=== PATIENT | male | born 1940 | race Caucasian/White ===

== ENCOUNTER 2016-05-27 11:12 | Emergency (ER) | payer OTHER ==
[~2016-05-27] VITALS: Ht 180.3 cm; Wt 109.6 kg
[~2016-05-27 11:12] MED LIST: CHLO0.12 MT; CILO50TA9 PO; CRS20 PO; GLC5 PO; LATA0.009 OPB; LSN/20125 PO; PRLSR20 PO; [UNRECOGNIZED DRUG - OTHER] TD
[2016-05-27 11:19] VITALS: TEMP 36.5; Ht 180.3 cm; Wt 109.6 kg
[2016-05-27] MEDS ORDERED: FLUT0.15 NAE (13:02)
[2016-05-27] MEDS ORDERED: AMLO-110 PO (13:03)
[2016-05-27] MEDS ORDERED: DOXY1TAB6 PO (13:06)
[2016-05-27] MEDS ORDERED: ATOR10TA82 PO (13:07)
[2016-05-27] MEDS ORDERED: [UNRECOGNIZED DRUG - CODE] TOP (13:09)
[2016-05-27] MEDS ORDERED: WARF5TAB7 PO (13:30)
[2016-05-27] MEDS ORDERED: WARF2.5T8 PO (13:30)
--- NOTE | 2016-05-27 13:30 | DIAGNOSTIC IMAGING REPORT ---
ULTRASOUND LEFT LOWER EXTREMITY VENOUS CLINICAL HISTORY: Left thigh cramping. COMPARISON STUDY: No priors. TECHNIQUE: Real-time, grayscale, and color Doppler sonography of the deep veins of the left lower extremity was performed from the inguinal crease to the calf. Compression and augmentation were utilized. FINDINGS: There is no sonographic evidence of deep venous thrombosis identified in the left lower extremity. The common femoral, superficial femoral, and popliteal veins are patent and normally compressible. The greater saphenous vein and the profunda femoris vein at the junction with the common femoral vein are clear. The visualized calf veins are patent. IMPRESSION: There is no sonographic evidence of deep venous thrombosis identified in the left lower extremity. Electronically signed by: Hugo Mtz M.D. 05/27/2016 1:28 PM
[2016-05-27] MEDS ORDERED: INSU1SOL SC (13:33)
--- NOTE | 2016-05-27 13:50 | EMERGENCY ROOM VISIT NOTE ---
ED Visit Note First contact with patient: 12:15 Staff note: I have reviewed the Patients chart and have discussed this case with my PA. I generally agree with the ED note and findings.
[2016-05-27 13:57] VITALS: BP 146/78; PULSE 100; O2SAT 97
--- NOTE | 2016-05-27 20:45 | EMERGENCY ROOM VISIT NOTE ---
History First contact with patient: 12:15 Chief Complaint: LEG PAIN,LEG INJURY Stated Complaint: POSSIBLE BLOOD CLOT L LEG History of Present Illness The patient is a 76 year old male who presents to the Emergency Room with complaints of left posterior thigh pain. The patient reports a prior history of bilateral lower extremity DVT, and is concerned that he has another clot. The patient reports that his last DVT was approximately 4 years ago. He has not had any repeat ultrasound studies since that time. He also reports a history of lower back pain and sciatica. Although he has had recent lower back pain, he does not think that his symptoms are related to sciatica. He denies any recent injury to his left lower extremity or back. He denies any left or extremity weakness, foot drop, saddle paresthesias or bladder/bowel difficulties /incontinence. The patient denies any recent left lower extremity infections. He rates his discomfort a 3 out of 10. The patient reports that he is on Coumadin, and INRs have always been therapeutic. 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 Surgical Problems: (1) History of cataract surgery (2) History of tonsillectomy and adenoidectomy (3) History of vein stripping Family History FH: cancer FH: heart disease FH: hypertension Social History Smoking Status: Never Smoker Alcohol Use: occasionally Drug Use: none Marital Status: Housing Status: lives alone Occupation Status: employed Current/Historical Medications Scheduled Amlodipine (Norvasc), Unknown Dose PO DAILY Atorvastatin (Lipitor), Unknown Dose PO HS Cilostazol (Pletal), 50 MG PO BID Doxycycline Hyclate (Doxycycline Hyclate), Unknown Dose PO HS Fluticasone Propionate (Nasal) (Flonase Allergy Relief), 1 SPRAY SAEID DAILY Hctz/Lisinopril (Zestoretic 20MG/12.5MG), 1 TAB PO DAILY Insulin Regular (Human) (Humulin R U-500 Kwikpen), 125 UNITS SC QAMQPM Latanoprost 0.005% Oph (Xalatan 0.005% Oph), 1 DROP OPB HS Omeprazole (Prilosec), 20 MG PO DAILY Selenium Sulfide-Pyrithione Zi (Selenium Sulfide), 1 APPLN TOP QPM Warfarin Sod (Jantoven), 5 MG PO UD Warfarin Sod (Jantoven), 2.5 MG PO UD Allergies Coded Allergies: Gentamicin (Unverified Allergy, Unknown, ., 05/27/16) Niacin (Verified Allergy, Unknown, unknown, 05/27/16) Sertraline (Unverified Allergy, Unknown, ., 05/27/16) Metformin (Unverified Adverse Reaction, Unknown, ., 05/27/16) HE A VIOLENT REACTION BUT DOESN'T REMEMBER EXACTLY WHAT. THEY TOOK HIM OFF OF IT IMMEDIATELY Silver Sulfadiazine (Verified Adverse Reaction, Unknown, unknown, 05/27/16) Physical Exam Vital Signs Date Time Temp Pulse Resp B/P Pulse Ox O2 Delivery O2 Flow Rate FiO2 05/27/16 13:57 100 20 146/78 97 05/27/16 11:19 36.5 102 20 149/73 94 Room Air Physical Exam CONSTITUTIONAL: Healthy and well nourished. Alert and oriented X 3 with positive affect. Patient does not appear in any acute distress. HEENT: Normocephalic, atraumatic. Pupils equal, round and reactive. NECK: Full active range of motion without discomfort. MUSCULOSKELETAL: Examination of the left actually does not show any obvious soft tissue edema or ecchymosis. Negative logroll. Negative sitting straight leg raise. The patient has no focal tenderness to palpation through the posterior thigh, knee or gastrocnemius. Negative Homans sign. Pedal pulses are intact. No tenderness to palpation through the central lumbar spine or SI joints. INTEGUMENTARY: No rash or other significant dermatologic conditions noted. NEUROLOGIC: Cranial nerves II-XII grossly intact. Left lower extremity is sensory intact. Medical Decision & Procedures ER Provider Diagnostic Interpretation: Venous ultrasound of the left lower extremity does not show any evidence for deep vein thrombosis. Radiologist report is as follows: ULTRASOUND LEFT LOWER EXTREMITY VENOUS CLINICAL HISTORY: Left thigh cramping. COMPARISON STUDY: No priors. TECHNIQUE: Real-time, grayscale, and color Doppler sonography of the deep veins of the left lower extremity was performed from the inguinal crease to the calf. Compression and augmentation were utilized. FINDINGS: There is no sonographic evidence of deep venous thrombosis identified in the left lower extremity. The common femoral, superficial femoral, and popliteal veins are patent and normally compressible. The greater saphenous vein and the profunda femoris vein at the junction with the common femoral vein are clear. The visualized calf veins are patent. IMPRESSION: There is no sonographic evidence of deep venous thrombosis identified in the left lower extremity. ED Course Patient history and physical exam were performed. Nurse's notes were reviewed. The patient refused any analgesics. Venous ultrasound of the left lower extremity is normal. The patient was advised that his symptoms are likely secondary to musculoskeletal etiology, even possibility of left lumbar radiculitis. The patient was encouraged to limit activities over the next several days. He was also encouraged to avoid sitting for long periods of time. The patient usually uses a heating pad for his back. He was encouraged to follow-up with his PCP as needed for any persistent symptoms. The patient was happy with plan of care, voice understanding of all discharge instructions, refused any prescription analgesics, and rated his discomfort a 2 out of 10 at the time of discharge. The patient was also seen and examined by Dr. Guerrero, ED attending physician, who agrees with workup and plan of care. Medical Decision Impression Primary Impression: Left sided sciatica Departure Information Referrals Iris Montano M.D. (PCP) Patient Instructions A Signature Page, My [facility]
[2016-05-28] MEDS ORDERED: DOXYCYCLINE PO (16:23)
[2016-05-28] MEDS ORDERED: ATOR-22 PO (16:23)
[2016-05-28] MEDS ORDERED: LSN/2025 PO (16:23)
[2016-05-28] MEDS ORDERED: PLT100 PO (16:23)
[2016-05-28] MEDS ORDERED: AMLO2.5T PO (16:23)
[2016-05-28] MEDS ORDERED: OXYC1TAB3 PO (16:53)
[2016-05-28] MEDS ORDERED: PRED20TA PO (16:53)
[2016-11-18] MEDS ORDERED: DOXY20TA3 PO (14:38)
[2016-11-18] MEDS ORDERED: ARTIOIN OP (14:38)
[2016-11-18] MEDS ORDERED: VNTHFA/IN INH (14:41)
== END 2016-05-27 13:59 | disposition home or self-care (01) ==
LOC: C.EDB 11:13 → C.EDD 13:59
DX: M54.32 Sciatica, left side (principal); Z86.718 Personal history of other venous thrombosis and embolism; E11.9 Type 2 diabetes mellitus without complications; K21.9 Gastro-esophageal reflux disease without esophagitis; E78.5 Hyperlipidemia, unspecified; I10 Essential (primary) hypertension; Z79.01 Long term (current) use of anticoagulants; Z79.899 Other long term (current) drug therapy; Z79.4 Long term (current) use of insulin

== ENCOUNTER 2016-05-28 13:52 | Emergency (ER) | payer OTHER ==
[~2016-05-28] VITALS: Ht 182.9 cm; Wt 101.9 kg
[~2016-05-28 13:52] MED LIST changes: +AMLO-110 PO; +ATOR10TA82 PO; -CHLO0.12 MT; -CRS20 PO; +DOXY1TAB6 PO; +FLUT0.15 NAE; -GLC5 PO; +INSU1SOL SC; +WARF2.5T8 PO; +WARF5TAB7 PO; +[UNRECOGNIZED DRUG - CODE] TOP; -[UNRECOGNIZED DRUG - OTHER] TD
[2016-05-28 14:02] VITALS: TEMP 36.8; Ht 182.9 cm; Wt 101.9 kg
[2016-05-28] MEDS ORDERED: ONDANSETRON INJ 2 MG/ML 2 ML VIAL IV STA (14:12)
[2016-05-28] MEDS ORDERED: DEXAMETHASONE SOD INJ 10 MG/ML VIAL IV ONE (14:15)
--- NOTE | 2016-05-28 14:15 | EMERGENCY ROOM VISIT NOTE ---
History Report prepared by Wilmer: Terry Guajardo Under the Supervision of: Dr. Mitchell Porter D.O. First contact with patient: 13:53 Chief Complaint: LEG PAIN,LEG INJURY Stated Complaint: LEG PAIN History of Present Illness The patient is a 76 year old male who presents to the Emergency Room with complaints of worsening left leg pain that started prior to arrival this morning. He says the pain is in the back of his leg. The patient was here yesterday and thought he might have had a blood clot in his left leg. He was told it was sciatica. The patient was not in much discomfort yesterday, but today, the pain has worsened and it is now constant. Yesterday, the pain would go away after putting his feet up on a bed, but today, nothing is helping the pain. He associates the leg pain with lower back pain as well. He also has some chills but he is diabetic, and he did not eat much today. The patient denies any nausea, vomiting, abdominal pain, shortness of breath, chest pain, fevers, penis pain, or hematuria. The patient says this current pain feels like sciatica. His last MRI was 4 years ago. The patient has a history of a mini stroke, blood clots, and DVT in both legs. His sugars were 111 this morning. Source of History: patient Onset: Prior to arrival this morning Position: leg (left) Timing: worsening Associated Symptoms: + back pain, + chills, No SOB, No abdominal pain, No chest pain, No fevers, No nausea, No urinary symptoms, No vomiting Note: Associated symptoms: Denies pain in penis. Review of Systems See HPI for pertinent positives & negatives. A total of 10 systems reviewed and were otherwise negative. 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 Surgical Problems: (1) History of cataract surgery (2) History of tonsillectomy and adenoidectomy (3) History of vein stripping Family History FH: cancer FH: heart disease FH: hypertension Social History Smoking Status: Never Smoker Alcohol Use: occasionally Drug Use: none Marital Status: Housing Status: lives alone Occupation Status: employed Current/Historical Medications Scheduled Amlodipine (Norvasc), 2.5 MG PO QAM Atorvastatin (Lipitor), 40 MG PO HS Cilostazol (Cilostazol), 100 MG PO QAM Fluticasone Propionate (Nasal) (Flonase Allergy Relief), 1 SPRAY SAEID DAILY Hctz/Lisinopril (Lisinopril/Hctz 20/25 Mg), 1 TAB PO QAM Insulin Regular (Human) (Humulin R U-500 Kwikpen), 125 UNITS SC QAMQPM Latanoprost 0.005% Oph (Xalatan 0.005% Oph), 1 DROP OPB HS Omeprazole (Prilosec), 20 MG PO DAILY Prednisone (Prednisone), 40 MG PO DAILY Warfarin Sod (Jantoven), 5 MG PO UD Warfarin Sod (Jantoven), 2.5 MG PO UD [Doxycycline], 20 MG PO HS Scheduled PRN Oxycodone Immediate Rel Tab (Roxicodone Ir), 1-2 TAB PO Q4H PRN for Severe Pain Allergies Coded Allergies: Gentamicin (Unverified Allergy, Unknown, ., 05/28/16) Niacin (Verified Allergy, Unknown, unknown, 05/28/16) Sertraline (Unverified Allergy, Unknown, ., 05/28/16) Metformin (Unverified Adverse Reaction, Unknown, ., 05/28/16) HE A VIOLENT REACTION BUT DOESN'T REMEMBER EXACTLY WHAT. THEY TOOK HIM OFF OF IT IMMEDIATELY Silver Sulfadiazine (Verified Adverse Reaction, Unknown, unknown, 05/28/16) Physical Exam Vital Signs Date Time Temp Pulse Resp B/P Pulse Ox O2 Delivery O2 Flow Rate FiO2 05/28/16 17:49 111 20 135/83 94 05/28/16 15:51 97 18 123/70 97 Room Air 05/28/16 14:02 36.8 99 20 122/99 96 Room Air Physical Exam GENERAL: Patient is awake, alert, somewhat anxious and uncomfortable appearing. EYES: The conjunctivae are clear. The pupils are round and reactive. EARS, NOSE, MOUTH AND THROAT: The nose is without any evidence of any deformity. Mucous membranes are moist tongue is midline NECK: The neck is nontender and supple. RESPIRATORY: Normal respiratory effort is noted there is no evidence of wheezing rhonchi or rales CARDIOVASCULAR: Regular rate and rhythm noted there no murmurs rubs or gallops normal S1 normal S2 GASTROINTESTINAL: The abdomen is soft. Bowel sounds are present in all quadrants. Abdomen is nontender BACK: No midline tenderness to palpation. There was pain over left sciatic notch. MUSCULOSKELETAL/EXTREMITIES: There is no evidence of gross deformity full range of motion is noted in the hips and shoulders SKIN: Trace pedal edema bilaterally. NEUROLOGIC: Patient is awake alert and oriented x3 strength is symmetric patellar reflexes are 2+ bilaterally. Achilles tendon reflex was 2+ bilaterally. Great toe raise is symmetric. Gait was antalgic. Medical Decision & Procedures ER Provider Diagnostic Interpretation: X-ray results as stated below per interpretation by me and the radiologist. L-SPINE MIN 4 VIEWS ROUTINE CLINICAL HISTORY: Left sciatic pain. COMPARISON STUDY: No previous studies for comparison. FINDINGS: There are vascular calcifications present. There are no acute lumbar fractures. There are no subluxations. There are degenerative changes most pronounced the L5-S1 level. There are faint calcifications overlying each kidney. These could represent either calculi or vascular calcifications. There is a tubular axial calcification within the right upper quadrant. This possible this relates to the gallbladder. IMPRESSION: 1. No acute fractures or subluxations 2. Degenerative changes most pronounced the L5-S1 level 3. Nonspecific renal calcifications 4. Right upper quadrant eggshell calcification, possibly related to the gallbladder Electronically signed by: Greg Rangel M.D. 05/28/2016 3:21 PM Laboratory Results 05/28/16 14:30 Red Blood Count 4.88, Mean Corpuscular Volume 86.9, Mean Corpuscular Hemoglobin 30.5, Mean Corpuscular Hemoglobin Concent 35.1, Mean Platelet Volume 9.8, Neutrophils (%) (Auto) 72.6, Lymphocytes (%) (Auto) 16.0, Monocytes (%) (Auto) 9.5, Eosinophils (%) (Auto) 1.2, Basophils (%) (Auto) 0.2, Neutrophils # (Auto) 7.27, Lymphocytes # (Auto) 1.60, Monocytes # (Auto) 0.95, Eosinophils # (Auto) 0.12, Basophils # (Auto) 0.02 05/28/16 14:30 Test 1/3/17 14:17 05/28/16 14:30 Urine Color YELLOW Urine Appearance CLEAR (CLEAR) Urine pH 5.0 (4.5-7.5) Urine Specific [place] 1.012 (1.000-1.030) Urine Protein 1+ (NEG) Urine Glucose (UA) NEG (NEG) Urine Ketones NEG (NEG) Urine Occult Blood TRACE (NEG) Urine Nitrite NEG (NEG) Urine Bilirubin NEG (NEG) Urine Urobilinogen NEG (NEG) Urine Leukocyte Esterase NEG (NEG) Urine WBC (Auto) 1-5 /hpf (0-5) Urine RBC (Auto) 0-4 /hpf (0-4) Urine Hyaline Casts (Auto) 1-5 /lpf (0-5) Urine Epithelial Cells (Auto) 5-10 /lpf (0-5) Urine Bacteria (Auto) NEG (NEG) White Blood Count 10.01 K/uL (4.8-10.8) Red Blood Count 4.88 M/uL (4.7-6.1) Hemoglobin 14.9 g/dL (14.0-18.0) Hematocrit 42.4 % (42-52) Mean Corpuscular Volume 86.9 fL (80-100) Mean Corpuscular Hemoglobin 30.5 pg (25-34) Mean Corpuscular Hemoglobin Concent 35.1 g/dl (32-36) Platelet Count 302 K/uL (130-400) Mean Platelet Volume 9.8 fL (7.4-10.4) Neutrophils (%) (Auto) 72.6 % Lymphocytes (%) (Auto) 16.0 % Monocytes (%) (Auto) 9.5 % Eosinophils (%) (Auto) 1.2 % Basophils (%) (Auto) 0.2 % Neutrophils # (Auto) 7.27 K/uL (1.4-6.5) Lymphocytes # (Auto) 1.60 K/uL (1.2-3.4) Monocytes # (Auto) 0.95 K/uL (0.11-0.59) Eosinophils # (Auto) 0.12 K/uL (0-0.5) Basophils # (Auto) 0.02 K/uL (0-0.2) RDW Standard Deviation 44.7 fL (36.4-46.3) RDW Coefficient of Variation 14.1 % (11.5-14.5) Immature Granulocyte % (Auto) 0.5 % Immature Granulocyte # (Auto) 0.05 K/uL (0.00-0.02) Anion Gap 10.0 mmol/L (3-11) Est Creatinine Clear Calc Drug Dose 43.1 ml/min Estimated GFR () 41.4 Estimated GFR (Non- 35.8 BUN/Creatinine Ratio 23.7 (10-20) Calcium Level 9.8 mg/dl (8.5-10.1) Total Bilirubin 0.5 mg/dl (0.2-1) Direct Bilirubin 0.1 mg/dl (0-0.2) Aspartate Amino Transf (AST/SGOT) 19 U/L (15-37) Alanine Aminotransferase (ALT/SGPT) 35 U/L (12-78) Alkaline Phosphatase 76 U/L (45-117) Total Protein 7.8 gm/dl (6.4-8.2) Albumin 3.9 gm/dl (3.4-5.0) Lipase 315 U/L (73-393) Laboratory results per my review. Medications Administered Medications (Trade) Dose Ordered Sig/Austyn Route Start Time Stop Time Status Last Admin Dose Admin Morphine Sulfate (MoRPHine SULFATE INJ) 4 mg Q15M PRN IV 05/28/16 14:15 05/28/16 19:25 DC 05/28/16 16:50 4 MG Dexamethasone Sodium Phosphate 10 mg 10 mg NOW ONCE IV 05/28/16 14:15 05/28/16 14:16 DC 05/28/16 14:51 10 MG Sodium Chloride (Nss 1000ml) 1,000 ml @ 999 mls/hr Q1H1M STAT IV 05/28/16 15:31 05/28/16 16:31 DC 05/28/16 15:49 999 MLS/HR ED Course 1404: The patient was evaluated in room A9B. A complete history and physical examination were performed. 1412: Ordered Zofran Inj 4 mg IV. 1415: Ordered Decadron Inj 10 mg IV, Morphine Sulfate 4 mg IV PRN. 1531: Ordered NSS 1000 ml @ 999 mls/hr IV. 1637: I reevaluated the patient and he is going to get another shot. The patient verbally expressed agreement and understanding of the treatment plan. The patient will be discharged. Medical Decision Differential diagnosis: Etiologies such as musculoskeletal, disc herniation, fracture, aortic disease, metastatic disease, cord compression, discitis, infection, renal colic, gastrointestinal, acute exacerbation of chronic back pain, sciatica, cauda equina, as well as others were entertained. Nursing notes reviewed. The patient is a 76-year-old male who presented to the emergency department for evaluation of low back pain which radiates to his left leg. The patient has complaints of sciatica and has had similar symptoms in the past. I discussed the patient's laboratory and radiographic studies with him. The patient's physical exam did not reveal asymmetry of the reflexes in the lower extremities and his gait was steady. I do not feel that he requires an MRI at this time but he may require an MRI the near future. He was treated with IV pain medicine and IV steroids in the emergency department. On subsequent reevaluation he was feeling much better. He was encouraged to rest and avoid any strenuous activity. He was also encouraged to follow-up with his primary care physician as soon as possible for reevaluation and for possible MRI the back. He was also encouraged to return to the emergency Department immediately if symptoms change worsen or if the need arises. Impression Primary Impression: Left sided sciatica Additional Impression: Low back pain Scribe Attestation The scribe's documentation has been prepared under my direction and personally reviewed by me in its entirety. I confirm that the note above accurately reflects all work, treatment, procedures, and medical decision making performed by me. Departure Information Dispostion Home / Self-Care Prescriptions Oxycodone Immediate Rel Tab (ROXICODONE IR) 5 Mg Tab 1-2 TAB PO Q4H Y for Severe Pain, #24 TAB Prov: Mitchell Porter, DO 05/28/16 Prednisone (Prednisone) 20 Mg Tab 40 MG PO DAILY, #10 TAB Prov: Mitchell Porter, DO 05/28/16 Referrals Iris Montano M.D. (PCP) Forms HOME CARE DOCUMENTATION FORM, IMPORTANT VISIT INFORMATION Patient Instructions A Signature Page, My [facility], Sciatica Additional Instructions Call your family to schedule a follow-up appointment. Rest and avoid any strenuous activity. Continue all medications as prescribed. Discuss the possibility with your family doctor that you may require further studies such as an MRI the back possibly physical therapy if symptoms do not improve. Continue taking Tylenol as directed for mild pain. Consider starting a stomach medication such as Zantac or Prilosec [id number] while your taking the steroids.
[2016-05-28] MEDS: MoRPHine SULFATE 4 MG/ML 1 ML CARP\\VIAL IV PRN ×3 (14:51→16:50)
[2016-05-28 14:53] LABS: BASO % 0.2 %; BASO ABS # 0.02 K/uL (0-0.2); COMPLETE YES; EOS % 1.2 %; HEMATOCRIT 42.4 % (42-52); IG% 0.5 %; MEAN CELL VOLUME 86.9 fL (80-100); MEAN CORPUSCULAR HEMOGLOBIN 30.5 pg (25-34); MEAN CORPUSCULAR HGB CONC 35.1 g/dl (32-36); MEAN PLATELET VOLUME 9.8 fL (7.4-10.4); MONO % 9.5 %; NEUT % 72.6 %; PLATELET COUNT 302 K/uL (130-400); RED BLOOD COUNT 4.88 M/uL (4.7-6.1); WHITE BLOOD COUNT 10.01 K/uL (4.8-10.8)
[2016-05-28 14:57] LABS: URINE APPEARANCE CLEAR (CLEAR); URINE BILIRUBIN NEG (NEG); URINE COLOR YELLOW; URINE NITRITE NEG (NEG); URINE SPECIFIC GRAVITY 1.012 (1.000-1.030); UROBILINOGEN NEG (NEG)
[2016-05-28 15:01] LABS: MANUAL MICROSCOPIC REQUIRED? NO; REVIEW REQ? NO
[2016-05-28 15:18] LABS: BUN/CREATININE RATIO 23.7 (10-20); CALCIUM 9.8 mg/dl (8.5-10.1); CREATININE 1.8 mg/dl (0.60-1.40); POTASSIUM 3.9 mmol/L (3.5-5.1)
--- NOTE | 2016-05-28 15:23 | DIAGNOSTIC IMAGING REPORT ---
L-SPINE MIN 4 VIEWS ROUTINE CLINICAL HISTORY: Left sciatic pain. COMPARISON STUDY: No previous studies for comparison. FINDINGS: There are vascular calcifications present. There are no acute lumbar fractures. There are no subluxations. There are degenerative changes most pronounced the L5-S1 level. There are faint calcifications overlying each kidney. These could represent either calculi or vascular calcifications. There is a tubular axial calcification within the right upper quadrant. This possible this relates to the gallbladder. IMPRESSION: 1. No acute fractures or subluxations 2. Degenerative changes most pronounced the L5-S1 level 3. Nonspecific renal calcifications 4. Right upper quadrant eggshell calcification, possibly related to the gallbladder Electronically signed by: Greg Rangel M.D. 05/28/2016 3:21 PM
[2016-05-28] MEDS ORDERED: SODIUM CHLORIDE 0.9% 1000ML 1,000 ML IV STA (15:31)
[2016-05-28] MEDS ORDERED: ATOR-22 PO (16:23)
[2016-05-28] MEDS ORDERED: AMLO2.5T PO (16:23)
[2016-05-28] MEDS ORDERED: LSN/2025 PO (16:23)
[2016-05-28] MEDS ORDERED: PLT100 PO (16:23)
[2016-05-28] MEDS ORDERED: DOXYCYCLINE PO (16:23)
[2016-05-28] MEDS ORDERED: PRED20TA PO (16:53)
[2016-05-28] MEDS ORDERED: OXYC1TAB3 PO (16:53)
[2016-05-28 17:49] VITALS: BP 135/83; PULSE 111; O2SAT 94
[2016-11-18] MEDS ORDERED: ARTIOIN OP (14:38)
[2016-11-18] MEDS ORDERED: DOXY20TA3 PO (14:38)
[2016-11-18] MEDS ORDERED: VNTHFA/IN INH (14:41)
== END 2016-05-28 17:52 | disposition home or self-care (01) ==
LOC: EDBD 13:52 → C.EDA 13:53
DX: M54.42 Lumbago with sciatica, left side (principal); I10 Essential (primary) hypertension; E11.9 Type 2 diabetes mellitus without complications; E78.5 Hyperlipidemia, unspecified; I73.9 Peripheral vascular disease, unspecified; K21.9 Gastro-esophageal reflux disease without esophagitis; Z86.73 Personal history of transient ischemic attack (TIA), and cerebral infarction without residual deficits; Z86.711 Personal history of pulmonary embolism; Z86.718 Personal history of other venous thrombosis and embolism; Z79.01 Long term (current) use of anticoagulants; Z79.4 Long term (current) use of insulin; Z79.52 Long term (current) use of systemic steroids; Z79.899 Other long term (current) drug therapy

== ENCOUNTER → 2016-11-28 | Day surgery (SDC) | payer OTHER ==
[2016-11-18 14:39] VITALS: BMI 34.0
[~2016-11-28] VITALS: Ht 180.3 cm; Wt 109.1 kg
[~2016-11-28] MED LIST changes: -AMLO-110 PO; +AMLO2.5T PO; +ARTIOIN OP; +ATOR-22 PO; -ATOR10TA82 PO; -CILO50TA9 PO; -DOXY1TAB6 PO; +DOXY20TA3 PO; -LSN/20125 PO; +LSN/2025 PO; +PLT100 PO; +SODIUM CHLORIDE 0.9% 500ML 500 ML IV ONE; +VNTHFA/IN INH; -[UNRECOGNIZED DRUG - CODE] TOP
[2016-11-28 12:39] VITALS: Ht 180.3 cm; Wt 109.1 kg
--- NOTE | 2016-11-28 13:31 | Endo History and Physical ---
History & Physical Date of Service: Nov 28, 2016. Chief Complaint: BARRETTS ESOPHAGUS, HX POLYPS Referring Physician: DR KING KHAN History of Present Illness HX BE and polyps in colon; prior exams at [place] Past Surgical History Hx Cardiac Surgery: No Hx Internal Defibrillator: No Hx Pacemaker: No Hx Abdominal Surgery: No Hx of Implantable Prosthesis: No Hx Post-Op Nausea and Vomiting: No Hx Cancer Surgery: No Hx Thoracic Surgery: No Hx Orthopedic: No Hx Urinary Tract Surgery: No Family History None Social History Smoking Status: Never Smoker Hx Substance Use: No Hx Alcohol Use: Yes (RARE- 3 BEERS / YEAR) Allergies Coded Allergies: Gentamicin (Verified Allergy, Unknown, UNKNOWN, 11/28/16) Niacin (Verified Allergy, Unknown, unknown, 11/18/16) Sertraline (Verified Allergy, Unknown, JITTERRY, 11/28/16) Metformin (Verified Adverse Reaction, Unknown, ., 11/28/16) HE A VIOLENT REACTION BUT DOESN'T REMEMBER EXACTLY WHAT. THEY TOOK HIM OFF OF IT IMMEDIATELY Silver Sulfadiazine (Verified Adverse Reaction, Unknown, unknown, 11/18/16) Current Medications Reported Home Medications Medications Dose Route/Sig Max Daily Dose Days Date Category Dose Instructions Ventolin Hfa (Albuterol) 200 Puffs/18203 Mcg Aers 2-4 Puffs INH Q6H PRN 11/18/16 Reported Lacri-Lube Sop Oph Oint (Artificial Tears) Oint 0.25-0.5 Inch OP QID 11/18/16 Reported TO THE AFFECTED EYE UP TO QID PRN Doxycycline Hyclate 20 Mg Tab 20 Mg PO DINNER 11/18/16 Reported Lipitor (Atorvastatin Calcium) 20 Mg Tab 40 Mg PO HS 05/28/16 Reported Lisinopril/Hctz 20/25 Mg (HCTZ/Lisinopril) 1 Ea Tab 1 Tab PO QAM 05/28/16 Reported Norvasc (Amlodipine Besylate) 2.5 Mg Tab 2.5 Mg PO QAM 05/28/16 Reported Cilostazol 100 Mg Tab 100 Mg PO BID 05/28/16 Reported Humulin R U-500 Kwikpen (Insulin Regular (Human)) 500 Unit/Ml Jerri 125 Units SC QAMQPM 05/27/16 Reported Jantoven (Warfarin Sodium) 2.5 Mg Tab 2.5 Mg PO UD 05/27/16 Reported TAKE 2.5 MG ON MON, WED, FRI Jantoven (Warfarin Sodium) 5 Mg Tab 5 Mg PO UD 05/27/16 Reported TAKE 5 MG ON , , FRI , SUN Flonase Allergy Relief (Fluticasone Propionate (Nasal)) 50 Mcg/Act Spr 1 Beattie SAEID DAILY 05/27/16 Reported Xalatan 0.005% Oph (Latanoprost) Soln 1 Drop OPB HS 11/10/11 Reported BOTH EYES Prilosec (Omeprazole) 20 Mg Capcr 20 Mg PO QAM 11/10/11 Reported Vital Signs Weight (Kilograms): 109.09 Height (Feet): 5 Height (Inches): 11 Date Time Temp Pulse Resp B/P (MAP) Pulse Ox O2 Delivery O2 Flow Rate FiO2 11/28/16 12:38 36.6 107 20 175/78 (110) 97 Room Air Physical Exam AAOx3 Nls1s2 Lungs CTA Abd soft NT/ND + BS - CCE Plan: ) EGD /colon today On Coumadin for DVT Assessment and Plan EGD/colon todayt
--- NOTE | 2016-11-28 14:42 | Discharge Instructions ---
Endoscopy Patient Instructions Date / Procedure(s) Performed Nov 28, 2016. Colonoscopy, EGD Allergy Information Coded Allergies: Gentamicin (Verified Allergy, Unknown, UNKNOWN, 11/28/16) Niacin (Verified Allergy, Unknown, unknown, 11/18/16) Sertraline (Verified Allergy, Unknown, JITTERRY, 11/28/16) Metformin (Verified Adverse Reaction, Unknown, ., 11/28/16) HE A VIOLENT REACTION BUT DOESN'T REMEMBER EXACTLY WHAT. THEY TOOK HIM OFF OF IT IMMEDIATELY Silver Sulfadiazine (Verified Adverse Reaction, Unknown, unknown, 11/18/16) Discharge Date / Findings Nov 28, 2016. EGD with polyps reonved and Bx for BE 20 colon with polyps/clips Medication Instructions Stopped Medication(s): COUMADIN LAST DOSE 11/27/16 Restart Stopped Medication(s): Reported Home Medications Medications Dose Route/Sig Max Daily Dose Days Date Category Dose Instructions Ventolin Hfa (Albuterol) 200 Puffs/38461 Mcg Aers 2-4 Puffs INH Q6H PRN 11/18/16 Reported Lacri-Lube Sop Oph Oint (Artificial Tears) Oint 0.25-0.5 Inch OP QID 11/18/16 Reported TO THE AFFECTED EYE UP TO QID PRN Doxycycline Hyclate 20 Mg Tab 20 Mg PO DINNER 11/18/16 Reported Lipitor (Atorvastatin Calcium) 20 Mg Tab 40 Mg PO HS 05/28/16 Reported Lisinopril/Hctz 20/25 Mg (HCTZ/Lisinopril) 1 Ea Tab 1 Tab PO QAM 05/28/16 Reported Norvasc (Amlodipine Besylate) 2.5 Mg Tab 2.5 Mg PO QAM 05/28/16 Reported Cilostazol 100 Mg Tab 100 Mg PO BID 05/28/16 Reported Humulin R U-500 Kwikpen (Insulin Regular (Human)) 500 Unit/Ml Jerri 125 Units SC QAMQPM 05/27/16 Reported Jantoven (Warfarin Sodium) 2.5 Mg Tab 2.5 Mg PO UD 05/27/16 Reported TAKE 2.5 MG ON MON, WED, FRI Jantoven (Warfarin Sodium) 5 Mg Tab 5 Mg PO UD 05/27/16 Reported TAKE 5 MG ON TU, THURS, SAT , SUN Flonase Allergy Relief (Fluticasone Propionate (Nasal)) 50 Mcg/Act Spr 1 [place] SAEID DAILY 05/27/16 Reported Xalatan 0.005% Oph (Latanoprost) Soln 1 Drop OPB HS 11/10/11 Reported BOTH EYES Prilosec (Omeprazole) 20 Mg Capcr 20 Mg PO QAM 11/10/11 Reported 1- begin Coumadin tonight; restart Lovenox tomorrow evening Reported Home Medications Medications Dose Route/Sig Max Daily Dose Days Date Category Dose Instructions Ventolin Hfa (Albuterol) 200 Puffs/88414 Mcg Aers 2-4 Puffs INH Q6H PRN 11/18/16 Reported Lacri-Lube Sop Oph Oint (Artificial Tears) Oint 0.25-0.5 Inch OP QID 11/18/16 Reported TO THE AFFECTED EYE UP TO QID PRN Doxycycline Hyclate 20 Mg Tab 20 Mg PO DINNER 11/18/16 Reported Lipitor (Atorvastatin Calcium) 20 Mg Tab 40 Mg PO HS 05/28/16 Reported Lisinopril/Hctz 20/25 Mg (HCTZ/Lisinopril) 1 Ea Tab 1 Tab PO QAM 05/28/16 Reported Norvasc (Amlodipine Besylate) 2.5 Mg Tab 2.5 Mg PO QAM 05/28/16 Reported Cilostazol 100 Mg Tab 100 Mg PO BID 05/28/16 Reported Humulin R U-500 Kwikpen (Insulin Regular (Human)) 500 Unit/Ml Jerri 125 Units SC QAMQPM 05/27/16 Reported Jantoven (Warfarin Sodium) 2.5 Mg Tab 2.5 Mg PO UD 05/27/16 Reported TAKE 2.5 MG ON MON, WED, FRI Jantoven (Warfarin Sodium) 5 Mg Tab 5 Mg PO UD 05/27/16 Reported TAKE 5 MG ON , TH, SAT , SUN Flonase Allergy Relief (Fluticasone Propionate (Nasal)) 50 Mcg/Act Spr 1 [place] SAEID DAILY 05/27/16 Reported Xalatan 0.005% Oph (Latanoprost) Soln 1 Drop OPB HS 11/10/11 Reported BOTH EYES Prilosec (Omeprazole) 20 Mg Capcr 20 Mg PO QAM 11/10/11 Reported 1- begin Coumadin tonight; restart Lovenox tomorrow evening Provider Instructions Activity Restrictions - No exercising or heavy lifting for 24 hours. - Do not drink alcohol the day of the procedure. - Do not drive a car or operate machinery until the day after the procedure. - Do not make any important decisions or sign important papers in 24 hours after the procedure. Following Day: - Return to full activity which may include returning to work/school. Diet Start your diet with liquids and light foods (jello, soup, juice, toast). Then eat your usual diet if not nauseated. Treatment For Common After Affects For mild abdominal pain, bloating, or excessive gas: - Rest - Eat lightly - Lie on right side Follow-Up Information Follow-up with DR KING KHAN as scheduled Anesthesia Information What You Should Know You have had a procedure that required some medicine to reduce anxiety and discomfort. This treatment is called moderate sedation. After receiving the treatment, you may be sleepy, but you will be able to breathe on your own. The effects of the treatment may last for several hours. Follow these instructions along with Activity/Diet recommendations noted above: * Do NOT do anything where dizziness or clumsiness would be dangerous. * Rest quietly at home today, then you can be up and about tomorrow. * Have a responsible person stay with you the rest of today. * You may have had an I.V. today. If so, you may take the dressing off later today. Recommendations Call your doctor if: * Trouble breathing * Continuous vomiting for more than 24 hours * Temperature above 101 degrees * Severe abdominal pain or bloating * Pain not relieved by pain medicine ordered * There is increased drainage or redness from any incision * A large amount of rectal bleeding greater than 2-3 tablespoons. (If you had a polyp/s removed or have hemorrhoids, a small amount of blood - from the rectum is to be expected.) * You have any unanswered questions or concerns. IN THE EVENT OF A SERIOUS EMERGENCY, GO TO THE NEAREST EMERGENCY ROOM Your discharge instructions were prepared by provider Bryant Puentes. Patient Instructions Signature Page Edaur Boyer Patient (or Guardian) Signature/Date: I have read and understand the instructions given to me by my caregivers. Caregiver/RN/Doctor Signature/Date: The above-named patient and/or guardian has received patient instructions on this date. + Original Patient Signature Page (only) stays with chart. Please make copy for patient.
--- NOTE | 2016-11-28 15:06 | GI REPORT ---
Procedure Date: 11/28/2016 12:52 PM Procedure: Upper GI endoscopy Indications: Francois's esophagus Medicines: Propofol per Anesthesia Complications: No immediate complications. Estimated blood loss: None. Estimated Blood Loss: Estimated blood loss: none. Procedure: Pre-Anesthesia Assessment: - Prior to the procedure, a History and Physical was performed, and patient medications and allergies were reviewed. The patient's tolerance of previous anesthesia was also reviewed. The risks and benefits of the procedure and the sedation options and risks were discussed with the patient. All questions were answered, and informed consent was obtained. Prior Anticoagulants: The patient has taken no previous anticoagulant or antiplatelet agents. ASA Grade Assessment: III - A patient with severe systemic disease. After reviewing the risks and benefits, the patient was deemed in satisfactory condition to undergo the procedure. After obtaining informed consent, the endoscope was passed under direct vision. Throughout the procedure, the patient's blood pressure, pulse, and oxygen saturations were monitored continuously. The scope was introduced through the mouth, and advanced to the third part of duodenum. The upper GI endoscopy was accomplished without difficulty. The patient tolerated the procedure well. Findings: The upper third of the esophagus and middle third of the esophagus were normal. The esophagus and gastroesophageal junction were examined with white light. 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 These changes involved the mucosa at the upper extent of the gastric folds (44 cm from the incisors) extending to the Z-line (43 cm from the incisors). Hiatal narrowing was identified at 45 cm. The maximum longitudinal extent of these esophageal mucosal changes was 1 cm in length. Mucosa was biopsied with a cold forceps for histology. Estimated blood loss was minimal. Verification of patient identification for the specimen was done by the physician and zoning technician using the patient's name and medical record number. One 20 mm pedunculated polyp with no bleeding and no stigmata of recent bleeding was found on the greater curvature of the stomach. Area was successfully injected with 5 mL of a 1:20,000 solution of epinephrine for a lift polypectomy. The polyp was removed with a hot snare. Resection and retrieval were complete. To prevent bleeding after the polypectomy, two hemostatic clips were successfully placed (MR conditional). There was no bleeding during, and at the end, of the procedure. A single 15 mm pedunculated and sessile polyp with no bleeding and no stigmata of recent bleeding was found on the proximal greater curvature of the gastric body. Area was successfully injected with 2 mL of a 1:20,000 solution of epinephrine for a lift polypectomy. The polyp was removed with a hot snare. Resection and retrieval were complete. To prevent bleeding after the polypectomy, two hemostatic clips were successfully placed (MR conditional). There was no bleeding during, and at the end, of the procedure. The exam of the stomach was otherwise normal. The examined duodenum was normal. Retained gastric contents are not identified on this exam. Impression: - Normal upper third of esophagus and middle third of esophagus. 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 Biopsied. - One gastric polyp. Resected and retrieved. Injected. Clips (MR conditional) were placed. - A single gastric polyp. Resected and retrieved. Injected. Clips (MR conditional) were placed. - Normal examined duodenum. Recommendation: - Discharge patient to home (ambulatory). - Resume regular diet. MD Bryant Wren MD 11/28/2016 3:05:19 PM This report has been signed electronically. Note Initiated On: 11/28/2016 12:52 PM I attest to the content of the Intraoperative Record and orders documented therein, exceptions below
--- NOTE | 2016-11-28 15:14 | GI REPORT ---
Procedure Date: 11/28/2016 2:13 PM Procedure: Colonoscopy Indications: High risk colon cancer surveillance: Personal history of colonic polyps Medicines: Propofol per Anesthesia Complications: No immediate complications. Estimated blood loss: Minimal. Estimated Blood Loss: Estimated blood loss was minimal. Procedure: Pre-Anesthesia Assessment: - Prior to the procedure, a History and Physical was performed, and patient medications and allergies were reviewed. The patient's tolerance of previous anesthesia was also reviewed. The risks and benefits of the procedure and the sedation options and risks were discussed with the patient. All questions were answered, and informed consent was obtained. Prior Anticoagulants: The patient has taken no previous anticoagulant or antiplatelet agents. ASA Grade Assessment: III - A patient with severe systemic disease. After reviewing the risks and benefits, the patient was deemed in satisfactory condition to undergo the procedure. After I obtained informed consent, the scope was passed under direct vision. Throughout the procedure, the patient's blood pressure, pulse, and oxygen saturations were monitored continuously. The scope was introduced through the anus and advanced to the cecum, identified by appendiceal orifice and ileocecal valve. The colonoscopy was performed without difficulty. The patient tolerated the procedure well. The quality of the bowel preparation was good. Findings: The perianal and digital rectal examinations were normal. Pertinent negatives include normal sphincter tone, no palpable rectal lesions and no anal lesion or abnormality was detected. Many small-mouthed diverticula were found in the sigmoid colon. A 6 mm polyp was found in the transverse colon. The polyp was sessile. The polyp was removed with a hot snare. Resection and retrieval were complete. To prevent bleeding after the polypectomy, one hemostatic clip was successfully placed (MR conditional). There was no bleeding during, and at the end, of the procedure. A 5 mm polyp was found in the proximal transverse colon. The polyp was sessile. The polyp was removed with a hot snare. Resection and retrieval were complete. Estimated blood loss: none. Verification of patient identification for the specimen was done by the physician and global position system technician using the patient's name and medical record number. Three sessile polyps were found in the cecum. The polyps were 1 to 3 mm in size. These polyps were removed with a cold biopsy forceps. Resection and retrieval were complete. Estimated blood loss was minimal. Verification of patient identification for the specimen was done by the physician and global position system technician using the patient's name and medical record number. A 3 mm polyp was found in the cecum. The polyp was sessile. The polyp was removed with a cold biopsy forceps. Resection and retrieval were complete. Estimated blood loss was minimal. Verification of patient identification for the specimen was done by the physician and global position system technician using the patient's name and medical record number. The exam was otherwise without abnormality. Non-bleeding internal hemorrhoids were found during retroflexion. The hemorrhoids were moderate and medium-sized. Impression: - Diverticulosis in the sigmoid colon. - One 6 mm polyp in the transverse colon, removed with a hot snare. Resected and retrieved. Clip (MR conditional) was placed. - One 5 mm polyp in the proximal transverse colon, removed with a hot snare. Resected and retrieved. - Three 1 to 3 mm polyps in the cecum, removed with a cold biopsy forceps. Resected and retrieved. - One 3 mm polyp in the cecum, removed with a cold biopsy forceps. Resected and retrieved. - The examination was otherwise normal. - Non-bleeding internal hemorrhoids. Recommendation: - Discharge patient to home (ambulatory). - Patient has a contact number available for emergencies. The signs and symptoms of potential delayed complications were discussed with the patient. Return to normal activities tomorrow. Written discharge instructions were provided to the patient. - Resume regular diet. - Continue present medications. - Await pathology results. - Return to referring physician as previously scheduled. MD Bryant Wren MD 11/28/2016 3:14:17 PM This report has been signed electronically. Note Initiated On: 11/28/2016 2:13 PM I attest to the content of the Intraoperative Record and orders documented therein, exceptions below
[2016-11-28 15:18] VITALS: BP 134/78; PULSE 85; O2SAT 94
--- NOTE | 2016-11-28 15:33 | Anesthesiology Progress Note ---
Anesthesia Post Op Note Date & Time Nov 28, 2016 at 15:33 Vital Signs Pain Intensity: 0 Vital Signs Past 12 Hours Date Time Temp Pulse Resp B/P (MAP) Pulse Ox O2 Delivery O2 Flow Rate FiO2 11/28/16 15:18 85 20 134/78 (96) 94 Room Air 11/28/16 15:03 87 20 138/72 (94) 94 Room Air 11/28/16 14:48 89 20 143/67 (92) 94 Room Air 11/28/16 12:38 36.6 107 20 175/78 (110) 97 Room Air Notes Mental Status: alert / awake / arousable, participated in evaluation Pt Amnestic to Procedure: Yes Nausea / Vomiting: adequately controlled Pain: adequately controlled Airway Patency, RR, SpO2: stable & adequate BP & HR: stable & adequate Hydration State: stable & adequate Anesthetic Complications: no major complications apparent
--- NOTE | 2016-11-28 16:51 | Discharge Instructions ---
Endoscopy Patient Instructions Date / Procedure(s) Performed Nov 28, 2016. Colonoscopy, EGD Allergy Information Coded Allergies: Gentamicin (Verified Allergy, Unknown, UNKNOWN, 11/28/16) Niacin (Verified Allergy, Unknown, unknown, 11/18/16) Sertraline (Verified Allergy, Unknown, JITTERRY, 11/28/16) Metformin (Verified Adverse Reaction, Unknown, ., 11/28/16) HE A VIOLENT REACTION BUT DOESN'T REMEMBER EXACTLY WHAT. THEY TOOK HIM OFF OF IT IMMEDIATELY Silver Sulfadiazine (Verified Adverse Reaction, Unknown, unknown, 11/18/16) Discharge Date / Findings Nov 28, 2016. 1) mild portal hypertensive gastropathy 20 colonoscopy with hemorrhoids/diverticulosis Medication Instructions Stopped Medication(s): COUMADIN LAST DOSE 11/27/16 Restart Stopped Medication(s): Reported Home Medications Medications Dose Route/Sig Max Daily Dose Days Date Category Dose Instructions Ventolin Hfa (Albuterol) 200 Puffs/54920 Mcg Aers 2-4 Puffs INH Q6H PRN 11/18/16 Reported Lacri-Lube Sop Oph Oint (Artificial Tears) Oint 0.25-0.5 Inch OP QID 11/18/16 Reported TO THE AFFECTED EYE UP TO QID PRN Doxycycline Hyclate 20 Mg Tab 20 Mg PO DINNER 11/18/16 Reported Lipitor (Atorvastatin Calcium) 20 Mg Tab 40 Mg PO HS 05/28/16 Reported Lisinopril/Hctz 20/25 Mg (HCTZ/Lisinopril) 1 Ea Tab 1 Tab PO QAM 05/28/16 Reported Norvasc (Amlodipine Besylate) 2.5 Mg Tab 2.5 Mg PO QAM 05/28/16 Reported Cilostazol 100 Mg Tab 100 Mg PO BID 05/28/16 Reported Humulin R U-500 Kwikpen (Insulin Regular (Human)) 500 Unit/Ml Jerri 125 Units SC QAMQPM 05/27/16 Reported Jantoven (Warfarin Sodium) 2.5 Mg Tab 2.5 Mg PO UD 05/27/16 Reported TAKE 2.5 MG ON MON, WED, FRI Jantoven (Warfarin Sodium) 5 Mg Tab 5 Mg PO UD 05/27/16 Reported TAKE 5 MG ON TU, THURS, SAT , SUN Flonase Allergy Relief (Fluticasone Propionate (Nasal)) 50 Mcg/Act Spr 1 [place] SAEID DAILY 05/27/16 Reported Xalatan 0.005% Oph (Latanoprost) Soln 1 Drop OPB HS 11/10/11 Reported BOTH EYES Prilosec (Omeprazole) 20 Mg Capcr 20 Mg PO QAM 11/10/11 Reported restart Coumadin today and Lovenox tomorrow am Reported Home Medications Medications Dose Route/Sig Max Daily Dose Days Date Category Dose Instructions Ventolin Hfa (Albuterol) 200 Puffs/16634 Mcg Aers 2-4 Puffs INH Q6H PRN 11/18/16 Reported Lacri-Lube Sop Oph Oint (Artificial Tears) Oint 0.25-0.5 Inch OP QID 11/18/16 Reported TO THE AFFECTED EYE UP TO QID PRN Doxycycline Hyclate 20 Mg Tab 20 Mg PO DINNER 11/18/16 Reported Lipitor (Atorvastatin Calcium) 20 Mg Tab 40 Mg PO HS 05/28/16 Reported Lisinopril/Hctz 20/25 Mg (HCTZ/Lisinopril) 1 Ea Tab 1 Tab PO QAM 05/28/16 Reported Norvasc (Amlodipine Besylate) 2.5 Mg Tab 2.5 Mg PO QAM 05/28/16 Reported Cilostazol 100 Mg Tab 100 Mg PO BID 05/28/16 Reported Humulin R U-500 Kwikpen (Insulin Regular (Human)) 500 Unit/Ml Jerri 125 Units SC QAMQPM 05/27/16 Reported Jantoven (Warfarin Sodium) 2.5 Mg Tab 2.5 Mg PO UD 05/27/16 Reported TAKE 2.5 MG ON MON, WED, FRI Jantoven (Warfarin Sodium) 5 Mg Tab 5 Mg PO UD 05/27/16 Reported TAKE 5 MG ON , TH, SAT , SUN Flonase Allergy Relief (Fluticasone Propionate (Nasal)) 50 Mcg/Act Spr 1 [place] SAEID DAILY 05/27/16 Reported Xalatan 0.005% Oph (Latanoprost) Soln 1 Drop OPB HS 11/10/11 Reported BOTH EYES Prilosec (Omeprazole) 20 Mg Capcr 20 Mg PO QAM 11/10/11 Reported restart Coumadin tonight and Lovenox tomorrow am Provider Instructions Activity Restrictions - No exercising or heavy lifting for 24 hours. - Do not drink alcohol the day of the procedure. - Do not drive a car or operate machinery until the day after the procedure. - Do not make any important decisions or sign important papers in 24 hours after the procedure. Following Day: - Return to full activity which may include returning to work/school. Diet Start your diet with liquids and light foods (jello, soup, juice, toast). Then eat your usual diet if not nauseated. Treatment For Common After Affects For mild abdominal pain, bloating, or excessive gas: - Rest - Eat lightly - Lie on right side Follow-Up Information Follow-up with DR KING KHAN as scheduled Anesthesia Information What You Should Know You have had a procedure that required some medicine to reduce anxiety and discomfort. This treatment is called moderate sedation. After receiving the treatment, you may be sleepy, but you will be able to breathe on your own. The effects of the treatment may last for several hours. Follow these instructions along with Activity/Diet recommendations noted above: * Do NOT do anything where dizziness or clumsiness would be dangerous. * Rest quietly at home today, then you can be up and about tomorrow. * Have a responsible person stay with you the rest of today. * You may have had an I.V. today. If so, you may take the dressing off later today. Recommendations Call your doctor if: * Trouble breathing * Continuous vomiting for more than 24 hours * Temperature above 101 degrees * Severe abdominal pain or bloating * Pain not relieved by pain medicine ordered * There is increased drainage or redness from any incision * A large amount of rectal bleeding greater than 2-3 tablespoons. (If you had a polyp/s removed or have hemorrhoids, a small amount of blood - from the rectum is to be expected.) * You have any unanswered questions or concerns. IN THE EVENT OF A SERIOUS EMERGENCY, GO TO THE NEAREST EMERGENCY ROOM Your discharge instructions were prepared by provider Bryant Puentes. Patient Instructions Signature Page Eduar Boyer Patient (or Guardian) Signature/Date: I have read and understand the instructions given to me by my caregivers. Caregiver/RN/Doctor Signature/Date: The above-named patient and/or guardian has received patient instructions on this date. + Original Patient Signature Page (only) stays with chart. Please make copy for patient.
== END | disposition home or self-care (01) ==
LOC: C.GI 12:13
PROVIDERS: ATTEND Internal Medicine Gastroenterology
DX: Z12.11 Encounter for screening for malignant neoplasm of colon (principal); K22.70 Barrett's esophagus without dysplasia; K57.30 Diverticulosis of large intestine without perforation or abscess without bleeding; D12.3 Benign neoplasm of transverse colon; D12.0 Benign neoplasm of cecum; K64.8 Other hemorrhoids; K31.7 Polyp of stomach and duodenum; Z86.010 Personal history of colon polyps; J45.909 Unspecified asthma, uncomplicated; I10 Essential (primary) hypertension; Z86.718 Personal history of other venous thrombosis and embolism; Z86.73 Personal history of transient ischemic attack (TIA), and cerebral infarction without residual deficits; E11.9 Type 2 diabetes mellitus without complications

== ENCOUNTER 2019-12-10 04:14 | Inpatient (IN) ==
[2019-12-10] MEDS ORDERED: DEXTROSE 50% 50 ML SYRINGE IV ONE (04:27)
[2019-12-10] MEDS ORDERED: HYDROmorphone INJ 0.5 MG/0.5 ML SYR IV PRN (04:27)
[2019-12-10] MEDS ORDERED: ACETAMINOPHEN 1,000 MG/100 ML VIAL IV STA (04:27)
[2019-12-10] MEDS ORDERED: SODIUM CHLORIDE 0.9% 1000ML 500 ML IV ONE (04:28)
[2019-12-10] MEDS ORDERED: ONDANSETRON INJ 2 MG/ML 2 ML VIAL IV STA (04:28)
[2019-12-10 04:35] LABS: Basophils # (auto) 0.03 K/uL (0-0.2); Basophils % (auto) 0.2 %; Eosinophils # (auto) 0.04 K/uL (0-0.5); Eosinophils % (auto) 0.2 %; Hematocrit (blood only) 38.9 % (42-52); Immature Granulocytes # (auto) 0.08 K/uL (0.00-0.02); Immature Granulocytes % (auto) 0.4 %; Lymphocytes # (auto) 0.86 K/uL (1.2-3.4); Lymphocytes % (auto) 4.8 %; Mean Corpuscular Hemoglobin 28.8 pg (25-34); Mean Corpuscular Hgb Conc 33.4 g/dL (32-36); Mean Corpuscular Volume 86.3 fL (80-100); Mean Platelet Volume 8.9 fL (7.4-10.4); Monocytes # (auto) 1.99 K/uL (0.11-0.59); Monocytes % (auto) 11.1 %; Neutrophils # (auto) 14.88 K/uL (1.4-6.5); Neutrophils % (auto) 83.3 %; Platelet Count 387 K/uL (130-400); RDW Coefficient of Variation 14.3 % (11.5-14.5); RDW Standard Deviation 44.9 fL (36.4-46.3); Red Blood Count 4.51 M/uL (4.7-6.1); White Blood Count 17.88 K/uL (4.8-10.8)
[2019-12-10 05:08] LABS: Albumin Globulin Ratio 0.8 (0.9-2); Albumin Level 3.7 gm/dl (3.4-5.0); BUN Creatinine Ratio 17.7 (10-20); Bilirubin,Total 0.5 mg/dl (0.2-1); Calcium 9.5 mg/dl (8.5-10.1); Creatinine Clr Calc Pharmacy 35.8 ml/min; Est GFR (African American) 33.7; Est GFR (Non-African American) 29.1; Globulin 4.5 gm/dl (2.5-4.0); Potassium 3.4 mmol/L (3.5-5.1); Thyroid Stimulating Hormone 1.71 uIu/ml (0.300-4.500); Total Protein 8.2 gm/dl (6.4-8.2)
[2019-12-10] MEDS ORDERED: SODIUM CHLORIDE 0.9% 500 ML IV ONE (05:35)
[2019-12-10] MEDS ORDERED: POTASSIUM CHLORIDE 20 MEQ TABCR PO STA (05:35)
[2019-12-10] MEDS ORDERED: VANCOMYCIN CONSULT ACTIVE PRN (05:40)
[2019-12-10] MEDS ORDERED: VANCOMYCIN HCL 2,250 MG in SODIUM CHLORIDE 0.9% 500 ML IV ONE (05:40)
[2019-12-10] MEDS ORDERED: cefTRIAXone SODIUM 2,000 MG/70 ML BAG IV STA (05:40)
[2019-12-10] MEDS ORDERED: NYSTATIN POWDER 15GM BTL EXT STA (05:40)
--- NOTE | 2019-12-10 05:53 | Emergency Department Note ---
History of Present Illness General Chief complaint: Leg Injury/Pain Stated complaint: LEG PAIN/HYPOGLYCEMIA Time Seen by Provider: 12/10/19 04:16 Source: patient, EMS, RN notes reviewed and old records reviewed Mode of arrival: ambulatory History of Present Illness Provider complaint: leg pain, hypoglycemia Onset (ago): hour(s) 2 Location: pelvis Radiation: extremity Severity: moderate Pain Consistency: + colicky Maximum Pain Intensity: 2 Current Pain Intensity: 2 Quality: + aching Relieved By: + immobilization Exacerbated By: + movement Associated symptoms: + confusion, + diaphoresis and + nausea/vomiting Treatments prior to arrival: none This is a 79-year-old male who presents emergency department complaining of nausea as well as left leg pain. The patient reports he is having difficulty ambulating due to the left leg. He reports the leg feels weak due to pain. 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 He denies any lifting or injury to the leg. He reports immobilization makes the pain better however movement makes the pain worse. He has not taken anything for the pain prior to arrival. In addition to the pain the patient is also complaining of a rash to his groin area. In addition to this he is also complaining of weakness. His sugar upon arrival to the emergency department is in the 30s. He is been complaining of night sweats in addition to the rash. Home Medications Home Medications Medication Instructions Recorded Confirmed Type latanoprost [Xalatan] 1 drp OPB HS #0 11/10/11 12/10/19 History omeprazole magnesium [Prilosec OTC] 20 mg PO DAILY #0 11/10/11 12/10/19 History insulin regular hum U-500 conc 120 unit SUBCUT QAM #0 05/27/16 12/10/19 History [Humulin R U-500 (Conc) Kwikpen] warfarin [Jantoven] See Rx Instructions .ROUTE 05/27/16 12/10/19 History .COMPLEX #0 tab atorvastatin [Lipitor] 80 mg PO HS #0 tab 05/28/16 12/10/19 History cilostazol 100 mg PO BID #0 05/28/16 12/10/19 History lisinopril-hydrochlorothiazide 1 tab PO DAILY #0 tab 05/28/16 12/10/19 History doxycycline hyclate 20 mg PO HS #0 11/18/16 12/10/19 History amlodipine 10 mg PO DAILY 02/22/19 12/10/19 History budesonide-formoterol [Symbicort] 2 puff INHALATION DAILY 02/22/19 12/10/19 History insulin regular hum U-500 conc 100 unit SUBCUT QPM 02/22/19 12/10/19 History [Humulin R U-500 (Conc) Kwikpen] metoprolol tartrate 25 mg PO BID 02/22/19 12/10/19 History acetaminophen-codeine 1 tab PO DIRECTED PRN 12/10/19 12/10/19 History mupirocin 1 applic TOPICAL BID 12/10/19 12/10/19 History Allergies Allergy/AdvReac Type Severity Reaction Status Date / Time gentamicin Allergy Unknown UNKNOWN Verified 12/10/19 04:54 niacin Allergy Unknown unknown Verified 12/10/19 04:54 sertraline Allergy Unknown JITTERRY Verified 12/10/19 04:54 metformin AdvReac Unknown CAN'T Verified 12/10/19 04:54 REMEMBER silver sulfadiazine AdvReac Unknown unknown Verified 12/10/19 04:54 Past Med/Surg History Medical History DVT of lower extremity, bilateral Left sided sciatica (Acute) Surgical History History of cataract surgery History of tonsillectomy and adenoidectomy History of vein stripping Family History Other Family history non-contributory Social History Feels Safe at Home: Yes Smoking Status: Never smoker Review of Systems A total of 10 systems reviewed and were otherwise negative Physical Exam Vital Signs Vital Signs - 24 hr 12/10/19 04:29 12/10/19 04:37 12/10/19 05:17 Temperature 36.8 C Temperature Source Oral Pulse Rate 112 H Pulse Rate [Apical] 112 H Respiratory Rate 18 18 Blood Pressure 158/83 H Blood Pressure [Right Arm] 139/74 Blood Pressure Mean 108 Blood Pressure Mean [Right Arm] 95 Pulse Oximetry 98 97 95 Oxygen Delivery Method Room Air Room Air Room Air Sepsis Recent Fever Within 48 Hours No Sepsis New/Unexplained Change in Mental Status No Sepsis Action Taken by Nursing No Action Required 12/10/19 06:20 Temperature Temperature Source Pulse Rate Pulse Rate [Apical] 121 H Respiratory Rate 24 Blood Pressure Blood Pressure [Right Arm] 187/96 H Blood Pressure Mean Blood Pressure Mean [Right Arm] 126 Pulse Oximetry 97 Oxygen Delivery Method Room Air Sepsis Recent Fever Within 48 Hours Sepsis New/Unexplained Change in Mental Status Sepsis Action Taken by Nursing VITAL SIGNS - Vital signs and nursing notes were reviewed. GENERAL - 79-year-old ill appearing male stated age who is in moderate acute distress. Communicates well with provider and answers questions appropriately. SKIN - diaphoretic, rash to groin area HEAD - NC/AT. EYES - PERRL with EOMI bilaterally. Sclera anicteric. Palpebral conjunctiva pink and moist with no injection noted. EARS - No deformities of external structures noted on gross examination bilaterally. No pain elicited with palpation of the tragus bilaterally. External auditory canals without discharge or otorrhea. Tympanic membranes pearly lin without retraction or bulging. No fluid or purulent material visualized behind the TM. Handle of malleus, umbo, cone of light, pars tensa/flaccid all easily visualized. NOSE - Midline and without cyanosis. No epistaxis or purulent drainage noted. Septum midline without deviation or septal hematoma noted. MOUTH/OROPHARYNX - Without perioral cyanosis. Buccal mucosa pink and moist and without leukoplakia. Tongue midline with equal elevation of palate bilaterally. No tonsillar hypertrophy, erythema, or exudates noted. dentition noted. NECK - Neck with FROM. Supple to palpation. lymphadenopathy noted. No nuchal rigidity. LUNGS - Chest wall symmetric without accessory muscle use, intercostals retractions, or central cyanosis. Normal vesicular breath sounds CTA B/L. No wheezes, rales, or rhonchi appreciated. CARDIAC - RRR with S1/S2. No murmur, rubs, or gallops appreciated. ABDOMEN - Abdominal contour without pulsations or visible masses. BS normoactive all four quadrants. No tenderness, palpable masses, hepatosplenome blayne, or ascites noted. EXTREMITIES - No clubbing or peripheral cyanosis. No pretibial edema present. +3/5 radial, posterior tibial, and dorsalis pedis pulses palpated throughout. +5/5 strength noted in UE/LE bilaterally. NEUROLOGIC - Cranial nerves II through XII grossly intact. Sensory intact to light touch throughout. Patellar reflexes +2/4. PSYCH - A&Ox3 and cooperates fully with examiner. Pt is very pleasant and interacts well with examiner. Course Administered Medications Hydromorphone HCl (Dilaudid) 0.25 mg IV Q15M PRN PRN Reason: Pain Stop: 12/24/19 04:26 Last Admin: 12/10/19 04:40 Dose: 0.25 mg Documented by: [id number] Vancomycin HCl 2,250 mg/ (Sodium Chloride) 545 mls @ 200 mls/hr IV NOW ONE Stop: 12/10/19 08:23 Last Admin: 12/10/19 06:22 Dose: 200 mls/hr Documented by: [id number] Discontinued Medications Dextrose (Dextrose 50%) 50 ml IV NOW ONE Stop: 12/10/19 04:28 Last Admin: 12/10/19 04:39 Dose: 50 ml Documented by: [id number] Acetaminophen (Ofirmev) 1,000 mg in 100 mls @ 400 mls/hr IV NOW STA Stop: 12/10/19 04:41 Last Infusion: 12/10/19 05:03 Dose: 0 mls/hr Documented by: [id number] Admin: 12/10/19 04:40 Dose: 400 mls/hr Documented by: [id number] Sodium Chloride (Nss 1000ml) 500 mls @ 999 mls/hr IV .Q31M ONE Stop: 12/10/19 04:58 Last Infusion: 12/10/19 05:19 Dose: 0 mls/hr Documented by: [id number] Admin: 12/10/19 04:44 Dose: 999 mls/hr Documented by: [id number] Sodium Chloride (Nss) 500 mls @ 999 mls/hr IV .Q31M ONE Stop: 12/10/19 06:05 Last Infusion: 12/10/19 06:24 Dose: 0 mls/hr Documented by: [id number] Admin: 12/10/19 05:49 Dose: 999 mls/hr Documented by: [id number] Ceftriaxone Sodium (Rocephin) 2,000 mg in 70 mls @ 140 mls/hr IV NOW STA Stop: 12/10/19 06:09 Last Infusion: 12/10/19 06:24 Dose: 0 mls/hr Documented by: [id number] Admin: 12/10/19 05:49 Dose: 140 mls/hr Documented by: [id number] Nystatin (Mycostatin) 1 appln EXT NOW STA Stop: 12/10/19 05:41 Last Admin: 12/10/19 06:19 Dose: 1 appln Documented by: [id number] Ondansetron HCl (Zofran) 4 mg IV NOW STA Stop: 12/10/19 04:29 Last Admin: 12/10/19 04:39 Dose: 4 mg Documented by: [id number] Potassium Chloride (Klor-Con M20) 40 meq PO NOW STA Stop: 12/10/19 05:36 Last Admin: 12/10/19 05:48 Dose: 40 meq Documented by: [id number] Medical Decision Making Differential Diagnosis Infection, dehydration, metabolic abnormality, hypo/hyperglycemia, electrolyte disturbance, anemia, hypoxia, cardiac sources, intracerebral event, toxicologic, neurologic, as well as other pathologies. Medical Records Attestation: I reviewed the patient's medical records. Home Medications Current Medication List: was personally reviewed by me Laboratory Data Attestation: I reviewed the patient's lab results. Result diagrams: 12/10/19 04:25 12/10/19 04:25 Lab Results 12/10/19 12/10/19 12/10/19 Range/Units 04:25 04:25 04:26 WBC 17.88 H (4.8-10.8) K/uL RBC 4.51 L (4.7-6.1) M/uL Hgb 13.0 L (14.0-18.0) g/dL Hct 38.9 L (42-52) % MCV 86.3 (80-100) fL MCH 28.8 (25-34) pg MCHC 33.4 (32-36) g/dL RDW Std Deviation 44.9 (36.4-46.3) fL RDW Coeff of Katelyn 14.3 (11.5-14.5) % Plt Count 387 (130-400) K/uL MPV 8.9 (7.4-10.4) fL Immature Gran % (Auto) 0.4 % Neut % (Auto) 83.3 % Lymph % (Auto) 4.8 % [place] % (Auto) 11.1 % Eos % (Auto) 0.2 % Baso % (Auto) 0.2 % Neut # (Auto) 14.88 H (1.4-6.5) K/uL Lymph # (Auto) 0.86 L (1.2-3.4) K/uL [place] # (Auto) 1.99 H (0.11-0.59) K/uL Eos # (Auto) 0.04 (0-0.5) K/uL Baso # (Auto) 0.03 (0-0.2) K/uL Immature Gran # (Auto) 0.08 H (0.00-0.02) K/uL Sodium 142 (136-145) mmol/L Potassium 3.4 L (3.5-5.1) mmol/L Chloride 109 H (98-107) mmol/L Carbon Dioxide 22 (21-32) mmol/L Anion Gap 11.0 (3-11) BUN 37 H (7-18) mg/dl Creatinine 2.10 H (0.6-1.4) mg/dl Est Cr Clr Drug Dosing 35.8 ml/min Est GFR ( Amer) 33.7 Est GFR (Non-Af Amer) 29.1 BUN/Creatinine Ratio 17.7 (10-20) Glucose 38 L* (70-99) mg/dl POC Glucose 51 L* (70-99) mg/dl Calcium 9.5 (8.5-10.1) mg/dl Total Bilirubin 0.5 (0.2-1) mg/dl AST 37 (15-37) U/L ALT 25 (12-78) U/L Alkaline Phosphatase 98 (45-117) U/L Total Protein 8.2 (6.4-8.2) gm/dl Albumin 3.7 (3.4-5.0) gm/dl Globulin 4.5 H (2.5-4.0) gm/dl Albumin/Globulin Ratio 0.8 L (0.9-2) TSH 1.710 (0.300-4.500) uIu/ml 12/10/19 12/10/19 Range/Units 05:16 06:18 WBC (4.8-10.8) K/uL RBC (4.7-6.1) M/uL Hgb (14.0-18.0) g/dL Hct (42-52) % MCV (80-100) fL MCH (25-34) pg MCHC (32-36) g/dL RDW Std Deviation (36.4-46.3) fL RDW Coeff of Katelyn (11.5-14.5) % Plt Count (130-400) K/uL MPV (7.4-10.4) fL Immature Gran % (Auto) % Neut % (Auto) % Lymph % (Auto) % [place] % (Auto) % Eos % (Auto) % Baso % (Auto) % Neut # (Auto) (1.4-6.5) K/uL Lymph # (Auto) (1.2-3.4) K/uL [place] # (Auto) (0.11-0.59) K/uL Eos # (Auto) (0-0.5) K/uL Baso # (Auto) (0-0.2) K/uL Immature Gran # (Auto) (0.00-0.02) K/uL Sodium (136-145) mmol/L Potassium (3.5-5.1) mmol/L Chloride (98-107) mmol/L Carbon Dioxide (21-32) mmol/L Anion Gap (3-11) BUN (7-18) mg/dl Creatinine (0.6-1.4) mg/dl Est Cr Clr Drug Dosing ml/min Est GFR ( Amer) Est GFR (Non-Af Amer) BUN/Creatinine Ratio (10-20) Glucose (70-99) mg/dl POC Glucose 130 H 201 H (70-99) mg/dl Calcium (8.5-10.1) mg/dl Total Bilirubin (0.2-1) mg/dl AST (15-37) U/L ALT (12-78) U/L Alkaline Phosphatase (45-117) U/L Total Protein (6.4-8.2) gm/dl Albumin (3.4-5.0) gm/dl Globulin (2.5-4.0) gm/dl Albumin/Globulin Ratio (0.9-2) TSH (0.300-4.500) uIu/ml Imaging Data Attestation: I personally reviewed and interpreted this imaging study as follows: My Impression: 1 view of the pelvis was interpreted by me shows no evidence of fracture dislocation or subluxation A 2 view of the femur was interpreted by me shows no evidence of fracture dislocation or subluxation A 1 view of the chest was interpreted by me shows no evidence of pneumonia congestion or pneumothorax. ECG Data Attestation: I personally reviewed and interpreted this ECG as follows: Indication: + tachycardia Rate (beats per minute): 110 Rhythm: + sinus tachycardia ECG Intervals/blocks: + Normal QT-c (465) ECG [place]: + Normal ECG ST segments: no ST depression and no ST elevation Comparison ECG Date: from (02/22/2019) Change: no significant change MDM Narrative This is a 79-year-old male who presents emergency department complaining of weakness. The patient sugar was found to be low upon arrival to the emergency department. In addition he has a large elevation in his white blood cell count. He has a rash in his groin area which may be causing the elevation in the white blood cell count. For this reason the patient was started on IV Rocephin as well as vancomycin. He was given dextrose here in the emergency department. He was sent for x-rays of his hip and back which does not show any acute process. Patient's creatinine is also bumped he was given 2 normal saline boluses. Patient was seen and evaluated as above in room A2. Review was performed of nursing notes and vital signs. I did review pertinent previous visits and patient history. After obtaining a thorough history and physical examination the above work up was performed. An order was placed for continuous cardiac monitoring. The monitor shows a rate of 121 with Normal Sinus rhythm. The patient was evaluated during the global COVID-19 pandemic, and that diagnosis was suspected/considered upon their initial presentation. Their evaluation, treatment and testing was consistent with current guidelines for patients who present with complaints or symptoms that may be related to COVID- 19. Impression & Plan Cellulitis, Hypoglycemia, Acute renal failure Discharge Plan Visit Data Chief Complaint: Leg Injury/Pain Stated Complaint: LEG PAIN/HYPOGLYCEMIA Other Complaint: Hypoglycemia ED Provider: Robinson Muñoz Discharge Problem: Cellulitis, Hypoglycemia, Acute renal failure Forms Stand Alone Forms: My [facility] [employer] Prescriptions Prescriptions: No Action latanoprost [Xalatan] 0.005 % Drops 1 drp OPB HS Qty: 0 RF: 0 omeprazole magnesium [Prilosec OTC] 20 mg Tablet,Delayed Release (Dr/Ec) 20 mg PO DAILY Qty: 0 RF: 0 warfarin [Jantoven] 5 mg Tablet See Rx Instructions .ROUTE .COMPLEX Qty: 0 RF: 0 Humulin R U-500 (Conc) Kwikpen 500 unit/mL (3 mL) Insulin Pen 120 unit SUBCUT QAM Qty: 0 RF: 0 cilostazol 100 mg Tablet 100 mg PO BID Qty: 0 RF: 0 atorvastatin [Lipitor] 20 mg Tablet 80 mg PO HS Qty: 0 RF: 0 lisinopril-hydrochlorothiazide 20-25 mg Tablet 1 tab PO DAILY Qty: 0 RF: 0 doxycycline hyclate 20 mg Tablet 20 mg PO HS Qty: 0 RF: 0 amlodipine 10 mg Tablet 10 mg PO DAILY RF: 0 metoprolol tartrate 25 mg Tablet 25 mg PO BID RF: 0 budesonide-formoterol [Symbicort] 160-4.5 mcg/actuation Hfa Aerosol Inhaler 2 puff INHALATION DAILY RF: 0 Humulin R U-500 (Conc) Kwikpen 500 unit/mL (3 mL) Insulin Pen 100 unit SUBCUT QPM RF: 0 acetaminophen-codeine 300-30 mg Tablet 1 tab PO DIRECTED PRN (Reason: Pain) RF: 0 mupirocin 2 % Ointment 1 applic TOPICAL BID RF: 0 Discharge Problem: Cellulitis Qualifiers: Site of cellulitis: unspecified site Qualified Code(s): L03.90 - Cellulitis, unspecified Acute renal failure Qualifiers: Acute renal failure type: unspecified Qualified Code(s): N17.9 - Acute kidney failure, unspecified
--- NOTE | 2019-12-10 06:32 | History & Physical Report ---
Date of Service December 10, 2019 Assessment & Plan (1) Cellulitis of left lower extremity: Diabetic cellulitis of left lower extremity/small medial ulcer distally- Placed on daptomycin IV and Zosyn IV with renal dosing. Small ulceration noted medial aspect of lower tibial surface. Consult wound care Present on Admission?: Yes (2) Peripheral arterial disease: Reports he had arterial Dopplers performed in by Dr. Ruiz. Order lower extremity anterior Dopplers. Continue Cilostazol 100 mg p.o. twice daily Present on Admission?: Yes (3) Hypoglycemia: Patient with second day in succession of low blood sugar, with yesterday being 25, and this morning being 36. He has not been eating regularly as usual for unknown reasons. Glucose upon repeat this morning is 201. We will change regular insulin from 120 units subcu in the morning to 30 units. We will change regular insulin at 4:00 in the afternoon from 100 units to 40 units. Checking hemoglobin A1c. Patient was told for future reference, that anytime he is ill, he should not take in any more than one third of his usual dosing regular insulin, if he cannot get in touch with his primary physician at the [facility]. Present on Admission?: Yes (4) Acute kidney injury superimposed on chronic kidney disease: Creatinine 2.10 upon admission, with reference here of 1.45. Likely secondary to decreased oral intake as noted. He overall looks dehydrated. will place on NSS at 60 mils per hour and recheck in the a.m. 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 I have added coagulation profile to his ED labs, and when results have returned, will dose warfarin appropriately. Present on Admission?: Yes (6) Chronic anticoagulation: See above Present on Admission?: Yes (7) Hyperlipidemia LDL goal <70: Continue atorvastatin 80 mg at bedtime. Check a fasting lipid panel Present on Admission?: Yes (8) Hypertension: Hold amlodipine and lisinopril/HCTZ due to acute kidney injury. Continue Toprol tartrate 25 mg p.o. twice daily. May consider change to Cardizem CD due to concerns regarding hypoglycemia unawareness. Present on Admission?: Yes (9) GERD (gastroesophageal reflux disease): Continue omeprazole/change to pantoprazole Present on Admission?: Yes (10) Obesity (BMI 30.0-34.9): Noted Present on Admission?: Yes (11) Glaucoma: Continue usual eyedrops Present on Admission?: Yes (12) COPD (chronic obstructive pulmonary disease): Continue Symbicort 2 puffs daily Present on Admission?: Yes History of Present Illness Chief Complaint: The patient presents to the emergency department after being woken up by left lower extremity pain, and his second hypoglycemic event in 2 days, with a blood sugar of 36. Primary Care Provider: NO PCP The patient is a 79-year-old male patient of the [facility], with a past medical history including insulin requiring diabetes mellitus, GERD, hypertension, glaucoma, PAD, COPD, hyperlipidemia and osteoarthritis. He reports that he had an episode of severe fatigue and shakes yesterday, was found have a blood sugar of 25, and EMS was called, gave him a bag of dextrose and IV fluids and he was told to follow-up with his outpatient physician. He was awoken this morning by severe left lower extremity pain, again felt shakes, and when EMS was called and arrived, his blood sugar blood sugar was 36. He has not been eating as well past several days for unknown reasons, and has continued to take his full regular insulin dosing of 120 units subcu in the morning and 100 units subcu at 4:00 in the afternoon. Allergies Allergy/AdvReac Type Severity Reaction Status Date / Time gentamicin Allergy Unknown UNKNOWN Verified 12/10/19 04:54 niacin Allergy Unknown unknown Verified 12/10/19 04:54 sertraline Allergy Unknown JITTERRY Verified 12/10/19 04:54 metformin AdvReac Unknown CAN'T Verified 12/10/19 04:54 REMEMBER silver sulfadiazine AdvReac Unknown unknown Verified 12/10/19 04:54 Home Medications Home Medications Medication Instructions Recorded Confirmed Type latanoprost [Xalatan] 1 drp OPB HS #0 11/10/11 12/10/19 History omeprazole magnesium [Prilosec OTC] 20 mg PO DAILY #0 11/10/11 12/10/19 History insulin regular hum U-500 conc 120 unit SUBCUT QAM #0 05/27/16 12/10/19 History [Humulin R U-500 (Conc) Kwikpen] warfarin [Jantoven] See Rx Instructions .ROUTE 05/27/16 12/10/19 History .COMPLEX #0 tab atorvastatin [Lipitor] 80 mg PO HS #0 tab 05/28/16 12/10/19 History cilostazol 100 mg PO BID #0 05/28/16 12/10/19 History lisinopril-hydrochlorothiazide 1 tab PO DAILY #0 tab 05/28/16 12/10/19 History doxycycline hyclate 20 mg PO HS #0 11/18/16 12/10/19 History amlodipine 10 mg PO DAILY 02/22/19 12/10/19 History budesonide-formoterol [Symbicort] 2 puff INHALATION DAILY 02/22/19 12/10/19 History insulin regular hum U-500 conc 100 unit SUBCUT QPM 02/22/19 12/10/19 History [Humulin R U-500 (Conc) Kwikpen] metoprolol tartrate 25 mg PO BID 02/22/19 12/10/19 History acetaminophen-codeine 1 tab PO DIRECTED PRN 12/10/19 12/10/19 History mupirocin 1 applic TOPICAL BID 12/10/19 12/10/19 History Past Med/Surg History Medical History DVT of lower extremity, bilateral Left sided sciatica (Acute) Surgical History History of cataract surgery History of tonsillectomy and adenoidectomy History of vein stripping Family History Other Family history non-contributory Social History Feels Safe at Home: Yes Smoking Status: Never smoker Review of Systems Review of Systems: The patient denies chest pain, palpitations, shortness of breath, dyspnea on exertion, cough, sore throat, fevers, chills, nausea, vomiting, diarrhea , constipation, abdominal pain, pelvic pain, blood in urine or stool, dysuria, urinary frequency or urgency, loss of consciousness, rash, abnormal bruising or bleeding, focal or generalized weakness, numbness or tingling in arms , generalized arthralgias or myalgias, back or neck pain, or night sweats. The review of systems is otherwise negative other than for that already noted above, and at least 10 systems have been reviewed. Physical Exam Physical Exam: The patient is awake, alert and oriented 3, well developed and well nourished, normocephalic and atraumatic, lying in bed and in no acute distress. HEENT--PERRL, EOMI, mucous membranes and oropharynx dry. Neck--supple. No JVD. No bruits. Thyroid normal, trachea midline, no adenopathy. Heart--normal S1 and S2. No murmurs, rubs or gallops. Lungs--clear bilaterally, no respiratory distress, no accessory muscle use. Abdomen--normal bowel sounds and soft. Nontender. Nondistended, no hernias or masses, no organomegaly. Extremities/dermatologic--chronic venous stasis changes bilaterally. no edema. No palpable pulses bilaterally lower extremities. Mild to moderate erythema on the left involving distal third anterior tibial area, dorsum of foot and toes. Groin rash noted Neurologic--cranial nerves II through XII grossly intact. Rheumatologic--normal range of motion. Psychiatric--normal affect. Results & Data Results & Data ([facility]) Vital Signs (Past 12 Hours) Vital Signs Temp Pulse Pulse Resp BP BP Pulse Ox 12/10/19 06:20 121 H 24 187/96 H 97 12/10/19 05:17 112 H 18 139/74 95 12/10/19 04:37 97 12/10/19 04:29 98.2 F 112 H 18 158/83 H 98 Laboratory Results Laboratory Results WBC 17.88 K/uL (4.8-10.8) H 12/10/19 04:25 RBC 4.51 M/uL (4.7-6.1) L 12/10/19 04:25 Hgb 13.0 g/dL (14.0-18.0) L 12/10/19 04:25 Hct 38.9 % (42-52) L 12/10/19 04:25 MCV 86.3 fL (80-100) 12/10/19 04:25 MCH 28.8 pg (25-34) 12/10/19 04:25 MCHC 33.4 g/dL (32-36) 12/10/19 04:25 RDW Std Deviation 44.9 fL (36.4-46.3) 12/10/19 04:25 RDW Coeff of Katelyn 14.3 % (11.5-14.5) 12/10/19 04:25 Plt Count 387 K/uL (130-400) 12/10/19 04:25 MPV 8.9 fL (7.4-10.4) 12/10/19 04:25 Immature Gran % (Auto) 0.4 % 12/10/19 04:25 Neut % (Auto) 83.3 % 12/10/19 04:25 Lymph % (Auto) 4.8 % 12/10/19 04:25 Brooks % (Auto) 11.1 % 12/10/19 04:25 Eos % (Auto) 0.2 % 12/10/19 04:25 Baso % (Auto) 0.2 % 12/10/19 04:25 Neut # (Auto) 14.88 K/uL (1.4-6.5) H 12/10/19 04:25 Lymph # (Auto) 0.86 K/uL (1.2-3.4) L 12/10/19 04:25 Brooks # (Auto) 1.99 K/uL (0.11-0.59) H 12/10/19 04:25 Eos # (Auto) 0.04 K/uL (0-0.5) 12/10/19 04:25 Baso # (Auto) 0.03 K/uL (0-0.2) 12/10/19 04:25 Immature Gran # (Auto) 0.08 K/uL (0.00-0.02) H 12/10/19 04:25 Sodium 142 mmol/L (136-145) 12/10/19 04:25 Potassium 3.4 mmol/L (3.5-5.1) L 12/10/19 04:25 Chloride 109 mmol/L (98-107) H 12/10/19 04:25 Carbon Dioxide 22 mmol/L (21-32) 12/10/19 04:25 Anion Gap 11.0 (3-11) 12/10/19 04:25 BUN 37 mg/dl (7-18) H 12/10/19 04:25 Creatinine 2.10 mg/dl (0.6-1.4) H 12/10/19 04:25 Est Cr Clr Drug Dosing 35.8 ml/min 12/10/19 04:25 Est GFR ( Amer) 33.7 12/10/19 04:25 Est GFR (Non-Af Amer) 29.1 12/10/19 04:25 BUN/Creatinine Ratio 17.7 (10-20) 12/10/19 04:25 Glucose 38 mg/dl (70-99) L* 12/10/19 04:25 POC Glucose 201 mg/dl (70-99) H 12/10/19 06:18 Calcium 9.5 mg/dl (8.5-10.1) 12/10/19 04:25 Total Bilirubin 0.5 mg/dl (0.2-1) 12/10/19 04:25 AST 37 U/L (15-37) 12/10/19 04:25 ALT 25 U/L (12-78) 12/10/19 04:25 Alkaline Phosphatase 98 U/L (45-117) 12/10/19 04:25 Total Protein 8.2 gm/dl (6.4-8.2) 12/10/19 04:25 Albumin 3.7 gm/dl (3.4-5.0) 12/10/19 04:25 Globulin 4.5 gm/dl (2.5-4.0) H 12/10/19 04:25 Albumin/Globulin Ratio 0.8 (0.9-2) L 12/10/19 04:25 TSH 1.710 uIu/ml (0.300-4.500) 12/10/19 04:25 Urine Color Yellow 12/10/19 06:20 Urine Appearance Clear (Clear) 12/10/19 06:20 Urine pH 5.0 (4.5-7.5) 12/10/19 06:20 Ur Specific [place] 1.021 (1.000-1.030) 12/10/19 06:20 Urine Protein Trace (Negative) H 12/10/19 06:20 Urine Glucose (UA) Negative (Negative) 12/10/19 06:20 Urine Ketones Negative (Negative) 12/10/19 06:20 Urine Blood Trace (Negative) H 12/10/19 06:20 Urine Nitrite Negative (Negative) 12/10/19 06:20 Urine Bilirubin Negative (Negative) 12/10/19 06:20 Urine Urobilinogen Negative (Negative) 12/10/19 06:20 Ur Leukocyte Esterase 1+ (Negative) H 12/10/19 06:20 Urine WBC (Auto) 5-10 /hpf (0-5) H 12/10/19 06:20 Urine RBC (Auto) 0-4 /hpf (0-4) 12/10/19 06:20 U Hyaline Cast (Auto) 5-10 /lpf (0-5) H 12/10/19 06:20 U Epithel Cells (Auto) 5-10 /lpf (0-5) H 12/10/19 06:20 Urine Bacteria (Auto) Negative (Negative) 12/10/19 06:20 Code Status & VTE Plan Code Status Full code VTE Prophylaxis Plan VTE Prophylaxis will be ordered: Yes PG Care Time/CCT Total # of Minutes Spent Total Time Spent with Patient: Total time spent is greater than 50% in coordination of care (as documented) at patient's floor/unit and/or counseling patient: Coding Level of Care Code 33300 Initial Inpt Care Lvl 3 Diagnoses Cellulitis of left lower extremity L03.116 Peripheral arterial disease I73.9 Hypoglycemia E16.2 Acute kidney injury superimposed on chronic kidney disease N17.9; N18.9 DVT of lower extremity, bilateral I82.403 Chronic anticoagulation Z79.01 Hyperlipidemia LDL goal <70 E78.5 Hypertension I10 GERD (gastroesophageal reflux disease) K21.9 Obesity (BMI 30.0-34.9) E66.9 Glaucoma H40.9 COPD (chronic obstructive pulmonary disease) J44.9
[2019-12-10 06:41] LABS: Appearance Urine Clear (Clear); Bacteria Urine Automated Negative (Negative); Bilirubin Urine Negative (Negative); Blood Urine Trace (Negative); Color Urine Yellow; Glucose Urine UA Negative (Negative); Ketones Urine Negative (Negative); Leukocyte Esterase Urine 1+ (Negative); Nitrite Urine Negative (Negative); Protein Urine Trace (Negative); RBC Urine Automated 0-4 /hpf (0-4); Specific Gravity Urine 1.021 (1.000-1.030); Urobilinogen Urine Negative (Negative)
[2019-12-10 06:57] LABS: Partial Thromboplastin Ratio 1.7
--- NOTE | 2019-12-10 06:57 | XRay Report ---
XR lumbar spine min 4V routine HISTORY: Pain Pt c/o low back pain COMPARISON: 05/28/2016 FINDINGS: There is no fracture. No subluxation. Moderate degenerative changes throughout. This is con sidered significant at L5-S1. No evidence for compression deformity. IMPRESSION: Degenerative change. No acute process. ACT 112: Negative or not required by law. The above report was generated using voice recognition software. It may contain grammatical, syntax or spelling errors. Electronically signed by: Wale Carrington M.D. 12/10/2019 6:56 AM
--- NOTE | 2019-12-10 06:58 | XRay Report ---
XR pelvis 1-2V routine CLINICAL HISTORY: Pt c/o left hip pain pain COMPARISON: None. DISCUSSION: The bones and joint spaces appear intact. There is no evidence of fracture, dislocation o r bony disease. There is no evidence for soft tissue swelling. IMPRESSION: Negative study. ACT 112: Negative or not required by law. The above report was generated using voice recognition software. It may contain grammatical, syntax or spelling errors. Electronically signed by: Wale Carrington M.D. 12/10/2019 6:56 AM
--- NOTE | 2019-12-10 07:01 | XRay Report ---
XR chest 1V portable CLINICAL HISTORY: weakness dyspnea COMPARISON STUDY: 02/22/2019 FINDINGS: The bones soft tissues and hemidiaphragms are normal. The cardiomediastinal silhouette is n ormal. The lungs are clear. The pulmonary vasculature is normal. IMPRESSION: Negative chest. ACT 112: Negative or not required by law. The above report was generated using voice recognition software. It may contain grammatical, syntax or spelling errors. Electronically signed by: Wale Carrington M.D. 12/10/2019 6:59 AM
--- NOTE | 2019-12-10 07:05 | XRay Report ---
XR femur LT 2V routine CLINICAL HISTORY: Pt c/o left leg pain COMPARISON: None. DISCUSSION: The bones and joint spaces appear intact. There is no evidence of fracture, dislocation o r bony disease. There is no evidence for soft tissue swelling. IMPRESSION: Negative study. ACT 112: Negative or not required by law. The above report was generated using voice recognition software. It may contain grammatical, syntax or spelling errors. Electronically signed by: Wale Carrington M.D. 12/10/2019 7:03 AM
[2019-12-10 07:16] LABS: INR 5.8 (0.9-1.1)
[2019-12-10 07:17] LABS: Partial Thromboplastin Time 47.3 Seconds (21.0-31.0)
--- NOTE | 2019-12-10 08:40 | Ultrasound Report ---
US arterial duplex LE BI CLINICAL HISTORY: PAD COMPARISON STUDY: No previous studies for comparison. FINDINGS: The arterial system demonstrated wall calcification bilaterally. There is monophasic flow within both common femoral superficial femoral popliteal anterior tibial pos terior tibial and peroneal arteries. No high velocity jets were visualized. The monophasic flow raises the possibility of a more proximal iliac artery stenosis. CT angiography o f the abdomen could be obtained in follow-up as deemed clinically appropriate. The distal vessels were noncompressible and therefore ankle-brachial indices could not be obtained IMPRESSION: 1. Diffuse bilateral atheromatous changes without evidence for a visible high-grade stenosis 2. Bilateral lower extremity monophasic flow which suggests the presence of a more proximal iliac art randi stenosis. ACT 112: Negative or not required by law. Electronically signed by: Greg Rangel M.D. 12/10/2019 8:38 AM
[2019-12-10] MEDS ORDERED: CARBOHYDRATES FOR HYPOGLYCEMIA PO PRN (08:44)
[2019-12-10] MEDS ORDERED: ONDANSETRON INJ 2 MG/ML 2 ML VIAL IV PRN (08:44)
[2019-12-10] MEDS ORDERED: DAPTOMYCIN CONSULT ACTIVE PRN (08:44)
[2019-12-10] MEDS ORDERED: ACETAMINOPHEN W/CODEINE #3 1 TAB PO PRN (08:44)
[2019-12-10] MEDS ORDERED: ALUMINUM/MAGNESIUM SUSP 30 ML UDC PO PRN (08:44)
[2019-12-10] MEDS ORDERED: MAGNESIUM HYDROXIDE SUSP 30 ML UDC PO PRN (08:44)
[2019-12-10] MEDS ORDERED: PIPERACILL/TAZOBAC CONSULT ACTIVE PRN (08:44)
[2019-12-10] MEDS ORDERED: GLUCOSE 10 TABS/TUBE PO PRN (08:44)
[2019-12-10] MEDS ORDERED: DEXTROSE 50% 50 ML SYRINGE IV PRN (08:44)
[2019-12-10] MEDS ORDERED: GLUCAGON FOR INJ 1 MG VIAL SQ PRN (08:44)
[2019-12-10] MEDS ORDERED: GLUCOSE 40% GEL 15 GM TUBE PO PRN (08:44)
[2019-12-10] MEDS ORDERED: METOPROLOL TARTRATE 25 MG TAB PO SCH (09:00)
[2019-12-10] MEDS ORDERED: PIPERACILLIN/TAZOBACTAM 3.375 GM in DEXTROSE 5% 100 ML IV STA (09:12)
[2019-12-10] MEDS: SODIUM CHLORIDE 0.9% 1000ML 1,000 ML IV SCH (09:53)
[2019-12-10] MEDS: FLUTICASONE/VILANTEROL 100/25MCG 14 PUFFS/INHALER INH SCH (09:53)
[2019-12-10] MEDS: PANTOprazole 40 MG TAB PO SCH (09:54)
[2019-12-10] MEDS: DAPTOmycin 300 MG in SYRINGE 0 ML IV SCH (09:54)
[2019-12-10] MEDS: cilostazoL 100 MG TAB PO SCH ×2 (09:55→20:39)
[2019-12-10] MEDS: INSULIN ASPART 100 UNITS/ML 3 ML PEN SC SCH ×4 (10:07→20:38)
--- NOTE | 2019-12-10 12:51 | Electrocardiogram Report ---
Test Reason : Blood Pressure : / mmHG Vent. Rate : 110 BPM Atrial Rate : 110 BPM P-R Int : 184 ms QRS Dur : 082 ms QT Int : 344 ms P-R-T Axes : 062 033 041 degrees QTc Int : 465 ms Sinus tachycardia Otherwise normal ECG When compared with ECG of 22-FEB-2019 08:22, No significant change was found Confirmed by Aldair Brandt ([id number]) on 12/10/2019 12:50:50 PM Referred By: REFERRED SELF Confirmed By:Jozef Brandt
[2019-12-10] MEDS: PIPERACILLIN/TAZOBACTAM 3.375 GM in DEXTROSE 5% 100 ML IV SCH ×2 (14:10→22:06)
[2019-12-10] MEDS: AMLODIPINE BESYLATE 5 MG TAB PO SCH (14:10)
[2019-12-10] MEDS: ACETAMINOPHEN 325 MG TAB PO PRN ×2 (14:12→18:28)
[2019-12-10] MEDS ORDERED: PHARMACY GLYCEMIC MGMT CONSULT PRN (17:47)
[2019-12-10] MEDS: INSULIN HUMAN NPH SC SCH (18:26)
[2019-12-10] MEDS: METOPROLOL TARTRATE 50 MG TAB PO SCH (20:38)
[2019-12-10] MEDS: LATANOPROST 0.005% OP SOLN 2.5 ML BTL OPB SCH (20:40)
[2019-12-10] MEDS ORDERED: ATORVASTATIN 40 MG TAB PO SCH (21:00)
[2019-12-11] MEDS: ACETAMINOPHEN 325 MG TAB PO PRN ×2 (00:48→11:13)
[2019-12-11] MEDS: SODIUM CHLORIDE 0.9% 1000ML 1,000 ML IV SCH ×2 (01:55→18:53)
[2019-12-11] MEDS: PIPERACILLIN/TAZOBACTAM 3.375 GM in DEXTROSE 5% 100 ML IV SCH ×3 (05:37→22:46)
[2019-12-11] MEDS ORDERED: INSULIN HUMAN NPH SC SCH (07:30)
[2019-12-11] MEDS: PANTOprazole 40 MG TAB PO SCH (07:58)
[2019-12-11] MEDS: AMLODIPINE BESYLATE 5 MG TAB PO SCH (07:58)
[2019-12-11] MEDS: FLUTICASONE/VILANTEROL 100/25MCG 14 PUFFS/INHALER INH SCH (07:58)
[2019-12-11] MEDS: METOPROLOL TARTRATE 50 MG TAB PO SCH ×2 (07:58→20:41)
[2019-12-11] MEDS: cilostazoL 100 MG TAB PO SCH ×2 (07:58→20:41)
[2019-12-11 08:03] LABS: Basophils # (auto) 0.02 K/uL (0-0.2); Basophils % (auto) 0.2 %; Eosinophils # (auto) 0.48 K/uL (0-0.5); Hematocrit (blood only) 33.5 % (42-52); Immature Granulocytes # (auto) 0.02 K/uL (0.00-0.02); Immature Granulocytes % (auto) 0.2 %; Lymphocytes # (auto) 1.27 K/uL (1.2-3.4); Lymphocytes % (auto) 13.2 %; Mean Corpuscular Hemoglobin 28.9 pg (25-34); Mean Corpuscular Hgb Conc 32.8 g/dL (32-36); Mean Corpuscular Volume 88.2 fL (80-100); Mean Platelet Volume 8.7 fL (7.4-10.4); Monocytes # (auto) 1.57 K/uL (0.11-0.59); Monocytes % (auto) 16.3 %; Neutrophils # (auto) 6.27 K/uL (1.4-6.5); Neutrophils % (auto) 65.1 %; Platelet Count 351 K/uL (130-400); RDW Coefficient of Variation 14.4 % (11.5-14.5); RDW Standard Deviation 46.8 fL (36.4-46.3); White Blood Count 9.63 K/uL (4.8-10.8)
[2019-12-11] MEDS: INSULIN ASPART 100 UNITS/ML 3 ML PEN SC SCH ×4 (08:03→21:15)
[2019-12-11 08:08] LABS: Estimated Average Glucose 131 mg/dl; Hemoglobin A1C 6.2 % (4.5-5.6)
[2019-12-11 08:23] LABS: Partial Thromboplastin Ratio 2.3; Prothrombin Time 48.4 Seconds (9.0-12.0)
[2019-12-11 08:44] LABS: Albumin Globulin Ratio 0.8 (0.9-2); Albumin Level 2.9 gm/dl (3.4-5.0); BUN Creatinine Ratio 15.2 (10-20); Calcium 8.9 mg/dl (8.5-10.1); Creatinine Clr Calc Pharmacy 46.5 ml/min; Est GFR (African American) 46.1; Est GFR (Non-African American) 39.8; Globulin 3.6 gm/dl (2.5-4.0); Magnesium 1.6 mg/dl (1.8-2.4); Potassium 3.7 mmol/L (3.5-5.1); Total Protein 6.5 gm/dl (6.4-8.2)
[2019-12-11 09:22] LABS: Partial Thromboplastin Time 65.1 Seconds (21.0-31.0)
[2019-12-11] MEDS: DAPTOmycin 300 MG in SYRINGE 0 ML IV SCH (11:10)
--- NOTE | 2019-12-11 15:15 | Hospitalist Progress Note ---
Date of Service December 11, 2019 Assessment & Plan (1) Cellulitis of left lower extremity: (1) Cellulitis of left lower extremity: Improving. Diabetic cellulitis of left lower extremity/small ulceration of the medial aspect of the lower tibial surface. Continue with daptomycin IV and Zosyn IV with renal dosing. Appreciate pharmacy assistance with dosing. Wound care following. (2) Peripheral arterial disease: Reports he had arterial Dopplers performed in by Dr. Ruiz. Repeat dopplers done here showing diffuse bilateral atheromatous changes without high grade stenosis. There is bilateral LE mononphasic blood flow suggestive of more proximal iliac artery stenosis. - would will need CTA Pelvis for evaluation of this as an outpatient and after his renal function has normalized. Continue Cilostazol 100 mg p.o. twice daily (3) Hypoglycemia: Low blood sugars on admission, these are now improved. A1C on admission 6.2 Appreciate glycemic consult. Concern for poor hypoglycemic awareness at home until his sugars are very low. - Consider switching beta jina to calcium channel jina. Will defer to his PCP to make this change. Educated regarding decreasing insulin dosing when he is ill or has poor PO intake -- should only take 1/3 of his usual dosing if he is not able to get in touch with his PCP at the [facility]. (4) Acute kidney injury superimposed on chronic kidney disease: Creatinine 2.10 upon admission, today is trending down to 1.6. Baseline in our records is 1.45 Suspect this is pre-revnal. Continue with NS at 60/hr. Taking relatively good PO right now. 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 INR on admission was 5.8. Coumadin dose held Friday night. Today's INR is 5.0. Will hold coumadin again tonight. Recheck INR in the AM. Home coumadin regimen: 5mg Tue/Thur and 2.5mg MWFSatSun - previously has not had any issues with INRs that are out of range for the last 6 months. (6) Chronic anticoagulation: See above (7) Hyperlipidemia LDL goal <70: Continue atorvastatin 80 mg at bedtime. Lipid panel pending (8) Hypertension: Restarted amlodipine, increased Toprol tartrate to 50mg BID (previously on 25mg BID). - holding lisinopril/HCTZ May consider change to Cardizem CD (and d/c amlodipine) due to concerns regarding hypoglycemia unawareness. BPs and HR well controlled here. Can resume lisinopril/HCTZ once renal function is closer to baseline. (9) GERD (gastroesophageal reflux disease): Continue omeprazole/change to pantoprazole (10) Obesity (BMI 30.0-34.9): Noted (11) Glaucoma: Continue usual eyedrops (12) COPD (chronic obstructive pulmonary disease): Continue Symbicort 2 puffs daily Dental issue: - He is on chronic doxycyline. He cannot remember exactly what condition he is taking this for. - doxycyline is on hold while he is here on antibiotics for his wound. Diet: carb consistent/heart health DVT ppx: INR is supratherapeutic, on coumadin CODE: FULL Dispo: pending clinical improvement and PT/OT evaluation (2) COPD (chronic obstructive pulmonary disease): (3) Peripheral arterial disease: (4) GERD (gastroesophageal reflux disease): (5) Hypertension: (6) Glaucoma: (7) Hyperlipidemia LDL goal <70: (8) Obesity (BMI 30.0-34.9): (9) Chronic anticoagulation: (10) Acute kidney injury superimposed on chronic kidney disease: (11) Hypoglycemia: (12) DVT of lower extremity, bilateral: Admission and Anticipated Discharge Date Admission Date: December 10, 2019 Subjective Seen this morning. Feeling well. Leg is not painful. Wound care has been following the left lower extremity cellulitis as well. Appetite is good. Denies nausea or vomiting. Had a bowel movement today. No issues with urination. Denies chest pain and dyspnea. Spoke with nurse as well. He did need assistance to get up to the edge of the bed and to walk to the bathroom today, which he did not need yesterday. Review of Systems Constitutional: no fever and no chills Cardiovascular: no chest pain, no chest pain at rest, no chest pain with activity and no dyspnea Gastrointestinal: no abdominal pain, no nausea and no vomiting Genitourinary: no difficulty urinating, no urinary frequency, no urinary hesitancy and no urinary incontinence Musculoskeletal: as per Subjective / HPI Integumentary: no new lesions and no skin swelling Neurologic: + unsteadiness; no falls Physical Exam Constitutional: WD/WN, vitals as above + well hydrated and + obese; no acute distress Eyes: PERRL, conjunctivae normal, anicteric sclerae ENMT: external ear and nose normal, oropharynx normal Respiratory: normal respiratory effort, lungs clear to auscultation Cardiovascular: RRR, no murmur, no edema Unable to palpate dorsalis pedis pulses and posterior tib. However, foot is warm and pink. Gastrointestinal (Abdomen): normal bowel sounds, soft, nontender, no hepatosplenomegaly Skin: discoloration of the bilateral lower extremities consistent with stasis type changes. Left anterior licona wounds are covered. Leg is not warm or erythematous today. Neurologic: PERRL, EOMI, accommodation nl, no face palsy, no dysarthria Results & Data Results & Data ([facility]) Vital Signs (Past 12 Hours) Vital Signs Temp Pulse Pulse Resp BP BP Pulse Ox 12/11/19 12:09 36.7 C 77 20 121/66 97 12/11/19 08:04 37.0 C 99 H 20 135/74 95 12/11/19 07:22 98 H 12/11/19 04:45 37.0 C 95 H 20 126/67 94
[2019-12-11] MEDS ORDERED: WARFARIN SOD 2.5 MG TAB PO SCH (16:00)
[2019-12-11] MEDS: INSULIN HUMAN NPH SC SCH (16:58)
--- NOTE | 2019-12-11 19:02 | Pharmacy Report ---
Glycemic Control Consultation - Date of Service December 11, 2019 - Scope Scope: Glycemic Pharmacist consulted for glycemic control and to write orders per [facility] inpatient glycemic control protocol. - Objective Weight: 109.5 kg Accmary louecks BSG (last 24hrs): 12/10/19 12/11/19 12/11/19 20:36 07:41 07:58 Glucose 147 H POC Glucose 233 H 172 H 12/11/19 12/11/19 11:38 16:36 Glucose POC Glucose 128 H 113 H Laboratory Data (last 24hrs): 12/11/19 07:41 Potassium 3.7 Carbon Dioxide 23 Anion Gap 6.0 Creatinine 1.62 H D Est Cr Clr Drug Dosing 46.5 HbA1c: Hemoglobin A1c 6.2 % (4.5-5.6) H 12/11/19 07:41 - Recent Pertinent Medications Outpatient Anti-diabetic Regimen: * U-500 concentrated regular insulin * 120 units SQ AM + 100 units SQ PM (PM dose just lowered from 120 units to 100 units) Risk Factors for Insulin Resistance: * Infection * Diet - Assessment & Plan Assessment & Plan: ASSESSMENT: * 79yo T2DM male maintained on high dose concentrated regular insulin. * Spoke with patient over the phone on 12/10/19 PM. His PM dose of U-500 regular insulin was recently [facility] from 120 units to 100 units [facility]. His A1c is below goal range based on his age/co-morbidities so likely is controlled too tightly. Further dose reduction likely needed. * Typically, patients maintained on high doses of concentrated insulin do not require outpatient dosing while admitted d/t controlled CHO intake with hospital diet. Most often we reduce outpatient U-500 dosing by 50-70% and titrate based on BSG trends. * Discussed dosing with Mr Boyer. He is willing to use NPH insulin while admitted instead of U-500 since likely his doses will be significantly reduced as compared to outpatient dosing. U-500 regular insulin acts kinetically like NPH so it is the most similar insulin to switch to. * Will start with high weight based dosing (weight/stress of 3) since patient has severe insulin resistance as evidenced by outpatient U-500. This is c/w typical dose decreases of ~ 50-70%. PLAN FOR INPATIENT GLYCEMIC CONTROL: * Holding outpatient U-500 insulin - use NPH + NovoLog * Basal insulin * NPH 40 units SQ daily with breakfast and 30 units SQ daily with dinner (this is ~ 1/3 of outpatient dosing) * Bolus insulin * NovoLog per scale ACHS or Q6hrs while NPO * Goal Range: Low 110 mg/dL - High 140 mg/dL * Correction Factor: 15 mg/dL/unit * Nutritional / Prandial insulin per carb ratio of 1 unit per 6 grams CHO consumed * Please note that the plan above was derived based on current level of insulin resistance and hospital stress. These recommendations are appropriate for inpatient admission only. Plan of care upon discharge will need to be reassessed to avoid potential outpatient hypo/hyperglycemia. Thank you.
[2019-12-11] MEDS: LATANOPROST 0.005% OP SOLN 2.5 ML BTL OPB SCH (20:42)
[2019-12-12] MEDS: PIPERACILLIN/TAZOBACTAM 3.375 GM in DEXTROSE 5% 100 ML IV SCH ×3 (06:13→22:52)
[2019-12-12 07:46] LABS: Basophils # (auto) 0.02 K/uL (0-0.2); Basophils % (auto) 0.2 %; Eosinophils # (auto) 0.51 K/uL (0-0.5); Hematocrit (blood only) 34.4 % (42-52); Immature Granulocytes # (auto) 0.03 K/uL (0.00-0.02); Immature Granulocytes % (auto) 0.3 %; Lymphocytes # (auto) 1.36 K/uL (1.2-3.4); Lymphocytes % (auto) 13.5 %; Mean Corpuscular Hemoglobin 28.3 pg (25-34); Mean Corpuscular Volume 88.4 fL (80-100); Mean Platelet Volume 8.6 fL (7.4-10.4); Monocytes # (auto) 1.47 K/uL (0.11-0.59); Monocytes % (auto) 14.6 %; Neutrophils # (auto) 6.71 K/uL (1.4-6.5); Neutrophils % (auto) 66.4 %; Platelet Count 348 K/uL (130-400); RDW Coefficient of Variation 14.2 % (11.5-14.5); Red Blood Count 3.89 M/uL (4.7-6.1)
[2019-12-12] MEDS ORDERED: INSULIN HUMAN NPH SC SCH ×2 (08:00→17:00)
[2019-12-12 08:10] LABS: INR 3.2 (0.9-1.1); Partial Thromboplastin Ratio 1.8; Prothrombin Time 31.5 Seconds (9.0-12.0)
[2019-12-12] MEDS: FLUTICASONE/VILANTEROL 100/25MCG 14 PUFFS/INHALER INH SCH (08:10)
[2019-12-12] MEDS: METOPROLOL TARTRATE 50 MG TAB PO SCH ×2 (08:10→20:34)
[2019-12-12] MEDS: AMLODIPINE BESYLATE 5 MG TAB PO SCH (08:10)
[2019-12-12] MEDS: PANTOprazole 40 MG TAB PO SCH (08:10)
[2019-12-12] MEDS: cilostazoL 100 MG TAB PO SCH ×2 (08:10→20:30)
[2019-12-12] MEDS: INSULIN ASPART 100 UNITS/ML 3 ML PEN SC SCH ×4 (08:11→20:40)
[2019-12-12] MEDS: ACETAMINOPHEN 325 MG TAB PO PRN ×3 (08:18→20:30)
[2019-12-12 08:22] LABS: Partial Thromboplastin Time 50.2 Seconds (21.0-31.0)
[2019-12-12 08:34] LABS: Albumin Level 2.8 gm/dl (3.4-5.0); Calcium 9.1 mg/dl (8.5-10.1); Creatinine Clr Calc Pharmacy 55.8 ml/min; Est GFR (African American) 57.5; Est GFR (Non-African American) 49.6; Potassium 3.5 mmol/L (3.5-5.1)
[2019-12-12 08:39] LABS: Albumin Globulin Ratio 0.7 (0.9-2); Bilirubin,Total 0.9 mg/dl (0.2-1); Globulin 4.1 gm/dl (2.5-4.0); Magnesium 1.6 mg/dl (1.8-2.4); Total Protein 6.9 gm/dl (6.4-8.2)
[2019-12-12] MEDS: DAPTOmycin 300 MG in SYRINGE 0 ML IV SCH (10:05)
--- NOTE | 2019-12-12 11:06 | Pharmacy Report ---
Pharmacy Glycemic Short Note 2 - Date of Service December 12, 2019 - Glycemic Short BSG Results (Last 24 hours): 12/11/19 12/11/19 12/11/19 11:38 16:36 19:55 Glucose POC Glucose 128 H 113 H 71 12/12/19 12/12/19 07:21 07:22 Glucose 77 POC Glucose 91 ASSESSMENT: 12/11 * Patient received 108 units of insulin yesterday, of which 70 were NPH * Fasting BSG 91 mg/dL - will decrease NPH this AM, and provide scale for dinner based upon BSG * Loosen CR this AM / lunchtime BSG check 108, will continue same parameters PLAN FOR INPATIENT GLYCEMIC CONTROL: * Holding outpatient U-500 insulin - use NPH + NovoLog * Basal insulin * NPH 30 this AM, then 20-30 units at dinner based upon BSG * Bolus insulin * NovoLog per scale ACHS or Q6hrs while NPO * Goal Range: Low 110 mg/dL - High 140 mg/dL * Correction Factor: 15 mg/dL/unit * Nutritional / Prandial insulin per carb ratio of 1 unit per 7 grams CHO consumed
[2019-12-12] MEDS: SODIUM CHLORIDE 0.9% 1000ML 1,000 ML IV SCH (12:50)
[2019-12-12] MEDS ORDERED: WARFARIN SOD 2.5 MG TAB PO SCH (16:00)
--- NOTE | 2019-12-12 17:25 | Hospitalist Progress Note ---
Date of Service December 12, 2019 Assessment & Plan (1) Cellulitis of left lower extremity: (1) Cellulitis of left lower extremity: Improving. Diabetic cellulitis of left lower extremity/small ulceration of the medial aspect of the lower tibial surface. Continue with daptomycin IV and Zosyn IV with renal dosing. Appreciate pharmacy assistance with dosing. - plan to switch to PO antibiotics at discharge. Wound care following. (2) Peripheral arterial disease: Reports he had arterial Dopplers performed in by Dr. Ruiz. Repeat dopplers done here showing diffuse bilateral atheromatous changes without high grade stenosis. There is bilateral LE mononphasic blood flow suggestive of more proximal iliac artery stenosis. - would will need CTA Pelvis for evaluation of this as an outpatient and after his renal function has normalized. Continue Cilostazol 100 mg p.o. twice daily (3) Hypoglycemia: Low blood sugars on admission, these are now improved. A1C on admission 6.2 Appreciate glycemic consult. Concern for poor hypoglycemic awareness at home until his sugars are very low. - Consider switching beta jina to calcium channel jina. Will defer to his PCP to make this change. Educated regarding decreasing insulin dosing when he is ill or has poor PO intake -- should only take 1/3 of his usual dosing if he is not able to get in touch with his PCP at the [facility]. (4) Acute kidney injury superimposed on chronic kidney disease: Creatinine 2.10 --> 1.6 -->1.35. Baseline in our records is 1.45 Suspect this is pre-renal. Discontinued IVFs. Taking relatively good PO right now. 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 INR on admission was 5.8. Coumadin dose held Friday night. Today's INR is 3.2. Restarted coumadin at 2.5mg on Friday (12/11) Follow INRs. Home coumadin regimen: 5mg Tue/Thur and 2.5mg MWFSatSun - previously has not had any issues with INRs that are out of range for the last 6 months. (6) Chronic anticoagulation: See above (7) Hyperlipidemia LDL goal <70: Total cholesterol 146, LDL 71, HDL 54 Continue atorvastatin 80 mg at bedtime. (8) Hypertension: Restarted amlodipine, increased Toprol tartrate to 50mg BID (previously on 25mg BID) due to elevated BPs since we are holding lisinopril/HCTZ. - holding lisinopril/HCTZ for now. May consider change to Cardizem CD (and d/c amlodipine) due to concerns regarding hypoglycemia unawareness as an outpatient. BPs and HR well controlled here. Can resume lisinopril/HCTZ once renal function is closer to baseline. (9) GERD (gastroesophageal reflux disease): Continue omeprazole/change to pantoprazole (10) Obesity (BMI 30.0-34.9): Noted (11) Glaucoma: Continue usual eyedrops (12) COPD (chronic obstructive pulmonary disease): Continue Symbicort 2 puffs daily Dental issue: - He is on chronic doxycyline. He cannot remember exactly what condition he is taking this for. - doxycyline is on hold while he is here on antibiotics for his wound. - He can restart this chronic doxycycline once he finishes the antibiotics for his leg cellulitis. Diet: carb consistent/heart health DVT ppx: INR 3.2, restarted coumadin today as above CODE: FULL Dispo: pending rehab bed. - seen by PT/OT; interested in acute rehab. Appreciate care management assistance with coordinating this. (2) COPD (chronic obstructive pulmonary disease): (3) Peripheral arterial disease: (4) GERD (gastroesophageal reflux disease): (5) Hypertension: (6) Glaucoma: (7) Hyperlipidemia LDL goal <70: (8) Obesity (BMI 30.0-34.9): (9) Chronic anticoagulation: (10) Acute kidney injury superimposed on chronic kidney disease: (11) Hypoglycemia: (12) DVT of lower extremity, bilateral: Admission and Anticipated Discharge Date Admission Date: December 10, 2019 Subjective Patient seen and examined at the bedside this afternoon. Reports that he has felt a bit weak and unsteady with getting out of bed and walking in the room. He feels that this is due to being less active and current illness. He is open to going to acute rehab, as was suggested to him by PT. He would also be open to a SNF if there is not a bed available at acute rehab. He feels that even if he were minimally functional at home, it would not be safe to return home as he lives alone. Does have help that comes in a few times per week. His daughter helps him with grocery shopping etc. Had a bit of pain in the medial malleolus area--has an ulcer there. Took Tylenol, which seemed to help. Review of Systems Musculoskeletal: as per Subjective / HPI Neurologic: + unsteadiness; no falls Physical Exam Constitutional: WD/WN, vitals as above + well hydrated and + obese; no acute distress Eyes: PERRL, conjunctivae normal, anicteric sclerae ENMT: external ear and nose normal, oropharynx normal Respiratory: normal respiratory effort, lungs clear to auscultation Cardiovascular: RRR, no murmur, no edema Gastrointestinal (Abdomen): normal bowel sounds, soft, nontender, no hepatosplenomegaly Skin: discoloration of the bilateral lower extremities consistent with stasis type changes. Left anterior licona wounds are covered. Leg is not warm or erythematous today. There is a small, scabbed <1cm ulcer over the area of the medial malleolus. It is not oozing or tender on exam. Neurologic: PERRL, EOMI, accommodation nl, no face palsy, no dysarthria Results & Data Results & Data ([facility]) Vital Signs (Past 12 Hours) Vital Signs Temp Pulse Pulse Resp BP BP Pulse Ox 12/12/19 17:00 83 12/12/19 14:46 36.7 C 87 18 148/69 H 97 12/12/19 12:02 36.6 C 75 18 136/67 92 12/12/19 07:36 90 12/12/19 07:15 36.7 C 90 18 152/72 H 94
[2019-12-12] MEDS: LATANOPROST 0.005% OP SOLN 2.5 ML BTL OPB SCH (20:32)
[2019-12-13] MEDS: PIPERACILLIN/TAZOBACTAM 3.375 GM in DEXTROSE 5% 100 ML IV SCH ×2 (06:14→14:23)
[2019-12-13 07:10] LABS: Basophils # (auto) 0.02 K/uL (0-0.2); Basophils % (auto) 0.2 %; Eosinophils # (auto) 0.32 K/uL (0-0.5); Eosinophils % (auto) 3.1 %; Hematocrit (blood only) 35.3 % (42-52); Hemoglobin 11.4 g/dL (14.0-18.0); Immature Granulocytes # (auto) 0.04 K/uL (0.00-0.02); Immature Granulocytes % (auto) 0.4 %; Lymphocytes # (auto) 1.09 K/uL (1.2-3.4); Lymphocytes % (auto) 10.7 %; Mean Corpuscular Hemoglobin 28.4 pg (25-34); Mean Corpuscular Hgb Conc 32.3 g/dL (32-36); Mean Platelet Volume 8.7 fL (7.4-10.4); Monocytes # (auto) 1.43 K/uL (0.11-0.59); Neutrophils % (auto) 71.6 %; Platelet Count 370 K/uL (130-400); RDW Coefficient of Variation 13.9 % (11.5-14.5); RDW Standard Deviation 45.5 fL (36.4-46.3); Red Blood Count 4.01 M/uL (4.7-6.1)
[2019-12-13 07:26] LABS: INR 2.3 (0.9-1.1); Partial Thromboplastin Ratio 1.6; Partial Thromboplastin Time 43.3 Seconds (21.0-31.0); Prothrombin Time 23.2 Seconds (9.0-12.0)
[2019-12-13 07:44] LABS: Albumin Level 2.8 gm/dl (3.4-5.0); BUN Creatinine Ratio 12.1 (10-20); Calcium 9.6 mg/dl (8.5-10.1); Creatinine Clr Calc Pharmacy 62.3 ml/min; Est GFR (African American) 65.6; Est GFR (Non-African American) 56.6; Magnesium 1.5 mg/dl (1.8-2.4); Potassium 3.5 mmol/L (3.5-5.1)
[2019-12-13 07:48] LABS: Albumin Globulin Ratio 0.7 (0.9-2); Bilirubin,Total 0.9 mg/dl (0.2-1); Globulin 4.3 gm/dl (2.5-4.0); Total Protein 7.1 gm/dl (6.4-8.2)
[2019-12-13] MEDS: cilostazoL 100 MG TAB PO SCH ×2 (07:52→20:36)
[2019-12-13] MEDS: PANTOprazole 40 MG TAB PO SCH (07:52)
[2019-12-13] MEDS: METOPROLOL TARTRATE 50 MG TAB PO SCH ×2 (07:52→20:34)
[2019-12-13] MEDS: FLUTICASONE/VILANTEROL 100/25MCG 14 PUFFS/INHALER INH SCH (07:53)
[2019-12-13] MEDS: AMLODIPINE BESYLATE 5 MG TAB PO SCH (07:53)
[2019-12-13] MEDS: INSULIN ASPART 100 UNITS/ML 3 ML PEN SC SCH ×4 (09:23→20:36)
[2019-12-13] MEDS: INSULIN HUMAN NPH SC SCH (09:24)
[2019-12-13] MEDS: DAPTOmycin 300 MG in SYRINGE 0 ML IV SCH (09:32)
[2019-12-13] MEDS: ACETAMINOPHEN 325 MG TAB PO PRN (14:31)
[2019-12-13] MEDS ORDERED: WARFARIN SOD 5 MG TAB PO SCH ×2 (16:00)
[2019-12-13] MEDS ORDERED: INSULIN HUMAN NPH SC SCH (17:00)
--- NOTE | 2019-12-13 17:36 | Hospitalist Progress Note ---
Date of Service December 13, 2019 Assessment & Plan (1) Cellulitis of left lower extremity: (1) Cellulitis of left lower extremity: Improving. -switch to augmentin, follow clinically, follow CBC Wound care following. (2) Peripheral arterial disease: Reports he had arterial Dopplers performed in by Dr. Ruiz. Repeat dopplers done here showing diffuse bilateral atheromatous changes without high grade stenosis. There is bilateral LE mononphasic blood flow suggestive of more proximal iliac artery stenosis. - would will need CTA Pelvis for evaluation of this as an outpatient and after his renal function has normalized. Continue Cilostazol 100 mg p.o. twice daily if LE cellulitis recurs/won't heal, then consider further w/u here/now (3) Hypoglycemia: Low blood sugars on admission, these are now improved. A1C on admission 6.2 - will want to scale insulins down significantly once he's no longer in a facility. Appreciate glycemic consult. Concern for poor hypoglycemic awareness at home until his sugars are very low. - Consider switching beta jina to calcium channel jina. Will defer to his PCP to make this change. (4) Acute kidney injury superimposed on chronic kidney disease: creatinine improved nicely Suspect this is pre-renal. Discontinued IVFs. 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 INR on admission was 5.8. Coumadin dose held Friday night. trend INR, titrate coumadin (6) Chronic anticoagulation: See above (7) Hyperlipidemia LDL goal <70: Total cholesterol 146, LDL 71, HDL 54 Continue atorvastatin 80 mg at bedtime. (8) Hypertension: BP reasonable control - continue current meds (9) GERD (gastroesophageal reflux disease): Continue omeprazole/change to pantoprazole (10) Obesity (BMI 30.0-34.9): Noted (11) Glaucoma: Continue usual eyedrops (12) COPD (chronic obstructive pulmonary disease): Continue Symbicort 2 puffs daily Dental issue: - He is on chronic doxycyline. He cannot remember exactly what condition he is taking this for. - doxycyline is on hold while he is here on antibiotics for his wound. - He can restart this chronic doxycycline once he finishes the antibiotics for his leg cellulitis. Diet: carb consistent/heart health DVT ppx: coumadin CODE: FULL Dispo: pending rehab bed. - seen by PT/OT; interested in acute rehab. Appreciate care management assi stance with coordinating this. Stable for transfer once approved/bed available. (2) COPD (chronic obstructive pulmonary disease): Continue Symbicort 2 puffs daily (3) Peripheral arterial disease: Reports he had arterial Dopplers performed in by Dr. Ruiz. Order lower extremity anterior Dopplers. Continue Cilostazol 100 mg p.o. twice daily (4) GERD (gastroesophageal reflux disease): Continue omeprazole/change to pantoprazole (5) Hypertension: Hold amlodipine and lisinopril/HCTZ due to acute kidney injury. Continue Toprol tartrate 25 mg p.o. twice daily. May consider change to Cardizem CD due to concerns regarding hypoglycemia unawareness. (6) Glaucoma: Continue usual eyedrops (7) Hyperlipidemia LDL goal <70: Continue atorvastatin 80 mg at bedtime. Check a fasting lipid panel (8) Obesity (BMI 30.0-34.9): Noted (9) Chronic anticoagulation: See above (10) Acute kidney injury superimposed on chronic kidney disease: Creatinine 2.10 upon admission, with reference here of 1.45. Likely secondary to decreased oral intake as noted. He overall looks dehydrated. will place on NSS at 60 mils per hour and recheck in the a.m. tomorrow (11) Hypoglycemia: Patient with second day in succession of low blood sugar, with yesterday being 25, and this morning being 36. He has not been eating regularly as usual for unknown reasons. Glucose upon repeat this morning is 201. We will change regular insulin from 120 units subcu in the morning to 30 units. We will change regular insulin at 4:00 in the afternoon from 100 units to 40 units. Checking hemoglobin A1c. Patient was told for future reference, that anytime he is ill, he should not take in any more than one third of his usual dosing regular insulin, if he cannot get in touch with [facility]. 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 I have added coagulation profile to his ED labs, and when results have returned, will dose warfarin appropriately. Admission and Anticipated Discharge Date Admission Date: December 10, 2019 Subjective feeling better but definitely thinks he'll need rehab. tells a few jokes - one of which has the punchline "it's a Nora stuart, give the frog a loan, his old man's a rolling stone" and another joke cleverly intertwining the heisenberg uncertainty principle, uriel's cat, and a police stop for speeding. legs better, less pain, improved overall a good deal. Review of Systems Review of Systems: All systems reviewed & are unremarkable except as noted in HPI & below Physical Exam Physical Exam: gen aao pleasant nad heent nc at mmm breathing unlabored no accessory muscles good effort b/l LE chronic venous stasis appearing type changes no erythema no tenderness no open lesions Results & Data Results & Data ([facility]) Vital Signs (Past 12 Hours) Vital Signs Temp Pulse Resp BP BP Pulse Ox 12/13/19 15:12 97.0 F L 18 L 18 139/70 95 12/13/19 07:31 98.4 F 95 H 20 155/76 H 96 PG Care Time/CCT Total # of Minutes Spent Total Time Spent with Patient: Total time spent is greater than 50% in coordination of care (as documented) at patient's floor/unit and/or counseling patient: Coding Level of Care Code 20918 Subseq Hosp Care Lvl 3 Diagnoses Cellulitis of left lower extremity L03.116 COPD (chronic obstructive pulmonary disease) J44.9 Peripheral arterial disease I73.9 GERD (gastroesophageal reflux disease) K21.9 Hypertension I10 Glaucoma H40.9 Hyperlipidemia LDL goal <70 E78.5 Obesity (BMI 30.0-34.9) E66.9 Chronic anticoagulation Z79.01 Acute kidney injury superimposed on chronic kidney disease N17.9; N18.9 Hypoglycemia E16.2 DVT of lower extremity, bilateral I82.403
[2019-12-13] MEDS: LATANOPROST 0.005% OP SOLN 2.5 ML BTL OPB SCH (20:36)
[2019-12-14] MEDS: ACETAMINOPHEN 325 MG TAB PO PRN ×4 (00:42→14:10)
[2019-12-14 07:37] LABS: Basophils # (auto) 0.01 K/uL (0-0.2); Basophils % (auto) 0.1 %; Eosinophils # (auto) 0.18 K/uL (0-0.5); Eosinophils % (auto) 1.5 %; Hematocrit (blood only) 35.4 % (42-52); Hemoglobin 11.4 g/dL (14.0-18.0); Immature Granulocytes # (auto) 0.04 K/uL (0.00-0.02); Immature Granulocytes % (auto) 0.3 %; Lymphocytes # (auto) 1.24 K/uL (1.2-3.4); Lymphocytes % (auto) 10.3 %; Mean Corpuscular Hemoglobin 28.2 pg (25-34); Mean Corpuscular Hgb Conc 32.2 g/dL (32-36); Mean Corpuscular Volume 87.6 fL (80-100); Mean Platelet Volume 8.6 fL (7.4-10.4); Monocytes # (auto) 1.96 K/uL (0.11-0.59); Monocytes % (auto) 16.3 %; Neutrophils # (auto) 8.58 K/uL (1.4-6.5); Neutrophils % (auto) 71.5 %; Platelet Count 404 K/uL (130-400); RDW Coefficient of Variation 13.8 % (11.5-14.5); RDW Standard Deviation 44.4 fL (36.4-46.3); Red Blood Count 4.04 M/uL (4.7-6.1); White Blood Count 12.01 K/uL (4.8-10.8)
[2019-12-14] MEDS: AMLODIPINE BESYLATE 5 MG TAB PO SCH (07:43)
[2019-12-14] MEDS: METOPROLOL TARTRATE 50 MG TAB PO SCH (07:43)
[2019-12-14] MEDS: cilostazoL 100 MG TAB PO SCH (07:44)
[2019-12-14] MEDS: PANTOprazole 40 MG TAB PO SCH (07:44)
[2019-12-14] MEDS: FLUTICASONE/VILANTEROL 100/25MCG 14 PUFFS/INHALER INH SCH (07:44)
[2019-12-14 08:05] LABS: BUN Creatinine Ratio 14.8 (10-20); Calcium 9.8 mg/dl (8.5-10.1); Creatinine Clr Calc Pharmacy 60.8 ml/min; Est GFR (African American) 63.7; Est GFR (Non-African American) 54.9; Potassium 3.4 mmol/L (3.5-5.1)
[2019-12-14] MEDS: INSULIN ASPART 100 UNITS/ML 3 ML PEN SC SCH ×2 (08:26→12:52)
[2019-12-14] MEDS: INSULIN HUMAN NPH SC SCH (08:26)
[2019-12-14] MEDS ORDERED: AMOXICILLIN/CLAVULANATE 875 MG TAB PO SCH (10:00)
[2019-12-14] MEDS ORDERED: LIDOCAINE 5% 1 PATCH TD SCH (10:45)
--- NOTE | 2019-12-14 10:45 | Pharmacy Report ---
Glycemic Control Progress Note - Date of Service December 14, 2019 - Scope Glycemic Pharmacist consulted for glycemic control to write orders per [facility] inpatient glycemic control protocol. - Objective Accuchecks BSG(last 24 hours):: 12/13/19 12/13/19 12/13/19 11:33 16:16 19:57 Glucose POC Glucose 236 H 124 H 176 H 12/14/19 12/14/19 07:01 07:46 Glucose 119 H POC Glucose 127 H HbA1c:: Hemoglobin A1c 6.2 % (4.5-5.6) H 12/11/19 07:41 - Recent Pertinent Medications The patient is currently receiving: * Basal insulin: NPH 30 units in the morning and 20 units in the evening * Correctional Insulin: Novolog Correction per scale ACHS Goal Range: Low 110 mg/dL - High 140 mg/dL Correction Factor: 15 mg/dL/unit * Prandial insulin: Per carb ratio of 1 unit per 6 grams CHO consumed - Outpatient Anti-Diabetic Meds U-500 --- 120 units in the morning and 100 units in the evening - Assessment & Plan ASSESSMENT: * See progress note from 12/11/2019 for more background info, in short: * Pt receiving SQ basal bolus insulin regimen for hyperglycemia secondary to baseline DM (outpatient regimen on hold) and currently on Augmentin for cellulitis. * Patient is currently receiving an average of 73 units of insulin per day * 50 units of basal insulin * 23 units of prandial/correctional insulin * BSGs ranging 120 - 236 mg/dl over the past 24hrs * Changes needed to insulin regimen: * AM Fasting BSG = 127 mg/dl. This is in goal range for patient based on inpatient targets and co-morbidities. Therefore Basal insulin will be continued. * Post-prandial BSGs trended upwards after in-range BSG. Tighten carbohydrate ratio. * Total daily dose = 70-80 units. PLAN FOR INPATIENT GLYCEMIC CONTROL: * Continuing NPH 30 units SQ in the morning and 20 units SQ in the evening * Continuing correction factor of 15 mg/dl/unit * TIGHTEN carb ratio to 1 unit per 6 grams CHO consumed * Continuing goal range of Low 110 mg/dL - High 140 mg/dL RECOMMENDATIONS FOR DISCHARGE: * For at [facility] recommend the following: * NPH 30 units with breakfast and 20 units with dinner * Novolog 5 with meals (may require titration upwards) -- hold if patient ea ts less than 50% of meal * For at home, recommend that patient reduce insulin. * If necessary that patient utilizes U-500 insulin, could dose as 60 units in the morning and 50 units in the evening (represents a 50% decrease) -- this would not be desired. * Otherwise patient could utilize Novolin 70/30 insulin 40 units in the morning and 30 units in the evening. Thank you.
[2019-12-14 15:10] VITALS: PULSE 88; TEMP 98.6; O2SAT 96
[2019-12-14 15:42] VITALS: BP 155/76
[2019-12-14] MEDS ORDERED: WARFARIN SOD 2.5 MG TAB PO SCH (16:00)
[2019-12-14] MEDS ORDERED: DICLOFENAC SOD 1% GEL 100 GM TUBE EXT SCH ×2 (17:00)
--- NOTE | 2019-12-14 18:19 | Discharge Summary ---
Date of Service December 14, 2019 Admission HPI Per Admitting Provider The patient is a 79[facility], with a past medical history including insulin requiring diabetes mellitus, GERD, hypertension, glaucoma, PAD, COPD, hyperlipidemia and osteoarthritis. He reports that he had an episode of severe fatigue and shakes yesterday, was found have a blood sugar of 25, and EMS was called, gave him a bag of dextrose and IV fluids and he was told to follow-up with his outpatient physician. He was awoken this morning by severe left lower extremity pain, again felt shakes, and when EMS was called and arrived, his blood sugar blood sugar was 36. He has not been eating as well past several days for unknown reasons, and has continued to take his full regular insulin dosing of 120 units subcu in the morning and 100 units subcu at 4:00 in the afternoon. Principal Diagnosis LE cellulitis, weakness Discharge Exam gen aao pleasant nad heent nc at mmm breathing unlabored no accessory muscles good effort skin no rashes no pallor or icterus; ext show b/l LE venous stasis changes now - a few dressed superficial ulcers no tracking erythema no tenderness no crepitis. neuro no focal deficits Discharge Data Allergies Allergy/AdvReac Type Severity Reaction Status Date / Time gentamicin Allergy Unknown UNKNOWN Verified 12/10/19 04:54 niacin Allergy Unknown unknown Verified 12/10/19 04:54 sertraline Allergy Unknown JITTERRY Verified 12/10/19 04:54 metformin AdvReac Unknown CAN'T Verified 12/10/19 04:54 REMEMBER silver sulfadiazine AdvReac Unknown unknown Verified 12/10/19 04:54 Consultations 12/10/19 05:40 ED Decision to Admit Stat 12/10/19 08:44 Consult Case Management - Discharge Planning Routine 12/14/19 08:59 Consult Case Management - Discharge Planning Routine Ordered Studies 12/10/19 06:43 US arterial duplex LE BI Stat Hospital Course (1) Cellulitis of left lower extremity: (1) Cellulitis of left lower extremity: Improving. -switched to augmentin, finish out 5 more days Rx, follow clinically Wound care locally should be continued. (2) Peripheral arterial disease: Reports he had arterial Dopplers performed in by Dr. Ruiz. Repeat dopplers done here showing diffuse bilateral atheromatous changes without high grade stenosis. There is bilateral LE mononphasic blood flow suggestive of more proximal iliac artery stenosis. - would will need CTA Pelvis for evaluation of this as an outpatient and after his renal function has normalized. Continue Cilostazol 100 mg p.o. twice daily if LE cellulitis recurs/won't heal, then consider further w/u (3) Hypoglycemia: A1c 6.2 - insulins scaled back - would continue spinner fixer regimen and once discharged from rehab to home -- pharmD has been managing insulins here - wrote regimen to fit with what she was doing here. (4) Acute kidney injury superimposed on chronic kidney disease: creatinine improved nicely Suspect this is pre-renal. Discontinued IVFs. 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 INR on admission was 5.8. Coumadin dose held Friday night. trend INR, titrate coumadin -- was 2.3 on 12/12 (6) Chronic anticoagulation: See above (7) Hyperlipidemia LDL goal <70: Total cholesterol 146, LDL 71, HDL 54 Continue atorvastatin 80 mg at bedtime. (8) Hypertension: BP reasonable control - continue current meds (9) GERD (gastroesophageal reflux disease): Continue omeprazole/change to pantoprazole (10) Obesity (BMI 30.0-34.9): Noted (11) Glaucoma: Continue usual eyedrops (12) COPD (chronic obstructive pulmonary disease): Continue Symbicort 2 puffs daily Dental issue: - He is on chronic doxycyline. He cannot remember exactly what condition he is taking this for. - doxycyline is on hold while he is here on antibiotics for his wound. - He can restart this chronic doxycycline once he finishes the antibiotics for his leg cellulitis. (therefore was not stopped from med list) Diet: carb consistent/heart health DVT ppx: coumadin CODE: FULL Dispo:stable for rehab, bed available (2) COPD (chronic obstructive pulmonary disease): Continue Symbicort 2 puffs daily (3) Peripheral arterial disease: Reports he had arterial Dopplers performed in by Dr. Ruiz. Order lower extremity anterior Dopplers. Continue Cilostazol 100 mg p.o. twice daily (4) GERD (gastroesophageal reflux disease): Continue omeprazole/change to pantoprazole (5) Hypertension: Hold amlodipine and lisinopril/HCTZ due to acute kidney injury. Continue Toprol tartrate 25 mg p.o. twice daily. May consider change to Cardizem CD due to concerns regarding hypoglycemia unawareness. (6) Glaucoma: Continue usual eyedrops (7) Hyperlipidemia LDL goal <70: Continue atorvastatin 80 mg at bedtime. Check a fasting lipid panel (8) Obesity (BMI 30.0-34.9): Noted (9) Chronic anticoagulation: See above (10) Acute kidney injury superimposed on chronic kidney disease: Creatinine 2.10 upon admission, with reference here of 1.45. Likely secondary to decreased oral intake as noted. He overall looks dehydrated. will place on NSS at 60 mils per hour and recheck in the a.m. tomorrow (11) Hypoglycemia: Patient with second day in succession of low blood sugar, with yesterday being 25, and this morning being 36. He has not been eating regularly as usual for unknown reasons. Glucose upon repeat this morning is 201. We will change regular insulin from 120 units subcu in the morning to 30 units. We will change regular insulin at 4:00 in the afternoon from 100 units to 40 units. Checking hemoglobin A1c. Patient was told for future reference, that anytime he is ill, he should not take in any more than one third of his usual dosing regular insulin, if he cannot get in touch with his primary physician at the [place]. 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 I have added coagulation profile to his ED labs, and when results have returned, will dose warfarin appropriately. Total Time Total Time Spent Total Time Spent (In Minutes): <30 Discharge Plan Discharge Items Patient Disposition: Transfer Inpatient Rehab Fac Reason For Visit: LLE CELLULITIS, HYPOGLYCEMIA Discharge Diagnosis: cellulitis, improving Activity: Resume your previous activity Activity Comment: as per PT/OT recs Non-emergency contact: Primary Care Provider Call non-emergency contact if: you have any medication questions, your symptoms worsen and your temperature is above 101 Follow-up/Referrals: PCP,NO [Primary Care Provider] - Diet: Carb Consistent or DM2 Addtl Attending Provider Instructions: cellulitis - had venous stasis w superimposed cellulitis - improved nicely - will complete course of treatment with augmentin 875mg 1 po bid x 10 more doses (5 days) or otherwise as clinically indicated DM - A1c was 6.2%, requiring far less insulin inpatient than was listed on home regimen. currently on NPH 30AM, 20 @5pm, and novolog 1 unit per 6g carbs QAC; would continue to follow this or a similar regimen and titrate as needed - when he does go home, would have him on this revamped regimen favorable to the u500 he was on - or certainly at least at significantly reduced doses from his home regimen so as to protect against hypoglycemia please follow INR per protocol as regarding coumadin please check BMP on friday then as clinically warranted. Pending Studies at Discharge: No Stand-Alone Forms: My [facility] Skilled Items Patient informed of condition?: Yes DNR: No Discharge Level of Care: Acute rehab Communicable Disease: No Discharge Prognosis: Improving Lines: None Urinary Catheter: No Medications and DC Order Prescriptions: New Novolin N NPH U-100 Insulin 100 unit/mL Suspension 30 unit SC DAILY@0800 Qty: 10 RF: 0 Novolin N NPH U-100 Insulin 100 unit/mL Suspension 20 unit SC DAILY@1700 Qty: 10 RF: 0 insulin aspart U-100 [Novolog Flexpen U-100 Insulin] 100 unit/mL (3 mL) Insulin Pen 1 unit SC ACHS Qty: 10 RF: 0 amoxicillin-pot clavulanate [Augmentin] 875-125 mg tablet 1 tab PO BID Qty: 10 RF: 0 Continued latanoprost [Xalatan] 0.005 % Drops 1 drp OPB HS Qty: 0 RF: 0 omeprazole magnesium [Prilosec OTC] 20 mg Tablet,Delayed Release (Dr/Ec) 20 mg PO DAILY Qty: 0 RF: 0 warfarin [Jantoven] 5 mg Tablet See Rx Instructions .ROUTE .COMPLEX Qty: 0 RF: 0 cilostazol 100 mg Tablet 100 mg PO BID Qty: 0 RF: 0 atorvastatin [Lipitor] 20 mg Tablet 80 mg PO HS Qty: 0 RF: 0 lisinopril-hydrochlorothiazide 20-25 mg Tablet 1 tab PO DAILY Qty: 0 RF: 0 doxycycline hyclate 20 mg Tablet 20 mg PO HS Qty: 0 RF: 0 amlodipine 10 mg Tablet 10 mg PO DAILY RF: 0 metoprolol tartrate 25 mg Tablet 25 mg PO BID RF: 0 budesonide-formoterol [Symbicort] 160-4.5 mcg/actuation Hfa Aerosol Inhaler 2 puff INHALATION DAILY RF: 0 acetaminophen-codeine 300-30 mg Tablet 1 tab PO DIRECTED PRN (Reason: Pain) RF: 0 mupirocin 2 % Ointment 1 applic TOPICAL BID RF: 0 Discontinued Humulin R U-500 (Conc) Kwikpen 500 unit/mL (3 mL) Insulin Pen 120 unit SUBCUT QAM Qty: 0 RF: 0 Humulin R U-500 (Conc) Kwikpen 500 unit/mL (3 mL) Insulin Pen 100 unit SUBCUT QPM RF: 0 Discharge Orders: Discharge Order (Routine); Ordered 12/14/19 Ordered By: Urbano Mena/Other Patient Handouts: Hypoglycemia (Low Blood Sugar), Managing Type 2 Diabetes, Weight Management: Getting Started, Weight Management: Healthy Eating, Weight Management: Fact and Fiction Admission Data Admit Date/Time: 12/10/19 06:31 Attending Provider: Urbano Peters Admit Provider: Ibrahima Goldsmith Primary Care Provider: PCP,NO Other Providers: Ibrahima Goldsmith ; Scarlet Li ; [facility] Other Interventions: Discharge Summary Assessment (RN) Last Done: 12/14/19 15:38 DC Date/Time DO NOT enter until pt leaves facility: 12/14/19 17:12 Coding Level of Care Code D/C Day Management <30 mins Diagnoses Cellulitis of left lower extremity L03.116 COPD (chronic obstructive pulmonary disease) J44.9 Peripheral arterial disease I73.9 GERD (gastroesophageal reflux disease) K21.9 Hypertension I10 Glaucoma H40.9 Hyperlipidemia LDL goal <70 E78.5 Obesity (BMI 30.0-34.9) E66.9 Chronic anticoagulation Z79.01 Acute kidney injury superimposed on chronic kidney disease N17.9; N18.9 Hypoglycemia E16.2 DVT of lower extremity, bilateral I82.403
== END 2019-12-14 17:12 | DRG 638 ==
LOC: ED 04:14 → 2W 06:31 → SUATTDRO 06:31 → 2W 06:48

== ENCOUNTER 2022-08-30 15:05 | Inpatient (IN) ==
--- NOTE | 2022-08-30 15:50 | Emergency Department Note ---
Impression & Plan Cellulitis ADMIT ED Provider Note HPI: The patient is an 82-year-old male with history of insulin-dependent diabetes, who presents emergency department for evaluation of multiple wounds. Patient states that over the past several weeks he has developed some wounds to the right lower abdominal fold near his waist anteriorly, also has a wound to the left lateral leg. Patient states this is in the setting of ongoing treatment for some more chronic wounds to the bilateral lower extremities with some increased weeping of fluid from the bilateral lower extremities. Patient currently resides in a nursing facility and was evaluated today and advised to come to the emergency department likely for initiation of IV antibiotics. On arrival here to the ED the patient is hemodynamically stable, he is alert, he is afebrile on presentation. ROS: - Per HPI *Outpatient medications and allergy history reviewed. *Pertinent external medical records reviewed. PE: General: Alert HEENT: Normocephalic, trachea midline Eyes: Extraocular eye movement is intact, no scleral erythema Pulmonary: Clear to auscultation bilaterally, no wheezing Cardio: Regular rate and rhythm GI: Abdomen is soft to palpation : No suprapubic tenderness MSK: No evidence of trauma or malformation of the extremities, there is bilateral weeping edema of the lower extremities with some skin peeling and mild overlying cellulitis, no blister formation or crepitus to palpation Skin: Cellulitic changes to the bilateral lower extremities as above, also noted abscess to the lateral thigh area to the level of the left lower extremity above the knee without any active drainage, there is overlying fluctuance, there is significant erythema with malodorous moisture underlying the abdominal fold to the right lower abdomen with purulent appearing ulceration several centimeters in diameter, also dry appearing ulceration to the right lateral thigh without purulence or fluctuance with mild surrounding erythema Neuro: Alert, no focal deficits Psychiatric: Cooperative monitoring coordinator: (As interpreted by myself): - An order was placed for continuous cardiac monitoring - Patient was noted to be in sinus rhythm with a rate of sinus rhythm with a rate of EKG: (As interpreted by myself): Rate: 75 Rhythm: Normal sinus rhythm Intervals: within normal limits ST changes: No ST elevation Time: 1600 Interventions provided in ED: -IV vancomycin, IV Zosyn Differential Diagnosis: Cellulitis, necrotizing soft tissue infection, congestive heart failure, venous stasis, DVT, amongst other potential pathologies. Medical Decision Making: Patient presented to the emergency department with multiple wounds that been worsening over the past several weeks, on my evaluation he has significant cellulitis with probable underlying yeast infection to the right anterior and lower abdominal wall. CT imaging of the abdomen pelvis was obtained without contrast that shows cellulitic changes without any identifiable underlying fluid collection. Patient's lab work shows a leukocytosis, blood cultures were ordered and patient was started on broad-spectrum antibiotics. At this time I am suspicious for lymphedema, yeast dermatitis of the abdominal wall with superimposed cellulitis. Patient has multiple areas that are not connected that show ulcerations and infections. I feel that he is appropriate for admission with IV antibiotics and wound care consult. Given the bilateral nature of his symptoms in association with infection, lack of chest pain or shortness of breath, low suspicion for DVT at this time. In addition, patient is on Eliquis. Patient does not have any pain out of proportion to exam, no crepitus to palpation of the bilateral lower extremities, low suspicion for necrotizing infection at this time. In addition, patient has an abscess to the left lower leg above the knee, this was drained at the bedside. Please see procedure note for details. Patient olivia erated the procedure well. Nystatin topical powder was ordered for the patient's right lower abdomen where he does appear to have yeast infection and cellulitis. Case was discussed with the on-call hospitalist, Dr. Grant, patient was placed for admission in stable condition. Consultants: Hospitalist, Dr. Grant Disposition discussion held by myself with: Patient and daughter at the bedside Diagnosis: 1. Cellulitis, bilateral lower extremity, acute 2. Yeast dermatitis of the right lower abdominal wall 3. Cellulitis of the right lower abdominal wall, acute 4. Abscess, left lower extremity, acute 5. Leukocytosis, acute 6. Chronic kidney disease Disposition: Admission Wale Harding DO Emergency Medicine Past Med/Surg History Medical History (Updated 08/30/22 @ 19:37 by Wale Harding DO) Chronic anticoagulation COPD (chronic obstructive pulmonary disease) Diabetes DVT of lower extremity, bilateral GERD (gastroesophageal reflux disease) Glaucoma Hyperlipidemia LDL goal <70 Hypertension Left sided sciatica Obesity (BMI 30.0-34.9) Peripheral arterial disease Surgical History History of cataract surgery History of tonsillectomy and adenoidectomy History of vein stripping Family History Other Family history non-contributory Social History Smoking Status: Former smoker Tobacco Type: Cigarettes Hx Alcohol Use: Yes Alcohol type: hard liquor Hx Substance Use: No Preferred Language: Frisian Communication Ability: Effective Counter Intelligence Technician Required: Yes Beliefs That Will Affect Care: None marital status: Current Living Situation: Alone Current Living Situation Comment: Independent living - apartment Feels Safe at Home: Yes Assistive Devices: Walker Allergies Allergies Allergy/AdvReac Type Severity Reaction Status Date / Time gentamicin Allergy Unknown UNKNOWN Verified 08/30/22 19:04 niacin Allergy Unknown unknown Verified 08/30/22 19:04 sertraline Allergy Unknown JITTERRY Verified 08/30/22 19:04 metformin AdvReac Unknown CAN'T Verified 08/30/22 19:04 REMEMBER silver sulfadiazine AdvReac Unknown unknown Verified 08/30/22 19:04 Home Meds Home Medications Medication Instructions Recorded Confirmed latanoprost 0.005 % eye drops 1 drp OPB HS ##0 11/10/11 08/30/22 (Xalatan) atorvastatin 20 mg tablet (Lipitor) 80 mg PO HS #0 tabs 05/28/16 08/30/22 cilostazol 100 mg tablet 100 mg PO Q12 ##0 05/28/16 08/30/22 amlodipine 10 mg tablet 10 mg PO QAM 02/22/19 08/30/22 acetaminophen 300 mg-codeine 30 mg 1 tab PO UD PRN Pain 12/10/19 08/30/22 tablet acetaminophen 325 mg tablet 650 mg PO Q4 PRN Pain 08/16/21 08/30/22 alogliptin 12.5 mg tablet 12.5 mg PO QAM 08/16/21 08/30/22 apixaban 5 mg tablet (Eliquis) 5 mg PO Q12 08/16/21 08/30/22 clotrimazole-betamethasone 1 1 applic topical BID PRN affected 08/16/21 08/30/22 %-0.05 % topical cream area cyanocobalamin (vitamin B-12) 1,000 mcg PO QAM 08/16/21 08/30/22 1,000 mcg tablet (Vitamin B-12) docusate sodium 100 mg capsule 100 mg PO DAILY PRN Constipation 08/16/21 08/30/22 (Stool Softener) lanolin alcohols-mineral 1 applic topical AMHS PRN Dry Skin 08/16/21 08/30/22 oil-w.petrolatum-ceresin topical cream (Minerin Creme topical) metoprolol tartrate 50 mg tablet 50 mg PO AMPM 08/16/21 08/30/22 pantoprazole 40 mg tablet,delayed 40 mg PO DAILYBB 08/16/21 08/30/22 release potassium chloride 20 mEq 10 meq PO BID 08/16/21 08/30/22 tablet,extended release insulin aspar prot-insulin aspart 50 unit subcut .COMPLEX 07/22/22 08/30/22 100 unit/mL (70-30) subcutaneous pen (Novolog Mix 70-30FlexPen U-100) albuterol sulfate 90 mcg/actuation 1 inh inhalation AMHS 08/30/22 08/30/22 aerosol inhaler brimonidine 0.2 % eye drops 1 drp OPB HS 08/30/22 08/30/22 cholecalciferol (vitamin D3) 25 25 mcg PO DAILY 08/30/22 08/30/22 mcg (1,000 unit) tablet (Vitamin D3) insulin aspart U-100 100 unit/mL 12 unit subcut TID 08/30/22 08/30/22 subcutaneous solution (Novolog U-100 Insulin aspart) lisinopril 10 mg tablet 10 mg PO AMPM 08/30/22 08/30/22 mometasone-formoterol HFA 100 2 puff inhalation BID 08/30/22 08/30/22 mcg-5 mcg/actuation aerosol inhaler (Dulera) Results & Data (ED) Vital Signs Vital Signs - 24 hr 08/30/22 15:17 08/30/22 16:39 08/30/22 16:39 Temperature 36.8 C Temperature Source Temporal Artery Scan Pulse Rate 76 80 Pulse Rate [Right Finger] Respiratory Rate 18 18 Respiratory Effort / Characteristics Non-Labored Respiratory Depth Normal Respiratory Pattern Blood Pressure 164/67 H Blood Pressure [Right Arm] Blood Pressure Mean 99 Blood Pressure Mean [Right Arm] Pulse Oximetry 98 100 100 Oxygen Delivery Method Room Air Room Air Sepsis Recent Fever Within 48 Hours No Sepsis New/Unexplained Change in Mental Status No Sepsis Action Taken by Nursing No Action Required 08/30/22 17:35 08/30/22 17:59 08/30/22 18:24 Temperature Temperature Source Pulse Rate Pulse Rate [Right Finger] 84 85 87 Respiratory Rate 15 20 20 Respiratory Effort / Characteristics Non-Labored Spontaneous Non-Labored Spontaneous Respiratory Depth Normal Normal Respiratory Pattern Regular Regular Blood Pressure Blood Pressure [Right Arm] 169/76 H 174/72 H 132/60 Blood Pressure Mean Blood Pressure Mean [Right Arm] 107 106 84 Pulse Oximetry 100 100 96 Oxygen Delivery Method Room Air Room Air Sepsis Recent Fever Within 48 Hours Sepsis New/Unexplained Change in Mental Status Sepsis Action Taken by Nursing 08/30/22 19:04 Temperature Temperature Source Pulse Rate Pulse Rate [Right Finger] 81 Respiratory Rate 13 Respiratory Effort / Characteristics Non-Labored Spontaneous Respiratory Depth Normal Respiratory Pattern Blood Pressure Blood Pressure [Right Arm] 162/74 H Blood Pressure Mean Blood Pressure Mean [Right Arm] 103 Pulse Oximetry 100 Oxygen Delivery Method Room Air Sepsis Recent Fever Within 48 Hours Sepsis New/Unexplained Change in Mental Status Sepsis Action Taken by Nursing Laboratory Data 08/30/22 16:23 08/30/22 16:23 Lab Results 08/30/22 08/30/22 08/30/22 Range/Units 16:23 16:23 16:23 WBC 12.43 H (4.8-10.8) K/ul RBC 3.59 L (4.70-6.10) M/uL Hgb 10.4 L (14.0-18.0) g/dl Hct 31.7 L (42.0-52.0) % MCV 88.3 (80.0-100.0) fL MCH 29.0 (25.0-34.0) pg MCHC 32.8 (32.0-36.0) g/dL RDW Std Deviation 44.0 (36.4-46.3) fL RDW Coeff of Katelyn 13.4 (11.5-14.5) % Plt Count 477 H (130-400) K/uL MPV 9.0 L (9.4-12.4) fL Immature Gran % (Auto) 1.8 % Neut % (Auto) 70.7 % Lymph % (Auto) 11.3 % [place] % (Auto) 12.6 % Eos % (Auto) 3.2 % Baso % (Auto) 0.4 % Neut # (Auto) 8.78 H (1.40-6.50) K/uL Lymph # (Auto) 1.41 (1.2-3.4) K/uL [place] # (Auto) 1.57 H (0.11-0.59) K/uL Eos # (Auto) 0.40 (0-0.50) K/uL Baso # (Auto) 0.05 (0-0.2) K/uL Immature Gran # (Auto) 0.22 H (0.01-0.20) K/uL ESR (0-20) mm/hr Sodium 142 (136-145) mmol/L Potassium 3.9 (3.5-5.1) mmol/L Chloride 113 H (98-107) mmol/L Carbon Dioxide 20 L (21-32) mmol/L Anion Gap 9 (3-11) BUN 26 H (6-23) mg/dl Creatinine 1.86 H (0.6-1.4) mg/dl Est Cr Clr Drug Dosing Not Reportable Est GFR ( Amer) 38.2 ml/min Est GFR (Non-Af Amer) 33.0 ml/min BUN/Creatinine Ratio 14.0 (10-20) Glucose 70 (70-99(Fasting)) mg/dl POC Glucose (70-99) mg/dl Lactate 1.6 (0.4-2.0) mmol/L Calcium 9.0 (8.6-10.3) mg/dl Magnesium 1.2 L (1.7-2.4) mg/dl Total Bilirubin 0.3 (0.2-1.0) mg/dl Direct Bilirubin 0.0 (0-0.2) mg/dl AST 14 (13-39) U/L ALT 18 (7-52) U/L Alkaline Phosphatase 95 (34-104) U/L Troponin I High Sens 11.0 (0-20) pg/ml C-Reactive Protein 2.87 H (0-0.5) mg/dl B-Natriuretic Peptide (0-100) pg/ml Total Protein 6.3 (6.0-8.3) gm/dl Albumin 3.2 L (3.4-5.0) gm/dl Procalcitonin (0-0.5) ng/ml Urine Color Urine Appearance (Clear) Urine pH (4.5-7.5) Ur Specific Gordon (1.000-1.030) Urine Protein (Negative) Urine Glucose (UA) (Negative) Urine Ketones (Negative) Urine Blood (Negative) Urine Nitrite (Negative) Urine Bilirubin (Negative) Urine Urobilinogen (Negative) Ur Leukocyte Esterase (Negative) Urine WBC (Auto) (0-5) /hpf Urine RBC (Auto) (0-4) /hpf U Hyaline Cast (Auto) (0-5) /lpf U Epithel Cells (Auto) (0-5) /lpf Urine Bacteria (Auto) (Negative) 08/30/22 08/30/22 08/30/22 Range/Units 16:23 16:23 16:23 WBC (4.8-10.8) K/ul RBC (4.70-6.10) M/uL Hgb (14.0-18.0) g/dl Hct (42.0-52.0) % MCV (80.0-100.0) fL MCH (25.0-34.0) pg MCHC (32.0-36.0) g/dL RDW Std Deviation (36.4-46.3) fL RDW Coeff of Katelyn (11.5-14.5) % Plt Count (130-400) K/uL MPV (9.4-12.4) fL Immature Gran % (Auto) % Neut % (Auto) % Lymph % (Auto) % [place] % (Auto) % Eos % (Auto) % Baso % (Auto) % Neut # (Auto) (1.40-6.50) K/uL Lymph # (Auto) (1.2-3.4) K/uL [place] # (Auto) (0.11-0.59) K/uL Eos # (Auto) (0-0.50) K/uL Baso # (Auto) (0-0.2) K/uL Immature Gran # (Auto) (0.01-0.20) K/uL ESR 66 H (0-20) mm/hr Sodium (136-145) mmol/L Potassium (3.5-5.1) mmol/L Chloride (98-107) mmol/L Carbon Dioxide (21-32) mmol/L Anion Gap (3-11) BUN (6-23) mg/dl Creatinine (0.6-1.4) mg/dl Est Cr Clr Drug Dosing Est GFR ( Amer) ml/min Est GFR (Non-Af Amer) ml/min BUN/Creatinine Ratio (10-20) Glucose (70-99(Fasting)) mg/dl POC Glucose (70-99) mg/dl Lactate (0.4-2.0) mmol/L Calcium (8.6-10.3) mg/dl Magnesium (1.7-2.4) mg/dl Total Bilirubin (0.2-1.0) mg/dl Direct Bilirubin (0-0.2) mg/dl AST (13-39) U/L ALT (7-52) U/L Alkaline Phosphatase (34-104) U/L Troponin I High Sens (0-20) pg/ml C-Reactive Protein (0-0.5) mg/dl B-Natriuretic Peptide 46 (0-100) pg/ml Total Protein (6.0-8.3) gm/dl Albumin (3.4-5.0) gm/dl Procalcitonin 0.27 (0-0.5) ng/ml Urine Color Urine Appearance (Clear) Urine pH (4.5-7.5) Ur Specific Gordon (1.000-1.030) Urine Protein (Negative) Urine Glucose (UA) (Negative) Urine Ketones (Negative) Urine Blood (Negative) Urine Nitrite (Negative) Urine Bilirubin (Negative) Urine Urobilinogen (Negative) Ur Leukocyte Esterase (Negative) Urine WBC (Auto) (0-5) /hpf Urine RBC (Auto) (0-4) /hpf U Hyaline Cast (Auto) (0-5) /lpf U Epithel Cells (Auto) (0-5) /lpf Urine Bacteria (Auto) (Negative) 08/30/22 08/30/22 08/30/22 Range/Units 16:31 19:01 19:12 WBC (4.8-10.8) K/ul RBC (4.70-6.10) M/uL Hgb (14.0-18.0) g/dl Hct (42.0-52.0) % MCV (80.0-100.0) fL MCH (25.0-34.0) pg MCHC (32.0-36.0) g/dL RDW Std Deviation (36.4-46.3) fL RDW Coeff of Katelyn (11.5-14.5) % Plt Count (130-400) K/uL MPV (9.4-12.4) fL Immature Gran % (Auto) % Neut % (Auto) % Lymph % (Auto) % [place] % (Auto) % Eos % (Auto) % Baso % (Auto) % Neut # (Auto) (1.40-6.50) K/uL Lymph # (Auto) (1.2-3.4) K/uL [place] # (Auto) (0.11-0.59) K/uL Eos # (Auto) (0-0.50) K/uL Baso # (Auto) (0-0.2) K/uL Immature Gran # (Auto) (0.01-0.20) K/uL ESR (0-20) mm/hr Sodium (136-145) mmol/L Potassium (3.5-5.1) mmol/L Chloride (98-107) mmol/L Carbon Dioxide (21-32) mmol/L Anion Gap (3-11) BUN (6-23) mg/dl Creatinine (0.6-1.4) mg/dl Est Cr Clr Drug Dosing Est GFR ( Amer) ml/min Est GFR (Non-Af Amer) ml/min BUN/Creatinine Ratio (10-20) Glucose (70-99(Fasting)) mg/dl POC Glucose 73 (70-99) mg/dl Lactate (0.4-2.0) mmol/L Calcium (8.6-10.3) mg/dl Magnesium (1.7-2.4) mg/dl Total Bilirubin (0.2-1.0) mg/dl Direct Bilirubin (0-0.2) mg/dl AST (13-39) U/L ALT (7-52) U/L Alkaline Phosphatase (34-104) U/L Troponin I High Sens (0-20) pg/ml C-Reactive Protein Cancelled (0-0.5) mg/dl B-Natriuretic Peptide (0-100) pg/ml Total Protein (6.0-8.3) gm/dl Albumin (3.4-5.0) gm/dl Procalcitonin (0-0.5) ng/ml Urine Color Yellow Urine Appearance Clear (Clear) Urine pH 5.5 (4.5-7.5) Ur Specific Gordon 1.014 (1.000-1.030) Urine Protein 3+ H (Negative) Urine Glucose (UA) Negative (Negative) Urine Ketones Negative (Negative) Urine Blood Negative (Negative) Urine Nitrite Negative (Negative) Urine Bilirubin Negative (Negative) Urine Urobilinogen Negative (Negative) Ur Leukocyte Esterase Negative (Negative) Urine WBC (Auto) 1-5 (0-5) /hpf Urine RBC (Auto) 0-4 (0-4) /hpf U Hyaline Cast (Auto) 1-5 (0-5) /lpf U Epithel Cells (Auto) 10-20 H (0-5) /lpf Urine Bacteria (Auto) Negative (Negative) Administered Medications Vancomycin HCl 2,250 mg/ (Sodium Chloride) 545 mls @ 200 mls/hr IV NOW ONE Stop: 08/30/22 20:23 Last Admin: 08/30/22 18:23 Dose: 200 mls/hr Documented By: JOHN Magnesium Sulfate/Dextrose (Magnesium Sulfate / D5w) 1 gm in 100 mls @ 50 mls/hr IV Q2H REAGAN Stop: 08/30/22 22:29 Last Admin: 08/30/22 19:34 Dose: 50 mls/hr Documented By: BRENDA Discontinued Medications Furosemide (Furosemide 40 Mg/4 Ml Vial) 40 mg IV ONE ONE Stop: 08/30/22 19:24 Last Admin: 08/30/22 19:34 Dose: 40 mg Documented By: BRENDA Sodium Chloride (Nss 1000ml) 500 mls @ 999 mls/hr IV .Q31M REAGAN Stop: 08/30/22 16:30 Last Infusion: 08/30/22 17:27 Dose: 0 mls/hr Documented By: Admin: 08/30/22 16:01 Dose: 999 mls/hr Documented By: NATHAN Piperacillin Sod/Tazobactam (Sod 3.375 gm/ Dextrose) 100 ml in 115 mls @ 230 mls/hr IV NOW STA Stop: 08/30/22 17:58 Last Infusion: 08/30/22 18:24 Dose: 0 mls/hr Documented By: Admin: 08/30/22 17:41 Dose: 230 mls/hr Documented By: LAZARA Lidocaine/Epinephrine (Lidocaine/Epinephrine 1% 20 Ml Vial) Confirm Administered Dose 1 ml .ROUTE .STK-MED ONE Stop: 08/30/22 17:58 Last Admin: 08/30/22 18:02 Dose: 10 ml Documented By: [id number] Nystatin (Nystatin Powder 15gm Btl) 1 appln EXT ONCE ONE Stop: 08/30/22 17:49 Last Admin: 08/30/22 18:17 Dose: 1 appln Documented By: JOHN Imaging Data Radiologist's Impression: Abdomen/Pelvis CT 08/30/22 17:07 CT abd pelvis wo con CLINICAL HISTORY: R ant abd wall wound/cellulitis, eval for abscess TECHNIQUE: Helical axial images of the abdomen and pelvis were obtained. Automated dose lowering techniques and/or adjustment according to patient size were utilized for this exam. This exam was performed without intravenous contrast. CT DOSE: 1411.97 mGy.cm COMPARISON: Comparison is made to CT abdomen pelvis 08/16/2021 and renal ultrasound 07/08/2022 FINDINGS: Lower chest: Bibasilar atelectasis versus scarring is seen. Liver: Unremarkable. No focal lesions are seen. Gallbladder and biliary tree: Cholelithiasis is seen without evidence of cholecystitis. No intra- or extrahepatic biliary ductal dilation. Pancreas: Unremarkable, no focal lesions. Spleen: Lobular appearance of the pancreas noted. Adrenals: Unremarkable. Kidneys and ureters: A few are seen along with hyperdense exophytic lesions measuring up to 28 mm in diameter. Bladder: Unremarkable. Reproductive organs: Prostatomegaly is seen. Bowel: Diverticulosis is seen without evidence of diverticulitis. Lymph nodes Retroperitoneal: Unremarkable. Pelvic: Unremarkable. Mesenteric: Unremarkable. Peritoneum: Normal. Vessels: Atherosclerotic calcifications are seen. Abdominal wall: Fat stranding is seen in the anterior abdominal wall without evidence of drainable fluid collection. Bones: Degenerative changes in the visualized spine. IMPRESSION: 1. Fat stranding is seen without evidence of drainable fluid collection. Findings may represent cellulitis but no abscess is seen. 2. Multiple renal lesions are seen including hyperdense lesions. Prior renal ultrasound only demonstrated cysts and did not suggest any of these has soft tissue density. 3. Additional findings as above. ACT 112: Negative or not required by law. Electronically signed by: Sheng Rangel M.D. 08/30/2022 5:35 PM Discharge Plan Visit Data Chief Complaint: Infection Stated Complaint: LEG PAIN, CELLULITIS, CYSTS ED Provider: Wale Harding Discharge Problem: Cellulitis Forms Stand Alone Forms: My [facility] Prescriptions Prescriptions: No Action latanoprost [Xalatan] 0.005 % Drops 1 drp OPB HS Qty: 0 Patient Comments: BOTH EYES cilostazol 100 mg Tablet 100 mg PO Q12 Qty: 0 atorvastatin [Lipitor] 20 mg Tablet 80 mg PO HS Qty: 0 amlodipine 10 mg Tablet 10 mg PO QAM acetaminophen-codeine 300-30 mg Tablet 1 tab PO UD MDD 3g PRN (Reason: Pain) metoprolol tartrate 50 mg Tablet 50 mg PO AMPM acetaminophen 325 mg Tablet 650 mg PO Q4 MDD 3g PRN (Reason: Pain) cyanocobalamin (vitamin B-12) [Vitamin B-12] 1,000 mcg Tablet 1,000 mcg PO QAM pantoprazole 40 mg Tablet,Delayed Release (Dr/Ec) 40 mg PO DAILYBB Eliquis 5 mg Tablet 5 mg PO Q12 alogliptin 12.5 mg Tablet 12.5 mg PO QAM potassium chloride 20 mEq Tablet Extended Release 10 meq PO BID Rx Instructions: 1/2 tablet dose docusate sodium [Stool Softener] 100 mg Capsule 100 mg PO DAILY PRN (Reason: Constipation) Minerin Creme Cream 1 applic TOPICAL AMHS PRN (Reason: Dry Skin) Rx Instructions: lower leg and heel only clotrimazole-betamethasone 1-0.05 % Cream 1 applic TOPICAL BID PRN (Reason: affected area) Rx Instructions: lower leg and heel only insulin asp prt-insulin aspart [Novolog Mix 70-30FlexPen U-100] 100 unit/mL (70-30) insulin pen 50 unit SUBCUT .COMPLEX Rx Instructions: 52 units at breakfast; 14 units at lunch; 28 units at supper; lisinopril 10 mg tablet 10 mg PO AMPM brimonidine 0.2 % Drops 1 drp OPB HS cholecalciferol (vitamin D3) [Vitamin D3] 25 mcg (1,000 unit) Tablet 25 mcg PO DAILY albuterol sulfate 90 mcg/actuation Hfa Aerosol Inhaler 1 inh INHALATION AMHS Dulera 100-5 mcg/actuation Hfa Aerosol Inhaler 2 puff INHALATION BID insulin aspart U-100 [Novolog U-100 Insulin aspart] 100 unit/mL Solution 12 unit SUBCUT TID Referrals Referrals: ENZO WEBB ONOFRE [Primary Care Provider] - Cellulitis Qualifiers: Site of cellulitis: other site Qualified Code(s): L03.818 - Cellulitis of other sites
[2022-08-30] MEDS ORDERED: SODIUM CHLORIDE 0.9% 1000ML 500 ML IV SCH (16:00)
[2022-08-30 16:47] LABS: Basophils # (auto) 0.05 K/uL (0-0.2); Basophils % (auto) 0.4 %; Eosinophils % (auto) 3.2 %; Hematocrit (blood only) 31.7 % (42.0-52.0); Hemoglobin 10.4 g/dl (14.0-18.0); Immature Granulocytes # (auto) 0.22 K/uL (0.01-0.20); Immature Granulocytes % (auto) 1.8 %; Lymphocytes # (auto) 1.41 K/uL (1.2-3.4); Lymphocytes % (auto) 11.3 %; Mean Corpuscular Hgb Conc 32.8 g/dL (32.0-36.0); Mean Corpuscular Volume 88.3 fL (80.0-100.0); Monocytes # (auto) 1.57 K/uL (0.11-0.59); Monocytes % (auto) 12.6 %; Neutrophils # (auto) 8.78 K/uL (1.40-6.50); Neutrophils % (auto) 70.7 %; Platelet Count 477 K/uL (130-400); RDW Coefficient of Variation 13.4 % (11.5-14.5); Red Blood Count 3.59 M/uL (4.70-6.10); White Blood Count 12.43 K/ul (4.8-10.8)
[2022-08-30 17:04] LABS: Alanine Aminotransferase 18 U/L (7-52); Albumin Level 3.2 gm/dl (3.4-5.0); Alkaline Phosphatase 95 U/L (34-104); Anion Gap 9 (3-11); Aspartate Aminotransferase 14 U/L (13-39); Bilirubin,Total 0.3 mg/dl (0.2-1.0); Blood Urea Nitrogen 26 mg/dl (6-23); Carbon Dioxide 20 mmol/L (21-32); Chloride 113 mmol/L (98-107); Est GFR (African American) 38.2 ml/min; Glucose 70 mg/dl (70-99(Fasting)); Magnesium 1.2 mg/dl (1.7-2.4); Potassium 3.9 mmol/L (3.5-5.1); Sodium 142 mmol/L (136-145); Total Protein 6.3 gm/dl (6.0-8.3)
[2022-08-30 17:15] LABS: Appearance Urine Clear (Clear); Bacteria Urine Automated Negative (Negative); Bilirubin Urine Negative (Negative); Blood Urine Negative (Negative); Color Urine Yellow; Glucose Urine UA Negative (Negative); Ketones Urine Negative (Negative); Leukocyte Esterase Urine Negative (Negative); Nitrite Urine Negative (Negative); Protein Urine 3+ (Negative); RBC Urine Automated 0-4 /hpf (0-4); Specific Gravity Urine 1.014 (1.000-1.030); Urobilinogen Urine Negative (Negative); pH Urine 5.5 (4.5-7.5)
[2022-08-30] MEDS ORDERED: PIPERACILLIN/TAZOBACTAM 3.375 GM in DEXTROSE 5% 100 ML/100 ML BAG IV STA (17:29)
--- NOTE | 2022-08-30 17:37 | CT Scan Report ---
CT abd pelvis wo con CLINICAL HISTORY: R ant abd wall wound/cellulitis, eval for abscess TECHNIQUE: Helical axial images of the abdomen and pelvis were obtained. Automated dose lowering tech niques and/or adjustment according to patient size were utilized for this exam. This exam was perfor med without intravenous contrast. CT DOSE: 1411.97 mGy.cm COMPARISON: Comparison is made to CT abdomen pelvis 08/16/2021 and renal ultrasound 07/08/2022 FINDINGS: Lower chest: Bibasilar atelectasis versus scarring is seen. Liver: Unremarkable. No focal lesions are seen. Gallbladder and biliary tree: Cholelithiasis is seen without evidence of cholecystitis. No intra- or extrahepatic biliary ductal dilation. Pancreas: Unremarkable, no focal lesions. Spleen: Lobular appearance of the pancreas noted. Adrenals: Unremarkable. Kidneys and ureters: A few are seen along with hyperdense exophytic lesions measuring up to 28 mm in diameter. Bladder: Unremarkable. Reproductive organs: Prostatomegaly is seen. Bowel: Diverticulosis is seen without evidence of diverticulitis. Lymph nodes Retroperitoneal: Unremarkable. Pelvic: Unremarkable. Mesenteric: Unremarkable. Peritoneum: Normal. Vessels: Atherosclerotic calcifications are seen. Abdominal wall: Fat stranding is seen in the anterior abdominal wall without evidence of drainable fl uid collection. Bones: Degenerative changes in the visualized spine. IMPRESSION: 1. Fat stranding is seen without evidence of drainable fluid collection. Findings may represent cell ulitis but no abscess is seen. 2. Multiple renal lesions are seen including hyperdense lesions. Prior renal ultrasound only demonst rated cysts and did not suggest any of these has soft tissue density. 3. Additional findings as above. ACT 112: Negative or not required by law. Electronically signed by: Sheng Rangel M.D. 08/30/2022 5:35 PM
[2022-08-30] MEDS ORDERED: VANCOMYCIN HCL 2,250 MG in SODIUM CHLORIDE 0.9% 500 ML IV ONE (17:40)
[2022-08-30] MEDS ORDERED: VANCOMYCIN CONSULT ACTIVE PRN (17:40)
[2022-08-30] MEDS ORDERED: NYSTATIN POWDER 15GM BTL EXT ONE (17:48)
[2022-08-30] MEDS ORDERED: LIDOCAINE/EPINEPHRINE 1% 20 ML VIAL ONE (17:57)
--- NOTE | 2022-08-30 18:19 | History & Physical Report ---
Date of Service August 30, 2022 Assessment & Plan (1) Open abdominal wall wound: Plan: -Admit to med tele -The patient is currently afebrile, hemodynamically stable, and stable on RA -Patient noted to have multiple wounds on the right lower abdomen, BL hips, and BL shins -Was seen at the [facility] on Friday and started on Keflex -CT of the abd/pelvis was negative for abscess -Patient is high risk for resistant organisms due to his DM, was started on Zosyn and Vancomycin, will continue with Zosyn and Daptomycin due to his renal function -Blood cultures and culture of left thigh drainage sent, follow and tailor abx to results -Will consult wound care nurse for further evaluation and treatment -Continue nystatin powder to the erythematous areas under the panus -Continue Eliquis for DVT PPX (2) Hypomagnesemia: Plan: -Initially found to be 1.2, no acute ECG changes -Will give 2gm IV mag/sulfate on admission, will repeat mag level tonight and replete as needed -Continue to monitor on tele (3) Wound of lower extremity: Plan: -Patient with 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 -BL LE's appear edematous -Will give a trial of 40 mg IV lasix tonight -Follow wound care nurse consult (4) Renal lesion: Plan: -Multiple hyperdense lesions found on CT of the abd/pelvis today, not seen on previous US -Renal function currently stable, will consult urology (5) Chronic kidney disease, stage III (moderate): Plan: -Renal function is currently stable -Baseline Cr is 1.7-2.0 per the last Nephrology note -Monitor renal function with a trial of IV lasix on admission (6) Hypertension: Plan: -Stable -Continue amlodipine, lisinopril, and metoprolol -If the patient would become hypotensive with diuresis, would consider holding his amlodipine to assist with treatment of his LE edema (7) COPD (chronic obstructive pulmonary disease): Plan: -Stable on RA -Continue home breathing treatments -Incentive spirometry (8) GERD (gastroesophageal reflux disease): Plan: -Continue pantoprazole (9) Diabetes: Plan: -Hold alogliptin -Monitor BSG ACHS, goal is 110-140 -8 units lantus BID, CF of 50, CR of 15 -Adjust regimen as needed (10) Chronic anticoagulation: Plan: -Continue Eliquis for hx of BL DVT's (11) Cellulitis: Plan The patient was discussed with Dr. 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 In the ED the patient was found to be afebrile, hemodynamically stable, and stable on RA. Labs were remarkable for a leukocytosis of 12.43 with left shift of 8.78, stable Hgb, thrombocytosis of 477, cr of 1.86 (baseline is 1.7-2.0 per nephro), mag of 1.2, procal of 0.27, UA with 3+ protein. CT of the abd/pelvis wo con was read as "1. Fat stranding is seen without evidence of drainable fluid collection. Findings may represent cellulitis but no abscess is seen. 2. Multiple renal lesions are seen including hyperdense lesions. Prior renal ultrasound only demonstrated cysts and did not suggest any of these has soft tissue density. 3. Additional findings as above.". Prior to admission the patient was given a dose of Vancomycin, Zosyn, a 500 mL NSS bolus, and topical nystatin powder. At the time of the exam the patient was sitting in bed in no acute distress with his daughter/POA sitting bedside. He states that approximately 3 weeks ago he started to develop what he describes as boils on his lower abdomen and BL hips. He also started to develop BL lower extremity wounds on the shins and feet. He states that the wound on his abdomen opened and drained on it's own. He was seen at the IN on Friday of this week and was prescribed a 5 day course of Keflex which he started on Friday. He had a home health nurse come evaluate him legs today and she recommended he come to the ED to have his wounds evaluated. He denies recent fever, chills, chest pain, SOB, cough, abd pain, nausea, vomiting, diarrhea, dysuria, hematuria, melena, and recent trauma. We discussed code status, he has a living will and POA. He wishes to be a DNR/DNI and for his daughter to make medical decisions for him if he cannot make them himself. Please refer to Dr. Grant's attestation for any changes to the treatment plan Allergies Allergy/AdvReac Type Severity Reaction Status Date / Time gentamicin Allergy Unknown UNKNOWN Verified 08/30/22 19:04 niacin Allergy Unknown unknown Verified 08/30/22 19:04 sertraline Allergy Unknown JITTERRY Verified 08/30/22 19:04 metformin AdvReac Unknown CAN'T Verified 08/30/22 19:04 REMEMBER silver sulfadiazine AdvReac Unknown unknown Verified 08/30/22 19:04 Home Medications Medication Instructions Recorded Confirmed Type latanoprost 0.005 % eye drops 1 drp OPB HS ##0 11/10/11 08/30/22 History (Xalatan) atorvastatin 20 mg tablet (Lipitor) 80 mg PO HS #0 tabs 05/28/16 08/30/22 History cilostazol 100 mg tablet 100 mg PO Q12 ##0 05/28/16 08/30/22 History amlodipine 10 mg tablet 10 mg PO QAM 02/22/19 08/30/22 History acetaminophen 300 mg-codeine 30 mg 1 tab PO UD PRN Pain 12/10/19 08/30/22 History tablet acetaminophen 325 mg tablet 650 mg PO Q4 PRN Pain 08/16/21 08/30/22 History alogliptin 12.5 mg tablet 12.5 mg PO QAM 08/16/21 08/30/22 History apixaban 5 mg tablet (Eliquis) 5 mg PO Q12 08/16/21 08/30/22 History clotrimazole-betamethasone 1 1 applic topical BID PRN affected 08/16/21 08/30/22 History %-0.05 % topical cream area cyanocobalamin (vitamin B-12) 1,000 mcg PO QAM 08/16/21 08/30/22 History 1,000 mcg tablet (Vitamin B-12) docusate sodium 100 mg capsule 100 mg PO DAILY PRN Constipation 08/16/21 08/30/22 History (Stool Softener) lanolin alcohols-mineral 1 applic topical AMHS PRN Dry Skin 08/16/21 08/30/22 History oil-w.petrolatum-ceresin topical cream (Minerin Creme topical) metoprolol tartrate 50 mg tablet 50 mg PO AMPM 08/16/21 08/30/22 History pantoprazole 40 mg tablet,delayed 40 mg PO DAILYBB 08/16/21 08/30/22 History release potassium chloride 20 mEq 10 meq PO BID 08/16/21 08/30/22 History tablet,extended release insulin aspar prot-insulin aspart 50 unit subcut .COMPLEX 07/22/22 08/30/22 History 100 unit/mL (70-30) subcutaneous pen (Novolog Mix 70-30FlexPen U-100) albuterol sulfate 90 mcg/actuation 1 inh inhalation AMHS 08/30/22 08/30/22 History aerosol inhaler brimonidine 0.2 % eye drops 1 drp OPB HS 08/30/22 08/30/22 History cholecalciferol (vitamin D3) 25 25 mcg PO DAILY 08/30/22 08/30/22 History mcg (1,000 unit) tablet (Vitamin D3) insulin aspart U-100 100 unit/mL 12 unit subcut TID 08/30/22 08/30/22 History subcutaneous solution (Novolog U-100 Insulin aspart) lisinopril 10 mg tablet 10 mg PO AMPM 08/30/22 08/30/22 History mometasone-formoterol HFA 100 2 puff inhalation BID 08/30/22 08/30/22 History mcg-5 mcg/actuation aerosol inhaler (Dulera) Past Med/Surg History Medical History Chronic anticoagulation COPD (chronic obstructive pulmonary disease) Diabetes DVT of lower extremity, bilateral GERD (gastroesophageal reflux disease) Glaucoma Hyperlipidemia LDL goal <70 Hypertension Left sided sciatica Obesity (BMI 30.0-34.9) Peripheral arterial disease Surgical History History of cataract surgery History of tonsillectomy and adenoidectomy History of vein stripping Family History Other Family history non-contributory Social History Smoking Status: Former smoker Tobacco Type: Cigarettes Hx Alcohol Use: Yes Alcohol type: hard liquor Hx Substance Use: No Preferred Language: Syriac Communication Ability: Effective Finish Carpenter Required: No Beliefs That Will Affect Care: None marital status: Current Living Situation: Alone Current Living Situation Comment: assisted care facility Other Information That Helps Us Care for You: No Feels Safe at Home: Yes Safety Concerns: Feels Safe At This Time Assistive Devices: Glasses and Walker Physical Exam Physical Exam: Physical Exam: General: In no acute distress, stated age, well-nourished, poor hygiene HEENT: Normocephalic, atraumatic, no scleral icterus, pupils around round, symmetrical, and reactive to light, moist mucus membranes, trachea midline, no thyromegaly Chest/Pulm: No respiratory distress, symmetrical chest expansion, clear breath sounds throughout Cardiac: RRR, no murmurs noted Abdomen: Negative for ascites and bruising, normoactive bowel sounds, soft, non-tender to palpation throughout Musculoskeletal: Symmetrical and without signs of acute trauma, upper and lower extremities with full ROM, no atrophy, spasticity, or flaccidity Extremities: Radial, dorsalis pedis, and posterior tibial pulses are intact and symmetrical, edema noted in the BL LE's Skin: Patient with a large wound located on the left lower abdomen which appears infected but not currently draining, erythema noted surrounding the borders, significant erythema located under the panus which appears consistent with a fungal infection, left thigh wound currently bandaged after being drained by the ED staff without signs of drainage, right thigh lesion appears scabbed and without erythema or drainage. BL licona and foot skin breakdown without signs of active drainage, erythema appears more consistent with venous stasis Neuro: Alert and oriented to person, place, month, year, and president, no focal defects, CN II-XII tested and intact, finger to nose test negative, no tremors noted Psych: No acute distress, calm and cooperative during the exam Results & Data Results & Data Vital Signs (Past 12 Hours) Vital Signs Temp Pulse Pulse Resp BP BP Pulse Ox 08/30/22 17:59 85 20 174/72 H 100 08/30/22 17:35 84 15 169/76 H 100 08/30/22 16:39 18 100 08/30/22 16:39 80 100 08/30/22 15:17 36.8 C 76 18 164/67 H 98 O2 Del Method 08/30/22 17:59 Room Air 08/30/22 17:35 08/30/22 16:39 08/30/22 16:39 Room Air 08/30/22 15:17 Room Air Laboratory Results Abnormal lab results 08/30/22 08/30/22 08/30/22 Range/Units 16:23 16:23 16:31 WBC 12.43 H (4.8-10.8) K/ul RBC 3.59 L (4.70-6.10) M/uL Hgb 10.4 L (14.0-18.0) g/dl Hct 31.7 L (42.0-52.0) % Plt Count 477 H (130-400) K/uL MPV 9.0 L (9.4-12.4) fL Neut # (Auto) 8.78 H (1.40-6.50) K/uL [place] # (Auto) 1.57 H (0.11-0.59) K/uL Immature Gran # (Auto) 0.22 H (0.01-0.20) K/uL Chloride 113 H (98-107) mmol/L Carbon Dioxide 20 L (21-32) mmol/L BUN 26 H (6-23) mg/dl Creatinine 1.86 H (0.6-1.4) mg/dl Magnesium 1.2 L (1.7-2.4) mg/dl Albumin 3.2 L (3.4-5.0) gm/dl Urine Protein 3+ H (Negative) U Epithel Cells (Auto) 10-20 H (0-5) /lpf Diagnostic Findings Abdomen/Pelvis CT 08/30/22 17:07 CT abd pelvis wo con CLINICAL HISTORY: R ant abd wall wound/cellulitis, eval for abscess TECHNIQUE: Helical axial images of the abdomen and pelvis were obtained. Automated dose lowering techniques and/or adjustment according to patient size were utilized for this exam. This exam was performed without intravenous contrast. CT DOSE: 1411.97 mGy.cm COMPARISON: Comparison is made to CT abdomen pelvis 08/16/2021 and renal ultrasound 07/08/2022 FINDINGS: Lower chest: Bibasilar atelectasis versus scarring is seen. Liver: Unremarkable. No focal lesions are seen. Gallbladder and biliary tree: Cholelithiasis is seen without evidence of cholecystitis. No intra- or extrahepatic biliary ductal dilation. Pancreas: Unremarkable, no focal lesions. Spleen: Lobular appearance of the pancreas noted. Adrenals: Unremarkable. Kidneys and ureters: A few are seen along with hyperdense exophytic lesions measuring up to 28 mm in diameter. Bladder: Unremarkable. Reproductive organs: Prostatomegaly is seen. Bowel: Diverticulosis is seen without evidence of diverticulitis. Lymph nodes Retroperitoneal: Unremarkable. Pelvic: Unremarkable. Mesenteric: Unremarkable. Peritoneum: Normal. Vessels: Atherosclerotic calcifications are seen. Abdominal wall: Fat stranding is seen in the anterior abdominal wall without evidence of drainable fluid collection. Bones: Degenerative changes in the visualized spine. IMPRESSION: 1. Fat stranding is seen without evidence of drainable fluid collection. Findings may represent cellulitis but no abscess is seen. 2. Multiple renal lesions are seen including hyperdense lesions. Prior renal ultrasound only demonstrated cysts and did not suggest any of these has soft tissue density. 3. Additional findings as above. ACT 112: Negative or not required by law. Electronically signed by: Sheng Rangel M.D. 08/30/2022 5:35 PM ECG Additional Comments: Poor data quality, interpretation may be adversely affected Sinus rhythm with marked sinus arrhythmia Anterior infarct (cited on or before 30-AUG-2022) Abnormal ECG When compared with ECG of 16-AUG-2021 22:54, Criteria for Inferior infarct are no longer Present Code Status & VTE Plan Code Status DNR/DNI VTE Prophylaxis Plan VTE Prophylaxis will be ordered: Yes Supervising Physician Co-Signing Physician Notes I personally saw and examined the patient. I verified all brasher points and agree with Robinson Gould PA-C with the following exceptions and/or additions: 82 year old male presents with 3 weeks of worsening wound and erythema on his left lateral hip thigh, right side of abdomen and bilateral lower extremities with associated b/l lower extremity swelling. O/E A&Ox3, HS RRR, no murmurs, Abdo SNT - right sided abdominal wound with yellow sloughing and surrounding erythema and warmth, right thigh wound current dressed after culture and brayan performed by ER provider with surrounding erythema, swelling and warmth. B/l LE pitting edema 2+ to thighs with venous stasis erythema and ulcers not involving the feet without overt cellulitic changes A/P Cellulitis - due to concurrent diabetes will treat as diabetic wound infection with daptomycin and Zosyn. Vancomycin discontinued given CKD stage 3. Due to possible cellulitis on b/l LE will get b/l US arterial doppler although suspect this is more likely venous stasis as other wounds appear more cellulitic. Follow up blood and wound cultures. Wound care nurse to advise on dressings. B/L LE edema - suspect more venous stasis than CHF but switching amlodipine to a diuretic for BP control may help. Will get CXR and switch amlodipine to Lasix 40mg IV and monitor Cr while here. PG Care Time/CCT Total # of Minutes Spent Total Time Spent with Patient: Total time spent is greater than 50% in coordination of care (as documented) at patient's floor/unit and/or counseling patient: Coding [place] [address] INT INP/OBS CARE 2/55MIN Patient Type Established Medical Decision Making Moderate Complexity Diagnoses Open abdominal wall wound S31.109A Hypomagnesemia E83.42 Wound of lower extremity S81.809A Renal lesion N28.9 Chronic kidney disease, stage III (moderate) N18.30 Hypertension I10 COPD (chronic obstructive pulmonary disease) J44.9 GERD (gastroesophageal reflux disease) K21.9 Diabetes E11.9 Chronic anticoagulation Z79.01 Cellulitis L03.818 Site of cellulitis: other site (11) Cellulitis Site of cellulitis: other site Qualified Code(s): L03.818 - Cellulitis of other sites
[2022-08-30] MEDS ORDERED: CARBOHYDRATES FOR HYPOGLYCEMIA PO PRN (18:21)
[2022-08-30] MEDS ORDERED: GLUCOSE 40% GEL 15 GM TUBE PO PRN (18:21)
[2022-08-30] MEDS ORDERED: GLUCOSE 10 TAB/TUBE PO PRN (18:21)
[2022-08-30] MEDS ORDERED: GLUCAGON FOR INJ 1 MG VIAL SQ PRN (18:21)
[2022-08-30] MEDS ORDERED: DEXTROSE 50% 50 ML SYRINGE IV PRN (18:21)
[2022-08-30 19:21] LABS: C Reactive Protein 2.87 mg/dl (0-0.5)
[2022-08-30] MEDS ORDERED: FUROSEMIDE 40 MG/4 ML VIAL IV ONE (19:23)
[2022-08-30] MEDS: MAGNESIUM SULFATE / D5W 1 GM/100 ML BAG IV SCH ×2 (19:34→23:07)
[2022-08-30] MEDS: INSULIN ASPART PER UNIT CHARGE SC SCH (20:14)
[2022-08-30] MEDS: ALBUTEROL HFA 8 GM INHALER INH SCH (22:00)
[2022-08-30] MEDS ORDERED: HEPARIN SOD 5,000 UNIT/0.5 ML VIAL SQ SCH (22:00)
[2022-08-30] MEDS: METOPROLOL TARTRATE 50 MG TAB PO SCH (22:45)
[2022-08-30] MEDS: ATORVASTATIN 40 MG TAB PO SCH (22:45)
[2022-08-30] MEDS: APIXABAN 5 MG TABLET PO SCH (22:45)
[2022-08-30] MEDS: lisinopril 10 MG TAB PO SCH (22:45)
[2022-08-30] MEDS: LATANOPROST 0.005% OP SOLN 2.5 ML BTL OPB SCH (22:46)
[2022-08-30] MEDS: BRIMONIDINE TARTRATE 0.2% 5ML OPB SCH (22:46)
[2022-08-30] MEDS: LANTUS PER UNIT CHARGE SQ SCH (22:53)
--- NOTE | 2022-08-30 22:53 | Ultrasound Report ---
Exam(s): US ARTERIAL BILATERAL LOWER EXTREMITIES EXAM: US Duplex Bilateral Lower Extremities Arteries CLINICAL HISTORY: Reason for exam: Hx of PAD, BL LE wounds. TECHNIQUE: Real-time duplex ultrasound scan of the bilateral lower extremity arteries integrating B-mode two-dimensional vascular structure, Doppler spectral analysis and color flow Doppler imaging. COMPARISON: No relevant prior studies available. FINDINGS: Right common femoral artery: No acute findings. No occlusion or significant stenosis on color flow and spectral Doppler imaging. Normal waveform. Right superficial femoral artery: There is extensive atherosclerotic disease involving the right superficial femoral artery. There are biphasic waveforms throughout the right superficial femoral artery. Right popliteal artery: No acute findings. No occlusion or significant stenosis on color flow and spectral Doppler imaging. Normal waveform. Right calf/foot arteries: No acute findings. No occlusion or significant stenosis on color flow and spectral Doppler imaging. Normal waveform. Left common femoral artery: No acute findings. No occlusion or significant stenosis on color flow and spectral Doppler imaging. Normal waveform. Left superficial femoral artery: There is occlusion of the left superficial femoral artery distally with distal reconstitution at the level of the popliteal artery. There is moderate atherosclerotic disease throughout the left superficial femoral artery with biphasic waveforms through the midportion. Left popliteal artery: No acute findings. No occlusion or significant stenosis on color flow and spectral Doppler imaging. Normal waveform. Left calf/foot arteries: There is loss of signal within the distal left peroneal artery. The left dorsalis pedis is not visualized. Soft tissues: There is extensive soft tissue swelling and edema about the right calf. IMPRESSION: 1. Moderate atherosclerotic disease bilaterally. 2. Occlusion of the distal left superficial femoral artery with reconstitution at the popliteal artery. Electronically signed by: Juan Napoles MD 08/30/22 22:52 PM
[2022-08-30] MEDS: POTASSIUM CHLORIDE 10 MEQ TABCR PO SCH (23:04)
[2022-08-30] MEDS: MENTHOL-ZINC OXIDE 360 APPLN/120 GM TUBE EXT SCH (23:05)
[2022-08-30] MEDS: DAPTOmycin 350 MG in SYRINGE 0 ML IV SCH (23:07)
[2022-08-30] MEDS: PIPERACILLIN/TAZOBACTAM 4.5 GM in DEXTROSE 5% 100 ML IV SCH (23:12)
[2022-08-30] MEDS: ACETAMINOPHEN 325 MG TAB PO PRN (23:33)
[2022-08-31] MEDS ORDERED: HYDROmorphone INJ 0.5 MG/0.5 ML SYR IV PRN ×2 (03:30→21:11)
[2022-08-31] MEDS: PANTOprazole 40 MG TAB PO SCH (03:54)
[2022-08-31] MEDS: MELATONIN 3 MG TAB PO PRN ×2 (03:55→20:11)
[2022-08-31] MEDS: ACETAMINOPHEN 325 MG TAB PO PRN (05:13)
[2022-08-31] MEDS ORDERED: HYDROmorphone INJ 0.5 MG/0.5 ML SYR IV STA ×3 (05:50→17:29)
[2022-08-31 07:02] LABS: Basophils # (auto) 0.05 K/uL (0-0.2); Basophils % (auto) 0.4 %; Eosinophils # (auto) 0.31 K/uL (0-0.50); Eosinophils % (auto) 2.6 %; Hematocrit (blood only) 29.9 % (42.0-52.0); Hemoglobin 9.8 g/dl (14.0-18.0); Immature Granulocytes % (auto) 0.9 %; Lymphocytes # (auto) 1.31 K/uL (1.2-3.4); Lymphocytes % (auto) 11.2 %; Mean Corpuscular Hemoglobin 28.8 pg (25.0-34.0); Mean Corpuscular Hgb Conc 32.8 g/dL (32.0-36.0); Mean Corpuscular Volume 87.9 fL (80.0-100.0); Mean Platelet Volume 9.1 fL (9.4-12.4); Monocytes # (auto) 1.54 K/uL (0.11-0.59); Monocytes % (auto) 13.1 %; Neutrophils # (auto) 8.41 K/uL (1.40-6.50); Neutrophils % (auto) 71.8 %; Platelet Count 470 K/uL (130-400); RDW Coefficient of Variation 13.4 % (11.5-14.5); RDW Standard Deviation 43.8 fL (36.4-46.3); White Blood Count 11.72 K/ul (4.8-10.8)
[2022-08-31] MEDS: ALBUTEROL HFA 8 GM INHALER INH SCH ×2 (07:15→19:02)
--- NOTE | 2022-08-31 07:15 | XRay Report ---
XR chest 1V portable CLINICAL HISTORY: ?pulmonary edema COMPARISON STUDY: Chest radiograph August 16, 2021. Chest CT November 12, 2011. FINDINGS: Lung volumes are normal. Lungs are clear. There is no pneumothorax or pleural effusion. Car diac size is stable. Mediastinal contours are normal. There is no evidence for pulmonary edema. IMPRESSION: No acute cardiopulmonary findings. No evidence for pulmonary edema. ACT 112: Negative or not required by law. Electronically signed by: Chai Orozco M.D. 08/31/2022 7:14 AM
[2022-08-31 07:18] LABS: BUN Creatinine Ratio 12.1 (10-20); Bilirubin,Total 0.4 mg/dl (0.2-1.0); Calcium 8.4 mg/dl (8.6-10.3); Creatinine Clr Calc Pharmacy 35.8 ml/min; Est GFR (African American) 35.2 ml/min; Est GFR (Non-African American) 30.4 ml/min; Globulin 2.9 gm/dl (2.5-4.0); Magnesium 1.8 mg/dl (1.7-2.4); Potassium 3.9 mmol/L (3.5-5.1); Total Protein 5.9 gm/dl (6.0-8.3)
[2022-08-31] MEDS: POTASSIUM CHLORIDE 10 MEQ TABCR PO SCH ×2 (08:36→17:38)
[2022-08-31] MEDS: APIXABAN 5 MG TABLET PO SCH ×2 (08:36→20:11)
[2022-08-31] MEDS: lisinopril 10 MG TAB PO SCH ×2 (08:37→20:14)
[2022-08-31] MEDS: METOPROLOL TARTRATE 50 MG TAB PO SCH ×2 (08:37→20:15)
[2022-08-31] MEDS: FLUTICASONE/VILANTEROL 100/25MCG 14 PUFFS/INHALER INH SCH (08:39)
[2022-08-31] MEDS: MENTHOL-ZINC OXIDE 360 APPLN/120 GM TUBE EXT SCH ×2 (08:40→20:15)
[2022-08-31] MEDS: INSULIN ASPART PER UNIT CHARGE SC SCH ×4 (08:40→20:17)
[2022-08-31] MEDS: LANTUS PER UNIT CHARGE SQ SCH ×2 (08:47→20:17)
[2022-08-31] MEDS: PIPERACILLIN/TAZOBACTAM 4.5 GM in DEXTROSE 5% 100 ML IV SCH ×3 (08:57→23:34)
[2022-08-31] MEDS ORDERED: amLODIPine BESYLATE 5 MG TAB PO SCH (09:00)
--- NOTE | 2022-08-31 10:05 | Urology Consultation ---
Date of Consultation August 31, 2022 Assessment & Plan (1) Renal lesion: (2) Cellulitis: (3) Open abdominal wall wound: (4) Wound of lower extremity: (5) Chronic kidney disease, stage III (moderate): (6) COPD (chronic obstructive pulmonary disease): (7) Diabetes: Plan Patient with incidental small renal lesions. Do appear to be possibly hyperdense lesions with history of possible cyst on bilateral kidneys. Patient did have a large wound bed that was being managed and there was found to be MRSA positive. Is on contact precautions. Largest is measuring approximately 2.8 cm. This imaging was all reviewed interpreted by myself. Most lesions appear to be consistent with renal cyst. Difficult to determine due to the small size of majority of the lesions. Patient has had previous renal ultrasound. This was also reviewed interpreted by myself. Patient is not having any major increase in symptoms or bother is relating to urinary tract symptoms or other major issues. We will likely need further imaging to evaluate however patient dealing with multiple acute issues at this point. Reviewed patient's complicated medical and surgical history summarized as above. No considerable family history related to renal mass. Did review with patient differences between renal cyst renal lesions and renal masses. Discussed need for further assessment however these are determined to be small renal cysts will likely not need long-term follow-up. May need to continue to monitor depending on the complexity of the cyst which will likely be determined after more involved imaging which can be done in the next 6 months. Patient's vitals were all reviewed no considerable issues with only mild hypotension. Patient's labs were all reviewed pertinent positive negatives in the HPI or in other parts of the note. Most recent creatinine was 1.99 as of this morning. White count was 11.72. Hemoglobin was 9.8. We will plan to set patient up for outpatient follow-up. Will likely need seen in the next few months to set up imaging to fully assess renal lesions and to assess them for any major complexity or issues. If necessary may need monitoring over time however small renal cysts do have a very good chance of only needing monitoring in the long-term. History of Present Illness Attending Physician: Walter Quiroz History of Present Illness New consultation for patient with lesions found incidentally on imaging. Patient had been admitted due to recent infection with likely abscess and underwent incision and drainage in the ER. Is being monitored closely. Has insulin dependent diabetes. Has had multiple chronic and acute on chronic issues related to diabetes wounds and other illnesses. Patient had undergone incision and drainage in the ER. Is being monitored closely with IV antibiotics and close monitoring by the hospitalist team. During the work-up patient had undergone CT examination. Found to have multiple lesions of the kidney. Lesions all appear to be less than 3 cm with the largest around 2.8 cm. Patient had previously had imaging which had shown small renal lesions likely cyst. No considerable episodes of pain or discomfort. Patient has not developed sudden onset of pain into flank going down or changing in the abdomen. Has not been having considerable episodes of infection or major episodes of UTI symptoms lower urinary tract symptoms or other bother. Discussed and reviewed patient's family history and no considerable history of stone disease. Also, discussed patient's medical surgery history especially related to any history of urinary issues or stone disease. Patient was admitted and is undergoing observation. Allergies Allergy/AdvReac Type Severity Reaction Status Date / Time gentamicin Allergy Unknown UNKNOWN Verified 08/30/22 19:04 niacin Allergy Unknown unknown Verified 08/30/22 19:04 sertraline Allergy Unknown JITTERRY Verified 08/30/22 19:04 metformin AdvReac Unknown CAN'T Verified 08/30/22 19:04 REMEMBER silver sulfadiazine AdvReac Unknown unknown Verified 08/30/22 19:04 Home Medications Medication Instructions Recorded Confirmed Type latanoprost 0.005 % eye drops 1 drp OPB HS ##0 11/10/11 08/30/22 History (Xalatan) atorvastatin 20 mg tablet (Lipitor) 80 mg PO HS #0 tabs 05/28/16 08/30/22 History cilostazol 100 mg tablet 100 mg PO Q12 ##0 05/28/16 08/30/22 History amlodipine 10 mg tablet 10 mg PO QAM 02/22/19 08/30/22 History acetaminophen 300 mg-codeine 30 mg 1 tab PO UD PRN Pain 12/10/19 08/30/22 History tablet acetaminophen 325 mg tablet 650 mg PO Q4 PRN Pain 08/16/21 08/30/22 History alogliptin 12.5 mg tablet 12.5 mg PO QAM 08/16/21 08/30/22 History apixaban 5 mg tablet (Eliquis) 5 mg PO Q12 08/16/21 08/30/22 History clotrimazole-betamethasone 1 1 applic topical BID PRN affected 08/16/21 08/30/22 History %-0.05 % topical cream area cyanocobalamin (vitamin B-12) 1,000 mcg PO QAM 08/16/21 08/30/22 History 1,000 mcg tablet (Vitamin B-12) docusate sodium 100 mg capsule 100 mg PO DAILY PRN Constipation 08/16/21 08/30/22 History (Stool Softener) lanolin alcohols-mineral 1 applic topical AMHS PRN Dry Skin 08/16/21 08/30/22 History oil-w.petrolatum-ceresin topical cream (Minerin Creme topical) metoprolol tartrate 50 mg tablet 50 mg PO AMPM 08/16/21 08/30/22 History pantoprazole 40 mg tablet,delayed 40 mg PO DAILYBB 08/16/21 08/30/22 History release potassium chloride 20 mEq 10 meq PO BID 08/16/21 08/30/22 History tablet,extended release insulin aspar prot-insulin aspart 50 unit subcut .COMPLEX 07/22/22 08/30/22 History 100 unit/mL (70-30) subcutaneous pen (Novolog Mix 70-30FlexPen U-100) albuterol sulfate 90 mcg/actuation 1 inh inhalation AMHS 08/30/22 08/30/22 History aerosol inhaler brimonidine 0.2 % eye drops 1 drp OPB HS 08/30/22 08/30/22 History cholecalciferol (vitamin D3) 25 25 mcg PO DAILY 08/30/22 08/30/22 History mcg (1,000 unit) tablet (Vitamin D3) insulin aspart U-100 100 unit/mL 12 unit subcut TID 08/30/22 08/30/22 History subcutaneous solution (Novolog U-100 Insulin aspart) lisinopril 10 mg tablet 10 mg PO AMPM 08/30/22 08/30/22 History mometasone-formoterol HFA 100 2 puff inhalation BID 08/30/22 08/30/22 History mcg-5 mcg/actuation aerosol inhaler (Dulera) Patient History Medical History Chronic anticoagulation COPD (chronic obstructive pulmonary disease) Diabetes DVT of lower extremity, bilateral GERD (gastroesophageal reflux disease) Glaucoma Hyperlipidemia LDL goal <70 Hypertension Left sided sciatica Obesity (BMI 30.0-34.9) Peripheral arterial disease Surgical History History of cataract surgery History of tonsillectomy and adenoidectomy History of vein stripping Family History Other Family history non-contributory Social History Smoking Status: Former smoker Tobacco Type: Cigarettes Hx Alcohol Use: Yes Alcohol type: hard liquor Hx Substance Use: No Preferred Language: Lithuanian Communication Ability: Effective Die Sinker Apprentice Required: No Beliefs That Will Affect Care: None marital status: Current Living Situation: Alone Current Living Situation Comment: assisted care facility Other Information That Helps Us Care for You: No Feels Safe at Home: Yes Safety Concerns: Feels Safe At This Time Assistive Devices: Glasses and Walker Review of Systems Review of Systems: All systems reviewed & are unremarkable except as noted in HPI & below Physical Exam Physical Exam: General: Alert in no acute distress. Chronic medical issues with insulin- dependent diabetes HEENT: Normocephalic Atraumatic. Inspection normal. Cranial Nerves 2-12 Grossly intact. Nares are clear. Neck is supple. Normal inspection of face. Normal inspection of neck. Neurologic: No deficits on inspection. Baseline for motor function and sensory. Psychologic: Normal affect. Baseline for issues. Respiratory: Nonlabored. No use of accessory muscles. No tachypnea or dyspnea. Cardiovascular: No tachycardia Skin: Lindsey and Dry. No rashes or visible lesions. Extremities: Moving without issues. No motor deficits on inspection. Leg wound after incision and drainage. Abdomen: Soft moderately distended. No rebound or guarding. Results & Data Vital Signs (Past 12 Hours) Vital Signs Temp Pulse Pulse Resp BP Pulse Ox O2 Del Method 08/31/22 08:00 36.6 C 73 18 109/58 L 94 Room Air 08/31/22 07:38 77 08/31/22 03:37 37.0 C 74 20 121/66 97 Room Air 08/30/22 22:15 113 H 08/30/22 22:16 36.6 C 101 H 16 155/76 H 98 Room Air 08/30/22 22:00 108 H 20 99 Room Air PG Care Time/CCT Total # of Minutes Spent Total Time Spent with Patient: Total time spent is greater than 50% in coordination of care (as documented) at patient's floor/unit and/or counseling patient: Coding Level of Care Code 92218 INT INP/OBS CARE 3/75MIN Diagnoses Renal lesion N28.9 Cellulitis L03.818 Site of cellulitis: other site Open abdominal wall wound S31.109A Wound of lower extremity S81.809A Chronic kidney disease, stage III (moderate) N18.30 COPD (chronic obstructive pulmonary disease) J44.9 Diabetes E11.9 (2) Cellulitis Site of cellulitis: other site Qualified Code(s): L03.818 - Cellulitis of other sites
[2022-08-31] MEDS: ACETAMINOPHEN 325 MG TAB PO SCH ×3 (12:29→23:48)
[2022-08-31] MEDS: oxyCODONE HCL 10 MG TABCR (OxyCONTIN) PO SCH (19:31)
[2022-08-31] MEDS: BRIMONIDINE TARTRATE 0.2% 5ML OPB SCH (20:12)
[2022-08-31] MEDS: ATORVASTATIN 40 MG TAB PO SCH (20:13)
--- NOTE | 2022-08-31 21:11 | Hospitalist Progress Note ---
Date of Service August 31, 2022 Assessment & Plan (1) Open abdominal wall wound: Plan: -Admit to [facility] tele -The patient is currently afebrile, hemodynamically stable, and stable on RA -Patient noted to have multiple wounds on the right lower abdomen, BL hips, and BL shins -Was seen at the [facility] on Friday and started on Keflex -CT of the abd/pelvis was negative for abscess -Patient is high risk for resistant organisms due to his DM, was started on Zosyn and Vancomycin, -will continue with Zosyn and Daptomycin due to his renal function -Blood cultures and culture of left thigh drainage sent, follow and tailor abx to results -Will consult wound care nurse for further evaluation and treatment -Continue nystatin powder to the erythematous areas under the panus -Continue Eliquis for DVT PPX ordered pain medicine for the patient. (2) Hypomagnesemia: Plan: -Initially found to be 1.2, no acute ECG changes -Will give 2gm IV mag/sulfate on admission, will repeat mag level tonight and replete as needed -Continue to monitor on tele (3) Wound of lower extremity: Plan: -Patient with 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 -BL LE's appear edematous -Will give a trial of 40 mg IV lasix tonight -Follow wound care nurse consult (4) Renal lesion: Plan: -Multiple hyperdense lesions found on CT of the abd/pelvis today, not seen on previous US -Renal function currently stable, will consult urology (5) Chronic kidney disease, stage III (moderate): Plan: -Renal function is currently stable -Baseline Cr is 1.7-2.0 per the last Nephrology note -Monitor renal function with a trial of IV lasix on admission (6) Hypertension: Plan: -Stable -Continue amlodipine, lisinopril, and metoprolol -If the patient would become hypotensive with diuresis, would consider holding his amlodipine to assist with treatment of his LE edema (7) COPD (chronic obstructive pulmonary disease): Plan: -Stable on RA -Continue home breathing treatments -Incentive spirometry (8) GERD (gastroesophageal reflux disease): Plan: -Continue pantoprazole (9) Diabetes: Plan: -Hold alogliptin -Monitor BSG ACHS, goal is 110-140 -8 units lantus BID, CF of 50, CR of 15 -Adjust regimen as needed (10) Chronic anticoagulation: Plan: -Continue Eliquis for hx of BL DVT's (11) Cellulitis: Plan The patient was discussed with Dr. Grant at the time of the admission Admission and Anticipated Discharge Date Admission Date: August 30, 2022 Subjective 82 yo male reports having pain in his wounds. Patient has no new symptoms. Review of Systems Review of Systems: All systems reviewed & are unremarkable except as noted in HPI & below Physical Exam Physical Exam: General: In no acute distress, stated age, well-nourished, poor hygiene HEENT: Normocephalic, atraumatic, no scleral icterus, pupils around round, symmetrical, and reactive to light, moist mucus membranes, trachea midline, no thyromegaly Chest/Pulm: No respiratory distress, symmetrical chest expansion, clear breath sounds throughout Cardiac: RRR, no murmurs noted Abdomen: Negative for ascites and bruising, normoactive bowel sounds, soft, non- tender to palpation throughout Musculoskeletal: Symmetrical and without signs of acute trauma, upper and lower extremities with full ROM, no atrophy, spasticity, or flaccidity Extremities: Radial, dorsalis pedis, and posterior tibial pulses are intact and symmetrical, edema noted in the BL LE's Skin: Patient with a large wound located on the left lower abdomen which appears infected but not currently draining, erythema noted surrounding the borders, significant erythema located under the panus which appears consistent with a fungal infection, left thigh wound currently bandaged after being drained by the ED staff without signs of drainage, right thigh lesion appears scabbed and without erythema or drainage. BL licona and foot skin breakdown without signs of active drainage, erythema appears more consistent with venous stasis Neuro: Alert and oriented to person, place, month, year, and president, no focal defects, CN II-XII tested and intact, finger to nose test negative, no tremors noted Psych: No acute distress, calm and cooperative during the exam Results & Data Results & Data Vital Signs (Past 12 Hours) Vital Signs Temp Pulse Pulse Resp BP Pulse Ox O2 Del Method 08/31/22 19:02 20 95 Room Air 08/31/22 19:20 36.7 C 80 18 128/61 93 Room Air 08/31/22 15:39 36.8 C 68 18 114/62 93 Room Air 08/31/22 15:33 77 08/31/22 11:51 36.8 C 68 18 101/55 L 95 Room Air PG Care Time/CCT Total # of Minutes Spent Total Time Spent with Patient: Total time spent is greater than 50% in coordination of care (as documented) at patient's floor/unit and/or counseling patient: Coding Level of Care Code 93938 SUB INP/OBS CARE 2/35MIN Diagnoses Open abdominal wall wound S31.109A Hypomagnesemia E83.42 Wound of lower extremity S81.809A Renal lesion N28.9 Chronic kidney disease, stage III (moderate) N18.30 Hypertension I10 COPD (chronic obstructive pulmonary disease) J44.9 GERD (gastroesophageal reflux disease) K21.9 Diabetes E11.9 Chronic anticoagulation Z79.01 Cellulitis L03.818 Site of cellulitis: other site (11) Cellulitis Site of cellulitis: other site Qualified Code(s): L03.818 - Cellulitis of other sites
--- NOTE | 2022-08-31 21:19 | Electrocardiogram Report ---
Test Reason : Blood Pressure : / mmHG Vent. Rate : 075 BPM Atrial Rate : 075 BPM P-R Int : 188 ms QRS Dur : 080 ms QT Int : 404 ms P-R-T Axes : 064 006 025 degrees QTc Int : 451 ms Poor data quality, interpretation may be adversely affected Sinus rhythm Premature atrial complexes Anterior infarct (cited on or before 30-AUG-2022) Abnormal ECG When compared with ECG of 16-AUG-2021 22:54, Criteria for Inferior infarct are no longer Present Confirmed by Ernesto Vann ([id number]) on 08/31/2022 9:19:32 PM Referred By: [facility] Confirmed By:Ernesto Vann
[2022-08-31] MEDS: LATANOPROST 0.005% OP SOLN 2.5 ML BTL OPB SCH (21:23)
[2022-08-31] MEDS: DAPTOmycin 350 MG in SYRINGE 0 ML IV SCH (23:30)
[2022-09-01] MEDS: PANTOprazole 40 MG TAB PO SCH (05:48)
[2022-09-01] MEDS: ACETAMINOPHEN 325 MG TAB PO SCH ×4 (05:48→23:49)
[2022-09-01] MEDS: oxyCODONE HCL 10 MG TABCR (OxyCONTIN) PO SCH ×2 (06:17→19:26)
[2022-09-01] MEDS: ALBUTEROL HFA 8 GM INHALER INH SCH ×2 (07:28→19:19)
[2022-09-01 07:33] LABS: Basophils # (auto) 0.05 K/uL (0-0.2); Basophils % (auto) 0.5 %; Eosinophils % (auto) 5.6 %; Hematocrit (blood only) 32.2 % (42.0-52.0); Hemoglobin 10.4 g/dl (14.0-18.0); Immature Granulocytes % (auto) 0.9 %; Lymphocytes # (auto) 1.91 K/uL (1.2-3.4); Lymphocytes % (auto) 17.9 %; Mean Corpuscular Hemoglobin 28.7 pg (25.0-34.0); Mean Corpuscular Hgb Conc 32.3 g/dL (32.0-36.0); Mean Corpuscular Volume 88.7 fL (80.0-100.0); Monocytes # (auto) 1.52 K/uL (0.11-0.59); Monocytes % (auto) 14.3 %; Neutrophils # (auto) 6.48 K/uL (1.40-6.50); Neutrophils % (auto) 60.8 %; Platelet Count 468 K/uL (130-400); RDW Coefficient of Variation 13.6 % (11.5-14.5); RDW Standard Deviation 44.2 fL (36.4-46.3); Red Blood Count 3.63 M/uL (4.70-6.10); White Blood Count 10.66 K/ul (4.8-10.8)
[2022-09-01] MEDS: POTASSIUM CHLORIDE 10 MEQ TABCR PO SCH ×2 (07:54→17:34)
[2022-09-01] MEDS: APIXABAN 5 MG TABLET PO SCH ×2 (07:54→20:37)
[2022-09-01] MEDS: METOPROLOL TARTRATE 50 MG TAB PO SCH ×2 (07:54→20:39)
[2022-09-01] MEDS: lisinopril 10 MG TAB PO SCH ×2 (07:54→20:39)
[2022-09-01] MEDS: FLUTICASONE/VILANTEROL 100/25MCG 14 PUFFS/INHALER INH SCH (07:55)
[2022-09-01] MEDS: MENTHOL-ZINC OXIDE 360 APPLN/120 GM TUBE EXT SCH ×2 (07:57→20:40)
[2022-09-01 08:00] LABS: Albumin Globulin Ratio 1.1 (0.9-2); Albumin Level 3.1 gm/dl (3.4-5.0); Bilirubin,Total 0.4 mg/dl (0.2-1.0); Calcium 8.6 mg/dl (8.6-10.3); Creatinine Clr Calc Pharmacy 32.5 ml/min; Est GFR (African American) 31.3 ml/min; Globulin 2.8 gm/dl (2.5-4.0); Magnesium 1.9 mg/dl (1.7-2.4); Total Protein 5.9 gm/dl (6.0-8.3)
[2022-09-01] MEDS: LANTUS PER UNIT CHARGE SQ SCH ×2 (08:06→20:39)
[2022-09-01] MEDS: PIPERACILLIN/TAZOBACTAM 4.5 GM in DEXTROSE 5% 100 ML IV SCH ×3 (08:06→23:48)
[2022-09-01] MEDS: INSULIN ASPART PER UNIT CHARGE SC SCH ×4 (08:06→20:38)
[2022-09-01] MEDS: ATORVASTATIN 40 MG TAB PO SCH (20:37)
[2022-09-01] MEDS: LATANOPROST 0.005% OP SOLN 2.5 ML BTL OPB SCH (20:38)
[2022-09-01] MEDS: BRIMONIDINE TARTRATE 0.2% 5ML OPB SCH (20:38)
[2022-09-01] MEDS ORDERED: diphenhydrAMINE Capsule 25 MG CAP PO ONE (21:48)
--- NOTE | 2022-09-01 22:48 | Hospitalist Progress Note ---
Date of Service September 01, 2022 Assessment & Plan (1) Open abdominal wall wound: Plan: -Admit to [facility] tele -The patient is currently afebrile, hemodynamically stable, and stable on RA -Patient noted to have multiple wounds on the right lower abdomen, BL hips, and BL shins -Was seen at the [facility] on Friday and started on Keflex -CT of the abd/pelvis was negative for abscess -Patient is high risk for resistant organisms due to his DM, was started on Zosyn and Vancomycin, -will continue with Zosyn and Daptomycin due to his renal function -Blood cultures and culture of left thigh drainage sent, follow and tailor abx to results -Will consult wound care nurse for further evaluation and treatment -Continue nystatin powder to the erythematous areas under the panus -Continue Eliquis for DVT PPX ordered pain medicine for the patient. cultures showing MRSA. continue daptomycin. WBC have shown normalization. (2) Hypomagnesemia: Plan: -Initially found to be 1.2, no acute ECG changes -Will give 2gm IV mag/sulfate on admission, will repeat mag level tonight and replete as needed -Continue to monitor on tele (3) Wound of lower extremity: Plan: -Patient with 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 -BL LE's appear edematous -Will give a trial of 40 mg IV lasix tonight -Follow wound care nurse consult (4) Renal lesion: Plan: -Multiple hyperdense lesions found on CT of the abd/pelvis today, not seen on previous US -Renal function currently stable, will consult urology (5) Chronic kidney disease, stage III (moderate): Plan: -Renal function is currently stable -Baseline Cr is 1.7-2.0 per the last Nephrology note -Monitor renal function with a trial of IV lasix on admission (6) Hypertension: Plan: -Stable -Continue amlodipine, lisinopril, and metoprolol -If the patient would become hypotensive with diuresis, would consider holding his amlodipine to assist with treatment of his LE edema (7) COPD (chronic obstructive pulmonary disease): Plan: -Stable on RA -Continue home breathing treatments -Incentive spirometry (8) GERD (gastroesophageal reflux disease): Plan: -Continue pantoprazole (9) Diabetes: Plan: -Hold alogliptin -Monitor BSG ACHS, goal is 110-140 -8 units lantus BID, CF of 50, CR of 15 -Adjust regimen as needed (10) Chronic anticoagulation: Plan: -Continue Eliquis for hx of BL DVT's (11) Cellulitis: Plan The patient was discussed with Dr. Grant at the time of the admission Admission and Anticipated Discharge Date Admission Date: August 30, 2022 Subjective Patient reports his pain is better controlled Review of Systems Review of Systems: All systems reviewed & are unremarkable except as noted in HPI & below Physical Exam Physical Exam: General: In no acute distress, stated age, well-nourished, poor hygiene HEENT: Normocephalic, atraumatic, no scleral icterus, pupils around round, symmetrical, and reactive to light, moist mucus membranes, trachea midline, no thyromegaly Chest/Pulm: No respiratory distress, symmetrical chest expansion, clear breath sounds throughout Cardiac: RRR, no murmurs noted Abdomen: Negative for ascites and bruising, normoactive bowel sounds, soft, non- tender to palpation throughout Musculoskeletal: Symmetrical and without signs of acute trauma, upper and lower extremities with full ROM, no atrophy, spasticity, or flaccidity Extremities: Radial, dorsalis pedis, and posterior tibial pulses are intact and symmetrical, edema noted in the BL LE's Skin: wounds on his skin continue to have purulent drainage, but appear less erythematous Neuro: Alert and oriented to person, place, month, year, and president, no focal defects, CN II-XII tested and intact, finger to nose test negative, no tremors noted Psych: No acute distress, calm and cooperative during the exam Results & Data Results & Data Vital Signs (Past 12 Hours) Vital Signs Temp Pulse Pulse Resp BP Pulse Ox O2 Del Method 09/01/22 19:37 36.6 C 69 18 155/69 H 96 Room Air 09/01/22 19:19 65 16 96 Room Air 09/01/22 16:00 36.7 C 65 18 127/70 98 Room Air 09/01/22 15:21 56 L 09/01/22 11:24 36.4 C L 60 18 118/60 97 Room Air PG Care Time/CCT Total # of Minutes Spent Total Time Spent with Patient: Total time spent is greater than 50% in coordination of care (as documented) at patient's floor/unit and/or counseling patient: Coding Level of Care Code 53539 SUB INP/OBS CARE MIN Diagnoses Open abdominal wall wound S31.109A Hypomagnesemia E83.42 Wound of lower extremity S81.809A Renal lesion N28.9 Chronic kidney disease, stage III (moderate) N18.30 Hypertension I10 COPD (chronic obstructive pulmonary disease) J44.9 GERD (gastroesophageal reflux disease) K21.9 Diabetes E11.9 Chronic anticoagulation Z79.01 Cellulitis L03.818 Site of cellulitis: other site (11) Cellulitis Site of cellulitis: other site Qualified Code(s): L03.818 - Cellulitis of other sites
[2022-09-01] MEDS: DAPTOmycin 350 MG in SYRINGE 0 ML IV SCH (23:48)
[2022-09-02] MEDS: oxyCODONE HCL 10 MG TABCR (OxyCONTIN) PO SCH ×2 (06:05→18:14)
[2022-09-02] MEDS: PANTOprazole 40 MG TAB PO SCH (06:06)
[2022-09-02] MEDS: ACETAMINOPHEN 325 MG TAB PO SCH ×3 (06:06→18:14)
[2022-09-02] MEDS: POTASSIUM CHLORIDE 10 MEQ TABCR PO SCH (08:06)
[2022-09-02] MEDS: ALBUTEROL HFA 8 GM INHALER INH SCH ×2 (08:06→19:16)
[2022-09-02] MEDS: APIXABAN 5 MG TABLET PO SCH ×2 (08:07→21:14)
[2022-09-02] MEDS: METOPROLOL TARTRATE 50 MG TAB PO SCH ×2 (08:07→21:15)
[2022-09-02] MEDS: lisinopril 10 MG TAB PO SCH (08:07)
[2022-09-02] MEDS: FLUTICASONE/VILANTEROL 100/25MCG 14 PUFFS/INHALER INH SCH (08:08)
[2022-09-02] MEDS: MENTHOL-ZINC OXIDE 360 APPLN/120 GM TUBE EXT SCH ×2 (08:08→21:17)
[2022-09-02] MEDS: PIPERACILLIN/TAZOBACTAM 4.5 GM in DEXTROSE 5% 100 ML IV SCH ×2 (08:17→15:57)
[2022-09-02] MEDS: LANTUS PER UNIT CHARGE SQ SCH ×2 (08:18→21:12)
[2022-09-02] MEDS: INSULIN ASPART PER UNIT CHARGE SC SCH ×4 (08:18→20:07)
[2022-09-02 08:32] LABS: Basophils # (auto) 0.06 K/uL (0-0.2); Basophils % (auto) 0.6 %; Eosinophils # (auto) 0.72 K/uL (0-0.50); Eosinophils % (auto) 7.6 %; Hematocrit (blood only) 32.9 % (42.0-52.0); Hemoglobin 10.5 g/dl (14.0-18.0); Immature Granulocytes # (auto) 0.08 K/uL (0.01-0.20); Immature Granulocytes % (auto) 0.8 %; Lymphocytes # (auto) 2.26 K/uL (1.2-3.4); Mean Corpuscular Hemoglobin 28.2 pg (25.0-34.0); Mean Corpuscular Hgb Conc 31.9 g/dL (32.0-36.0); Mean Corpuscular Volume 88.4 fL (80.0-100.0); Monocytes # (auto) 1.13 K/uL (0.11-0.59); Neutrophils # (auto) 5.17 K/uL (1.40-6.50); Platelet Count 477 K/uL (130-400); RDW Coefficient of Variation 13.7 % (11.5-14.5); RDW Standard Deviation 44.6 fL (36.4-46.3); Red Blood Count 3.72 M/uL (4.70-6.10); White Blood Count 9.42 K/ul (4.8-10.8)
[2022-09-02 09:46] LABS: Albumin Level 3.1 gm/dl (3.4-5.0); BUN Creatinine Ratio 10.5 (10-20); Bilirubin,Total 0.4 mg/dl (0.2-1.0); Calcium 8.8 mg/dl (8.6-10.3); Creatinine Clr Calc Pharmacy 29.6 ml/min; Est GFR (African American) 28.3 ml/min; Est GFR (Non-African American) 24.5 ml/min; Globulin 3.1 gm/dl (2.5-4.0); Magnesium 1.7 mg/dl (1.7-2.4); Potassium 4.2 mmol/L (3.5-5.1); Total Protein 6.2 gm/dl (6.0-8.3)
--- NOTE | 2022-09-02 11:03 | Nephrology Consultation ---
Date of Consultation September 02, 2022 Assessment & Plan (1) Acute kidney injury: * Patient is clinically volume contracted * Stop Furosemide * Stop ACEi * Will obtain FeNa * Will provide 1 L 0.9 NS IV * Monitor PRP, UO, volume status (2) Chronic kidney disease, stage III (moderate): * Baseline Cr 1.7 - 2.0 w/ mGFR 36 cc/min. CKD is on the basis of DKD (3) Hypertension: * Stop ACEi due to JEREMY * Will provide Amlodipine (4) Renal lesion: * Probable renal cysts. Urology is evaluating (5) Cellulitis: * MRSA - on Daptomycin therapy History of Present Illness Reason for Consultation: JEREMY/CKD Attending Physician: Walter Quiroz History of Present Illness Mr. Boyer is an 82 year old white male who is seen at the request of the [facility] Hospitalist Group for evaluation of JEREMY/CKD. Medical records in the EMR were reviewed today and are summarized as follows: Mr. Boyer has CKD stage G3b/A3 (moderate impairment). Baseline Cr 1.7 - 2.0 w/ mGFR 36 cc/min. Urine sediment has been negative for casts. 24 hour urine protein 8.2 g. 07/18 renal US - R 13.9 cm, L 12.9 cm. No hydronephrosis. Complex 3.2 cm cyst inferior pole R kidney. Renal impairment is likely on the basis of DKD. 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 Mr. Boyer was admitted to [facility] 08/30/22 due to cellulitis involving his anterior abdominal wall and bilateral LE. He has been started on broad spectrum antibiotics. IV Furosemide has also been administered. Serum Cr has risen from 2.0 to 2.4. Wound culture results reveal MRSA sensitive to Clindamycin and Daptomycin Allergies Allergy/AdvReac Type Severity Reaction Status Date / Time gentamicin Allergy Unknown UNKNOWN Verified 08/30/22 19:04 niacin Allergy Unknown unknown Verified 08/30/22 19:04 sertraline Allergy Unknown JITTERRY Verified 08/30/22 19:04 metformin AdvReac Unknown CAN'T Verified 08/30/22 19:04 REMEMBER silver sulfadiazine AdvReac Unknown unknown Verified 08/30/22 19:04 Home Medications Medication Instructions Recorded Confirmed Type latanoprost 0.005 % eye drops 1 drp OPB HS ##0 11/10/11 08/30/22 History (Xalatan) atorvastatin 20 mg tablet (Lipitor) 80 mg PO HS #0 tabs 05/28/16 08/30/22 History cilostazol 100 mg tablet 100 mg PO Q12 ##0 05/28/16 08/30/22 History amlodipine 10 mg tablet 10 mg PO QAM 02/22/19 08/30/22 History acetaminophen 300 mg-codeine 30 mg 1 tab PO UD PRN Pain 12/10/19 08/30/22 History tablet acetaminophen 325 mg tablet 650 mg PO Q4 PRN Pain 08/16/21 08/30/22 History alogliptin 12.5 mg tablet 12.5 mg PO QAM 08/16/21 08/30/22 History apixaban 5 mg tablet (Eliquis) 5 mg PO Q12 08/16/21 08/30/22 History clotrimazole-betamethasone 1 1 applic topical BID PRN affected 08/16/21 08/30/22 History %-0.05 % topical cream area cyanocobalamin (vitamin B-12) 1,000 mcg PO QAM 08/16/21 08/30/22 History 1,000 mcg tablet (Vitamin B-12) docusate sodium 100 mg capsule 100 mg PO DAILY PRN Constipation 08/16/21 08/30/22 History (Stool Softener) lanolin alcohols-mineral 1 applic topical AMHS PRN Dry Skin 08/16/21 08/30/22 History oil-w.petrolatum-ceresin topical cream (Minerin Creme topical) metoprolol tartrate 50 mg tablet 50 mg PO AMPM 08/16/21 08/30/22 History pantoprazole 40 mg tablet,delayed 40 mg PO DAILYBB 08/16/21 08/30/22 History release potassium chloride 20 mEq 10 meq PO BID 08/16/21 08/30/22 History tablet,extended release insulin aspar prot-insulin aspart 50 unit subcut .COMPLEX 07/22/22 08/30/22 History 100 unit/mL (70-30) subcutaneous pen (Novolog Mix 70-30FlexPen U-100) albuterol sulfate 90 mcg/actuation 1 inh inhalation AMHS 08/30/22 08/30/22 History aerosol inhaler brimonidine 0.2 % eye drops 1 drp OPB HS 08/30/22 08/30/22 History cholecalciferol (vitamin D3) 25 25 mcg PO DAILY 08/30/22 08/30/22 History mcg (1,000 unit) tablet (Vitamin D3) insulin aspart U-100 100 unit/mL 12 unit subcut TID 08/30/22 08/30/22 History subcutaneous solution (Novolog U-100 Insulin aspart) lisinopril 10 mg tablet 10 mg PO AMPM 08/30/22 08/30/22 History mometasone-formoterol HFA 100 2 puff inhalation BID 08/30/22 08/30/22 History mcg-5 mcg/actuation aerosol inhaler (Dulera) Patient History Medical History Chronic anticoagulation COPD (chronic obstructive pulmonary disease) Diabetes DVT of lower extremity, bilateral GERD (gastroesophageal reflux disease) Glaucoma Hyperlipidemia LDL goal <70 Hypertension Left sided sciatica Obesity (BMI 30.0-34.9) Peripheral arterial disease Surgical History History of cataract surgery History of tonsillectomy and adenoidectomy History of vein stripping Family History Other Family history non-contributory Social History Smoking Status: Former smoker Tobacco Type: Cigarettes Hx Alcohol Use: Yes Alcohol type: hard liquor Hx Substance Use: No Preferred Language: Romansh Communication Ability: Effective Ip Architect Required: No Beliefs That Will Affect Care: None marital status: Current Living Situation: Alone Current Living Situation Comment: assisted care facility Other Information That Helps Us Care for You: No Feels Safe at Home: Yes Safety Concerns: Feels Safe At This Time Assistive Devices: Glasses and Walker Review of Systems Constitutional: no fever Eyes: no problem reported Ear, Nose, Mouth, Throat: no problem reported Respiratory: no cough and no dyspnea Cardiovascular: no chest pain Gastrointestinal: no abdominal pain, no nausea, no vomiting and no diarrhea/loose stools Genitourinary: no dysuria, no urinary hesitancy or no hematuria Physical Exam Constitutional: not in distress Eyes: PERRL, conjunctivae normal, anicteric sclerae ENMT: external ear and nose normal, oropharynx normal Neck: trachea midline, no thyromegaly Respiratory: normal respiratory effort, lungs clear to auscultation Cardiovascular: RRR, no murmur, no edema Extremities: no edema Gastrointestinal (Abdomen): Inspection/Auscultation: normal bowel sounds wound RLQ abdominal wall w/ clean dry dressing Neurologic: Speech / Cognition: normal speech and normal cognition Results & Data Vital Signs (Past 12 Hours) Vital Signs Temp Pulse Pulse Resp BP Pulse Ox O2 Del Method 09/02/22 07:53 36.5 C 64 20 116/71 98 Room Air 09/02/22 07:32 54 L 09/02/22 02:37 36.7 C 60 18 131/64 97 Room Air 09/02/22 00:53 63 Laboratory Results Laboratory Tests 08/16/21 04/30/22 07/18/22 22:10 00:00 12:55 WBC Hgb Hct Plt Count Sodium Potassium Chloride Carbon Dioxide BUN Creatinine 2.00 H 2.0 H Glucose Urine Color Urine Appearance Urine pH Ur Specific [place] Urine Protein Urine Glucose (UA) Urine Blood Urine RBC (Auto) U Hyaline Cast (Auto) Urine Bacteria (Auto) Protein/Creatinin Ratio 8.2 H 08/26/22 08/30/22 08/30/22 09:50 16:23 16:31 WBC Hgb Hct Plt Count Sodium Potassium Chloride Carbon Dioxide BUN Creatinine 2.18 H 1.86 H Glucose Urine Color Yellow Urine Appearance Clear Urine pH 5.5 Ur Specific [place] 1.014 Urine Protein 3+ H Urine Glucose (UA) Negative Urine Blood Negative Urine RBC (Auto) 0-4 U Hyaline Cast (Auto) 1-5 Urine Bacteria (Auto) Negative Protein/Creatinin Ratio 08/31/22 09/01/22 09/02/22 06:27 06:55 07:59 WBC 9.42 Hgb 10.5 L Hct 32.9 L Plt Count 477 H Sodium Potassium Chloride Carbon Dioxide BUN Creatinine 1.99 H 2.19 H Glucose Urine Color Urine Appearance Urine pH Ur Specific [place] Urine Protein Urine Glucose (UA) Urine Blood Urine RBC (Auto) U Hyaline Cast (Auto) Urine Bacteria (Auto) Protein/Creatinin Ratio 09/02/22 07:59 WBC Hgb Hct Plt Count Sodium 141 Potassium 4.2 Chloride 111 H Carbon Dioxide 23 BUN 25 H Creatinine 2.38 H Glucose 108 H Urine Color Urine Appearance Urine pH Ur Specific [place] Urine Protein Urine Glucose (UA) Urine Blood Urine RBC (Auto) U Hyaline Cast (Auto) Urine Bacteria (Auto) Protein/Creatinin Ratio Diagnostic Findings 09/02/[address]: 1. Fat stranding is seen without evidence of drainable fluid collection. Findings may represent cellulitis but no abscess is seen. 2. Multiple renal lesions are seen including hyperdense lesions. Prior renal ultrasound only demonstrated cysts and did not suggest any of these has soft tissue density. 09/02/22 CXR: No acute cardiopulmonary findings. No evidence for pulmonary edema. PG Care Time/CCT Total # of Minutes Spent Total Time Spent with Patient: Total time spent is greater than 50% in coordination of care (as documented) at patient's floor/unit and/or counseling patient: Coding Level of Care Code 87703 IN/OBS CONSULT LVL 5,80M Diagnoses Acute kidney injury N17.9 Chronic kidney disease, stage III (moderate) N18.30 Hypertension I10 Renal lesion N28.9 Cellulitis L03.818 Site of cellulitis: other site (5) Cellulitis Site of cellulitis: other site Qualified Code(s): L03.818 - Cellulitis of other sites
[2022-09-02] MEDS ORDERED: SODIUM CHLORIDE 0.9% 1000ML 1,000 ML IV SCH (12:00)
[2022-09-02] MEDS: amLODIPine BESYLATE 5 MG TAB PO SCH (12:42)
[2022-09-02 15:16] LABS: Appearance Urine Clear (Clear); Bilirubin Urine Negative (Negative); Blood Urine Trace-intact (Negative); Glucose Urine UA Negative (Negative); Ketones Urine Negative (Negative); Leukocyte Esterase Urine Negative (Negative); Nitrite Urine Negative (Negative); Protein Urine 3+ (Negative); Specific Gravity Urine 1.025 (1.000-1.030); Urobilinogen Urine Negative (Negative)
[2022-09-02 15:19] LABS: Color Urine Straw
[2022-09-02 15:47] LABS: Bacteria Urine Negative (Negative); RBC Urine 0-4 /hpf (0-4)
[2022-09-02 16:04] LABS: Creatinine Urine Random 79.6 mg/dl
[2022-09-02] MEDS: BRIMONIDINE TARTRATE 0.2% 5ML OPB SCH (21:13)
[2022-09-02] MEDS: DOXYCYCLINE HYCLATE 100 MG CAP PO SCH (21:13)
[2022-09-02] MEDS: LATANOPROST 0.005% OP SOLN 2.5 ML BTL OPB SCH (21:13)
[2022-09-02] MEDS: ATORVASTATIN 40 MG TAB PO SCH (21:14)
[2022-09-02] MEDS ORDERED: diphenhydrAMINE Capsule 25 MG CAP PO ONE (21:42)
--- NOTE | 2022-09-02 22:09 | Hospitalist Progress Note ---
Date of Service September 02, 2022 Assessment & Plan (1) Open abdominal wall wound: Plan: -Admit to [facility] tele -The patient is currently afebrile, hemodynamically stable, and stable on RA -Patient noted to have multiple wounds on the right lower abdomen, BL hips, and BL shins -Was seen at the [facility] on Friday and started on Keflex -CT of the abd/pelvis was negative for abscess -Patient is high risk for resistant organisms due to his DM, was started on Zosyn and Vancomycin, -will continue with Zosyn and Daptomycin due to his renal function -Blood cultures and culture of left thigh drainage sent, follow and tailor abx to results -Will consult wound care nurse for further evaluation and treatment -Continue nystatin powder to the erythematous areas under the panus -Continue Eliquis for DVT PPX ordered pain medicine for the patient. cultures showing MRSA. WBC have shown normalization. eill transition to doxycycline. will repeat blodo work on 09/03 If patient continues to improve, will discharg (2) Hypomagnesemia: Plan: -Initially found to be 1.2, no acute ECG changes -Will give 2gm IV mag/sulfate on admission, will repeat mag level tonight and replete as needed -Continue to monitor on tele (3) Wound of lower extremity: Plan: -Patient with 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 -BL LE's appear edematous -Will give a trial of 40 mg IV lasix tonight -Follow wound care nurse consult (4) Renal lesion: Plan: -Multiple hyperdense lesions found on CT of the abd/pelvis today, not seen on previous US -Renal function currently stable, will consult urology (5) Chronic kidney disease, stage III (moderate): Plan: -Renal function is currently stable -Baseline Cr is 1.7-2.0 per the last Nephrology note -Monitor renal function with a trial of IV lasix on admission (6) Hypertension: Plan: -Stable -Continue amlodipine, lisinopril, and metoprolol -If the patient would become hypotensive with diuresis, would consider holding his amlodipine to assist with treatment of his LE edema (7) COPD (chronic obstructive pulmonary disease): Plan: -Stable on RA -Continue home breathing treatments -Incentive spirometry (8) GERD (gastroesophageal reflux disease): Plan: -Continue pantoprazole (9) Diabetes: Plan: -Hold alogliptin -Monitor BSG ACHS, goal is 110-140 -8 units lantus BID, CF of 50, CR of 15 -Adjust regimen as needed (10) Chronic anticoagulation: Plan: -Continue Eliquis for hx of BL DVT's (11) Cellulitis: Plan The patient was discussed with Dr. Grant at the time of the admission Admission and Anticipated Discharge Date Admission Date: August 30, 2022 Subjective Patient reports feeling comfortable. Patient has no new complaints. Review of Systems Review of Systems: All systems reviewed & are unremarkable except as noted in HPI & below Physical Exam Physical Exam: General: In no acute distress, stated age, well-nourished, poor hygiene HEENT: Normocephalic, atraumatic, no scleral icterus, pupils around round, symmetrical, and reactive to light, moist mucus membranes, trachea midline, no thyromegaly Chest/Pulm: No respiratory distress, symmetrical chest expansion, clear breath sounds throughout Cardiac: RRR, no murmurs noted Abdomen: Negative for ascites and bruising, normoactive bowel sounds, soft, non- tender to palpation throughout Musculoskeletal: Symmetrical and without signs of acute trauma, upper and lower extremities with full ROM, no atrophy, spasticity, or flaccidity Extremities: Radial, dorsalis pedis, and posterior tibial pulses are intact and symmetrical, edema noted in the BL LE's Skin: wounds on his skin continue to have purulent drainage, but appear less erythematous Neuro: Alert and oriented to person, place, month, year, and president, no focal defects, CN II-XII tested and intact, finger to nose test negative, no tremors noted Psych: No acute distress, calm and cooperative during the exam Results & Data Results & Data Vital Signs (Past 12 Hours) Vital Signs Temp Pulse Pulse Resp BP Pulse Ox O2 Del Method 09/02/22 20:01 36.6 C 65 18 168/69 H 96 Room Air 09/02/22 15:47 36.5 C 60 18 148/70 H 100 Room Air 09/02/22 15:07 50 L 09/02/22 11:37 36.3 C L 60 20 170/71 H 93 Room Air PG Care Time/CCT Total # of Minutes Spent Total Time Spent with Patient: Total time spent is greater than 50% in coordination of care (as documented) at patient's floor/unit and/or counseling patient: Coding Level of Care Code 43923 SUB INP/OBS CARE MIN Diagnoses Open abdominal wall wound S31.109A Hypomagnesemia E83.42 Wound of lower extremity S81.809A Renal lesion N28.9 Chronic kidney disease, stage III (moderate) N18.30 Hypertension I10 COPD (chronic obstructive pulmonary disease) J44.9 GERD (gastroesophageal reflux disease) K21.9 Diabetes E11.9 Chronic anticoagulation Z79.01 Cellulitis L03.818 Site of cellulitis: other site (11) Cellulitis Site of cellulitis: other site Qualified Code(s): L03.818 - Cellulitis of other sites
[2022-09-03] MEDS: ACETAMINOPHEN 325 MG TAB PO SCH ×4 (00:01→18:20)
[2022-09-03] MEDS: PANTOprazole 40 MG TAB PO SCH (05:59)
[2022-09-03] MEDS: oxyCODONE HCL 10 MG TABCR (OxyCONTIN) PO SCH ×2 (06:00→18:20)
[2022-09-03 07:08] LABS: Hematocrit (blood only) 31.5 % (42.0-52.0); Hemoglobin 10.1 g/dl (14.0-18.0); Mean Corpuscular Hemoglobin 28.4 pg (25.0-34.0); Mean Corpuscular Hgb Conc 32.1 g/dL (32.0-36.0); Mean Corpuscular Volume 88.5 fL (80.0-100.0); Mean Platelet Volume 9.1 fL (9.4-12.4); Platelet Count 446 K/uL (130-400); RDW Coefficient of Variation 13.2 % (11.5-14.5); RDW Standard Deviation 42.9 fL (36.4-46.3); Red Blood Count 3.56 M/uL (4.70-6.10); White Blood Count 10.27 K/ul (4.8-10.8)
[2022-09-03] MEDS: ALBUTEROL HFA 8 GM INHALER INH SCH ×2 (07:16→19:48)
[2022-09-03 07:25] LABS: BUN Creatinine Ratio 11.7 (10-20); C Reactive Protein 1.74 mg/dl (0-0.5); Calcium 8.6 mg/dl (8.6-10.3); Creatinine Clr Calc Pharmacy 31.7 ml/min; Est GFR (African American) 30.8 ml/min; Est GFR (Non-African American) 26.6 ml/min; Potassium 4.1 mmol/L (3.5-5.1)
[2022-09-03] MEDS: INSULIN ASPART PER UNIT CHARGE SC SCH ×4 (07:56→19:58)
[2022-09-03] MEDS: FLUTICASONE/VILANTEROL 100/25MCG 14 PUFFS/INHALER INH SCH (08:10)
[2022-09-03] MEDS: APIXABAN 5 MG TABLET PO SCH ×2 (08:11→20:02)
[2022-09-03] MEDS: amLODIPine BESYLATE 5 MG TAB PO SCH (08:11)
[2022-09-03] MEDS: DOXYCYCLINE HYCLATE 100 MG CAP PO SCH ×2 (08:12→20:03)
[2022-09-03] MEDS: METOPROLOL TARTRATE 50 MG TAB PO SCH ×2 (08:12→20:05)
[2022-09-03] MEDS: MENTHOL-ZINC OXIDE 360 APPLN/120 GM TUBE EXT SCH ×2 (08:20→20:04)
--- NOTE | 2022-09-03 09:01 | Nephrology Progress Note ---
Date of Service September 03, 2022 Assessment & Plan (1) Acute kidney injury: Plan: * Patient is clinically euvoluemic to volume contracted * Stop Furosemide * Stop ACEi * FeNa 1.5% * Monitor PRP, UO, volume status (2) Chronic kidney disease, stage III (moderate): Plan: * Baseline Cr 1.7 - 2.0 w/ mGFR 36 cc/min. CKD is on the basis of DKD (3) Hypertension: Plan: * Stop ACEi due to JEREMY * Will provide Amlodipine (4) Renal lesion: Plan: * Probable renal cysts. Urology is evaluating (5) Cellulitis: Plan: * MRSA - on Daptomycin therapy Admission and Anticipated Discharge Date Admission Date: August 30, 2022 Subjective Mr. Boyer was evaluated in his hospital room this morning. He reports that his cellulitis is improved and he hopes to return home today w/ IV antibiotic therapy Review of Systems Constitutional: no fever Eyes: no problem reported Ear, Nose, Mouth, Throat: no problem reported Respiratory: no cough and no dyspnea Cardiovascular: no chest pain Gastrointestinal: no abdominal pain, no nausea, no vomiting and no diarrhea/loose stools Genitourinary: no dysuria, no urinary hesitancy or no hematuria Physical Exam Constitutional: not in distress Eyes: PERRL, conjunctivae normal, anicteric sclerae ENMT: external ear and nose normal, oropharynx normal Neck: trachea midline, no thyromegaly Respiratory: normal respiratory effort, lungs clear to auscultation Cardiovascular: RRR, no murmur, no edema Extremities: no edema Gastrointestinal (Abdomen): Inspection/Auscultation: normal bowel sounds Neurologic: Speech / Cognition: normal speech and normal cognition Results & Data Vital Signs (Past 12 Hours) Vital Signs Temp Pulse Pulse Resp BP Pulse Ox O2 Del Method 09/03/22 08:07 36.6 C 64 16 169/71 H 95 Room Air 09/03/22 07:19 68 18 96 Room Air 09/03/22 04:18 65 146/65 H 09/03/22 03:28 36.5 C 65 18 171/69 H 95 Room Air 09/02/22 23:52 36.6 C 62 18 136/67 95 Room Air 09/02/22 22:00 58 L Laboratory Results Laboratory Tests 09/02/22 09/02/22 09/03/22 Unknown Unknown 06:23 WBC Hgb Hct Plt Count Sodium 142 Potassium 4.1 Chloride 111 H Carbon Dioxide 23 BUN 26 H Creatinine 2.22 H Glucose 101 H Urine Appearance Clear Urine pH 5.0 Ur Specific [place] 1.025 Urine Protein 3+ H Urine Glucose (UA) Negative Urine Blood Trace-intact H Urine RBC 0-4 Ur Random Creatinine 79.6 Ur Random Sodium 73 09/03/22 06:23 WBC 10.27 Hgb 10.1 L Hct 31.5 L Plt Count 446 H Sodium Potassium Chloride Carbon Dioxide BUN Creatinine Glucose Urine Appearance Urine pH Ur Specific [place] Urine Protein Urine Glucose (UA) Urine Blood Urine RBC Ur Random Creatinine Ur Random Sodium Diagnostic Findings 09/02/[address]: 1. Fat stranding is seen without evidence of drainable fluid collection. Findings may represent cellulitis but no abscess is seen. 2. Multiple renal lesions are seen including hyperdense lesions. Prior renal ultrasound only demonstrated cysts and did not suggest any of these has soft tissue density. 09/02/22 CXR: No acute cardiopulmonary findings. No evidence for pulmonary edema. PG Care Time/CCT Total # of Minutes Spent Total Time Spent with Patient: Total time spent is greater than 50% in coordination of care (as documented) at patient's floor/unit and/or counseling patient: Coding Level of Care Code 07617 SUB INP/OBS CARE 3/50MIN Diagnoses Acute kidney injury N17.9 Chronic kidney disease, stage III (moderate) N18.30 Hypertension I10 Renal lesion N28.9 Cellulitis L03.818 Site of cellulitis: other site (5) Cellulitis Site of cellulitis: other site Qualified Code(s): L03.818 - Cellulitis of other sites
[2022-09-03] MEDS: LANTUS PER UNIT CHARGE SQ SCH ×2 (09:17→20:01)
[2022-09-03] MEDS: DOCUSATE SODIUM/SENNA 50/8.6MG TAB PO SCH (17:08)
[2022-09-03] MEDS: ATORVASTATIN 40 MG TAB PO SCH (20:03)
[2022-09-03] MEDS: LATANOPROST 0.005% OP SOLN 2.5 ML BTL OPB SCH (20:04)
[2022-09-03] MEDS: BRIMONIDINE TARTRATE 0.2% 5ML OPB SCH (20:04)
--- NOTE | 2022-09-04 | Hospitalist Progress Note ---
Date of Service September 03, 2022 Assessment & Plan (1) Open abdominal wall wound: Plan: -Admit to med tele -The patient is currently afebrile, hemodynamically stable, and stable on RA -Patient noted to have multiple wounds on the right lower abdomen, BL hips, and BL shins -Was seen at the [place] on Friday and started on Keflex -CT of the abd/pelvis was negative for abscess -Patient is high risk for resistant organisms due to his DM, was started on Zosyn and Vancomycin, -will continue with Zosyn and Daptomycin due to his renal function -Blood cultures and culture of left thigh drainage sent, follow and tailor abx to results -Will consult wound care nurse for further evaluation and treatment -Continue nystatin powder to the erythematous areas under the panus -Continue Eliquis for DVT PPX ordered pain medicine for the patient. cultures showing MRSA. WBC have shown normalization. eill transition to doxycycline. continue doxycycline. will monitor overnight given that some wounds had more drainage on 09/03 (2) Hypomagnesemia: Plan: -Initially found to be 1.2, no acute ECG changes -Will give 2gm IV mag/sulfate on admission, will repeat mag level tonight and replete as needed -Continue to monitor on tele (3) Wound of lower extremity: Plan: -Patient with 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 -BL LE's appear edematous -Will give a trial of 40 mg IV lasix tonight -Follow wound care nurse consult (4) Renal lesion: Plan: -Multiple hyperdense lesions found on CT of the abd/pelvis today, not seen on previous US -Renal function currently stable, will consult urology (5) Chronic kidney disease, stage III (moderate): Plan: -Renal function is currently stable -Baseline Cr is 1.7-2.0 per the last Nephrology note -Monitor renal function with a trial of IV lasix on admission (6) Hypertension: Plan: -Stable -Continue amlodipine, lisinopril, and metoprolol -If the patient would become hypotensive with diuresis, would consider holding his amlodipine to assist with treatment of his LE edema (7) COPD (chronic obstructive pulmonary disease): Plan: -Stable on RA -Continue home breathing treatments -Incentive spirometry (8) GERD (gastroesophageal reflux disease): Plan: -Continue pantoprazole (9) Diabetes: Plan: -Hold alogliptin -Monitor BSG ACHS, goal is 110-140 -8 units lantus BID, CF of 50, CR of 15 -Adjust regimen as needed (10) Chronic anticoagulation: Plan: -Continue Eliquis for hx of BL DVT's (11) Cellulitis: Plan The patient was discussed with Dr. Grant at the time of the admission Admission and Anticipated Discharge Date Admission Date: August 30, 2022 Subjective Patient reports doing well. Review of Systems Review of Systems: All systems reviewed & are unremarkable except as noted in HPI & below Physical Exam Physical Exam: General: In no acute distress, stated age, well-nourished, poor hygiene HEENT: Normocephalic, atraumatic, no scleral icterus, pupils around round, symmetrical, and reactive to light, moist mucus membranes, trachea midline, no thyromegaly Chest/Pulm: No respiratory distress, symmetrical chest expansion, clear breath sounds throughout Cardiac: RRR, no murmurs noted Abdomen: Negative for ascites and bruising, normoactive bowel sounds, soft, non- tender to palpation throughout Musculoskeletal: Symmetrical and without signs of acute trauma, upper and lower extremities with full ROM, no atrophy, spasticity, or flaccidity Extremities: Radial, dorsalis pedis, and posterior tibial pulses are intact and symmetrical, edema noted in the BL LE's Skin: wounds on his skin continue to have purulent drainage, but appear less erythematous and having less discharge Lesion on his right thigh had some more drainage earlier today, but appears clear on exam. Neuro: Alert and oriented to person, place, month, year, and president, no focal defects, CN II-XII tested and intact, finger to nose test negative, no tremors noted Psych: No acute distress, calm and cooperative during the exam Results & Data Results & Data Vital Signs (Past 12 Hours) Vital Signs Temp Pulse Pulse Resp BP Pulse Ox O2 Del Method 09/03/22 19:48 62 18 96 Room Air 09/03/22 19:00 36.5 C 61 18 168/69 H 96 Room Air 09/03/22 16:00 56 L 09/03/22 14:58 36.4 C L 60 18 165/72 H 100 Room Air 09/03/22 12:11 36.5 C 54 L 18 121/46 L 91 Room Air PG Care Time/CCT Total # of Minutes Spent Total Time Spent with Patient: Total time spent is greater than 50% in coordination of care (as documented) at patient's floor/unit and/or counseling patient: Coding Level of Care Code 43514 SUB INP/OBS CARE 2/35MIN Diagnoses Open abdominal wall wound S31.109A Hypomagnesemia E83.42 Wound of lower extremity S81.809A Renal lesion N28.9 Chronic kidney disease, stage III (moderate) N18.30 Hypertension I10 COPD (chronic obstructive pulmonary disease) J44.9 GERD (gastroesophageal reflux disease) K21.9 Diabetes E11.9 Chronic anticoagulation Z79.01 Cellulitis L03.818 Site of cellulitis: other site (11) Cellulitis Site of cellulitis: other site Qualified Code(s): L03.818 - Cellulitis of other sites
[2022-09-04] MEDS: ACETAMINOPHEN 325 MG TAB PO SCH ×3 (01:10→12:15)
[2022-09-04] MEDS: PANTOprazole 40 MG TAB PO SCH (05:46)
[2022-09-04] MEDS: oxyCODONE HCL 10 MG TABCR (OxyCONTIN) PO SCH (05:49)
[2022-09-04] MEDS: ALBUTEROL HFA 8 GM INHALER INH SCH (07:32)
[2022-09-04] MEDS: INSULIN ASPART PER UNIT CHARGE SC SCH ×2 (08:38→12:15)
[2022-09-04] MEDS: LANTUS PER UNIT CHARGE SQ SCH (08:39)
[2022-09-04] MEDS: FLUTICASONE/VILANTEROL 100/25MCG 14 PUFFS/INHALER INH SCH (08:40)
[2022-09-04] MEDS: METOPROLOL TARTRATE 50 MG TAB PO SCH (08:42)
--- NOTE | 2022-09-04 08:42 | Nephrology Progress Note ---
Date of Service September 04, 2022 Assessment & Plan (1) Acute kidney injury: Plan: * Patient is clinically euvoluemic to volume contracted * Stop Furosemide * Stop ACEi * FeNa 1.5% * Monitor PRP, UO, volume status - awaiting am labs today (2) Chronic kidney disease, stage III (moderate): Plan: * Baseline Cr 1.7 - 2.0 w/ mGFR 36 cc/min. CKD is on the basis of DKD (3) Hypertension: Plan: * Stop ACEi due to JEREMY * Will provide Amlodipine (4) Renal lesion: Plan: * Probable renal cysts. Urology is evaluating (5) Cellulitis: Plan: * MRSA - converted from Daptomycin to oral Doxycycline therapy Admission and Anticipated Discharge Date Admission Date: August 30, 2022 Subjective Mr. Boyer was evaluated in his hospital room this morning. He reports that his cellulitis is improved/ He hopes to have case management set up outpatient antibiotics and return to [facility] this afternoon Review of Systems Constitutional: no fever Eyes: no problem reported Ear, Nose, Mouth, Throat: no problem reported Respiratory: no cough and no dyspnea Cardiovascular: no chest pain Gastrointestinal: no abdominal pain, no nausea, no vomiting and no diarrhea/loose stools Genitourinary: no dysuria, no urinary hesitancy or no hematuria Physical Exam Constitutional: not in distress Eyes: PERRL, conjunctivae normal, anicteric sclerae ENMT: external ear and nose normal, oropharynx normal Neck: trachea midline, no thyromegaly Respiratory: normal respiratory effort, lungs clear to auscultation Cardiovascular: RRR, no murmur, no edema Extremities: no edema Gastrointestinal (Abdomen): Inspection/Auscultation: normal bowel sounds Neurologic: Speech / Cognition: normal speech and normal cognition Results & Data Vital Signs (Past 12 Hours) Vital Signs Temp Pulse Pulse Resp BP Pulse Ox O2 Del Method 09/04/22 07:44 36.5 C 60 18 156/71 H 94 Room Air 09/04/22 07:32 71 18 97 Room Air 09/04/22 04:00 36.6 C 58 L 18 162/76 H 95 Room Air 09/04/22 00:00 53 L 09/03/22 23:00 36.6 C 62 18 136/70 95 Room Air PG Care Time/CCT Total # of Minutes Spent Total Time Spent with Patient: Total time spent is greater than 50% in coordination of care (as documented) at patient's floor/unit and/or counseling patient: Coding Level of Care Code 60503 SUB INP/OBS CARE 50MIN Diagnoses Acute kidney injury N17.9 Chronic kidney disease, stage III (moderate) N18.30 Hypertension I10 Renal lesion N28.9 Cellulitis L03.818 Site of cellulitis: other site (5) Cellulitis Site of cellulitis: other site Qualified Code(s): L03.818 - Cellulitis of other sites
[2022-09-04] MEDS: DOXYCYCLINE HYCLATE 100 MG CAP PO SCH (08:43)
[2022-09-04] MEDS: DOCUSATE SODIUM/SENNA 50/8.6MG TAB PO SCH (08:43)
[2022-09-04] MEDS: APIXABAN 5 MG TABLET PO SCH (08:43)
[2022-09-04] MEDS: MENTHOL-ZINC OXIDE 360 APPLN/120 GM TUBE EXT SCH (08:43)
[2022-09-04] MEDS: amLODIPine BESYLATE 5 MG TAB PO SCH (08:43)
--- NOTE | 2022-09-04 16:30 | Discharge Summary ---
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 In the ED the patient was found to be afebrile, hemodynamically stable, and stable on RA. Labs were remarkable for a leukocytosis of 12.43 with left shift of 8.78, stable Hgb, thrombocytosis of 477, cr of 1.86 (baseline is 1.7-2.0 per nephro), mag of 1.2, procal of 0.27, UA with 3+ protein. CT of the abd/pelvis wo con was read as "1. Fat stranding is seen without evidence of drainable fluid collection. Findings may represent cellulitis but no abscess is seen. 2. Multiple renal lesions are seen including hyperdense lesions. Prior renal ultrasound only demonstrated cysts and did not suggest any of these has soft tissue density. 3. Additional findings as above.". Prior to admission the patient was given a dose of Vancomycin, Zosyn, a 500 mL NSS bolus, and topical nystatin powder. At the time of the exam the patient was sitting in bed in no acute distress with his daughter/POA sitting bedside. He states that approximately 3 weeks ago he started to develop what he describes as boils on his lower abdomen and BL hips. He also started to develop BL lower extremity wounds on the shins and feet. He states that the wound on his abdomen opened and drained on it's own. He was seen [facility] on Friday of this week and was prescribed a 5 day course of Keflex which he started on Friday. He had a home health nurse come evaluate him legs today and she recommended he come to the ED to have his wounds evaluated. He denies recent fever, chills, chest pain, SOB, cough, abd pain, nausea, vomiting, diarrhea, dysuria, hematuria, melena, and recent trauma. We discussed code status, he has a living will and POA. He wishes to be a DNR/DNI and for his daughter to make medical decisions for him if he cannot make them himself. Please refer to Dr. Grant's attestation for any changes to the treatment plan Discharge Exam General: In no acute distress, stated age, well-nourished, poor hygiene HEENT: Normocephalic, atraumatic, no scleral icterus, pupils around round, symmetrical, and reactive to light, moist mucus membranes, trachea midline, no thyromegaly Chest/Pulm: No respiratory distress, symmetrical chest expansion, clear breath sounds throughout Cardiac: RRR, no murmurs noted Abdomen: Negative for ascites and bruising, normoactive bowel sounds, soft, non- tender to palpation throughout Musculoskeletal: Symmetrical and without signs of acute trauma, upper and lower extremities with full ROM, no atrophy, spasticity, or flaccidity Extremities: Radial, dorsalis pedis, and posterior tibial pulses are intact and symmetrical, edema noted in the BL LE's Skin: wounds on his skin continue to have purulent drainage, but appear less erythematous and having less discharge Lesion on his right thigh had some more drainage earlier today, but appears clear on exam. Neuro: Alert and oriented to person, place, month, year, and president, no focal defects, CN II-XII tested and intact, finger to nose test negative, no tremors noted Psych: No acute distress, calm and cooperative during the exam Discharge Data Allergies Allergy/AdvReac Type Severity Reaction Status Date / Time gentamicin Allergy Unknown UNKNOWN Verified 08/30/22 19:04 niacin Allergy Unknown unknown Verified 08/30/22 19:04 sertraline Allergy Unknown JITTERRY Verified 08/30/22 19:04 metformin AdvReac Unknown CAN'T Verified 08/30/22 19:04 REMEMBER silver sulfadiazine AdvReac Unknown unknown Verified 08/30/22 19:04 Consultations 08/30/22 17:42 ED Decision to Admit Stat 08/30/22 19:01 Consult Urology Routine 09/02/22 10:47 Consult Nephrology Stat Ordered Studies 08/30/22 17:07 CT abd pelvis wo con Stat 08/30/22 18:48 US arterial duplex [facility] Urgent Hospital Course (1) Open abdominal wall wound: -Admit to [facility] [place] -The patient is currently afebrile, hemodynamically stable, and stable on RA -Patient noted to have multiple wounds on the right lower abdomen, BL hips, and BL shins -Was seen at the [facility] on Friday and started on Keflex -CT of the abd/pelvis was negative for abscess -Patient is high risk for resistant organisms due to his DM, was started on Zosyn and Vancomycin, -will continue with Zosyn and Daptomycin due to his renal function -Blood cultures and culture of left thigh drainage sent, follow and tailor abx to results -Will consult wound care nurse for further evaluation and treatment -Continue nystatin powder to the erythematous areas under the panus -Continue Eliquis for DVT PPX ordered pain medicine for the patient. cultures showing MRSA. WBC have shown normalization. eill transition to doxycycline. continue doxycycline. 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 -BL LE's appear edematous -Will give a trial of 40 mg IV lasix tonight -Follow wound care nurse consult (4) Renal lesion: -Multiple hyperdense lesions found on CT of the abd/pelvis today, not seen on previous US -Renal function currently stable, will consult urology (5) Chronic kidney disease, stage III (moderate): -Renal function is currently stable -Baseline Cr is 1.7-2.0 per the last Nephrology note -Monitor renal function with a trial of IV lasix on admission (6) Hypertension: -Stable -Continue amlodipine, lisinopril, and metoprolol -If the patient would become hypotensive with diuresis, would consider holding his amlodipine to assist with treatment of his LE edema (7) COPD (chronic obstructive pulmonary disease): -Stable on RA -Continue home breathing treatments -Incentive spirometry (8) GERD (gastroesophageal reflux disease): -Continue pantoprazole (9) Diabetes: -Hold alogliptin -Monitor BSG ACHS, goal is 110-140 -8 units lantus BID, CF of 50, CR of 15 -Adjust regimen as needed (10) Chronic anticoagulation: -Continue Eliquis for hx of BL DVT's (11) Cellulitis: Plan The patient was discussed with Dr. Grant at the time of the admission Discharge Plan Discharge Items Patient Disposition: Home - Home Health Services Reason For Visit: MULTIPLE WOUNDS Discharge Diagnosis: wound infection Activity: Resume your previous activity Non-emergency contact: Primary Care Provider Call non-emergency contact if: you have any medication questions Follow-up/Referrals: ENZO WEBB ONOFRE [Primary Care Provider] - Diet: Carb Consistent or DM2 Addtl Attending Provider Instructions: Urology will plan to set you up for outpatient follow-up. You will likely need seen in the next few months to set up imaging to fully assess renal lesions. In regards to your infection: please continue antibiotics for 9 more days. Followup with PCP in 1 week, recheck your kidney numbers in one week. Recommend followup with wound care clinic to assist with home health wound care instruction: in right lower abdomen, clean with saline. cover with aquacel AG and secure tegaderm. Change every 3 days or if dressing >50 % saturated with drainage. To right and left lower leg: clean with saline. Cover open areas with lyofoam. ABD's and secure with Kerlix. Change every day and as needed for drainage. To left dorsal foot- clean with saline. Cover with optifoam. Change every 3 days and as needed. Pending Studies at Discharge: No Stand-Alone Forms: My [employer], Smoking Cessation Medications and DC Order Prescriptions: New doxycycline hyclate 100 mg Capsule 100 mg PO BID Qty: 18 0RF Continued latanoprost [Xalatan] 0.005 % Drops 1 drp OPB HS Qty: 0 Patient Comments: BOTH EYES atorvastatin [Lipitor] 20 mg Tablet 80 mg PO HS Qty: 0 amlodipine 10 mg Tablet 10 mg PO QAM acetaminophen-codeine 300-30 mg Tablet 1 tab PO UD MDD 3g PRN (Reason: Pain) metoprolol tartrate 50 mg Tablet 50 mg PO AMPM cyanocobalamin (vitamin B-12) [Vitamin B-12] 1,000 mcg Tablet 1,000 mcg PO QAM pantoprazole 40 mg Tablet,Delayed Release (Dr/Ec) 40 mg PO DAILYBB Eliquis 5 mg Tablet 5 mg PO Q12 alogliptin 12.5 mg Tablet 12.5 mg PO QAM docusate sodium [Stool Softener] 100 mg Capsule 100 mg PO DAILY PRN (Reason: Constipation) Minerin Creme Cream 1 applic TOPICAL AMHS PRN (Reason: Dry Skin) Rx Instructions: lower leg and heel only clotrimazole-betamethasone 1-0.05 % Cream 1 applic TOPICAL BID PRN (Reason: affected area) Rx Instructions: lower leg and heel only insulin asp prt-insulin aspart [Novolog Mix 70-30FlexPen U-100] 100 unit/mL (70-30) insulin pen 50 unit SUBCUT .COMPLEX Rx Instructions: 52 units at breakfast; 14 units at lunch; 28 units at supper; brimonidine 0.2 % Drops 1 drp OPB HS cholecalciferol (vitamin D3) [Vitamin D3] 25 mcg (1,000 unit) Tablet 25 mcg PO DAILY albuterol sulfate 90 mcg/actuation Hfa Aerosol Inhaler 1 inh INHALATION AMHS Dulera 100-5 mcg/actuation Hfa Aerosol Inhaler 2 puff INHALATION BID insulin aspart U-100 [Novolog U-100 Insulin aspart] 100 unit/mL Solution 12 unit SUBCUT TID Changed acetaminophen 325 mg Tablet 325 mg PO Q4H MDD 3g PRN (Reason: pain) Qty: 30 0RF Discontinued cilostazol 100 mg Tablet 100 mg PO Q12 Qty: 0 potassium chloride 20 mEq Tablet Extended Release 10 meq PO BID Rx Instructions: 1/2 tablet dose lisinopril 10 mg tablet 10 mg PO AMPM Discharge Orders: Discharge Order (Routine); Ordered 09/04/22 Ordered By: Walter Mena/Other Patient Handouts: Hypoglycemia (Low Blood Sugar), Managing Type 2 Diabetes, Special Foot Care for Diabetes Admission Data Admit Date/Time: 08/30/22 18:19 Attending Provider: Walter Quiroz Admit Provider: Lul Grant Primary Care Provider: ENZO WEBB [facility] Other Providers: Lul Grant ; González Turner ; González Mitchell ; [facility] Other Interventions: Discharge Summary Assessment (RN) Last Done: 09/04/22 14:49 Coding Diagnoses Open abdominal wall wound S31.109A Hypomagnesemia E83.42 Wound of lower extremity S81.809A Renal lesion N28.9 Chronic kidney disease, stage III (moderate) N18.30 Hypertension I10 COPD (chronic obstructive pulmonary disease) J44.9 GERD (gastroesophageal reflux disease) K21.9 Diabetes E11.9 Chronic anticoagulation Z79.01 Cellulitis L03.818 Site of cellulitis: other site
== END 2022-09-04 17:50 | disposition home health service (06) | DRG 605 ==
LOC: ED 15:05 → SUATTDRO 18:19 → 2N 18:19

== ENCOUNTER 2023-01-23 21:11 | Inpatient (IN) ==
[2023-01-23 22:08] LABS: Alanine Aminotransferase 13 U/L (7-52); Albumin Globulin Ratio 1.1 (0.9-2); Albumin Level 3.6 gm/dl (3.4-5.0); Alkaline Phosphatase 107 U/L (34-104); Anion Gap 12 (3-11); Aspartate Aminotransferase 11 U/L (13-39); BUN Creatinine Ratio 13.2 (10-20); Bilirubin,Total 0.4 mg/dl (0.2-1.0); Blood Urea Nitrogen 29 mg/dl (6-23); Calcium 9.3 mg/dl (8.6-10.3); Carbon Dioxide 18 mmol/L (21-32); Chloride 108 mmol/L (98-107); Est GFR (African American) 31.1 ml/min; Est GFR (Non-African American) 26.9 ml/min; Globulin 3.2 gm/dl (2.5-4.0); Glucose 203 mg/dl (70-99(Fasting)); Potassium 4.1 mmol/L (3.5-5.1); Sodium 138 mmol/L (136-145); Total Protein 6.8 gm/dl (6.0-8.3)
--- NOTE | 2023-01-23 22:14 | XRay Report ---
SINGLE VIEW CHEST CLINICAL HISTORY: Atypical chest pain. FINDINGS: A PA chest radiograph is compared to study dated 08/30/2022. The heart is top normal for proj ection noting atherosclerotic calcification of the thoracic aorta. The pulmonary vasculature is nonco ngested. Chronic interstitial thickening similar to previous. There is mild bibasilar scarring/atelec tasis. The lungs and pleural spaces are otherwise clear. No pneumothorax is seen. The skeletal struct ures are osteopenic. The bony thorax is grossly intact. IMPRESSION: No acute cardiopulmonary abnormality. ACT 112: Negative or not required by law. Electronically signed by: Hugo Mtz M.D. 01/23/2023 10:13 PM
[2023-01-23 22:15] LABS: Troponin I High Sensitivity 19.7 pg/ml (0-20)
[2023-01-23 22:22] LABS: Partial Thromboplastin Time 28.9 Seconds (21.0-31.0); Prothrombin Time 10.8 Seconds (9.0-12.0)
[2023-01-23 22:41] LABS: Basophils # (auto) 0.05 K/uL (0.00-0.20); Basophils % (auto) 0.2 %; Hematocrit (blood only) 32.1 % (42.0-52.0); Hemoglobin 10.2 g/dl (14.0-18.0); Immature Granulocytes # (auto) 0.18 K/uL (0.01-0.20); Immature Granulocytes % (auto) 0.9 %; Lymphocytes # (auto) 1.09 K/uL (1.20-3.40); Lymphocytes % (auto) 5.4 %; Mean Corpuscular Hemoglobin 27.1 pg (25.0-34.0); Mean Corpuscular Hgb Conc 31.8 g/dL (32.0-36.0); Mean Corpuscular Volume 85.4 fL (80.0-100.0); Mean Platelet Volume 8.9 fL (9.4-12.4); Monocytes # (auto) 2.15 K/uL (0.11-0.59); Monocytes % (auto) 10.7 %; Neutrophils # (auto) 16.39 K/uL (1.40-6.50); Neutrophils % (auto) 81.8 %; Platelet Count 349 K/uL (130-400); RDW Coefficient of Variation 13.7 % (11.5-14.5); RDW Standard Deviation 42.8 fL (36.4-46.3); Red Blood Count 3.76 M/uL (4.70-6.10); White Blood Count 20.06 K/ul (4.8-10.8)
[2023-01-23] MEDS ORDERED: HYDROmorphone INJ 1 MG/ML SYRINGE IV STA (23:17)
[2023-01-23] MEDS ORDERED: SODIUM CHLORIDE 0.9% 1,000 ML IV ONE (23:17)
[2023-01-23] MEDS ORDERED: ONDANSETRON INJ 2 MG/ML 2 ML VIAL IV STA (23:17)
[2023-01-23] MEDS ORDERED: VANCOMYCIN CONSULT ACTIVE PRN (23:25)
[2023-01-23] MEDS ORDERED: VANCOMYCIN HCL 2,750 MG in SODIUM CHLORIDE 0.9% 500 ML IV ONE (23:25)
--- NOTE | 2023-01-24 00:50 | Emergency Department Note ---
Impression & Plan Skin abscess, [facility] NAME: ALLISON PEÑA AGE: 83 SEX: M ARRIVES VIA: Walk-In INFORMANT: Patient ED PROVIDER(S): Bette Aguirre DO CHIEF COMPLAINT: Left-sided chest pain;boil on my back PLAN: Disposition: Admit to the [facility] Condition: Guarded MEDICAL DECISION MAKING: This is an 83-year-old male patient who presents to the emergency department complaining of discomfort in his chest. Patient had been seen earlier today at the NH for a boil on his back. He was started on doxycycline. The patient has a history of previous abscesses for which he has been hospitalized and treated for MRSA. Patient became concerned tonight because he developed a burning sensation in his chest throughout the day starting around 1:00 that has continued to worsen tonight. EKG showed no ischemic changes but the patient was significantly tachycardic. Troponin was normal after having had chest discomfort for more than 12 hours. There was significant leukocytosis with a white blood cell count greater than 20,000. Source of infection certainly seems to be a fairly large skin abscess that is draining over the left mid back with expanding erythema consistent with surrounding cellulitis. Patient was started on IV vancomycin. Patient has a negative lactate and only a mildly elevated procalcitonin. The patient remains hemodynamically stable. He was bolused with a liter of normal saline solution which brought his heart rate down from 126-110. He was given a second liter of normal saline solution which brought his heart rate from 110 down to 98. Patient went for CT scan of the chest to evaluate this skin abscess. There was only a tiny fluid collection noted. Most of the findings were induration and consistent with cellulitis. As for the patient's chest discomfort, I think this may be secondary to the d raining wound on his back ischemic chest pain. Triage Nursing notes reviewed and agree with them. Additional history obtained from his family member at the bedside. External medical records: Previous hospital admissions were reviewed. Vital Signs: reviewed and remarkable for tachycardia Differential diagnosis: Sepsis, skin abscess, cardiac ischemia, GERD ER treatment provided: Cardiac monitoring Twelve-lead EKG IV normal saline bolus x2 IV vancomycin IV Dilaudid x2 Diagnostics interpreted by me: ECG: Sinus tachycardia at a rate of [address] segment elevation or signs of ischemia. There is no ectopy. Cardiac Monitoring: Sinus tachycardia at 123 Laboratory studies: See below Imaging studies: As per my independent interpretation Portable chest x-ray: No acute pulmonary infiltrates or opacities HPI: 83/M arrives for evaluation of left-sided chest pain. Patient had a boil on his left back over the past week for which [facility] They started him on doxycycline. Around 1 PM this afternoon, the patient developed some discomfort in the left side of his chest. It seemed to worsen throughout the day. PAST MEDICAL HISTORY:See Below PAST SURGICAL HISTORY:See Below FAMILY HISTORY:See Below SOCIAL HISTORY:See Below HOME MEDICATIONS:See list ALLERGIES:See list VITALS:See Below PHYSICAL EXAMINATION: HEENT: Head - normocephalic and atraumatic. Pupils are equal, round, and reactive to light. Extraocular eye muscles are intact, and sclera are anicteric. Nose - moist nasal mucosa without discharge. Mouth - moist buccal mucosa. Oropharynx is nonerythematous and there is no tonsillar exudate or edema noted. Neck: Supple; no JVD or cervical lymphadenopathy Heart: Tachycardic rate and regular rhythm there is a normal S1 and S2 with no murmurs, clicks, or gallops appreciated. Lungs: Clear to auscultation bilaterally with no wheezes, rales, or rhonchi. Abdomen: Soft, completely nontender, nondistended, with good bowel sounds. There are no palpable pulsatile masses or hepatosplenomegaly. There is no guarding, rigidity, or rebound noted. Extremities: No evidence of cyanosis, clubbing, or edema. There are easily palpable peripheral pulses. Skin: warm and dry with good turgor and no rashes. Back: There is a large skin abscess which is draining over the left mid back that wraps into the left mid axilla ED COURSE: Times/Reassessments: 2300: Patient was evaluated in room C3. A complete septic protocol was performed. Laboratory studies were drawn as above. An order was placed for continuous cardiac monitoring. The patient was in a sinus tachycardia at a rate of 123. Patient was bolused with a liter of normal saline solution. He was given a dose of IV Dilaudid for his left-sided chest discomfort. The large skin abscess on the left side of his back was cultured. I reviewed multiple previous records. The patient tells me he has a history of MRSA. The patient was started on IV vancomycin. Patient went for CT scan of the chest to further evaluate the skin abscess. Upon returning from radiology, he complained of increased pain and was given a second dose of IV Dilaudid. He received the second dose of IV normal saline solution which brought the heart rate down even more. I discussed the case with the [facility] Hospitalist and they will evaluate for further inpatient care. Bette Aguirre DO Past Med/Surg History Medical History Chronic anticoagulation COPD (chronic obstructive pulmonary disease) Diabetes DVT of lower extremity, bilateral GERD (gastroesophageal reflux disease) Glaucoma Hyperlipidemia LDL goal <70 Hypertension Left sided sciatica Obesity (BMI 30.0-34.9) Peripheral arterial disease Surgical History History of cataract surgery History of tonsillectomy and adenoidectomy History of vein stripping Family History Other Family history non-contributory Social History Smoking Status: Former smoker Tobacco Type: Cigarettes Hx Alcohol Use: Yes Alcohol type: hard liquor Hx Substance Use: No Preferred Language: Upper Sorbian Communication Ability: Effective 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 Beliefs That Will Affect Care: None marital status: Current Living Situation: Alone Current Living Situation Comment: assisted care facility Feels Safe at Home: Yes Assistive Devices: Glasses and Walker Allergies Allergies Allergy/AdvReac Type Severity Reaction Status Date / Time gentamicin Allergy Unknown UNKNOWN Verified 10/24/22 13:54 niacin Allergy Unknown unknown Verified 10/24/22 13:54 sertraline Allergy Unknown JITTERRY Verified 10/24/22 13:54 metformin AdvReac Unknown CAN'T Verified 10/24/22 13:54 REMEMBER silver sulfadiazine AdvReac Unknown unknown Verified 10/24/22 13:54 Home Meds Home Medications Medication Instructions Recorded Confirmed latanoprost 0.005 % eye drops 1 drp OPB HS ##0 11/10/11 01/24/23 (Xalatan) acetaminophen 300 mg-codeine 30 mg 1 tab PO UD PRN Pain 12/10/19 01/24/23 tablet alogliptin 12.5 mg tablet 12.5 mg PO QAM 08/16/21 01/24/23 apixaban 5 mg tablet (Eliquis) 5 mg PO Q12 08/16/21 01/24/23 cyanocobalamin (vitamin B-12) 1,000 mcg PO QAM 08/16/21 01/24/23 1,000 mcg tablet (Vitamin B-12) docusate sodium 100 mg capsule 100 mg PO DAILY PRN Constipation 08/16/21 01/24/23 (Stool Softener) metoprolol tartrate 50 mg tablet 50 mg PO AMPM 08/16/21 01/24/23 pantoprazole 40 mg tablet,delayed 40 mg PO DAILYBB 08/16/21 01/24/23 release albuterol sulfate 90 mcg/actuation 1 inh inhalation AMHS 08/30/22 01/24/23 aerosol inhaler brimonidine 0.2 % eye drops 1 drp OPB AMHS 08/30/22 01/24/23 cholecalciferol (vitamin D3) 25 25 mcg PO AMPM 08/30/22 01/24/23 mcg (1,000 unit) tablet (Vitamin D3) mometasone-formoterol HFA 100 2 puff inhalation BID 08/30/22 01/24/23 mcg-5 mcg/actuation aerosol inhaler (Dulera) insulin aspar prot-insulin aspart 94 unit subcut UD 10/24/22 01/24/23 100 unit/mL (70-30) subcutaneous pen (Novolog Mix 70-30FlexPen U-100) atorvastatin 20 mg tablet 80 mg PO HS 01/24/23 01/24/23 cilostazol 100 mg tablet 100 mg PO AMHS 01/24/23 01/24/23 lanolin alcohols-mineral 1 applic topical AMHS PRN skin 01/24/23 01/24/23 oil-w.petrolatum-ceresin topical cream (Eucerin topical cream) lisinopril 10 mg tablet 10 mg PO QPM 01/24/23 01/24/23 magnesium oxide 420 mg tablet 420 mg PO QPM 01/24/23 01/24/23 multivitamin 1 tab PO AMPM 01/24/23 01/24/23 nystatin 100,000 unit/gram topical 1 applic topical DAILY PRN yeast 01/24/23 01/24/23 cream Previous Rx's Medication Instructions Recorded acetaminophen 325 mg tablet 325 mg PO Q4H PRN pain #30 tabs 09/04/22 amlodipine 5 mg tablet 5 mg PO DAILY #90 tabs 10/01/22 Results & Data (ED) Vital Signs Vital Signs - 24 hr 01/23/23 21:18 01/23/23 21:52 01/23/23 22:16 Temperature 36.9 C Temperature Source Temporal Artery Scan Pulse Rate 118 H 123 H Pulse Rate from SpO2 Sensor Respiratory Rate 20 Respiratory Depth Normal Blood Pressure 167/74 H Blood Pressure Mean 105 Pulse Oximetry 96 97 Oxygen Delivery Method Room Air Room Air Sepsis Recent Fever Within 48 Hours No Sepsis New/Unexplained Change in Mental Status N/A Sepsis Action Taken by Nursing No Action Required 01/23/23 23:00 01/23/23 23:02 01/23/23 23:30 Temperature Temperature Source Pulse Rate 131 H 131 H 115 H Pulse Rate from SpO2 Sensor 129 H Respiratory Rate 22 24 16 Respiratory Depth Blood Pressure 176/78 H Blood Pressure Mean 110 Pulse Oximetry 94 95 96 Oxygen Delivery Method Sepsis Recent Fever Within 48 Hours Sepsis New/Unexplained Change in Mental Status Sepsis Action Taken by Nursing 01/24/23 00:01 01/24/23 00:30 01/24/23 01:53 Temperature Temperature Source Pulse Rate 107 H 102 H 103 H Pulse Rate from SpO2 Sensor Respiratory Rate 18 16 Respiratory Depth Blood Pressure 132/83 131/71 Blood Pressure Mean 99 91 Pulse Oximetry 97 92 Oxygen Delivery Method Sepsis Recent Fever Within 48 Hours Sepsis New/Unexplained Change in Mental Status Sepsis Action Taken by Nursing 01/24/23 01:00 01/24/23 01:30 01/24/23 02:00 Temperature Temperature Source Pulse Rate 103 H 109 H 101 H Pulse Rate from SpO2 Sensor Respiratory Rate 16 14 18 Respiratory Depth Blood Pressure 130/76 143/74 H 145/69 H Blood Pressure Mean 94 97 94 Pulse Oximetry 94 97 95 Oxygen Delivery Method Sepsis Recent Fever Within 48 Hours Sepsis New/Unexplained Change in Mental Status Sepsis Action Taken by Nursing Laboratory Data 01/23/23 22:29 01/23/23 21:35 Lab Results 01/23/23 01/23/23 01/23/23 Range/Units 21:35 21:35 21:35 WBC Cancelled RBC Cancelled Hgb Cancelled Hct Cancelled MCV Cancelled MCH Cancelled MCHC Cancelled RDW Std Deviation Cancelled RDW Coeff of Katelyn Cancelled Plt Count Cancelled MPV Cancelled Immature Gran % (Auto) Cancelled Neut % (Auto) Cancelled Lymph % (Auto) Cancelled [place] % (Auto) Cancelled Eos % (Auto) Cancelled Baso % (Auto) Cancelled Neut # (Auto) Cancelled Lymph # (Auto) Cancelled [place] # (Auto) Cancelled Eos # (Auto) Cancelled Baso # (Auto) Cancelled Immature Gran # (Auto) Cancelled Absolute Nucleated RBC Cancelled Nucleated RBC % (auto) Cancelled Neutrophils % (Manual) Cancelled Band Neutrophils % Cancelled Lymphocytes % (Manual) Cancelled Prolymphocyte % Cancelled Reactive Lymphs % (Man) Cancelled Monocytes % (Manual) Cancelled Eosinophils % (Manual) Cancelled Basophils % (Manual) Cancelled Metamyelocytes % (Man) Cancelled Myelocytes % (Man) Cancelled Promyelocytes % (Man) Cancelled Blast Cells % (Manual) Cancelled Plasma Cell % (Manual) Cancelled Other Cells % Cancelled Nucleated RBC % Cancelled Neutrophils # (Manual) Cancelled Band Neutrophils # Cancelled Total Absolute Neuts Cancelled Lymphocytes # (Manual) Cancelled Prolymphocyte # Cancelled Reactive Lymphs # Cancelled Total Abs Lymphocytes Cancelled Monocytes # (Manual) Cancelled Eosinophils # (Manual) Cancelled Basophils # (Manual) Cancelled Metamyelocytes # (Man) Cancelled Myelocytes # (Manual) Cancelled Promyelocytes # (Man) Cancelled Blast Cells # (Man) Cancelled Plasma Cell # (Manual) Cancelled Other Cells # Cancelled Nucleated RBCs # (Man) Cancelled Hypersegmented Neuts Cancelled Hyposegmented Neuts Cancelled Hypogranular Neuts Cancelled Large Granular Lymphs Cancelled # Lrg Granular Lymphs Cancelled Hairy Cells Cancelled Smudge Cells Cancelled Toxic Granulation Cancelled Toxic Vacuolation Cancelled Dohle Bodies Cancelled Jessica Rods Cancelled Platelet Estimate Cancelled Hypogranular Platelets Cancelled Giant Platelets Cancelled Platelet Satelliting Cancelled RBC Morphology Cancelled Polychromasia Cancelled Hypochromasia Cancelled Poikilocytosis Cancelled Basophilic Stippling Cancelled Anisocytosis Cancelled Microcytosis Cancelled Macrocytosis Cancelled Spherocytes Cancelled Pappenheimer Bodies Cancelled Sickle Cells Cancelled Target Cells Cancelled Tear Drop Cells Cancelled Ovalocytes Cancelled Stomatocytes Cancelled [place] Bodies Cancelled Echinocytes Cancelled Acanthocytes (Spur) Cancelled Rouleaux Cancelled RBC Agglutinates Cancelled Schistocytes Cancelled Sezary Cell Cancelled PT 10.8 (9.0-12.0) Seconds INR 1.0 (0.9-1.1) APTT 28.9 (21.0-31.0) Seconds PTT Ratio 1.0 Sodium 138 (136-145) mmol/L Potassium 4.1 (3.5-5.1) mmol/L Chloride 108 H (98-107) mmol/L Carbon Dioxide 18 L (21-32) mmol/L Anion Gap 12 H (3-11) BUN 29 H (6-23) mg/dl Creatinine 2.19 H (0.6-1.4) mg/dl Est Cr Clr Drug Dosing Not Reportable Est GFR ( Amer) 31.1 ml/min Est GFR (Non-Af Amer) 26.9 ml/min BUN/Creatinine Ratio 13.2 (10-20) Glucose 203 H (70-99(Fasting)) mg/dl Lactate (0.4-2.0) mmol/L Calcium 9.3 (8.6-10.3) mg/dl Total Bilirubin 0.4 (0.2-1.0) mg/dl AST 11 L (13-39) U/L ALT 13 (7-52) U/L Alkaline Phosphatase 107 H (34-104) U/L Troponin I High Sens 19.7 (0-20) pg/ml Total Protein 6.8 (6.0-8.3) gm/dl Albumin 3.6 (3.4-5.0) gm/dl Globulin 3.2 (2.5-4.0) gm/dl Albumin/Globulin Ratio 1.1 (0.9-2) Procalcitonin (0-0.5) ng/ml Blood Parasites ID Cancelled 01/23/23 01/23/23 01/24/23 Range/Units 21:35 22:29 00:17 WBC 20.06 H RBC 3.76 L Hgb 10.2 L Hct 32.1 L MCV 85.4 MCH 27.1 MCHC 31.8 L RDW Std Deviation 42.8 RDW Coeff of Katelyn 13.7 Plt Count 349 MPV 8.9 L Immature Gran % (Auto) 0.9 Neut % (Auto) 81.8 Lymph % (Auto) 5.4 [place] % (Auto) 10.7 Eos % (Auto) 1.0 Baso % (Auto) 0.2 Neut # (Auto) 16.39 H Lymph # (Auto) 1.09 L [place] # (Auto) 2.15 H Eos # (Auto) 0.20 Baso # (Auto) 0.05 Immature Gran # (Auto) 0.18 Absolute Nucleated RBC Nucleated RBC % (auto) Neutrophils % (Manual) Band Neutrophils % Lymphocytes % (Manual) Prolymphocyte % Reactive Lymphs % (Man) Monocytes % (Manual) Eosinophils % (Manual) Basophils % (Manual) Metamyelocytes % (Man) Myelocytes % (Man) Promyelocytes % (Man) Blast Cells % (Manual) Plasma Cell % (Manual) Other Cells % Nucleated RBC % Neutrophils # (Manual) Band Neutrophils # Total Absolute Neuts Lymphocytes # (Manual) Prolymphocyte # Reactive Lymphs # Total Abs Lymphocytes Monocytes # (Manual) Eosinophils # (Manual) Basophils # (Manual) Metamyelocytes # (Man) Myelocytes # (Manual) Promyelocytes # (Man) Blast Cells # (Man) Plasma Cell # (Manual) Other Cells # Nucleated RBCs # (Man) Hypersegmented Neuts Hyposegmented Neuts Hypogranular Neuts Large Granular Lymphs # Lrg Granular Lymphs Hairy Cells Smudge Cells Toxic Granulation Toxic Vacuolation Dohle Bodies Jessica Rods Platelet Estimate Hypogranular Platelets Giant Platelets Platelet Satelliting RBC Morphology Polychromasia Hypochromasia Poikilocytosis Basophilic Stippling Anisocytosis Microcytosis Macrocytosis Spherocytes Pappenheimer Bodies Sickle Cells Target Cells Tear Drop Cells Ovalocytes Stomatocytes [place] Bodies Echinocytes Acanthocytes (Spur) Rouleaux RBC Agglutinates Schistocytes Sezary Cell PT (9.0-12.0) Seconds INR (0.9-1.1) APTT (21.0-31.0) Seconds PTT Ratio Sodium (136-145) mmol/L Potassium (3.5-5.1) mmol/L Chloride (98-107) mmol/L Carbon Dioxide (21-32) mmol/L Anion Gap (3-11) BUN (6-23) mg/dl Creatinine (0.6-1.4) mg/dl Est Cr Clr Drug Dosing Est GFR ( Amer) ml/min Est GFR (Non-Af Amer) ml/min BUN/Creatinine Ratio (10-20) Glucose (70-99(Fasting)) mg/dl Lactate 1.5 (0.4-2.0) mmol/L Calcium (8.6-10.3) mg/dl Total Bilirubin (0.2-1.0) mg/dl AST (13-39) U/L ALT (7-52) U/L Alkaline Phosphatase (34-104) U/L Troponin I High Sens (0-20) pg/ml Total Protein (6.0-8.3) gm/dl Albumin (3.4-5.0) gm/dl Globulin (2.5-4.0) gm/dl Albumin/Globulin Ratio (0.9-2) Procalcitonin 0.53 H (0-0.5) ng/ml Blood Parasites ID Administered Medications Discontinued Medications Hydromorphone HCl (Hydromorphone Inj 1 Mg/Ml Syringe) 1 mg IV NOW STA Stop: 01/23/23 23:18 Last Admin: 01/23/23 23:29 Dose: 1 mg Documented By: THEODORE Hydromorphone HCl (Hydromorphone Inj 1 Mg/Ml Syringe) 1 mg IV NOW STA Stop: 01/24/23 02:22 Last Admin: 01/24/23 02:28 Dose: 1 mg Documented By: THEODORE Sodium Chloride (Nss 1000ml) 1,000 mls @ 999 mls/hr IV .Q1H1M ONE Stop: 01/24/23 00:17 Last Admin: 01/24/23 00:24 Dose: 999 mls/hr Documented By: THEODORE Vancomycin HCl 2,750 mg/ (Sodium Chloride) 555 mls @ 200 mls/hr IV NOW ONE Stop: 01/24/23 01:54 Last Admin: 01/24/23 00:24 Dose: 200 mls/hr Documented By: THEODORE Sodium Chloride (Nss 1000ml) 1,000 mls @ 999 mls/hr IV .Q1H1M ONE Stop: 01/24/23 03:15 Last Admin: 09/01/23 02:28 Dose: 999 mls/hr Documented By: THEODORE Ondansetron HCl (Ondansetron Inj 2 Mg/Ml 2 Ml Vial) 4 mg IV NOW STA Stop: 01/23/23 23:18 Last Admin: 01/23/23 23:29 Dose: 4 mg Documented By: THEODORE Imaging Data Radiologist's Impression: Chest X-Ray 01/23/23 21:22 SINGLE VIEW CHEST CLINICAL HISTORY: Atypical chest pain. FINDINGS: A PA chest radiograph is compared to study dated 08/30/2022. The heart is top normal for projection noting atherosclerotic calcification of the thora cic aorta. The pulmonary vasculature is noncongested. Chronic interstitial thickening similar to previous. There is mild bibasilar scarring/atelectasis. The lungs and pleural spaces are otherwise clear. No pneumothorax is seen. The skeletal structures are osteopenic. The bony thorax is grossly intact. IMPRESSION: No acute cardiopulmonary abnormality. ACT 112: Negative or not required by law. Electronically signed by: Hugo Mtz M.D. 01/23/2023 10:[address] 01/24/23 00:11 Exam(s): CT CHEST Without Contrast EXAM: CT Chest Without Intravenous Contrast CLINICAL HISTORY: Reason for exam: eval abscess -left posterior chest. TECHNIQUE: Axial computed tomography images of the chest without intravenous contrast. Automated exposure control was utilized for the study. A dose lowering technique was utilized adhering to the principles of ALARA. COMPARISON: No relevant prior studies available. FINDINGS: Lungs: 4 mm pulmonary nodule in the mid left upper lobe best seen on series 3 image 29. 3 mm pulmonary nodule within the mid left upper lobe best seen on series 3 image 28. 4 mm pulmonary nodule in the anterior right lower lobe best seen on series 3 image 41. 3 mm pulmonary nodule in the left lower lobe best seen on series 3 image 48. Pleural space: Unremarkable. No pneumothorax. No significant effusion. Heart: Unremarkable. No cardiomegaly. No significant pericardial effusion. No significant coronary artery calcifications. Bones/joints: Unremarkable. No acute fracture. No dislocation. Soft tissues: Left posterior lateral subcutaneous inflammation beginning at the left eighth posterior rib and extending inferiorly to the left flank at least to the level of the mid kidney. Focal skin thickening measuring up to 1.1 cm in thickness with soft tissue subcutaneous nodules. Unable to distinguish whether the subcutaneous soft tissue nodular areas represent phlegmon or small abscesses on this noncontrast exam. Vasculature: Unremarkable. No thoracic aortic aneurysm. Lymph nodes: Unremarkable. No enlarged lymph nodes. Gallbladder and bile ducts: Several large gallstones without evidence of gallbladder distention. Kidneys and ureters: Simple bilateral renal cysts measuring up to 3.0 cm. No further workup is required. IMPRESSION: Left posterior lateral subcutaneous inflammation beginning at the left eighth posterior rib and extending inferiorly to the left flank at least to the level of the mid kidney. Focal skin thickening measuring up to 1. 1 cm in thickness with soft tissue subcutaneous nodules. Unable to distinguish whether the subcutaneous soft tissue nodular areas represent phlegmon or small abscesses on this noncontrast exam. Numerous bilateral pulmonary nodules measuring no larger than 0.4 cm. Fleischner Society Guidelines for low-risk or high-risk patients recommend that one should consider chest CT at 12 months due to the location of this nodule. Electronically signed by: Michael Covington M.D. 01/24/23 02:21 AM Discharge Plan Visit Data Chief Complaint: Chest Pain Stated Complaint: SKIN PROBLEM ED Provider: Bette Aguirre Discharge Problem: Skin abscess, Left-sided chest pain Forms Stand Alone Forms: My [facility] Prescriptions Prescriptions: No Action latanoprost [Xalatan] 0.005 % Drops 1 drp OPB HS Qty: 0 Patient Comments: BOTH EYES amlodipine 5 mg tablet 5 mg PO DAILY Qty: 90 3RF acetaminophen-codeine 300-30 mg Tablet 1 tab PO UD MDD 3g PRN (Reason: Pain) metoprolol tartrate 50 mg Tablet 50 mg PO AMPM cyanocobalamin (vitamin B-12) [Vitamin B-12] 1,000 mcg Tablet 1,000 mcg PO QAM pantoprazole 40 mg Tablet,Delayed Release (Dr/Ec) 40 mg PO DAILYBB Eliquis 5 mg Tablet 5 mg PO Q12 alogliptin 12.5 mg Tablet 12.5 mg PO QAM docusate sodium [Stool Softener] 100 mg Capsule 100 mg PO DAILY PRN (Reason: Constipation) insulin asp prt-insulin aspart [Novolog Mix 70-30FlexPen U-100] 100 unit/mL (70-30) insulin pen 94 unit subcut UD Rx Instructions: 56 units at breakfast; 14 units at lunch; 24 units at supper; brimonidine 0.2 % Drops 1 drp OPB AMHS cholecalciferol (vitamin D3) [Vitamin D3] 25 mcg (1,000 unit) Tablet 25 mcg PO AMPM albuterol sulfate 90 mcg/actuation Hfa Aerosol Inhaler 1 inh INHALATION AMHS Dulera 100-5 mcg/actuation Hfa Aerosol Inhaler 2 puff INHALATION BID acetaminophen 325 mg Tablet 325 mg PO Q4H MDD 3g PRN (Reason: pain) Qty: 30 0RF lisinopril 10 mg tablet 10 mg PO QPM atorvastatin 20 mg Tablet 80 mg PO HS Rx Instructions: 4 tablet dose multivitamin Tablet 1 tab PO AMPM cilostazol 100 mg Tablet 100 mg PO AMHS magnesium oxide 420 mg Tablet 420 mg PO QPM Eucerin Cream 1 applic TOPICAL AMHS PRN (Reason: skin) Rx Instructions: apply to lower leg an heel only nystatin 100,000 unit/gram Cream 1 applic TOPICAL DAILY PRN (Reason: yeast) Referrals Referrals: Stefani Alcala PA-C [Primary Care Provider] -
[2023-01-24] MEDS ORDERED: SODIUM CHLORIDE 0.9% 1,000 ML IV ONE (02:15)
[2023-01-24] MEDS ORDERED: HYDROmorphone INJ 1 MG/ML SYRINGE IV STA (02:21)
--- NOTE | 2023-01-24 02:21 | CT Scan Report ---
Exam(s): CT CHEST Without Contrast EXAM: CT Chest Without Intravenous Contrast CLINICAL HISTORY: Reason for exam: eval abscess -left posterior chest. TECHNIQUE: Axial computed tomography images of the chest without intravenous contrast. Automated exposure control was utilized for the study. A dose lowering technique was utilized adhering to the principles of ALARA. COMPARISON: No relevant prior studies available. FINDINGS: Lungs: 4 mm pulmonary nodule in the mid left upper lobe best seen on series 3 image 29. 3 mm pulmonary nodule within the mid left upper lobe best seen on series 3 image 28. 4 mm pulmonary nodule in the anterior right lower lobe best seen on series 3 image 41. 3 mm pulmonary nodule in the left lower lobe best seen on series 3 image 48. Pleural space: Unremarkable. No pneumothorax. No significant effusion. Heart: Unremarkable. No cardiomegaly. No significant pericardial effusion. No significant coronary artery calcifications. Bones/joints: Unremarkable. No acute fracture. No dislocation. Soft tissues: Left posterior lateral subcutaneous inflammation beginning at the left eighth posterior rib and extending inferiorly to the left flank at least to the level of the mid kidney. Focal skin thickening measuring up to 1.1 cm in thickness with soft tissue subcutaneous nodules. Unable to distinguish whether the subcutaneous soft tissue nodular areas represent phlegmon or small abscesses on this noncontrast exam. Vasculature: Unremarkable. No thoracic aortic aneurysm. Lymph nodes: Unremarkable. No enlarged lymph nodes. Gallbladder and bile ducts: Several large gallstones without evidence of gallbladder distention. Kidneys and ureters: Simple bilateral renal cysts measuring up to 3.0 cm. No further workup is required. IMPRESSION: Left posterior lateral subcutaneous inflammation beginning at the left eighth posterior rib and extending inferiorly to the left flank at least to the level of the mid kidney. Focal skin thickening measuring up to 1. 1 cm in thickness with soft tissue subcutaneous nodules. Unable to distinguish whether the subcutaneous soft tissue nodular areas represent phlegmon or small abscesses on this noncontrast exam. Numerous bilateral pulmonary nodules measuring no larger than 0.4 cm. Fleischner Society Guidelines for low-risk or high-risk patients recommend that one should consider chest CT at 12 months due to the location of this nodule. Electronically signed by: Michael Covington M.D. 01/24/23 02:21 AM
--- NOTE | 2023-01-24 03:32 | History & Physical Report ---
Date of Service January 24, 2023 Assessment & Plan (1) Rash of back: Plan: -CT chest w/ L posterior lateral subQ inflammation beggining at L eigth posterior rib extending inferiorly to L flank at least to level of mid kidney, focal skin thickening 1.1cm in thickness w/ soft tissue and subcutaneous nodules. -White blood cell count 20.06, lactate negative, procal 0.53, anion gap 12. -Patient tachycardic in ED improved after fluid bolus 2L NSS. -Culture of pus taken. -Rash on back concerning for possible herpes zoster dermatomal distribution with overlying bacterial infection. -Received 1 dose doxycycline outpatient, 2.75gm vancomycin in the ED. -Given CKD will put on daptomycin daily for MRSA coverage. Given assisted living facility residence will consider this as susceptible to same bugs for hospital acquired. -Will place on Cefepime 2gm q8hr for gram negative, pseudomonas coverage. -Will place on valtrex 1gm TID. -Will consult gen surgery for recommendations if I&D is warranted. -Will hold Eliquis until further eval by surgery. -Admit to med/tele for monitoring. -Trend AM CBC. (2) Cellulitis: Plan: Same as above. (3) Chest pain: Plan: -Chest pain for past few days, worse with exertion, comes and goes. -EKG with sinus tachycardia, new minor depression in lateral leads V5 and V6 compared to EKG from August. -Troponin 19.7. -EKG changes may be from tachycardic state due to infection. -Will obtain repeat echo to check for anatomic or wall motion abnormalities. -No current chest pain, continue to monitor on telemetry. (4) Anemia: Plan: -Hgb 10.2 on admission. baseline 10-13. -History of iron deficiency anemia, patient stated he got diarrhea on oral iron supplement. -Continue to trend w/ AM CBC (5) Chronic kidney disease, stage III (moderate): Plan: -Creatinine 2.19 on admission. Patient around recent baseline of 1.8-2.2 -Continue with IV fluid rehydration in setting of sepsis due to infection with LR at 80ml/hr. (6) Hypertension: Plan: continue home amlodipine 5mg daily, lisinopril 10mg qpm, metoprolol tartrate 50mg BID. (7) Hyperlipidemia LDL goal <70: Plan: -hold home atorvastatin while receiving daptomycin. (8) COPD (chronic obstructive pulmonary disease): Plan: -Continue home albuterol and Dulera. (9) GERD (gastroesophageal reflux disease): Plan: -continue home pantoprazole. (10) Diabetes: Plan: -ACHS checks, 15U Basal BID, SSI. Hold home oral medications. Plan F/E/N/GI: T2DM. DVT Prophylaxis: Hold Eliquis for now if I&D warranted. Code status: DNR/DNI. Patient would not like any extraordinary measures. Dispo: Med/tele Luis Doe D.O. 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 Patient states that 7-10 days prior at his assisted living facility, an aide was putting cream on his back when they rubbed an area on the left that felt a little bit painful. They stated the area looked and felt a little like a boil. The area for him hurt a little and itched as well. After 4-5 days the area started to drain brown pus that he thought was probably blood, however 2 nights ago it looked like just puss. He has a history of boils in the past as well as MRSA infections with that. A couple of days ago he started to develop some left sided non-radiating chest pain that came and went, worse with exertion. He denies any fevers, chills, palpitations, shortness of breath at rest, diarrhea, arthralgias. [facility] where they cultured the discharge and started him empirically on doxycycline. He did not mention the chest pain at the time to them. He comes into the ED today for the chest pain evaluation. He states he has not had a shingles infection in the past, but has had the shingles vaccine series x2. In the ED he was tachycardic for 130's. He received 2L of NSS and heart rate trended down to the 100's and 90's, 1mg dilaudid x2, zofran. WBC 20.06, creatinine 2.19, troponin 19.7, procal 0.53, lactate 1.5. Given vancomycin 2.75gm in the ED as well. Allergies Allergy/AdvReac Type Severity Reaction Status Date / Time gentamicin Allergy Unknown UNKNOWN Verified 01/24/23 10:35 niacin Allergy Unknown unknown Verified 01/24/23 10:35 sertraline Allergy Unknown JITTERRY Verified 01/24/23 10:35 metformin AdvReac Unknown CAN'T Verified 01/24/23 10:35 REMEMBER silver sulfadiazine AdvReac Unknown unknown Verified 01/24/23 10:35 Home Medications Medication Instructions Recorded Confirmed Type latanoprost 0.005 % eye drops 1 drp OPB HS ##0 11/10/11 01/24/23 History (Xalatan) acetaminophen 300 mg-codeine 30 mg 1 tab PO UD PRN Pain 12/10/19 01/24/23 History tablet alogliptin 12.5 mg tablet 12.5 mg PO QAM 08/16/21 01/24/23 History apixaban 5 mg tablet (Eliquis) 5 mg PO Q12 08/16/21 01/24/23 History cyanocobalamin (vitamin B-12) 1,000 mcg PO QAM 08/16/21 01/24/23 History 1,000 mcg tablet (Vitamin B-12) docusate sodium 100 mg capsule 100 mg PO DAILY PRN Constipation 08/16/21 01/24/23 History (Stool Softener) metoprolol tartrate 50 mg tablet 50 mg PO AMPM 08/16/21 01/24/23 History pantoprazole 40 mg tablet,delayed 40 mg PO DAILYBB 08/16/21 01/24/23 History release albuterol sulfate 90 mcg/actuation 1 inh inhalation AMHS 08/30/22 01/24/23 History aerosol inhaler brimonidine 0.2 % eye drops 1 drp OPB AMHS 08/30/22 01/24/23 History cholecalciferol (vitamin D3) 25 25 mcg PO AMPM 08/30/22 01/24/23 History mcg (1,000 unit) tablet (Vitamin D3) mometasone-formoterol HFA 100 2 puff inhalation BID 08/30/22 01/24/23 History mcg-5 mcg/actuation aerosol inhaler (Dulera) acetaminophen 325 mg tablet 325 mg PO Q4H PRN pain #30 tabs 09/04/22 01/24/23 Rx amlodipine 5 mg tablet 5 mg PO DAILY #90 tabs 10/01/22 01/24/23 Rx insulin aspar prot-insulin aspart 94 unit subcut UD 10/24/22 01/24/23 History 100 unit/mL (70-30) subcutaneous pen (Novolog Mix 70-30FlexPen U-100) atorvastatin 20 mg tablet 80 mg PO HS 01/24/23 01/24/23 History cilostazol 100 mg tablet 100 mg PO AMHS 01/24/23 01/24/23 History lanolin alcohols-mineral 1 applic topical AMHS PRN skin 01/24/23 01/24/23 History oil-w.petrolatum-ceresin topical cream (Eucerin topical cream) lisinopril 10 mg tablet 10 mg PO QPM 01/24/23 01/24/23 History magnesium oxide 420 mg tablet 420 mg PO QPM 01/24/23 01/24/23 History multivitamin 1 tab PO AMPM 01/24/23 01/24/23 History nystatin 100,000 unit/gram topical 1 applic topical DAILY PRN yeast 01/24/23 01/24/23 History cream Past Med/Surg History Medical History Chronic anticoagulation COPD (chronic obstructive pulmonary disease) Diabetes DVT of lower extremity, bilateral GERD (gastroesophageal reflux disease) Glaucoma Hyperlipidemia LDL goal <70 Hypertension Left sided sciatica Obesity (BMI 30.0-34.9) Peripheral arterial disease Surgical History History of cataract surgery History of tonsillectomy and adenoidectomy History of vein stripping Family History Other Family history non-contributory Social History Smoking Status: Former smoker Tobacco Type: Cigarettes Second Hand Exposure: Yes; Do You Dip or Chew Tobacco: No; Hx Alcohol Use: Yes Alcohol type: beer, wine and hard liquor Hx Substance Use: No Preferred Language: Sami Communication Ability: Effective Envelope Press Operator Required: No Beliefs That Will Affect Care: None marital status: Current Living Situation: Personal Care Facility Current Living Situation Comment: assisted care facility Feels Safe at Home: Yes Assistive Devices: Glasses and Walker Review of Systems Review of Systems: As per HPI. Physical Exam Constitutional: WD/WN, vitals as above Eyes: PERRL, conjunctivae normal, anicteric sclerae Respiratory: normal respiratory effort, lungs clear to auscultation Cardiovascular: Rate/Rhythm: + tachycardic Heart Sounds: normal S1, normal S2 and + murmur (systolic II/) Chronic venous changes to the bilateral lower extremities up to the shins, trace swelling. Gastrointestinal (Abdomen): normal bowel sounds, soft, nontender, no hepatosplenomegaly Skin: Large area of swelling and erythema from the level of T8 extending across the T8 dermatome, erythema extending past the markings to the lateral aspect of the torso. Active puss draining from open punctate areas across the swollen area. Psychiatric: A+Ox3, euthymic affect Results & Data Results & Data Vital Signs (Past 12 Hours) Vital Signs Temp Pulse Resp BP Pulse Ox O2 Del Method 01/24/23 02:00 101 H 18 145/69 H 95 01/24/23 01:30 109 H 14 143/74 H 97 01/24/23 01:00 103 H 16 130/76 94 01/24/23 01:53 103 H 01/24/23 00:30 102 H 16 131/71 92 01/24/23 00:01 107 H 18 132/83 97 01/23/23 23:30 115 H 16 176/78 H 96 01/23/23 23:02 131 H 24 95 01/23/23 23:00 131 H 22 94 01/23/23 22:16 97 Room Air 01/23/23 21:52 123 H 01/23/23 21:18 36.9 C 118 H 20 167/74 H 96 Room Air Supervising Physician Co-Signing Physician Notes Attending addendum: I have physically seen this patient, have supervised the medical residents activities, and agree with the H&P unless as otherwise noted. Assessment and Plan: Rash on back- CT with multiple subcutaneous nodules Patient pain resolved after Dilaudid 1 mg IV Given empiric vancomycin IV by the ED Changed to daptomycin IV due to renal insufficiency Add cefepime 2 g IV every 12 hours Valtrex 1 g p.o. 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 COPD- Continue Dulera and albuterol as at home Remaining orders and notations as noted Resident Activity Tracking Resident Involvement: Resident Care Provided Care Provided: Adult Hospital Medicine (2) Cellulitis Site of cellulitis: other site Qualified Code(s): L03.818 - Cellulitis of other sites
[2023-01-24] MEDS ORDERED: ACETAMINOPHEN 325 MG TAB PO PRN ×2 (05:56→13:43)
[2023-01-24] MEDS ORDERED: DEXTROSE 50% 50 ML SYRINGE IV PRN (05:56)
[2023-01-24] MEDS ORDERED: CARBOHYDRATES FOR HYPOGLYCEMIA PO PRN (05:56)
[2023-01-24] MEDS ORDERED: GLUCOSE 10 TAB/TUBE PO PRN (05:56)
[2023-01-24] MEDS ORDERED: GLUCOSE 40% GEL 15 GM TUBE PO PRN (05:56)
[2023-01-24] MEDS ORDERED: HYDROmorphone INJ 0.5 MG/0.5 ML SYR IV PRN (05:56)
[2023-01-24] MEDS ORDERED: POLYETHYLENE (MIRALAX) 17 GM PACK PO PRN (05:56)
[2023-01-24] MEDS ORDERED: ONDANSETRON INJ 2 MG/ML 2 ML VIAL IV PRN ×2 (05:56→09:58)
[2023-01-24] MEDS ORDERED: DOCUSATE SODIUM 100 MG CAP PO PRN (05:56)
[2023-01-24] MEDS ORDERED: GLUCAGON FOR INJ 1 MG VIAL SQ PRN (05:56)
[2023-01-24] MEDS ORDERED: EUCERIN CR 120 GM JAR TOP PRN (06:11)
--- NOTE | 2023-01-24 07:56 | Hospitalist Progress Note ---
Date of Service January 24, 2023 Assessment & Plan (1) Rash of back: Plan: -CT chest w/ L posterior lateral subQ inflammation beginning at L eighth posterior rib extending inferiorly to L flank at least to level of mid kidney, focal skin thickening 1.1cm in thickness w/ soft tissue and subcutaneous nodules. -White blood cell count 20.06 on admission, trending down -Patient tachycardic in ED improved after fluid bolus 2L NSS. -Rash on back concerning for possible herpes zoster dermatomal distribution with overlying bacterial infection. -Received 1 dose doxycycline outpatient, 2.75gm vancomycin in the ED. - s/p I&D 01/24 Plan: -Given CKD will put on daptomycin daily for MRSA coverage. -Dose of Cefepime given-> plan to d/c, low likelihood gram - or pseudomonas given soft tissue infection -Will place on valtrex 1gm TID. -Eliquis held for surgery (2) Cellulitis: Plan: Same as above. (3) Chest pain: Plan: -Chest pain for past few days, worse with exertion, comes and goes. -EKG with sinus tachycardia, new minor depression in lateral leads V5 and V6 compared to EKG from August. -Troponin 19.7. -EKG changes may be from tachycardic state due to infection. -Will obtain repeat echo to check for anatomic or wall motion abnormalities-> pending -No current chest pain, continue to monitor on telemetry. (4) Anemia: Plan: -Hgb 10.2 on admission. baseline 10-13. -History of iron deficiency anemia, patient stated he got diarrhea on oral iron supplement. -Continue to trend w/ AM CBC (5) Chronic kidney disease, stage III (moderate): Plan: -Creatinine 2.19 on admission. Patient around recent baseline of 1.8-2.2 - Conitnue to trend (6) Hypertension: Plan: continue home amlodipine 5mg daily, lisinopril 10mg qpm, metoprolol tartrate 50mg BID. (7) Hyperlipidemia LDL goal <70: Plan: -hold home atorvastatin while receiving daptomycin. (8) COPD (chronic obstructive pulmonary disease): Plan: -Continue home albuterol and Dulera. (9) GERD (gastroesophageal reflux disease): Plan: -continue home pantoprazole. (10) Diabetes: Plan: -ACHS checks, 15U Basal BID, SSI. Hold home oral medications. Plan F/E/N/GI: T2DM. DVT Prophylaxis: Eliquis currently held for surgery Code status: DNR/DNI. Patient would not like any extraordinary measures. Admission and Anticipated Discharge Date Admission Date: January 24, 2023 Supervising Physician Co-Signing Physician Notes I personally examined the patient and verified all brasher points of history and exam, discussed case, and agree with decision making with Dr Qureshi feeling better postop. Less pain. Vitals noted, in general he is awake and alert pleasant no distress. Back wound is dressed, under the dressing it seems that there is resolving erythema certainly no tracking erythema or exudate cellulitis/abscessstatus post IND, sepsis present on admissionseems to be improving, continue antibiotics and supportive care, await cultureshopefully home on p.o. antibiotics soon add Lovenox for DVT prophylaxis Subjective Pt seen at bedside this morning. Doing well. Pain in back improved. Denies fever/chills. Review of Systems Review of Systems: As per above Physical Exam Physical Exam: Constitutional: well-appearing, no acute distress HEENT: NCAT, no conjunctival injection CV: regular rhythm, no murmur appreciated, extremities well-perfused, no LE edema Resp: CTABL, no wheezes/rales/rhonchi appreciated, no increased work of breathing GI: soft, nondistended, nontender MSK: no gross deformities appreciated Skin: warm, dry, no rash appreciated Neuro: alert, oriented, no focal neurologic deficit appreciated Skin: Large area of swelling and erythema from the level in the T8 dermatome Results & Data Results & Data Vital Signs (Past 12 Hours) Vital Signs Temp Pulse Resp BP Pulse Ox O2 Del Method 01/24/23 06:30 16 127/71 90 01/24/23 06:00 109 H 20 153/103 H 96 01/24/23 05:30 98 H 14 157/72 H 96 01/24/23 05:50 94 H 01/24/23 05:00 100 H 12 153/75 H 97 01/24/23 04:30 98 H 14 144/70 H 96 01/24/23 04:00 101 H 12 125/81 96 01/24/23 03:30 108 H 20 122/82 98 01/24/23 03:00 99 H 16 128/75 94 01/24/23 02:30 107 H 12 177/88 H 96 01/24/23 02:00 101 H 18 145/69 H 95 01/24/23 01:30 109 H 14 143/74 H 97 01/24/23 01:00 103 H 16 130/76 94 01/24/23 01:53 103 H 01/24/23 00:30 102 H 16 131/71 92 01/24/23 00:01 107 H 18 132/83 97 01/23/23 23:30 115 H 16 176/78 H 96 01/23/23 23:02 131 H 24 95 01/23/23 23:00 131 H 22 94 01/23/23 22:16 97 Room Air 01/23/23 21:52 123 H 01/23/23 21:18 36.9 C 118 H 20 167/74 H 96 Room Air Resident Activity Tracking Resident Involvement: Resident Care Provided Care Provided: Adult Hospital Medicine (2) Cellulitis Site of cellulitis: other site Qualified Code(s): L03.818 - Cellulitis of other sites
--- NOTE | 2023-01-24 08:05 | Surgery Consultation ---
Patient seen and examined. We will washout the area in the OR. There is swelling in the area along with spread of cellulitis beyond initial markings. Date of Consultation January 24, 2023 Assessment & Plan (1) Rash of back: Patient reports that the rash has been present for one week and the nurse at the facility where he resides noticed it while putting lotion on. Patient reports that rash is painful. Stated that he had a rash like this before which was on his abdomen and legs that was treated with IV antibiotics. Rash is on Left back, appears to be open weeping vesicular lesions that do not cross midline, with surrounding cellulitis. Area is firm and tender to touch. Drainage appears light serous fluid with scant blood on gauze dressing. A CT scan showed Left posterior lateral subcutaneous inflammation beginning at the left eighth posterior rib and extending inferiorly to the left flank at least to the level of the mid kidney. Focal skin thickening measuring up to 1. 1 cm in thickness with soft tissue subcutaneous nodules. Unable to distinguish whether the subcutaneous soft tissue nodular areas represent phlegmon or small abscesses on this noncontrast exam. WBC 20 Currently receiving Valacyclovir, Daptomycin, and Cefepime would recommend continuing IV antibiotics Does not appear to need acute surgical intervention at this time, but will discuss with on-call surgeon. patient currently denies chest pain. (2) Cellulitis: History of Present Illness Reason for Consultation: Left flank Rash Attending Physician: Ibrahima Goldsmith MD History of Present Illness Patient is a 83 y old male with PMH DM, COPD, CKD stage 3, HTN, HLD, GERD, Venous insufficiency, aortic stenosis, that presented to [facility] ER 01/23/23 with c/o CP and left flank pain from a rash. General surgery was consulted for the rash. Patient reports that the rash has been present for one week and the nurse at the facility where he resides noticed it while putting lotion on. Patient reports that rash is painful. Stated that he had a rash like this before which was on his abdomen and legs that was treated with IV antibiotics. Allergies Allergy/AdvReac Type Severity Reaction Status Date / Time gentamicin Allergy Unknown UNKNOWN Verified 10/24/22 13:54 niacin Allergy Unknown unknown Verified 10/24/22 13:54 sertraline Allergy Unknown JITTERRY Verified 10/24/22 13:54 metformin AdvReac Unknown CAN'T Verified 10/24/22 13:54 REMEMBER silver sulfadiazine AdvReac Unknown unknown Verified 10/24/22 13:54 Home Medications Medication Instructions Recorded Confirmed Type latanoprost 0.005 % eye drops 1 drp OPB HS ##0 11/10/11 01/24/23 History (Xalatan) acetaminophen 300 mg-codeine 30 mg 1 tab PO UD PRN Pain 12/10/19 01/24/23 History tablet alogliptin 12.5 mg tablet 12.5 mg PO QAM 08/16/21 01/24/23 History apixaban 5 mg tablet (Eliquis) 5 mg PO Q12 08/16/21 01/24/23 History cyanocobalamin (vitamin B-12) 1,000 mcg PO QAM 08/16/21 01/24/23 History 1,000 mcg tablet (Vitamin B-12) docusate sodium 100 mg capsule 100 mg PO DAILY PRN Constipation 08/16/21 01/24/23 History (Stool Softener) metoprolol tartrate 50 mg tablet 50 mg PO AMPM 08/16/21 01/24/23 History pantoprazole 40 mg tablet,delayed 40 mg PO DAILYBB 08/16/21 01/24/23 History release albuterol sulfate 90 mcg/actuation 1 inh inhalation AMHS 08/30/22 01/24/23 History aerosol inhaler brimonidine 0.2 % eye drops 1 drp OPB AMHS 08/30/22 01/24/23 History cholecalciferol (vitamin D3) 25 25 mcg PO AMPM 08/30/22 01/24/23 History mcg (1,000 unit) tablet (Vitamin D3) mometasone-formoterol HFA 100 2 puff inhalation BID 08/30/22 01/24/23 History mcg-5 mcg/actuation aerosol inhaler (Dulera) acetaminophen 325 mg tablet 325 mg PO Q4H PRN pain #30 tabs 09/04/22 01/24/23 Rx amlodipine 5 mg tablet 5 mg PO DAILY #90 tabs 10/01/22 01/24/23 Rx insulin aspar prot-insulin aspart 94 unit subcut UD 10/24/22 01/24/23 History 100 unit/mL (70-30) subcutaneous pen (Novolog Mix 70-30FlexPen U-100) atorvastatin 20 mg tablet 80 mg PO HS 01/24/23 01/24/23 History cilostazol 100 mg tablet 100 mg PO AMHS 01/24/23 01/24/23 History lanolin alcohols-mineral 1 applic topical AMHS PRN skin 01/24/23 01/24/23 History oil-w.petrolatum-ceresin topical cream (Eucerin topical cream) lisinopril 10 mg tablet 10 mg PO QPM 01/24/23 01/24/23 History magnesium oxide 420 mg tablet 420 mg PO QPM 01/24/23 01/24/23 History multivitamin 1 tab PO AMPM 01/24/23 01/24/23 History nystatin 100,000 unit/gram topical 1 applic topical DAILY PRN yeast 01/24/23 01/24/23 History cream Patient History Medical History Chronic anticoagulation COPD (chronic obstructive pulmonary disease) Diabetes DVT of lower extremity, bilateral GERD (gastroesophageal reflux disease) Glaucoma Hyperlipidemia LDL goal <70 Hypertension Left sided sciatica Obesity (BMI 30.0-34.9) Peripheral arterial disease Surgical History History of cataract surgery History of tonsillectomy and adenoidectomy History of vein stripping Family History Other Family history non-contributory Social History Smoking Status: Former smoker Tobacco Type: Cigarettes Hx Alcohol Use: Yes Alcohol type: hard liquor Hx Substance Use: No Preferred Language: [place] Islander Communication Ability: Effective Ingot Stripper Required: No Beliefs That Will Affect Care: None marital status: Current Living Situation: Alone Current Living Situation Comment: assisted care facility Feels Safe at Home: Yes Assistive Devices: Glasses and Walker Review of Systems Respiratory: no dyspnea Cardiovascular: no chest pain (currently reports no chest pain) Gastrointestinal: no abdominal pain Integumentary: + rash (vesicular rash on left posterior back that does not cross midline, draining ) and + skin ulcer (left lower extremity, covered with bandage) Physical Exam Physical Exam: alert awake Constitutional: + obese, cooperative and comfortable; no acute distress Respiratory: able to speak in complete sentences; no respiratory distress Gastrointestinal (Abdomen): Percussion/Palpation: abdomen soft; no guarding obese abdomen Skin: + rash (vesicular rash on left posterior back that does not cross midline, draining) and + ulcer (LLE covered with dressing ) Results & Data Vital Signs (Past 12 Hours) Vital Signs Temp Pulse Resp BP Pulse Ox O2 Del Method 01/24/23 06:30 16 127/71 90 01/24/23 06:00 109 H 20 153/103 H 96 01/24/23 05:30 98 H 14 157/72 H 96 01/24/23 05:50 94 H 01/24/23 05:00 100 H 12 153/75 H 97 01/24/23 04:30 98 H 14 144/70 H 96 01/24/23 04:00 101 H 12 125/81 96 01/24/23 03:30 108 H 20 122/82 98 01/24/23 03:00 99 H 16 128/75 94 01/24/23 02:30 107 H 12 177/88 H 96 01/24/23 02:00 101 H 18 145/69 H 95 01/24/23 01:30 109 H 14 143/74 H 97 01/24/23 01:00 103 H 16 130/76 94 01/24/23 01:53 103 H 01/24/23 00:30 102 H 16 131/71 92 01/24/23 00:01 107 H 18 132/83 97 01/23/23 23:30 115 H 16 176/78 H 96 01/23/23 23:02 131 H 24 95 01/23/23 23:00 131 H 22 94 01/23/23 22:16 97 Room Air 01/23/23 21:52 123 H 01/23/23 21:18 98.4 F 118 H 20 167/74 H 96 Room Air Diagnostic Findings [facility], [place] [phone] CT Scan Report Patient:ALLISON PEÑA Admit Date:01/23/23 MR#:[id number] Address1:Jennifer JOHANA KRAUS Acct ID:[id number] Address2: Date:1940 [facility] Zip:[place] [address] Age:83 Location:ED Sex:M Room/Bed: Att Phy: Diagnosis:SKIN PROBLEM Ilene Phy:Stefani Alcala PA-C Service Date:01/24/23 [facility] Phy: Interpreting Phy:Michael Covington MDAdmit Phy: Ordering Phy:Bette Aguirre D.O. cc: ~ Exam(s): CT CHEST Without Contrast EXAM: CT Chest Without Intravenous Contrast CLINICAL HISTORY: Reason for exam: eval abscess -left posterior chest. TECHNIQUE: Axial computed tomography images of the chest without intravenous contrast. Automated exposure control was utilized for the study. A dose lowering technique was utilized adhering to the principles of ALARA. COMPARISON: No relevant prior studies available. FINDINGS: Lungs: 4 mm pulmonary nodule in the mid left upper lobe best seen on series 3 image 29. 3 mm pulmonary nodule within the mid left upper lobe best seen on series 3 image 28. 4 mm pulmonary nodule in the anterior right lower lobe best seen on series 3 image 41. 3 mm pulmonary nodule in the left lower lobe best seen on series 3 image 48. Pleural space: Unremarkable. No pneumothorax. No significant effusion. Heart: Unremarkable. No cardiomegaly. No significant pericardial effusion. No significant coronary artery calcifications. Bones/joints: Unremarkable. No acute fracture. No dislocation. Soft tissues: Left posterior lateral subcutaneous inflammation beginning at the left eighth posterior rib and extending inferiorly to the left flank at least to the level of the mid kidney. Focal skin thickening measuring up to 1.1 cm in thickness with soft tissue subcutaneous nodules. Unable to distinguish whether the subcutaneous soft tissue nodular areas represent phlegmon or small abscesses on this noncontrast exam. Vasculature: Unremarkable. No thoracic aortic aneurysm. Lymph nodes: Unremarkable. No enlarged lymph nodes. Gallbladder and bile ducts: Several large gallstones without evidence of gallbladder distention. Kidneys and ureters: Simple bilateral renal cysts measuring up to 3.0 cm. No further workup is required. IMPRESSION: Left posterior lateral subcutaneous inflammation beginning at the left eighth posterior rib and extending inferiorly to the left flank at least to the level of the mid kidney. Focal skin thickening measuring up to 1. 1 cm in thickness with soft tissue subcutaneous nodules. Unable to distinguish whether the subcutaneous soft tissue nodular areas represent phlegmon or small abscesses on this noncontrast exam. Numerous bilateral pulmonary nodules measuring no larger than 0.4 cm. Fleischner Society Guidelines for low-risk or high-risk patients recommend that one should consider chest CT at 12 months due to the location of this nodule. Electronically signed by: Michael Covington M.D. 01/24/23 02:21 AM Dictated:01/24/23220 Transcribed: 01/24/23220 PG Care Time/CCT Total # of Minutes Spent Total Time Spent with Patient: Total time spent is greater than 50% in coordination of care (as documented) at patient's floor/unit and/or counseling patient: Coding Level of Care Code 28591 OP VST EST MOD 30-39 MIN Diagnoses Rash of back R21 Cellulitis L03.818 Site of cellulitis: other site (2) Cellulitis Site of cellulitis: other site Qualified Code(s): L03.818 - Cellulitis of other sites
[2023-01-24] MEDS: amLODIPine BESYLATE 5 MG TAB PO SCH (08:46)
[2023-01-24] MEDS: PANTOprazole 40 MG TAB PO SCH (08:46)
[2023-01-24] MEDS: cilostazoL 100 MG TAB PO SCH ×2 (08:46→21:23)
[2023-01-24] MEDS: METOPROLOL TARTRATE 50 MG TAB PO SCH ×2 (08:46→21:27)
[2023-01-24] MEDS: valACYclovir HCL 500 MG TABLET PO SCH ×3 (08:46→21:23)
[2023-01-24] MEDS: FLUTICASONE/VILANTEROL 100/25MCG 14 PUFFS/INHALER INH SCH (08:47)
[2023-01-24] MEDS: LANTUS PER UNIT CHARGE SQ SCH ×2 (08:52→21:27)
[2023-01-24] MEDS ORDERED: CEFEPIME 2,000 MG in SYRINGE 0 ML IV SCH (09:00)
[2023-01-24] MEDS: ALBUTEROL HFA 8 GM INHALER INH SCH ×2 (09:07→19:42)
[2023-01-24 09:12] LABS: Basophils # (auto) 0.05 K/uL (0.00-0.20); Basophils % (auto) 0.3 %; Eosinophils # (auto) 0.37 K/uL (0.00-0.50); Eosinophils % (auto) 2.2 %; Hematocrit (blood only) 31.5 % (42.0-52.0); Hemoglobin 9.9 g/dl (14.0-18.0); Immature Granulocytes # (auto) 0.15 K/uL (0.01-0.20); Immature Granulocytes % (auto) 0.9 %; Lymphocytes # (auto) 1.22 K/uL (1.20-3.40); Lymphocytes % (auto) 7.3 %; Mean Corpuscular Hemoglobin 27.1 pg (25.0-34.0); Mean Corpuscular Hgb Conc 31.4 g/dL (32.0-36.0); Mean Corpuscular Volume 86.3 fL (80.0-100.0); Monocytes # (auto) 2.12 K/uL (0.11-0.59); Monocytes % (auto) 12.7 %; Neutrophils # (auto) 12.84 K/uL (1.40-6.50); Neutrophils % (auto) 76.6 %; Platelet Count 362 K/uL (130-400); RDW Coefficient of Variation 13.7 % (11.5-14.5); RDW Standard Deviation 43.1 fL (36.4-46.3); Red Blood Count 3.65 M/uL (4.70-6.10); White Blood Count 16.75 K/ul (4.8-10.8)
[2023-01-24] MEDS: INSULIN ASPART PER UNIT CHARGE SC SCH ×4 (09:14→21:35)
[2023-01-24 09:26] LABS: BUN Creatinine Ratio 13.2 (10-20); C Reactive Protein 12.24 mg/dl (0-0.5); Calcium 8.6 mg/dl (8.6-10.3); Creatinine Clr Calc Pharmacy 37.5 ml/min; Est GFR (African American) 37.2 ml/min; Est GFR (Non-African American) 32.1 ml/min
[2023-01-24] MEDS ORDERED: MIDAZOLAM HCL 1 MG/ML 2ML VIAL ONE (09:47)
[2023-01-24] MEDS ORDERED: fentaNYL citrate PF 100 MCG/2 ML VIAL ONE (09:47)
[2023-01-24] MEDS ORDERED: fentaNYL citrate PF 100 MCG/2 ML VIAL IV PRN (09:58)
[2023-01-24] MEDS ORDERED: ePHEDrine sulfate 50 MG/ML AMP IV PRN (09:58)
[2023-01-24] MEDS ORDERED: ATROPINE SULFATE 0.1 MG/ML 10ML SYR IV PRN (09:58)
--- NOTE | 2023-01-24 09:58 | Anesthesiology Consultation ---
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 History Surgery Operation Date: 01/24/23 09:15 Proposed Procedures p Incision and Drainage Back Abscess - Duncan Cazares DO Height/Weight Height: 5 ft 11 in Weight: 110.9 kg Allergies Allergy/AdvReac Type Severity Reaction Status Date / Time gentamicin Allergy Unknown UNKNOWN Verified 10/24/22 13:54 niacin Allergy Unknown unknown Verified 10/24/22 13:54 sertraline Allergy Unknown JITTERRY Verified 10/24/22 13:54 metformin AdvReac Unknown CAN'T Verified 10/24/22 13:54 REMEMBER silver sulfadiazine AdvReac Unknown unknown Verified 10/24/22 13:54 Medications Home Medications Medication Instructions Recorded Confirmed Last Taken latanoprost 0.005 % eye drops 1 drp OPB HS ##0 11/10/11 01/24/23 01/23/23 (Xalatan) acetaminophen 300 mg-codeine 30 mg 1 tab PO UD PRN Pain 12/10/19 01/24/23 Unknown tablet alogliptin 12.5 mg tablet 12.5 mg PO QAM 08/16/21 01/24/23 01/23/23 apixaban 5 mg tablet (Eliquis) 5 mg PO Q12 08/16/21 01/24/23 01/23/23 cyanocobalamin (vitamin B-12) 1,000 mcg PO QAM 08/16/21 01/24/23 01/23/23 1,000 mcg tablet (Vitamin B-12) docusate sodium 100 mg capsule 100 mg PO DAILY PRN Constipation 08/16/21 01/24/23 Unknown (Stool Softener) metoprolol tartrate 50 mg tablet 50 mg PO AMPM 08/16/21 01/24/23 01/23/23 pantoprazole 40 mg tablet,delayed 40 mg PO DAILYBB 08/16/21 01/24/23 01/23/23 release albuterol sulfate 90 mcg/actuation 1 inh inhalation AMHS 08/30/22 01/24/23 01/23/23 aerosol inhaler brimonidine 0.2 % eye drops 1 drp OPB AMHS 08/30/22 01/24/23 01/23/23 cholecalciferol (vitamin D3) 25 25 mcg PO AMPM 08/30/22 01/24/23 01/23/23 mcg (1,000 unit) tablet (Vitamin D3) mometasone-formoterol HFA 100 2 puff inhalation BID 08/30/22 01/24/23 01/23/23 mcg-5 mcg/actuation aerosol inhaler (Dulera) acetaminophen 325 mg tablet 325 mg PO Q4H PRN pain #30 tabs 09/04/22 01/24/23 Unknown amlodipine 5 mg tablet 5 mg PO DAILY #90 tabs 10/01/22 01/24/23 01/23/23 insulin aspar prot-insulin aspart 94 unit subcut UD 10/24/22 01/24/23 01/23/23 100 unit/mL (70-30) subcutaneous pen (Novolog Mix 70-30FlexPen U-100) atorvastatin 20 mg tablet 80 mg PO HS 01/24/23 01/24/23 01/23/23 cilostazol 100 mg tablet 100 mg PO AMHS 01/24/23 01/24/23 01/23/23 lanolin alcohols-mineral 1 applic topical AMHS PRN skin 01/24/23 01/24/23 Unkno wn oil-w.petrolatum-ceresin topical cream (Eucerin topical cream) lisinopril 10 mg tablet 10 mg PO QPM 01/24/23 01/24/23 01/23/23 magnesium oxide 420 mg tablet 420 mg PO QPM 01/24/23 01/24/23 01/23/23 multivitamin 1 tab PO AMPM 01/24/23 01/24/23 01/23/23 nystatin 100,000 unit/gram topical 1 applic topical DAILY PRN yeast 01/24/23 01/24/23 Unknown cream Active Medications Generic Name Dose Route Start Last Admin Trade Name Freq PRN Reason Stop Dose Admin Albuterol 1 puffs 01/24/23 09:00 01/24/23 09:07 Albuterol Hfa 8 Gm Inhaler INH 02/23/23 08:59 1 puffs AMHS REAGAN Administration Amlodipine Besylate 5 mg 01/24/23 09:00 01/24/23 08:46 Amlodipine Besylate 5 Mg Tab PO 02/23/23 08:59 5 mg DAILY REAGAN Administration Cilostazol 100 mg 01/24/23 09:00 01/24/23 08:46 Cilostazol 100 Mg Tab PO 02/23/23 08:59 100 mg AMHS REAGAN Administration Fluticasone/Vilanterol 1 puffs 01/24/23 09:00 01/24/23 08:47 Fluticasone/Vilanterol 100/25mcg 14 Puffs/Inhaler INH 02/23/23 08:59 1 puffs DAILY REAGAN Administration Hydromorphone HCl 0.5 mg 01/24/23 05:56 01/24/23 06:15 Hydromorphone Inj 0.5 Mg/0.5 Ml Syr IV 02/07/23 05:55 0.5 mg Q6H PRN Administration Mod-Sev Pain (Scale 4-10) Cefepime HCl 2,000 mg/ Syringe 20 mls @ 5 mls/min 01/24/23 09:00 01/24/23 08:47 IV 01/31/23 08:59 5 mls/min Q12H REAGAN Administration Protocol Insulin Aspart 0 units 01/24/23 07:30 01/24/23 09:14 Insulin Aspart Per Unit Charge SC 02/23/23 07:29 Not Given ACHS REAGAN Insulin Glargine 15 units 01/24/23 09:00 01/24/23 08:52 Lantus Per Unit Charge SQ 02/23/23 08:59 15 units BID REAGAN Administration Metoprolol Tartrate 50 mg 01/24/23 09:00 01/24/23 08:46 Metoprolol Tartrate 50 Mg Tab PO 02/23/23 08:59 50 mg BID REAGAN Administration Pantoprazole Sodium 40 mg 01/24/23 06:30 01/24/23 08:46 Pantoprazole 40 Mg Tab PO 02/23/23 06:29 40 mg DAILYBB REAGAN Administration Valacyclovir HCl 1,000 mg 01/24/23 09:00 01/24/23 08:46 Valacyclovir Hcl 500 Mg Tablet PO 01/31/23 08:59 1,000 mg TID REAGAN Administration Past Medical History Medical History Chronic anticoagulation COPD (chronic obstructive pulmonary disease) Diabetes DVT of lower extremity, bilateral GERD (gastroesophageal reflux disease) Glaucoma Hyperlipidemia LDL goal <70 Hypertension Left sided sciatica Obesity (BMI 30.0-34.9) Peripheral arterial disease Past Family History Family History Other Family history non-contributory Past Surgical History Surgical History History of cataract surgery History of tonsillectomy and adenoidectomy History of vein stripping Social History Smoking Status: Former smoker Hx Alcohol Use: Yes Alcohol type: hard liquor alcohol intake frequency: holidays/special occasions only Hx Substance Use: No Physical Exam Vital Signs Last Vital Signs Temp 98.4 F 01/23/23 21:18 Pulse 96 H 01/24/23 08:58 Resp 18 01/24/23 08:58 BP 162/73 H 01/24/23 08:58 Pulse Ox 96 01/24/23 08:58 O2 Del Method Room Air 01/24/23 08:58 Testing Laboratory Results 01/24/23 08:42 01/24/23 08:42 PT 10.8 Seconds (9.0-12.0) 01/23/23 21:35 INR 1.0 (0.9-1.1) 01/23/23 21:35 APTT 28.9 Seconds (21.0-31.0) 01/23/23 21:35 Electrocardiogram Date: 01/23/23 Sinus tachycardia, rate [address] abnormality Abnormal ECG When compared with ECG of 30-AUG-2022 16:00, Premature atrial complexes are no longer Present Vent. rate has increased BY [address] now depressed in Lateral leads Chest X-Ray Date: 01/23/23 Findings: + NAD Echocardiogram Date: 07/18/22 Compared with 11/11/2011 study, mild LVH/moderate /mild mitral regurgitation/moderately dilated LA are new findings LV size, wall motion and systolic function are normal EF 65-70% Mild concentric LVH Grade 1 diastolic dysfunction Moderate SHRADDHA is 1.3 cm2 Mild MR LA is mod dilated
[2023-01-24] MEDS ORDERED: LIDOCAINE 2% 2 ML VIAL/AMP(20MG/ML) INFIL ONE (10:09)
[2023-01-24] MEDS ORDERED: PROPOFOL IV EMULSION 10 MG/ML 20 ML VIAL IV ONE (10:09)
[2023-01-24] MEDS ORDERED: ONDANSETRON INJ 2 MG/ML 2 ML VIAL ONE (10:09)
[2023-01-24] MEDS ORDERED: DEXAMETHASONE SOD INJ 4 MG/ML VIAL ONE (10:09)
[2023-01-24] MEDS ORDERED: LACTATED RINGER'S 1,000 ML IV SCH (10:45)
[2023-01-24] MEDS ORDERED: BUPIVACAINE/EPINEPHRINE 0.5% MPF 1:200,000 30 ML VIAL ONE (10:54)
--- NOTE | 2023-01-24 12:12 | Operative Report ---
PG Post Operative Report Pre & Post Diagnosis Operation Date: 01/24/23 09:15 Pre-Op Diagnosis: Back Abscess Post-Op Diagnosis: Back Abscess I identified the patient and participated in the time-out.: Yes Procedure Operation Date: 01/24/23 09:15 Actual Procedures p Incision and Drainage Back Abscess(Left) - Duncan Cazares DO Surgeon Duncan Cazares DO Clipper Machine Operator Christopher HAYS Estimated Blood Loss 5 Findings Consistent with Post-Op Diagnosis Specimens None Anesthesia Type MAC Complications none Description of Procedure The patient was brought back to the operating room placed on the operating room table and right lateral decubitus position with a sandbag in place. He was connected to cardiac and oxygen monitoring and SCDs were applied to bilateral lower extremities. He was administered conscious sedation. The left posterior thorax around the area of interest was prepped and draped in typical sterile fashion. A timeout was conducted. Local anesthetic was injected over the most swollen area centralized in the region of erythema. Purulent fluid and local anesthetic weeped from the in large hair follicles that appear to be infected. Purulent material was removed from 1 hair very enlarged follicle in particular. Copious amounts of purulent fluid was expressed from multiple follicles using pressure to the surrounding skin. A 4 cm incision was made over this area through the skin encountering a cavity just beneath the skin. Some purulent fluid was also expressed from beneath the skin within the wound. The wound was copiously irrigated and suctioned once there was no further evidence of purulent fluid the wound was inspected for hemostasis. Hemostasis was achieved with cautery. The wound was lightly packed with half-inch iodoform packing. The wound was then covered with dry gauze and ABD secured in place with tape. The patient tolerated the procedure well. Conscious sedation was discontinued, the patient was awakened and transferred to recovery in stable condition. I attest to the content of the Intraoperative Record and any orders documented therein. Any exceptions are noted below.
--- NOTE | 2023-01-24 12:25 | Anesthesiology Progress Note ---
Date of Service January 24, 2023 Anesthesia Post Procedure Vital Signs Vital Signs: Temp Pulse Pulse Pulse Resp BP BP 01/24/23 12:20 97.9 F 77 20 113/57 L 01/24/23 12:10 98.2 F 80 13 89/46 L 01/24/23 10:22 98.1 F 88 20 150/71 H 01/24/23 08:58 96 H 18 162/73 H 01/24/23 06:30 16 127/71 01/24/23 06:00 109 H 20 153/103 H 01/24/23 05:30 98 H 14 157/72 H 01/24/23 05:50 94 H 01/24/23 05:00 100 H 12 153/75 H 01/24/23 04:30 98 H 14 144/70 H 01/24/23 04:00 101 H 12 125/81 01/24/23 03:30 108 H 20 122/82 01/24/23 03:00 99 H 16 128/75 01/24/23 02:30 107 H 12 177/88 H 01/24/23 02:00 101 H 18 145/69 H 01/24/23 01:30 109 H 14 143/74 H 01/24/23 01:00 103 H 16 130/76 01/24/23 01:53 103 H 01/24/23 00:30 102 H 16 131/71 01/24/23 00:01 107 H 18 132/83 01/23/23 23:30 115 H 16 176/78 H 01/23/23 23:02 131 H 24 01/23/23 23:00 131 H 22 01/23/23 22:16 01/23/23 21:52 123 H 01/23/23 21:18 98.4 F 118 H 20 167/74 H Pulse Ox O2 Del Method O2 Flow Rate 01/24/23 12:20 98 Room Air 01/24/23 12:10 99 Nasal Cannula 3 01/24/23 10:22 96 Room Air 01/24/23 08:58 96 Room Air 01/24/23 06:30 90 01/24/23 06:00 96 01/24/23 05:30 96 01/24/23 05:50 01/24/23 05:00 97 01/24/23 04:30 96 01/24/23 04:00 96 01/24/23 03:30 98 01/24/23 03:00 94 01/24/23 02:30 96 01/24/23 02:00 95 01/24/23 01:30 97 01/24/23 01:00 94 01/24/23 01:53 01/24/23 00:30 92 01/24/23 00:01 97 01/23/23 23:30 96 01/23/23 23:02 95 01/23/23 23:00 94 01/23/23 22:16 97 Room Air 01/23/23 21:52 01/23/23 21:18 96 Room Air Pain Intensity Left Back: Pain Intensity: 5 Transfer of Care Handoff Completed per policy Notes Mental Status: alert / awake / arousable and participated in evaluation Patient Amnestic to Procedure: Yes Nausea / Vomiting: adequately controlled Pain: adequately controlled Airway Patency, RR, SpO2: stable & adequate BP & HR: stable & adequate Hydration State: stable & adequate Anesthetic Complications: no major complications apparent and Pt Satisfied with anesthetic care
[2023-01-24] MEDS ORDERED: oxyCODONE HCL IR 5 MG TAB (IMMEDIATE RELEASE) PO PRN (13:43)
[2023-01-24] MEDS ORDERED: FAMOTIDINE 20 MG TAB PO PRN (17:01)
[2023-01-24] MEDS: DAPTOmycin 350 MG in SYRINGE 0 ML IV SCH (17:09)
--- NOTE | 2023-01-24 18:03 | XCELERA ---
[id number] \\[id number]
--- NOTE | 2023-01-24 19:35 | Billing Data ---
Date of Service January 24, 2023 Coding Level of Care Code 18684 INT INP/OBS CARE
[2023-01-24] MEDS: lisinopril 10 MG TAB PO SCH (21:23)
[2023-01-24] MEDS: MAGNESIUM OXIDE 400 MG TAB PO SCH (21:23)
[2023-01-25] MEDS: MAGNESIUM OXIDE 400 MG TAB PO SCH ×2 (02:05→20:12)
[2023-01-25] MEDS: valACYclovir HCL 500 MG TABLET PO SCH ×3 (02:06→14:19)
[2023-01-25] MEDS: PANTOprazole 40 MG TAB PO SCH (06:27)
--- NOTE | 2023-01-25 06:29 | Surgery Progress Note ---
Date of Service January 25, 2023 Assessment & Plan (1) Skin abscess: Plan: Patient is status post incision and drainage of back abscess on 01/24/2023 (postop day #1) Keep current dressing in place with plans to change tomorrow, 01/26/2023 Continue current antibiotics which include daptomycin. Gram stain from wound shows gram-positive cocci with further identification pending. Antibiotics can be further tailored based on these results Admission and Anticipated Discharge Date Admission Date: January 24, 2023 Supervising Physician Co-Signing Physician Notes I have seen and examined this patient. I agree with the above. The surgical dressings are dry and without evidence for bleeding. No erythema surrounding and patient admits to resolution of previous back pain. Leukocytosis is resolving with WBC from 16,000 yesterday to 13,000 today. This am c/o heart burn asking for Tums. States he has taken Omeprazole in the past which helps at a dosage of 5mg. He says he has been tried on Pepcid in the past which does not help. Recommend a PPI. Will f/u am labs and change dressing tomorrow. F/U final cultures in preparation for discharge. Subjective Patient is resting comfortably in bed. He denies any fevers, shakes, or chills. He denies any pain at his incision and drainage site on his back. Physical Exam Physical Exam: Back was examined. Surgical dressing is in place which is clean, dry, intact. There is no erythema extending around the dressing and there is no crepitus noted in the soft tissue. Results & Data Vital Signs (Past 12 Hours) Vital Signs Temp Pulse Pulse Resp BP Pulse Ox O2 Del Method 01/25/23 05:29 36.9 C 78 14 160/86 H 99 Room Air 01/24/23 22:30 70 01/24/23 23:43 36.9 C 73 18 130/67 94 Room Air 01/24/23 20:37 36.6 C 101 H 18 143/66 H 95 Room Air 01/24/23 19:43 103 H 18 91 Room Air PG Care Time/CCT Total # of Minutes Spent Total Time Spent with Patient: Total time spent is greater than 50% in coordination of care (as documented) at patient's floor/unit and/or counseling patient: Coding Level of Care Code None Diagnoses Skin abscess L02.212 Site of cutaneous abscess: trunk Site of cutaneous abscess of trunk: back (1) Skin abscess Site of cutaneous abscess: trunk Site of cutaneous abscess of trunk: back Qualified Code(s): L02.212 - Cutaneous abscess of back [any part, except buttock]
[2023-01-25] MEDS: NYSTATIN CR 15 GM TUBE EXT PRN (06:31)
[2023-01-25 07:06] LABS: Basophils # (auto) 0.02 K/uL (0.00-0.20); Basophils % (auto) 0.1 %; Eosinophils # (auto) 0.03 K/uL (0.00-0.50); Eosinophils % (auto) 0.2 %; Hematocrit (blood only) 30.4 % (42.0-52.0); Hemoglobin 9.7 g/dl (14.0-18.0); Immature Granulocytes # (auto) 0.17 K/uL (0.01-0.20); Immature Granulocytes % (auto) 1.2 %; Lymphocytes # (auto) 0.97 K/uL (1.20-3.40); Lymphocytes % (auto) 6.8 %; Mean Corpuscular Hemoglobin 27.2 pg (25.0-34.0); Mean Corpuscular Hgb Conc 31.9 g/dL (32.0-36.0); Mean Corpuscular Volume 85.2 fL (80.0-100.0); Mean Platelet Volume 9.1 fL (9.4-12.4); Monocytes # (auto) 1.17 K/uL (0.11-0.59); Monocytes % (auto) 8.2 %; Neutrophils # (auto) 11.94 K/uL (1.40-6.50); Neutrophils % (auto) 83.5 %; Platelet Count 369 K/uL (130-400); RDW Coefficient of Variation 13.6 % (11.5-14.5); RDW Standard Deviation 42.7 fL (36.4-46.3); Red Blood Count 3.57 M/uL (4.70-6.10)
--- NOTE | 2023-01-25 07:17 | Hospitalist Progress Note ---
Date of Service January 25, 2023 Assessment & Plan (1) Rash of back: Plan: -CT chest w/ L posterior lateral subQ inflammation beginning at L eighth posterior rib extending inferiorly to L flank at least to level of mid kidney, focal skin thickening 1.1cm in thickness w/ soft tissue and subcutaneous nodules. -White blood cell count 20.06 on admission, trending down -Patient tachycardic in ED improved after fluid bolus 2L NSS. -Rash on back concerning for possible herpes zoster dermatomal distribution with overlying bacterial infection. -Received 1 dose doxycycline outpatient, 2.75gm vancomycin in the ED. -s/p I&D 01/24 Plan: -Given CKD will put on daptomycin daily for MRSA coverage. -Dose of Cefepime given-> plan to d/c, low likelihood gram - or pseudomonas given soft tissue infection -Wound culture growing staph, sensitives to follow -Patient was started on Valtrex for possible herpes zoster, although has declined that last 3 doses. Pain is improved, so lower suspicion it was secondary to shingles. -D/c Valtrex -Eliquis held for surgery, currently on Lovenox. (2) Cellulitis: Plan: Same as above. (3) Chest pain: Plan: -Chest pain for past few days, worse with exertion, comes and goes. -EKG with sinus tachycardia, new minor depression in lateral leads V5 and V6 compared to EKG from August. -Troponin 19.7. -EKG changes may be from tachycardic state due to infection. -Will obtain repeat echo to check for anatomic or wall motion abnormalities-> Echo without worsening from prior study. -No current chest pain- patient states "pain" has just been the normal burning he gets from reflux and has resolved. -Patient removed cardiac monitors throughout the day, ultimately moved patient from telemetry status to medical. (4) Anemia: Plan: -Hgb 10.2 on admission. baseline 10-13. -History of iron deficiency anemia, patient stated he got diarrhea on oral iron supplement. -Continue to trend CBC (5) Chronic kidney disease, stage III (moderate): Plan: -Creatinine 2.19 on admission. Patient around recent baseline of 1.8-2.2 - Conitnue to trend (6) Hypertension: Plan: continue home amlodipine 5mg daily, lisinopril 10mg qpm, metoprolol tartrate 50mg BID. (7) Hyperlipidemia LDL goal <70: Plan: -hold home atorvastatin while receiving daptomycin. (8) COPD (chronic obstructive pulmonary disease): Plan: -Continue home albuterol and Dulera. (9) GERD (gastroesophageal reflux disease): Plan: -continue home pantoprazole. Famotidine and tums ordered PRN. (10) Diabetes: Plan: -ACHS checks, 15U Basal BID, SSI. Hold home oral medications. -Patient declining finger sticks at this time, states he would rather not eat if it means he will need a finger stick. Plan F/E/N/GI: T2DM. DVT Prophylaxis: Eliquis currently held for surgery Code status: DNR/DNI. Patient would not like any extraordinary measures. Admission and Anticipated Discharge Date Admission Date: January 24, 2023 Supervising Physician Co-Signing Physician Notes I personally examined the patient and verified all brasher points of history and exam, discussed case, and agree with decision making with Dr Guardado feels good, pain well controlled. Vitals noted, in general he is awake and alert pleasant no distress. Breathing unlabored no accessory muscle use good effort. cellulitis/abscessstatus post I&D, sepsis present on admissionseems to be improving, continue antibiotics and supportive care, await cultureshopefully home on p.o. antibiotics soonAwaiting cultures, surgery following wound. Lovenox for DVT prophylaxis Subjective Patient seen and examined at bedside. No acute events overnight. Patient states that he does not want any further finger sticks and will refuse to eat while admitted because of the finger sticks- he desires the use of his CGM. Patient denies chest pain or shortness of breath, states the tums resolved his reflux symptoms. Review of Systems Review of Systems: As per above Physical Exam Eyes: + anicteric sclerae; no conjunctival abnormality ENMT: Ears: no external ear abnormality Nose: no external nose abnormality Moist mucous membranes Respiratory: normal respiratory effort, lungs clear to auscultation Cardiovascular: Rate/Rhythm: regular rate and regular rhythm Heart Sounds: + murmur Skin: Bandage in place over wound on back. No surrounding erythema or crepitus. Psychiatric: A+Ox3, euthymic affect Results & Data Results & Data Vital Signs (Past 12 Hours) Vital Signs Temp Pulse Pulse Resp BP Pulse Ox O2 Del Method 01/25/23 05:29 36.9 C 78 14 160/86 H 99 Room Air 01/24/23 22:30 70 01/24/23 23:43 36.9 C 73 18 130/67 94 Room Air 01/24/23 20:37 36.6 C 101 H 18 143/66 H 95 Room Air 01/24/23 19:43 103 H 18 91 Room Air Resident Activity Tracking Resident Involvement: Resident Care Provided Care Provided: Adult Hospital Medicine (2) Cellulitis Site of cellulitis: other site Qualified Code(s): L03.818 - Cellulitis of other sites
[2023-01-25] MEDS: ALBUTEROL HFA 8 GM INHALER INH SCH ×2 (07:39→20:14)
[2023-01-25 07:51] LABS: C Reactive Protein 13.74 mg/dl (0-0.5); Calcium 8.9 mg/dl (8.6-10.3); Creatinine Clr Calc Pharmacy 31.4 ml/min; Est GFR (Non-African American) 25.9 ml/min; Potassium 4.2 mmol/L (3.5-5.1)
[2023-01-25] MEDS: CALCIUM CARBONATE 500 MG CHEWABLE TAB PO PRN ×2 (08:33→20:54)
[2023-01-25] MEDS: amLODIPine BESYLATE 5 MG TAB PO SCH (08:36)
[2023-01-25] MEDS: cilostazoL 100 MG TAB PO SCH ×2 (08:39→20:14)
[2023-01-25] MEDS: ENOXAPARIN INJ 40 MG/0.4 ML SYR SQ SCH (08:41)
[2023-01-25] MEDS: FLUTICASONE/VILANTEROL 100/25MCG 14 PUFFS/INHALER INH SCH (08:42)
[2023-01-25] MEDS: METOPROLOL TARTRATE 50 MG TAB PO SCH ×2 (08:45→20:13)
[2023-01-25] MEDS: LANTUS PER UNIT CHARGE SQ SCH ×2 (08:59→20:15)
[2023-01-25] MEDS: INSULIN ASPART PER UNIT CHARGE SC SCH ×4 (09:17→20:14)
[2023-01-25] MEDS: DAPTOmycin 350 MG in SYRINGE 0 ML IV SCH (13:58)
--- NOTE | 2023-01-25 18:36 | Billing Data ---
Date of Service January 25, 2023 Coding Level of Care Code 79368 SUB INP/OBS CARE
[2023-01-25] MEDS: lisinopril 10 MG TAB PO SCH (20:15)
[2023-01-26 01:43] LABS: A calco-baum cmplx NotReported Not Detected (NotDetected); Bact fragilis Not Reported Not Detected (NotDetected); C auris Not Reported Not Detected (NotDetected); Calbicans Not Reported Not Detected (NotDetected); Candida glabrata Not Reported Not Detected (NotDetected); Candida krusei Not Reported Not Detected (NotDetected); Cneoformans/gatti Not Reported Not Detected (NotDetected); Cparapsilosis Not Reported Not Detected (NotDetected); Ctropicalis Not Reported Not Detected (NotDetected); E cloacae compx Not Reported Not Detected (NotDetected); Efaecalis Not Reported Not Detected (NotDetected); Efaecium Not Reported Not Detected (NotDetected); Enterobacterales Not Reported Not Detected (NotDetected); Escherichia coli Not Reported Not Detected (NotDetected); H influenzae Not Reported Not Detected (NotDetected); K aerogenes Not Reported Not Detected (NotDetected); Koxytoca Not Reported Not Detected (NotDetected); Kpneumoniae grp Not Reported Not Detected (NotDetected); Lmonocyt Not Reported Not Detected (NotDetected); N meningitidis Not Reported Not Detected (NotDetected); P aeruginosa Not Reported Not Detected (NotDetected); Proteus spp Not Reported Not Detected (NotDetected); Salmonella spp Not Reported Not Detected (NotDetected); Smarcescens Not Reported Not Detected (NotDetected); Staph lugdunensis Not Reported Not Detected (NotDetected); Staph spp. Not Reported DETECTED (NotDetected); Staphaureus Not Reported DETECTED (NotDetected); Staphepi Not Reported Not Detected (NotDetected); Staphylococcus spp. DETECTED (NotDetected); Stenmaltophilia Not Reported Not Detected (NotDetected); Strep agal(GrpB) Not Reported Not Detected (NotDetected); Strep pneum Not Reported Not Detected (NotDetected); Strep pyog (GrpA) Not Reported Not Detected (NotDetected); Strep spp Not Reported Not Detected (NotDetected)
[2023-01-26 02:00] LABS: mecAC+MREJ Resistant Gene MRSA DETECTED (NotDetected)
--- NOTE | 2023-01-26 05:23 | Surgery Progress Note ---
Date of Service January 26, 2023 Assessment & Plan (1) Skin abscess: Plan: Patient is status post incision and drainage of back abscess on 01/24/2023 (postop day #2) Plans noted for attending physician to change dressing this morning Culture data has been obtained. Patient did have a wound culture obtained on 01/23/2023 that shows Staphylococcus with further identification and sensitivity to follow. Blood cultures from 01/24/2023 are growing gram-positive cocci in clusters. Continue antibioticsthe patient is currently receiving daptomycin. This will continue pending further sensitivities on culture information. Check a.m. labs when available Admission and Anticipated Discharge Date Admission Date: January 24, 2023 Supervising Physician Co-Signing Physician Notes I have seen and examined this patient this am. I changed the dressings. Packing was removed, the wound was gently irrigated with normal saline, dried and a new packing was inserted using Mai, the wound was covered with guaze and an ABD. Recommend daily packing change, cover with gauze and ABD once he is discharged. He may follow up with a wound care center 2-3 weeks after discharge. Subjective Patient is resting comfortably in bed. He denies any fevers, shakes, or chills. He denies significant pain at his surgical incision and drainage site. Physical Exam Physical Exam: Plans to take dressing down and examine wounds by attending physician on rounds this morning, therefore wound has not been uncovered at this time. Results & Data Vital Signs (Past 12 Hours) Vital Signs Temp Pulse Resp BP Pulse Ox O2 Del Method 01/25/23 21:40 Room Air 01/25/23 20:11 36.7 C 86 16 166/75 H 95 Room Air PG Care Time/CCT Total # of Minutes Spent Total Time Spent with Patient: Total time spent is greater than 50% in coordination of care (as documented) at patient's floor/unit and/or counseling patient: Coding Level of Care Code None Diagnoses Skin abscess L02.212 Site of cutaneous abscess: trunk Site of cutaneous abscess of trunk: back (1) Skin abscess Site of cutaneous abscess: trunk Site of cutaneous abscess of trunk: back Qualified Code(s): L02.212 - Cutaneous abscess of back [any part, except buttock]
[2023-01-26] MEDS: PANTOprazole 40 MG TAB PO SCH (05:42)
[2023-01-26] MEDS: ALBUTEROL HFA 8 GM INHALER INH SCH ×2 (08:25→20:42)
[2023-01-26] MEDS: METOPROLOL TARTRATE 50 MG TAB PO SCH ×2 (08:29→20:42)
[2023-01-26] MEDS: amLODIPine BESYLATE 5 MG TAB PO SCH (08:30)
[2023-01-26] MEDS: FLUTICASONE/VILANTEROL 100/25MCG 14 PUFFS/INHALER INH SCH (08:30)
[2023-01-26 08:37] LABS: Basophils # (auto) 0.04 K/uL (0.00-0.20); Basophils % (auto) 0.4 %; Eosinophils # (auto) 0.59 K/uL (0.00-0.50); Eosinophils % (auto) 5.3 %; Hematocrit (blood only) 30.6 % (42.0-52.0); Hemoglobin 9.6 g/dl (14.0-18.0); Immature Granulocytes # (auto) 0.18 K/uL (0.01-0.20); Immature Granulocytes % (auto) 1.6 %; Lymphocytes # (auto) 1.59 K/uL (1.20-3.40); Lymphocytes % (auto) 14.4 %; Mean Corpuscular Hemoglobin 26.9 pg (25.0-34.0); Mean Corpuscular Hgb Conc 31.4 g/dL (32.0-36.0); Mean Corpuscular Volume 85.7 fL (80.0-100.0); Mean Platelet Volume 8.9 fL (9.4-12.4); Neutrophils # (auto) 7.54 K/uL (1.40-6.50); Neutrophils % (auto) 68.3 %; Platelet Count 365 K/uL (130-400); RDW Coefficient of Variation 13.5 % (11.5-14.5); RDW Standard Deviation 41.9 fL (36.4-46.3); Red Blood Count 3.57 M/uL (4.70-6.10); White Blood Count 11.04 K/ul (4.8-10.8)
[2023-01-26] MEDS: INSULIN ASPART PER UNIT CHARGE SC SCH ×4 (08:51→20:38)
[2023-01-26] MEDS: LANTUS PER UNIT CHARGE SQ SCH ×2 (08:52→20:38)
[2023-01-26] MEDS: ENOXAPARIN INJ 40 MG/0.4 ML SYR SQ SCH (08:52)
[2023-01-26 09:57] LABS: BUN Creatinine Ratio 16.9 (10-20); C Reactive Protein 4.86 mg/dl (0-0.5); Calcium 9.2 mg/dl (8.6-10.3); Creatinine Clr Calc Pharmacy 32.3 ml/min; Est GFR (African American) 31.1 ml/min; Est GFR (Non-African American) 26.9 ml/min
[2023-01-26] MEDS: cilostazoL 100 MG TAB PO SCH ×2 (10:25→20:43)
--- NOTE | 2023-01-26 11:41 | Hospitalist Progress Note ---
Date of Service January 26, 2023 Assessment & Plan (1) Rash of back: Plan: -CT chest w/ L posterior lateral subQ inflammation beginning at L eighth posterior rib extending inferiorly to L flank at least to level of mid kidney, focal skin thickening 1.1cm in thickness w/ soft tissue and subcutaneous nodules. -White blood cell count 20.06 on admission, trending down -Patient tachycardic in ED improved after fluid bolus 2L NSS. -Rash on back concerning for possible herpes zoster dermatomal distribution with overlying bacterial infection. -Received 1 dose doxycycline outpatient, 2.75gm vancomycin in the ED. -s/p I&D 01/24 - crp trending down Plan: -Given CKD will put on daptomycin daily for MRSA coverage. -Dose of Cefepime given-> plan to d/c, low likelihood gram - or pseudomonas given soft tissue infection -Wound culture growing MRSA - 1/2 Blood cultures growing gram + cocci in clusters, repeat cultures pending. F/u for speciation, sensitivities. -Patient was started on Valtrex for possible herpes zoster, although has declined that last 3 doses. Pain is improved, so lower suspicion it was secondary to shingles. -D/c Valtrex -Eliquis held for surgery, currently on Lovenox. (2) Cellulitis: Plan: Same as above. (3) Chest pain: Plan: -Chest pain for past few days, worse with exertion, comes and goes. -EKG with sinus tachycardia, new minor depression in lateral leads V5 and V6 compared to EKG from August. -Troponin 19.7. -EKG changes may be from tachycardic state due to infection. -Will obtain repeat echo to check for anatomic or wall motion abnormalities-> Echo without worsening from prior study. -No current chest pain- patient states "pain" has just been the normal burning he gets from reflux and has resolved. -Patient removed cardiac monitors throughout the day, ultimately moved patient from telemetry status to medical. (4) Anemia: Plan: -Hgb 10.2 on admission. baseline 10-13. -History of iron deficiency anemia, patient stated he got diarrhea on oral iron supplement. -Continue to trend CBC (5) Chronic kidney disease, stage III (moderate): Plan: -Creatinine 2.19 on admission. Patient around recent baseline of 1.8-2.2 - Continue to trend (6) Hypertension: Plan: continue home amlodipine 5mg daily, lisinopril 10mg qpm, metoprolol tartrate 50mg BID. (7) Hyperlipidemia LDL goal <70: Plan: -hold home atorvastatin while receiving daptomycin. (8) COPD (chronic obstructive pulmonary disease): Plan: -Continue home albuterol and Dulera. (9) GERD (gastroesophageal reflux disease): Plan: -continue home pantoprazole. Famotidine and tums ordered PRN. (10) Diabetes: Plan: -ACHS checks, 15U Basal BID, SSI. Hold home oral medications. -Patient declining finger sticks at this time, states he would rather not eat if it means he will need a finger stick. Plan F/E/N/GI: T2DM. DVT Prophylaxis: Lovenox Code status: DNR/DNI. Patient would not like any extraordinary measures. Admission and Anticipated Discharge Date Admission Date: January 24, 2023 Supervising Physician Co-Signing Physician Notes I personally examined the patient and verified all brasher points of history and exam, discussed case, and agree with decision making with Dr Qureshi no complaints, but discussed blood culture findings. Vitals noted, in general he is awake and alert pleasant no distress. Breathing unlabored no accessory muscle use good effort. cellulitis/abscessstatus post I&D, sepsis present on admissionseems to be improving, continue antibiotics and supportive care. unfortunately blood cultures - while only (+) in one tube - since matching skin bacteria/pt came in septic from skin infection -> have to assume gram positive bacteremia at this point. continue dapto, repeat Cx, echo, ID consult. Lovenox for DVT prophylaxis Subjective Pt seen at bedside this morning. Pain is improving. Denies fever/chills. States that dressing was just changed. Review of Systems Review of Systems: As per above Physical Exam Physical Exam: Constitutional: well-appearing, no acute distress HEENT: NCAT, no conjunctival injection CV: regular rhythm, no murmur appreciated, extremities well-perfused Resp: CTABL, no wheezes/rales/rhonchi appreciated, no increased work of breathing GI: soft, nondistended, nontender MSK: no gross deformities appreciated Skin: warm, dry, no rash appreciated Neuro: alert, oriented, no focal neurologic deficit appreciated Skin: Dressing on back is in place, clean and dry Results & Data Results & Data Vital Signs (Past 12 Hours) Vital Signs Temp Pulse Resp BP Pulse Ox O2 Del Method 01/26/23 07:24 36.6 C 82 18 153/75 H 92 Room Air Resident Activity Tracking Resident Involvement: Resident Care Provided Care Provided: Adult Hospital Medicine (2) Cellulitis Site of cellulitis: other site Qualified Code(s): L03.818 - Cellulitis of other sites
[2023-01-26] MEDS: DAPTOmycin 350 MG in SYRINGE 0 ML IV SCH (12:37)
[2023-01-26] MEDS ORDERED: DAPTOmycin 375 MG in SYRINGE 0 ML IV ONE (15:00)
--- NOTE | 2023-01-26 15:05 | Billing Data ---
Date of Service January 26, 2023 Coding Level of Care Code 21989 SUB INP/OBS CARE
[2023-01-26] MEDS: CALCIUM CARBONATE 500 MG CHEWABLE TAB PO PRN (20:41)
[2023-01-26] MEDS: NYSTATIN CR 15 GM TUBE EXT PRN (20:43)
[2023-01-26] MEDS: MAGNESIUM OXIDE 400 MG TAB PO SCH (20:43)
[2023-01-26] MEDS: lisinopril 10 MG TAB PO SCH (20:43)
[2023-01-27] MEDS: PANTOprazole 40 MG TAB PO SCH (05:44)
--- NOTE | 2023-01-27 06:59 | Hospitalist Progress Note ---
Date of Service January 27, 2023 Assessment & Plan (1) MRSA bacteremia: Plan: MRSA bacteremia with Back Abscess - -CT chest w/ L posterior lateral subQ inflammation beginning at L eighth posterior rib extending inferiorly to L flank at least to level of mid kidney, focal skin thickening 1.1cm in thickness w/ soft tissue and subcutaneous nodules. - Upon presentation to ED was septic with leucocytosis and tachycardia; both have since resolved -Received 1 dose doxycycline outpatient, 2.75gm vancomycin in the ED. - S/p I&D for Abscess on left flank 01/24 - CRP continues to downtrend - Wound culture growing MRSA, 1/2 blood cultures from 01/24 growing MRSA. No surgical cultures. - Since blood culture and wound culture are both growing MRSA, treat as bacteremia even though only 1/2 cultures are positive - Repeat cultures from 01/26 without growth after 24 hours - Started on Daptomycin given CKD dosing based on recommendations for bacteremia per pharmacy; cultures did show sensitivity to daptomycin - TTE without vegetations - ID consulted on 01/26; still waiting for input Concern for Herpes Zoster -Rash on back concerning for possible herpes zoster dermatomal distribution with overlying bacterial infection per admitting provider -Patient was started on Valtrex for possible herpes zoster, although has declined doses. Pain is improved with I&D and no dermatomal rash remains, so lower suspicion it was secondary to shingles. -D/c Valtrex Chest Pain -Chest pain for few days prior to admission -EKG with sinus tachycardia, new minor depression in lateral leads V5 and V6 compared to EKG from August. -Troponin 19.7. -EKG changes could have been from tachycardic state due to infection. -Echo without significant change from prior study -No current chest pain- patient states "pain" has just been the normal burning he gets from reflux and has resolved. -Patient removed cardiac monitors throughout the day, ultimately moved patient from telemetry status to medical on 01/25 Anemia -Hgb 10.2 on admission and has remained stable between 9-10. baseline 10-13. -History of iron deficiency anemia, patient stated he got diarrhea on oral iron supplement. -Continue to trend CBC CKD Stage III - -Creatinine 2.19 on admission and has remained around recent baseline of 1.8- 2.2. - Follows with [facility] [place] nephrology - Continue to trend HTN continue home amlodipine 5mg daily, lisinopril 10mg qpm, metoprolol tartrate 50mg BID. COPD -Continue home albuterol and Dulera. GERD -continue home pantoprazole. Famotidine and tums ordered PRN. DM2 -ACHS checks, 15U Basal BID, SSI. Hold home oral medications. -Patient declines carb ratio, plan for basal with correction factor-> will continue monitor blood sugars F/E/N/GI: T2DM. DVT Prophylaxis: Lovenox Code status: DNR/DNI. Patient would not like any extraordinary measures. (2) Cellulitis: (3) Chest pain: (4) Anemia: (5) Rash of back: (6) Chronic kidney disease, stage III (moderate): (7) Hypertension: (8) Hyperlipidemia LDL goal <70: Plan: -hold home atorvastatin while receiving daptomycin. (9) COPD (chronic obstructive pulmonary disease): (10) GERD (gastroesophageal reflux disease): (11) Diabetes: (12) Skin abscess: Admission and Anticipated Discharge Date Admission Date: January 24, 2023 Supervising Physician Co-Signing Physician Notes I personally examined the patient and verified brasher points of history and exam, discussed case, and agree with decision making and plan documented by Dr. Qureshi. Patient appears comfortable, lungs clear b/l to auscultation, regular rate and rhythm, no acute distress, open wound on right posterior torso with packing present, mild drainage, and surrounding induration. Continue daptomycin, ID consult placed for recommendations in setting of MRSA. Subjective Patient seen at bedside this morning. States pain secondary to abscess has been slowly improving. Anxious to get home. Denies fever/chills. Daughter was also at bedside this morning. Review of Systems Review of Systems: As per above Physical Exam Physical Exam: Constitutional: well-appearing, no acute distress HEENT: NCAT, no conjunctival injection CV: regular rhythm, no murmur appreciated, extremities well-perfused Resp: CTABL, no wheezes/rales/rhonchi appreciated, no increased work of breathing GI: soft, nondistended, nontender MSK: no gross deformities appreciated Skin: warm, dry, no rash appreciated Neuro: alert, oriented, no focal neurologic deficit appreciated Skin: Wound on back with packing in place, some discharge on dressing minimal surrounding erythema Results & Data Results & Data Vital Signs (Past 12 Hours) Vital Signs Temp Pulse Resp BP Pulse Ox O2 Del Method 01/26/23 20:23 36.7 C 74 22 169/70 H 97 Room Air Resident Activity Tracking Resident Involvement: Resident Care Provided Care Provided: Adult Hospital Medicine (2) Cellulitis Site of cellulitis: other site Qualified Code(s): L03.818 - Cellulitis of other sites (12) Skin abscess Site of cutaneous abscess: trunk Site of cutaneous abscess of trunk: back Qualified Code(s): L02.212 - Cutaneous abscess of back [any part, except buttock]
[2023-01-27] MEDS: ALBUTEROL HFA 8 GM INHALER INH SCH ×2 (07:09→19:35)
[2023-01-27 07:27] LABS: Basophils # (auto) 0.04 K/uL (0.00-0.20); Basophils % (auto) 0.4 %; Eosinophils # (auto) 0.69 K/uL (0.00-0.50); Hematocrit (blood only) 28.8 % (42.0-52.0); Hemoglobin 9.3 g/dl (14.0-18.0); Immature Granulocytes # (auto) 0.18 K/uL (0.01-0.20); Immature Granulocytes % (auto) 1.8 %; Lymphocytes # (auto) 1.17 K/uL (1.20-3.40); Lymphocytes % (auto) 11.9 %; Mean Corpuscular Hgb Conc 32.3 g/dL (32.0-36.0); Mean Corpuscular Volume 83.7 fL (80.0-100.0); Mean Platelet Volume 9.2 fL (9.4-12.4); Monocytes # (auto) 1.15 K/uL (0.11-0.59); Monocytes % (auto) 11.7 %; Neutrophils # (auto) 6.61 K/uL (1.40-6.50); Neutrophils % (auto) 67.2 %; Platelet Count 380 K/uL (130-400); RDW Coefficient of Variation 13.6 % (11.5-14.5); RDW Standard Deviation 41.4 fL (36.4-46.3); Red Blood Count 3.44 M/uL (4.70-6.10); White Blood Count 9.84 K/ul (4.8-10.8)
[2023-01-27 07:43] LABS: BUN Creatinine Ratio 16.1 (10-20); Bilirubin,Total 0.3 mg/dl (0.2-1.0); C Reactive Protein 2.59 mg/dl (0-0.5); Calcium 8.9 mg/dl (8.6-10.3); Creatinine Clr Calc Pharmacy 31.6 ml/min; Est GFR (African American) 30.3 ml/min; Est GFR (Non-African American) 26.1 ml/min; Globulin 2.9 gm/dl (2.5-4.0); Total Protein 5.9 gm/dl (6.0-8.3)
[2023-01-27] MEDS: FLUTICASONE/VILANTEROL 100/25MCG 14 PUFFS/INHALER INH SCH (08:58)
[2023-01-27] MEDS: ENOXAPARIN INJ 40 MG/0.4 ML SYR SQ SCH (08:59)
[2023-01-27] MEDS: cilostazoL 100 MG TAB PO SCH ×2 (08:59→20:50)
[2023-01-27] MEDS: amLODIPine BESYLATE 5 MG TAB PO SCH (09:00)
[2023-01-27] MEDS: METOPROLOL TARTRATE 50 MG TAB PO SCH ×2 (09:00→20:48)
[2023-01-27] MEDS: INSULIN ASPART PER UNIT CHARGE SC SCH ×5 (09:02→21:54)
[2023-01-27] MEDS: LANTUS PER UNIT CHARGE SQ SCH ×2 (09:03→20:48)
--- NOTE | 2023-01-27 10:50 | XCELERA ---
[id number] \\[id number]
[2023-01-27] MEDS ORDERED: DAPTOmycin 725 MG in SYRINGE 0 ML IV SCH (12:00)
[2023-01-27] MEDS ORDERED: NON-FORMULARY PATIENT'S OWN MED SCH (13:15)
--- NOTE | 2023-01-27 15:57 | Electrocardiogram Report ---
Test Reason : Blood Pressure : / mmHG Vent. Rate : 116 BPM Atrial Rate : 116 BPM P-R Int : 178 ms QRS Dur : 084 ms QT Int : 318 ms P-R-T Axes : 062 049 067 degrees QTc Int : 442 ms Sinus tachycardia Nonspecific ST abnormality Abnormal ECG When compared with ECG of 30-AUG-2022 16:00, Premature atrial complexes are no longer Present Vent. rate has increased BY [address] now depressed in Lateral leads Confirmed by Ernesto Vann ([id number]) on 01/27/2023 3:56:53 PM Referred By: REFERRED SELF Confirmed By:Ernesto Vann
[2023-01-27] MEDS: MAGNESIUM OXIDE 400 MG TAB PO SCH (20:48)
[2023-01-27] MEDS: lisinopril 10 MG TAB PO SCH (20:48)
[2023-01-27] MEDS: MOMETASONE INH SCH (20:59)
[2023-01-27] MEDS: FORMOTEROL INH SCH (20:59)
[2023-01-27] MEDS: NYSTATIN CR 15 GM TUBE EXT PRN (21:03)
[2023-01-27] MEDS ORDERED: BRIMONIDINE TARTRATE-P 0.15% 5 ML BTL OP SCH (23:09)
[2023-01-28] MEDS: LATANOPROST 0.005% OP SOLN 2.5 ML BTL OP SCH ×2 (00:36→21:07)
[2023-01-28] MEDS: PANTOprazole 40 MG TAB PO SCH (06:34)
--- NOTE | 2023-01-28 06:43 | Hospitalist Progress Note ---
Date of Service January 28, 2023 Assessment & Plan (1) MRSA bacteremia: Plan: MRSA bacteremia with Back Abscess - -CT chest w/ L posterior lateral subQ inflammation beginning at L eighth posterior rib extending inferiorly to L flank at least to level of mid kidney, focal skin thickening 1.1cm in thickness w/ soft tissue and subcutaneous nodules. - Upon presentation to ED was septic with leucocytosis and tachycardia; both have since resolved -Received 1 dose doxycycline outpatient, 2.75gm vancomycin in the ED. - S/p I&D for Abscess on left flank 01/24 - CRP continues to downtrend - Wound culture growing MRSA, 1/2 blood cultures from 01/24 growing MRSA. No surgical cultures. - Since blood culture and wound culture are both growing MRSA, treat as bacteremia even though only 1/2 cultures are positive - Repeat cultures from 01/26 without growth after 24 hours - Started on Daptomycin given CKD dosing based on recommendations for bacteremia per pharmacy; cultures did show sensitivity to daptomycin. Will dose q48 due to creatine clearance - TTE without vegetations - ID consulted on 01/26; still waiting for input- f/u recommendations Concern for Herpes Zoster -Rash on back concerning for possible herpes zoster dermatomal distribution with overlying bacterial infection per admitting provider -Patient was started on Valtrex for possible herpes zoster, although has declined doses. Pain is improved with I&D and no dermatomal rash remains, so lower suspicion it was secondary to shingles. -D/c Valtrex Chest Pain -Chest pain for few days prior to admission -EKG with sinus tachycardia, new minor depression in lateral leads V5 and V6 compared to EKG from August. -Troponin 19.7. -EKG changes could have been from tachycardic state due to infection. -Echo without significant change from prior study -No current chest pain- patient states "pain" has just been the normal burning he gets from reflux and has resolved. -Patient removed cardiac monitors throughout the day, ultimately moved patient from telemetry status to medical on 01/25 Anemia -Hgb 10.2 on admission and has remained stable between 02-02. baseline 10-. -History of iron deficiency anemia, patient stated he got diarrhea on oral iron supplement. -Continue to trend CBC CKD Stage III - -Creatinine 2.19 on admission, slight bump to 2.4 today. - [place]s [place] [facility] [place] - Continue to trend HTN continue home amlodipine 5mg daily, lisinopril 10mg qpm, metoprolol tartrate 50mg BID. COPD -Continue home albuterol and Dulera. GERD -continue home pantoprazole. Famotidine and tums ordered PRN. DM2 -ACHS checks, 15U Basal BID, SSI. Hold home oral medications. -Patient declines carb ratio, plan for basal with correction factor-> will continue monitor blood sugars F/E/N/GI: T2DM. DVT Prophylaxis: Lovenox Code status: DNR/DNI. Patient would not like any extraordinary measures. (2) Cellulitis: (3) Chest pain: (4) Anemia: (5) Rash of back: (6) Chronic kidney disease, stage III (moderate): (7) Hypertension: (8) Hyperlipidemia LDL goal <70: Plan: -hold home atorvastatin while receiving daptomycin. (9) COPD (chronic obstructive pulmonary disease): (10) GERD (gastroesophageal reflux disease): (11) Diabetes: (12) Skin abscess: Admission and Anticipated Discharge Date Admission Date: January 24, 2023 Supervising Physician Co-Signing Physician Notes I personally examined the patient and verified brasher points of history and exam, discussed case, and agree with decision making and plan documented by Dr. Qureshi. No acute concerns. Evaluated open wound on back, mild drainage and packing intact, surrounding induration remains. Patient recommended to complete 4 weeks of IV antibiotics. He is concerned as he is not able to return to his home and may need to be in transitional SNF for administration. Subjective Eduar doing well this morning. Pain improving. Eating well. Review of Systems Review of Systems: As per above Physical Exam Physical Exam: Constitutional: well-appearing, no acute distress HEENT: NCAT, no conjunctival injection CV: regular rhythm, no murmur appreciated, extremities well-perfused Resp: CTABL, no wheezes/rales/rhonchi appreciated, no increased work of breathing GI: soft, nondistended, nontender MSK: no gross deformities appreciated Skin: warm, dry, no rash appreciated Neuro: alert, oriented, no focal neurologic deficit appreciated Skin: Wound on back with packing in place, some discharge on dressing minimal surrounding erythema Results & Data Results & Data Vital Signs (Past 12 Hours) Vital Signs Temp Pulse Resp BP Pulse Ox O2 Del Method 01/27/23 20:46 36.5 C 85 18 171/71 H 96 Room Air 01/27/23 19:38 83 18 96 Room Air Resident Activity Tracking Resident Involvement: Resident Care Provided Care Provided: Adult Hospital Medicine (2) Cellulitis Site of cellulitis: other site Qualified Code(s): L03.818 - Cellulitis of other sites (12) Skin abscess Site of cutaneous abscess: trunk Site of cutaneous abscess of trunk: back Qualified Code(s): L02.212 - Cutaneous abscess of back [any part, except buttock]
[2023-01-28 07:34] LABS: Basophils # (auto) 0.04 K/uL (0.00-0.20); Basophils % (auto) 0.4 %; Eosinophils # (auto) 0.72 K/uL (0.00-0.50); Eosinophils % (auto) 7.2 %; Hematocrit (blood only) 29.6 % (42.0-52.0); Hemoglobin 9.6 g/dl (14.0-18.0); Immature Granulocytes # (auto) 0.33 K/uL (0.01-0.20); Immature Granulocytes % (auto) 3.3 %; Lymphocytes # (auto) 1.16 K/uL (1.20-3.40); Lymphocytes % (auto) 11.6 %; Mean Corpuscular Hemoglobin 27.3 pg (25.0-34.0); Mean Corpuscular Hgb Conc 32.4 g/dL (32.0-36.0); Mean Corpuscular Volume 84.1 fL (80.0-100.0); Mean Platelet Volume 8.9 fL (9.4-12.4); Monocytes # (auto) 1.23 K/uL (0.11-0.59); Monocytes % (auto) 12.3 %; Neutrophils # (auto) 6.55 K/uL (1.40-6.50); Neutrophils % (auto) 65.2 %; Platelet Count 364 K/uL (130-400); RDW Coefficient of Variation 13.7 % (11.5-14.5); RDW Standard Deviation 41.8 fL (36.4-46.3); Red Blood Count 3.52 M/uL (4.70-6.10); White Blood Count 10.03 K/ul (4.8-10.8)
[2023-01-28 07:50] LABS: Albumin Globulin Ratio 1.1 (0.9-2); Albumin Level 3.1 gm/dl (3.4-5.0); BUN Creatinine Ratio 15.4 (10-20); Bilirubin,Total 0.3 mg/dl (0.2-1.0); Calcium 8.8 mg/dl (8.6-10.3); Creatinine Clr Calc Pharmacy 28.8 ml/min; Est GFR (Non-African American) 23.3 ml/min; Globulin 2.8 gm/dl (2.5-4.0); Total Protein 5.9 gm/dl (6.0-8.3)
[2023-01-28] MEDS: ALBUTEROL HFA 8 GM INHALER INH SCH ×2 (08:23→20:47)
[2023-01-28] MEDS: cilostazoL 100 MG TAB PO SCH ×2 (08:54→20:50)
[2023-01-28] MEDS: METOPROLOL TARTRATE 50 MG TAB PO SCH ×2 (08:54→20:50)
[2023-01-28] MEDS: amLODIPine BESYLATE 5 MG TAB PO SCH (08:54)
[2023-01-28] MEDS: BRIMONIDINE TARTRATE-P 0.15% 5 ML BTL OP SCH ×2 (08:59→20:46)
[2023-01-28] MEDS: MOMETASONE INH SCH ×2 (09:00→20:52)
[2023-01-28] MEDS: FORMOTEROL INH SCH ×2 (09:00→20:52)
[2023-01-28] MEDS: ENOXAPARIN INJ 40 MG/0.4 ML SYR SQ SCH (09:01)
[2023-01-28] MEDS: LANTUS PER UNIT CHARGE SQ SCH ×2 (09:03→20:43)
[2023-01-28] MEDS: INSULIN ASPART PER UNIT CHARGE SC SCH ×4 (09:04→20:44)
[2023-01-28 09:05] LABS: Estimated Average Glucose 183 mg/dl
--- NOTE | 2023-01-28 12:38 | Infectious Disease Consult ---
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 On the day admission, he was started on doxycycline by his provider [facility]. The wound became larger and he developed left posterior chest and back pain. He denies any skin picking, fever, chills, sweats, sob, nausea, vomiting, or cough. On admission he is afebrile and tachycardic with HR in 130s. In the Ed, he was noted to have a large left mid back area of erythema c/w cellulitis and a large area of induration that was draining. Labs noted for wbc 20k. bun 29 ,cr 2.19, lactate 1.5, pro esme 0.53. CXR showed no acute cardiopulmonary abnormality. Ct chest showed left posterior lateral subcutaneous inflammation beginning at the left eighth posterior rib and extending inferiorly to the left as well as focal skin thickening measuring up to 1.1 cm in thickness with soft tissue subcutaneous nodules. An abscess vs phlegmon could not be ruled out on the non contrast exam. Numerous pulmonary bilateral nodules were also seen. He was evaluated by surgery and underwent I and D of the left sided abnormality on 01/24. Purulent fluid drained from a hair follicle that appeared infected. Copious amounts of purulent fluid was expressed from multiple follicles. A 4 cm incision was made and the wound was copiously irrigated and suctioned NO intraop Cultures were obtained. However, r a wound cx obtained on admission 01/23 grew MRSA. Additionally a BC obtained on 01/24 grew MRSA in bottles. A repeat BC from 01/26 is sterile to date. A TTE on 01/26 shows a sclerotic AV with reduced leaflet excursion suggesting . No vegetation noted. He is currently on Daptomycin . ID consulted for bacteremia MICRO Wound cx; 01/23, MRSA S DapTo KAMALA 0.5, Vanco KAMALA 2, tetr, trim/sulfa Blood cx 01/24, 1 bottles + MRSA S DapTo KAMALA 0.5, Vanco KAMALA 2, tetr, trim/sulfa Blood cx 01/26 NGTD prior cx Wound cx 08/30 MRSA ABX: Cefepime 01/24 vanco 01/23 Dapto 01/24-ongoing #MRSA bacteremia #MRSA infected hair follicle/back sub cutaneous abscess #History of MRSA skin infections/boils #Aortic sclerosis on TTE #BL pulmonary nodules on imaging #JEREMY on CKD #ABx allergy; Gentamicin- unknown rxn Etiology of MRSA bacteremia is likely the back subcut abscess 2/2 infected hair follicle.. A wound cx grew MRSA on 01/23. He underwent I and D on 01/24 no cx obtained, but purulent material noted from hair follicles. 05/29 bottles + for MRSA on 01/24 BC. Repeat BC 01/26 NGTD. No hardware or prosthetics per his report. A CT chest without contrast shows findings c/f phlegmon vs abscess. Multiple pulmonary nodules seen. TTE shows no valve vegatations or echodensity but Aortic valve is sclerotic. Recommendations. Continue renally dosed Daptomycin 6 mg/kg IV q 48 hours ( cr 2.46, est crcl 28.8, gfr 23.30 in setting of JEREMY and KAMALA of vanco of 2. CPK ordered. Follow up repeat BC frm 01/26 to ensure clear. Anticipate 4 weeks of treatment from sterile BC. Will need treatment until resolution of abscess. Plan ofr repeat imaging in 2 weeks ( can consider US soft tissue) Consider MRSA decolonization outpatient Will need follow up CT lung for lung nodules Thank you for this consultation. ID will continue to follow. Infectious Disease [facility] Call [phone] with questions Consultation Information Consultation was provided via telemedicine using two-way real-time interactive telecommunication between the patient and the telemedicine provider. For the duration of the visit, the provider was performing the assessment from a different facility than the patient. This includesuse of bluetooth stethoscope forauscultationperformed by the telepresenter that the telemedicine provider can hear if described in the physical exam. Drafting Teacher contact information: Please call [facility] Call Center . 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 On the day admission, he was started on doxycycline by his provider [facility]. The wound became larger and he developed left posterior chest and back pain. He denies any skin picking, fever, chills, sweats, sob, nausea, vomiting, or cough. On admission he is afebrile and tachycardic with HR in 130s. In the Ed, he was noted to have a large left mid back area of erythema c/w cellulitis and a large area of induration that was draining. Labs noted for wbc 20k. bun 29 ,cr 2.19, lactate 1.5, pro esme 0.53. CXR showed no acute cardiopulmonary abnormality. Ct chest showed left posterior lateral subcutaneous inflammation beginning at the left eighth posterior rib and extending inferiorly to the left as well as focal skin thickening measuring up to 1.1 cm in thickness with soft tissue subcutaneous nodules. An abscess vs phlegmon could not be ruled out on the non contrast exam. Numerous pulmonary bilateral nodules were also seen. He was evaluated by surgery and underwent I and D of the left sided abnormality on 01/24. Purulent fluid drained from a hair follicle that appeared infected. Copious amounts of purulent fluid was expressed from multiple follicles. A 4 cm incision was made and the wound was copiously irrigated and suctioned NO intraop Cultures were obtained. However, r a wound cx obtained on admission 01/23 grew MRSA. Additionally a BC obtained on 01/24 grew MRSA in bottles. A repeat BC from 01/26 is sterile to date. A TTE on 01/26 shows a sclerotic AV with reduced leaflet excursion suggesting . No vegetation noted. He is currently on Daptomycin . ID consulted for bacteremia Allergies Allergy/AdvReac Type Severity Reaction Status Date / Time gentamicin Allergy Unknown UNKNOWN Verified 01/24/23 10:35 niacin Allergy Unknown unknown Verified 01/24/23 10:35 sertraline Allergy Unknown JITTERRY Verified 01/24/23 10:35 metformin AdvReac Unknown CAN'T Verified 01/24/23 10:35 REMEMBER silver sulfadiazine AdvReac Unknown unknown Verified 01/24/23 10:35 Home Medications Medication Instructions Recorded Confirmed Type latanoprost 0.005 % eye drops 1 drp OPB HS ##0 11/10/11 01/24/23 History (Xalatan) acetaminophen 300 mg-codeine 30 mg 1 tab PO UD PRN Pain 12/10/19 01/24/23 History tablet alogliptin 12.5 mg tablet 12.5 mg PO QAM 08/16/21 01/24/23 History apixaban 5 mg tablet (Eliquis) 5 mg PO Q12 08/16/21 01/24/23 History cyanocobalamin (vitamin B-12) 1,000 mcg PO QAM 08/16/21 01/24/23 History 1,000 mcg tablet (Vitamin B-12) docusate sodium 100 mg capsule 100 mg PO DAILY PRN Constipation 08/16/21 01/24/23 History (Stool Softener) metoprolol tartrate 50 mg tablet 50 mg PO AMPM 08/16/21 01/24/23 History pantoprazole 40 mg tablet,delayed 40 mg PO DAILYBB 08/16/21 01/24/23 History release albuterol sulfate 90 mcg/actuation 1 inh inhalation AMHS 08/30/22 01/24/23 History aerosol inhaler brimonidine 0.2 % eye drops 1 drp OPB AMHS 08/30/22 01/24/23 History cholecalciferol (vitamin D3) 25 25 mcg PO AMPM 08/30/22 01/24/23 History mcg (1,000 unit) tablet (Vitamin D3) mometasone-formoterol HFA 100 2 puff inhalation BID 08/30/22 01/24/23 History mcg-5 mcg/actuation aerosol inhaler (Dulera) acetaminophen 325 mg tablet 325 mg PO Q4H PRN pain #30 tabs 09/04/22 01/24/23 Rx amlodipine 5 mg tablet 5 mg PO DAILY #90 tabs 10/01/22 01/24/23 Rx insulin aspar prot-insulin aspart 94 unit subcut UD 10/24/22 01/24/23 History 100 unit/mL (70-30) subcutaneous pen (Novolog Mix 70-30FlexPen U-100) atorvastatin 20 mg tablet 80 mg PO HS 01/24/23 01/24/23 History cilostazol 100 mg tablet 100 mg PO AMHS 01/24/23 01/24/23 History lanolin alcohols-mineral 1 applic topical AMHS PRN skin 01/24/23 01/24/23 History oil-w.petrolatum-ceresin topical cream (Eucerin topical cream) lisinopril 10 mg tablet 10 mg PO QPM 01/24/23 01/24/23 History magnesium oxide 420 mg tablet 420 mg PO QPM 01/24/23 01/24/23 History multivitamin 1 tab PO AMPM 01/24/23 01/24/23 History nystatin 100,000 unit/gram topical 1 applic topical DAILY PRN yeast 01/24/23 History cream Patient History Medical History (Updated 01/27/23 @ 17:00 by Sammie Qureshi DO) Chronic anticoagulation COPD (chronic obstructive pulmonary disease) Diabetes DVT of lower extremity, bilateral GERD (gastroesophageal reflux disease) Glaucoma Hyperlipidemia LDL goal <70 Hypertension Left sided sciatica Obesity (BMI 30.0-34.9) Peripheral arterial disease Surgical History (Updated 01/28/23 @ 11:31 by Danuta Can RN) History of cataract surgery History of incision and drainage (01/24/23) Incision and Drainage Back Abscess(Left) - Duncan Cazares DO History of tonsillectomy and adenoidectomy History of vein stripping Family History Other Family history non-contributory Social History Smoking Status: Former smoker Tobacco Type: Cigarettes Second Hand Exposure: Yes; Do You Dip or Chew Tobacco: No; Hx Alcohol Use: Yes Alcohol type: beer, wine and hard liquor Hx Substance Use: No Preferred Language: Serbian Communication Ability: Effective Auto Phone Installer Required: No Beliefs That Will Affect Care: None marital status: Current Living Situation: Personal Care Facility Current Living Situation Comment: assisted care facility Feels Safe at Home: Yes Assistive Devices: Walker Review of System A 10 point ROS obtained. Pertinent positives as per HPI. Physical Exam Constitutional: NAD, pleasant , sitting up in chair Eyes: Anicteric sclera, EOMI Neck: Supple Cardiovascular: NO increased work of breathing Chest (Breasts): Additional Comments: No chest wall tenderness Gastrointestinal (Abdomen): Soft, Not distended, not tender Musculoskeletal: Moves all extremities Skin: Dry flaking skin and chronic changes of BL LE . No open wound Left posterior flank, lateral mid lumbar area is large area of induration. Open wound packed.. Mild surrounding erythema, Mildly tender. Several tattoos Neurologic: Awake, alert, oriented times 3 Psychiatric: Cooperative and appropriate Results & Data Vital Signs (Past 12 Hours) Vital Signs Temp Pulse Resp BP Pulse Ox O2 Del Method 01/28/23 08:23 70 18 95 Room Air 01/28/23 07:59 36.7 C 70 18 168/80 H 95 Room Air Laboratory Results Laboratory Results - last 48 hr 01/26/23 01/26/23 01/27/23 16:45 20:25 06:25 WBC 9.84 RBC 3.44 L Hgb 9.3 L Hct 28.8 L MCV 83.7 MCH 27.0 MCHC 32.3 RDW Std Deviation 41.4 RDW Coeff of Katelyn 13.6 Plt Count 380 MPV 9.2 L Immature Gran % (Auto) 1.8 Neut % (Auto) 67.2 Lymph % (Auto) 11.9 Martin % (Auto) 11.7 Eos % (Auto) 7.0 Baso % (Auto) 0.4 Neut # (Auto) 6.61 H Lymph # (Auto) 1.17 L Martin # (Auto) 1.15 H Eos # (Auto) 0.69 H Baso # (Auto) 0.04 Immature Gran # (Auto) 0.18 Sodium Potassium Chloride Carbon Dioxide Anion Gap BUN Creatinine Est Cr Clr Drug Dosing Est GFR ( Amer) Est GFR (Non-Af Amer) BUN/Creatinine Ratio Glucose POC Glucose 104 H 158 H Estimat Average Glucose Hemoglobin A1c Calcium Total Bilirubin AST ALT Alkaline Phosphatase Total Creatine Kinase C-Reactive Protein Total Protein Albumin Globulin Albumin/Globulin Ratio 01/27/23 01/27/23 01/27/23 06:25 08:24 11:57 WBC RBC Hgb Hct MCV MCH MCHC RDW Std Deviation RDW Coeff of Katelyn Plt Count MPV Immature Gran % (Auto) Neut % (Auto) Lymph % (Auto) Martin % (Auto) Eos % (Auto) Baso % (Auto) Neut # (Auto) Lymph # (Auto) Martin # (Auto) Eos # (Auto) Baso # (Auto) Immature Gran # (Auto) Sodium 140 Potassium 4.0 Chloride 110 H Carbon Dioxide 21 Anion Gap 9 BUN 36 H Creatinine 2.24 H Est Cr Clr Drug Dosing 31.6 Est GFR ( Amer) 30.3 Est GFR (Non-Af Amer) 26.1 BUN/Creatinine Ratio 16.1 Glucose 143 H POC Glucose 148 H 150 H Estimat Average Glucose Hemoglobin A1c Calcium 8.9 Total Bilirubin 0.3 AST 16 ALT 18 Alkaline Phosphatase 79 Total Creatine Kinase C-Reactive Protein 2.59 H Total Protein 5.9 L Albumin 3.0 L Globulin 2.9 Albumin/Globulin Ratio 1.0 01/27/23 01/27/23 01/28/23 16:58 20:39 07:09 WBC RBC Hgb Hct MCV MCH MCHC RDW Std Deviation RDW Coeff of Katelyn Plt Count MPV Immature Gran % (Auto) Neut % (Auto) Lymph % (Auto) Martin % (Auto) Eos % (Auto) Baso % (Auto) Neut # (Auto) Lymph # (Auto) Martin # (Auto) Eos # (Auto) Baso # (Auto) Immature Gran # (Auto) Sodium Potassium Chloride Carbon Dioxide Anion Gap BUN Creatinine Est Cr Clr Drug Dosing Est GFR ( Amer) Est GFR (Non-Af Amer) BUN/Creatinine Ratio Glucose POC Glucose 138 H 170 H Estimat Average Glucose 183 Hemoglobin A1c 8.0 H Calcium Total Bilirubin AST ALT Alkaline Phosphatase Total Creatine Kinase C-Reactive Protein Total Protein Albumin Globulin Albumin/Globulin Ratio 01/28/23 01/28/23 01/28/23 07:09 07:09 08:01 WBC 10.03 RBC 3.52 L Hgb 9.6 L Hct 29.6 L MCV 84.1 MCH 27.3 MCHC 32.4 RDW Std Deviation 41.8 RDW Coeff of Katelyn 13.7 Plt Count 364 MPV 8.9 L Immature Gran % (Auto) 3.3 Neut % (Auto) 65.2 Lymph % (Auto) 11.6 Martin % (Auto) 12.3 Eos % (Auto) 7.2 Baso % (Auto) 0.4 Neut # (Auto) 6.55 H Lymph # (Auto) 1.16 L Martin # (Auto) 1.23 H Eos # (Auto) 0.72 H Baso # (Auto) 0.04 Immature Gran # (Auto) 0.33 H Sodium 141 Potassium 4.0 Chloride 110 H Carbon Dioxide 22 Anion Gap 9 BUN 38 H Creatinine 2.46 H Est Cr Clr Drug Dosing 28.8 Est GFR ( Amer) 27.0 Est GFR (Non-Af Amer) 23.3 BUN/Creatinine Ratio 15.4 Glucose 153 H POC Glucose 158 H Estimat Average Glucose Hemoglobin A1c Calcium 8.8 Total Bilirubin 0.3 AST 11 L ALT 15 Alkaline Phosphatase 78 Total Creatine Kinase 68 C-Reactive Protein Total Protein 5.9 L Albumin 3.1 L Globulin 2.8 Albumin/Globulin Ratio 1.1 01/28/23 11:23 WBC RBC Hgb Hct MCV MCH MCHC RDW Std Deviation RDW Coeff of Katelyn Plt Count MPV Immature Gran % (Auto) Neut % (Auto) Lymph % (Auto) Martin % (Auto) Eos % (Auto) Baso % (Auto) Neut # (Auto) Lymph # (Auto) Martin # (Auto) Eos # (Auto) Baso # (Auto) Immature Gran # (Auto) Sodium Potassium Chloride Carbon Dioxide Anion Gap BUN Creatinine Est Cr Clr Drug Dosing Est GFR ( Amer) Est GFR (Non-Af Amer) BUN/Creatinine Ratio Glucose POC Glucose 200 H Estimat Average Glucose Hemoglobin A1c Calcium Total Bilirubin AST ALT Alkaline Phosphatase Total Creatine Kinase C-Reactive Protein Total Protein Albumin Globulin Albumin/Globulin Ratio Diagnostic Findings Microbiology 01/26/23 10:18 Blood Aerobic Blood Culture - Preliminary No growth in Aerobic bottle after 48 hours. 01/26/23 10:18 Blood Anaerobic Blood Culture - Preliminary No growth in Anaerobic bottle after 48 hours. 01/26/23 10:08 Blood Aerobic Blood Culture - Preliminary No growth in Aerobic bottle after 48 hours. 01/26/23 10:08 Blood Anaerobic Blood Culture - Preliminary No growth in Anaerobic bottle after 48 hours. 01/24/23 00:17 Blood Aerobic Blood Culture - Preliminary Staph aureus MRSA 01/24/23 00:17 Blood Anaerobic Blood Culture - Preliminary No growth in Anaerobic bottle after 48 hours. 01/23/23 23:15 Back Gram Stain - Final 01/23/23 23:15 Back Wound Culture - Final Staph aureus MRSA 01/24/23 00:17 Blood Aerobic Blood Culture - Preliminary No growth in Aerobic bottle after 48 hours. 01/24/23 00:17 Blood Anaerobic Blood Culture - Preliminary No growth in Anaerobic bottle after [address] CHEST 01/24 IMPRESSION: Left posterior lateral subcutaneous inflammation beginning at the left eighth posterior rib and extending inferiorly to the left flank at least to the level of the mid kidney. Focal skin thickening measuring up to 1. 1 cm in thickness with soft tissue subcutaneous nodules. Unable to distinguish whether the subcutaneous soft tissue nodular areas represent phlegmon or small abscesses on this noncontrast exam. Numerous bilateral pulmonary nodules measuring no larger than 0.4 cm. Fleischner Society Guidelines for low-risk or high-risk patients recommend that one should consider chest CT at 12 months due to the location of this nodule. Medications Administered Home Medications Medication Instructions Recorded Confirmed Last Taken latanoprost 0.005 % eye drops 1 drp OPB HS ##0 11/10/11 01/24/23 01/23/23 (Xalatan) acetaminophen 300 mg-codeine 30 mg 1 tab PO UD PRN Pain 12/10/19 01/24/23 Unknown tablet alogliptin 12.5 mg tablet 12.5 mg PO QAM 08/16/21 01/24/23 01/23/23 apixaban 5 mg tablet (Eliquis) 5 mg PO Q12 08/16/21 01/24/23 01/23/23 cyanocobalamin (vitamin B-12) 1,000 mcg PO QAM 08/16/21 01/24/23 01/23/23 1,000 mcg tablet (Vitamin B-12) docusate sodium 100 mg capsule 100 mg PO DAILY PRN Constipation 08/16/21 01/24/23 Unknown (Stool Softener) metoprolol tartrate 50 mg tablet 50 mg PO AMPM 08/16/21 01/24/23 01/23/23 pantoprazole 40 mg tablet,delayed 40 mg PO DAILYBB 08/16/21 01/24/23 01/23/23 release albuterol sulfate 90 mcg/actuation 1 inh inhalation AMHS 08/30/22 01/24/23 01/23/23 aerosol inhaler brimonidine 0.2 % eye drops 1 drp OPB AMHS 08/30/22 01/24/23 01/23/23 cholecalciferol (vitamin D3) 25 25 mcg PO AMPM 08/30/22 01/24/23 01/23/23 mcg (1,000 unit) tablet (Vitamin D3) mometasone-formoterol HFA 100 2 puff inhalation BID 08/30/22 01/24/23 01/23/23 mcg-5 mcg/actuation aerosol inhaler (Dulera) acetaminophen 325 mg tablet 325 mg PO Q4H PRN pain #30 tabs 09/04/22 01/24/23 Unknown amlodipine 5 mg tablet 5 mg PO DAILY #90 tabs 10/01/22 01/24/23 01/23/23 insulin aspar prot-insulin aspart 94 unit subcut UD 10/24/22 01/24/23 01/23/23 100 unit/mL (70-30) subcutaneous pen (Novolog Mix 70-30FlexPen U-100) atorvastatin 20 mg tablet 80 mg PO HS 01/24/23 01/24/23 01/23/23 cilostazol 100 mg tablet 100 mg PO AMHS 01/24/23 01/24/23 01/23/23 lanolin alcohols-mineral 1 applic topical AMHS PRN skin 01/24/23 01/24/23 Unknown oil-w.petrolatum-ceresin topical cream (Eucerin topical cream) lisinopril 10 mg tablet 10 mg PO QPM 01/24/23 01/24/23 01/23/23 magnesium oxide 420 mg tablet 420 mg PO QPM 01/24/23 01/24/23 01/23/23 multivitamin 1 tab PO AMPM 01/24/23 01/24/23 01/23/23 nystatin 100,000 unit/gram topical 1 applic topical DAILY PRN yeast 01/24/23 01/24/23 Unknown cream Active Medications Generic Name Dose Route Start Last Admin Trade Name Freq PRN Reason Stop Dose Admin Albuterol 1 puffs 01/24/23 09:00 01/28/23 08:23 Albuterol Hfa 8 Gm Inhaler INH 02/23/23 08:59 1 puffs AMHS REAGAN Administration Amlodipine Besylate 5 mg 01/24/23 09:00 01/28/23 08:54 Amlodipine Besylate 5 Mg Tab PO 02/23/23 08:59 5 mg DAILY REAGAN Administration Brimonidine Tartrate 1 drops 01/28/23 09:00 01/28/23 08:59 Brimonidine Tartrate-P 0.15% 5 Ml Btl OP 02/27/23 08:59 1 drops BID REAGAN Administration Calcium Carbonate 1,500 mg 01/24/23 21:43 01/26/23 20:41 Calcium Carbonate 500 Mg Chewable Tab PO 02/23/23 21:42 1,500 mg TID PRN Administration Indigestion Cilostazol 100 mg 01/24/23 09:00 01/28/23 08:54 Cilostazol 100 Mg Tab PO 02/23/23 08:59 100 mg AMHS REAGAN Administration Docusate Sodium 100 mg 01/24/23 05:56 01/27/23 09:17 Docusate Sodium 100 Mg Cap PO 02/23/23 05:55 100 mg DAILY PRN Administration Constipation Famotidine 20 mg 01/24/23 17:01 01/24/23 18:09 Famotidine 20 Mg Tab PO 02/23/23 17:14 20 mg DAILY PRN Administration Heartburn Hydromorphone HCl 0.5 mg 01/24/23 05:56 01/24/23 06:15 Hydromorphone Inj 0.5 Mg/0.5 Ml Syr IV 02/07/23 05:55 0.5 mg Q6H PRN Administration Mod-Sev Pain (Scale 4-10) Insulin Aspart 0 units 01/24/23 07:30 01/28/23 12:48 Insulin Aspart Per Unit Charge SC 02/23/23 07:29 3 units ACHS REAGAN Administration Insulin Glargine 15 units 01/24/23 09:00 01/28/23 09:03 Lantus Per Unit Charge SQ 02/23/23 08:59 15 units BID REAGAN Administration Latanoprost 1 drops 01/27/23 23:09 01/28/23 00:36 Latanoprost 0.005% Op Soln 2.5 Ml Btl OP 02/27/23 20:59 1 drops HS REAGAN Administration Lisinopril 10 mg 01/24/23 21:00 01/27/23 20:48 Lisinopril 10 Mg Tab PO 02/23/23 20:59 10 mg QPM REAGAN Administration Magnesium Oxide 400 mg 01/24/23 21:00 01/27/23 20:48 Magnesium Oxide 400 Mg Tab PO 02/23/23 20:59 400 mg QPM REAGAN Administration Metoprolol Tartrate 50 mg 01/24/23 09:00 01/28/23 08:54 Metoprolol Tartrate 50 Mg Tab PO 02/23/23 08:59 50 mg BID REAGAN Administration Mometasone Furoate/Formoterol Fumar 2 each 01/27/23 21:00 01/28/23 09:00 Pt's Own Med: Mometasone/Formoterol INH 02/26/23 20:59 Not Given BID REAGAN Nystatin 1 appln 01/24/23 17:00 01/27/23 21:03 Nystatin Cr 15 Gm Tube EXT 02/23/23 16:59 1 appln DAILY PRN Administration Rash Oxycodone HCl 5 mg 01/24/23 13:43 01/24/23 18:09 Oxycodone Hcl Ir 5 Mg Tab (Immediate Release) PO 02/07/23 13:42 5 mg Q4H PRN Administration Moderate Pain (Scale 4, 5, 6) Pantoprazole Sodium 40 mg 01/24/23 06:30 01/28/23 06:34 Pantoprazole 40 Mg Tab PO 02/23/23 06:29 40 mg DAILYBB REAGAN Administration (2) Skin abscess Site of cutaneous abscess: trunk Site of cutaneous abscess of trunk: back Qualified Code(s): L02.212 - Cutaneous abscess of back [any part, except buttock] (4) Cellulitis Site of cellulitis: other site Qualified Code(s): L03.818 - Cellulitis of other sites
[2023-01-28] MEDS: MAGNESIUM OXIDE 400 MG TAB PO SCH (20:50)
[2023-01-28] MEDS: lisinopril 10 MG TAB PO SCH (20:50)
[2023-01-29] MEDS: PANTOprazole 40 MG TAB PO SCH (05:55)
[2023-01-29] MEDS: ALBUTEROL HFA 8 GM INHALER INH SCH ×2 (07:25→19:22)
[2023-01-29] MEDS: MOMETASONE INH SCH ×2 (09:12→20:27)
[2023-01-29] MEDS: FORMOTEROL INH SCH ×2 (09:12→20:27)
[2023-01-29] MEDS: BRIMONIDINE TARTRATE-P 0.15% 5 ML BTL OP SCH ×2 (09:13→20:25)
[2023-01-29 09:25] LABS: Hematocrit (blood only) 29.9 % (42.0-52.0); Hemoglobin 9.4 g/dl (14.0-18.0); Mean Corpuscular Hgb Conc 31.4 g/dL (32.0-36.0); Mean Corpuscular Volume 85.9 fL (80.0-100.0); Platelet Count 363 K/uL (130-400); RDW Coefficient of Variation 13.6 % (11.5-14.5); RDW Standard Deviation 42.3 fL (36.4-46.3); Red Blood Count 3.48 M/uL (4.70-6.10); White Blood Count 10.12 K/ul (4.8-10.8)
[2023-01-29] MEDS: ENOXAPARIN INJ 30 MG/0.3 ML SYR SQ SCH (09:34)
[2023-01-29] MEDS: amLODIPine BESYLATE 5 MG TAB PO SCH (09:34)
[2023-01-29] MEDS: cilostazoL 100 MG TAB PO SCH ×2 (09:35→20:25)
[2023-01-29] MEDS: METOPROLOL TARTRATE 50 MG TAB PO SCH ×2 (09:35→20:26)
[2023-01-29] MEDS: LANTUS PER UNIT CHARGE SQ SCH ×2 (09:36→22:13)
[2023-01-29 09:50] LABS: Albumin Globulin Ratio 1.1 (0.9-2); Albumin Level 3.2 gm/dl (3.4-5.0); BUN Creatinine Ratio 15.4 (10-20); Bilirubin,Total 0.4 mg/dl (0.2-1.0); Calcium 8.9 mg/dl (8.6-10.3); Creatinine Clr Calc Pharmacy 30.3 ml/min; Est GFR (African American) 28.7 ml/min; Est GFR (Non-African American) 24.8 ml/min; Total Protein 6.2 gm/dl (6.0-8.3)
[2023-01-29] MEDS: INSULIN ASPART PER UNIT CHARGE SC SCH ×4 (09:52→22:13)
--- NOTE | 2023-01-29 10:42 | Surgery Progress Note ---
Date of Service January 29, 2023 Assessment & Plan (1) MRSA bacteremia: (2) Skin abscess: Plan Continue antibiotics Continue current dressing changes Admission and Anticipated Discharge Date Admission Date: January 24, 2023 Subjective Patient seen and examined this a.m. Dressings removed from the left posterior thoracic wound. Physical Exam Skin: Dressings were removed and the wound was inspected. Wound is healing well. There is a small amount of exudate at the base of the wound and around the skin edges. There is no moisture within the wound and noted active drainage. Results & Data Vital Signs (Past 12 Hours) Vital Signs Pulse Resp BP Pulse Ox O2 Del Method 01/29/23 09:10 82 20 146/61 H 97 Room Air 01/29/23 07:25 70 18 97 Room Air PG Care Time/CCT Total # of Minutes Spent Total Time Spent with Patient: Total time spent is greater than 50% in coordination of care (as documented) at patient's floor/unit and/or counseling patient: Coding Level of Care Code 10164 Post Operative Follow-Up Diagnoses MRSA bacteremia R78.81; B95.62 Skin abscess L02.212 Site of cutaneous abscess: trunk Site of cutaneous abscess of trunk: back (2) Skin abscess Site of cutaneous abscess: trunk Site of cutaneous abscess of trunk: back Qualified Code(s): L02.212 - Cutaneous abscess of back [any part, except buttock]
[2023-01-29] MEDS ORDERED: DAPTOmycin 725 MG in SYRINGE 0 ML IV SCH (12:00)
--- NOTE | 2023-01-29 16:17 | Hospitalist Progress Note ---
Date of Service January 29, 2023 Assessment & Plan (1) MRSA bacteremia: Plan: MRSA bacteremia with Back Abscess - -CT chest w/ L posterior lateral subQ inflammation beginning at L eighth posterior rib extending inferiorly to L flank at least to level of mid kidney, focal skin thickening 1.1cm in thickness w/ soft tissue and subcutaneous nodules. - Upon presentation to ED was septic with leucocytosis and tachycardia; both have since resolved -Received 1 dose doxycycline outpatient, 2.75gm vancomycin in the ED. - S/p I&D for Abscess on left flank 01/24 - Wound culture growing MRSA, 1/2 blood cultures from 01/24 growing MRSA. No surgical cultures. - Since blood culture and wound culture are both growing MRSA, treat as bacteremia even though only 1/2 cultures are positive - Repeat cultures from 01/26 without growth after 48 hours - Started on Daptomycin at 6mg/kg adjusted for ideal body weight given CKD dosing based on recommendations for bacteremia per pharmacy; cultures did show sensitivity to daptomycin. - TTE without vegetations - ID consulted plan for 4 weeks Daptomycin from date of negative blood cultures (end date would be 02/23) - Plan for home antibiotics with help of daughter, weekly dressing changes at [facility] - Plan for weekly BMP, given his creatine clearance is just above 30, if it were to drop below 30 would need to dose q48H as opposed to q24H - consider MRSA decontamination as an OP Concern for Herpes Zoster -Rash on back concerning for possible herpes zoster dermatomal distribution with overlying bacterial infection per admitting provider -Patient was started on Valtrex for possible herpes zoster, although has declined doses. Pain is improved with I&D and no dermatomal rash remains, so lower suspicion it was secondary to shingles. -D/c Valtrex Chest Pain -Chest pain for few days prior to admission -EKG with sinus tachycardia, new minor depression in lateral leads V5 and V6 compared to EKG from August. -Troponin 19.7. -EKG changes could have been from tachycardic state due to infection. -Echo without significant change from prior study -No current chest pain- patient states "pain" has just been the normal burning he gets from reflux and has resolved. Anemia -Hgb 10.2 on admission and has remained stable between 9-10. baseline 10-13. -History of iron deficiency anemia, patient stated he got diarrhea on oral iron supplement. -Continue to trend CBC CKD Stage III - -Creatinine 2.19 on admission, remains around baseline - [place] [facility] - Continue to trend and dose antibiotics as per above Lung Nodule - incidental lung nodule on CT, recommend repeat CT in 12 months to ensure stability HTN continue home amlodipine 5mg daily, lisinopril 10mg qpm, metoprolol tartrate 50mg BID. COPD -Continue home albuterol and Dulera. GERD -continue home pantoprazole. Famotidine and tums ordered PRN. DM2 -ACHS checks, 15U Basal BID, SSI. Hold home oral medications. -Patient declines carb ratio, plan for basal with correction factor-> will c ontinue monitor blood sugars F/E/N/GI: T2DM. DVT Prophylaxis: Lovenox Code status: DNR/DNI. Patient would not like any extraordinary measures. (2) Cellulitis: (3) Chest pain: (4) Anemia: (5) Rash of back: (6) Chronic kidney disease, stage III (moderate): (7) Hypertension: (8) Hyperlipidemia LDL goal <70: Plan: -hold home atorvastatin while receiving daptomycin. (9) COPD (chronic obstructive pulmonary disease): (10) GERD (gastroesophageal reflux disease): (11) Diabetes: (12) Skin abscess: (13) Lung nodule: Admission and Anticipated Discharge Date Admission Date: January 24, 2023 Supervising Physician Co-Signing Physician Notes I personally examined the patient and verified brasher points of history and exam, discussed case, and agree with decision making and plan documented by Dr. Qureshi. Patient with clinical improvement and tolerating IV antibiotics well. Patient aware of ID recommendations as above. Will determine next steps for safe discharge and continued treatment. Subjective Winston is doing well this morning. Pain continues to improve. No events overnight, no complaints. Review of Systems Review of Systems: As per above Physical Exam Physical Exam: Constitutional: well-appearing, no acute distress HEENT: NCAT, no conjunctival injection CV: regular rhythm, no murmur appreciated, extremities well-perfused Resp: CTABL, no wheezes/rales/rhonchi appreciated, no increased work of breathing GI: soft, nondistended, nontender MSK: no gross deformities appreciated Skin: warm, dry, no rash appreciated Neuro: alert, oriented, no focal neurologic deficit appreciated Skin: Wound on back with improving erythema, some discharge on dressing minimal surrounding erythema Results & Data Results & Data Vital Signs (Past 12 Hours) Vital Signs Temp Pulse Resp BP Pulse Ox O2 Del Method 01/29/23 16:00 36.8 C 65 18 135/66 98 Room Air 01/29/23 09:10 82 20 146/61 H 97 Room Air 01/29/23 07:25 70 18 97 Room Air Resident Activity Tracking Resident Involvement: Resident Care Provided Care Provided: Adult Hospital Medicine (2) Cellulitis Site of cellulitis: other site Qualified Code(s): L03.818 - Cellulitis of other sites (12) Skin abscess Site of cutaneous abscess: trunk Site of cutaneous abscess of trunk: back Qualified Code(s): L02.212 - Cutaneous abscess of back [any part, except buttock]
[2023-01-29] MEDS: lisinopril 10 MG TAB PO SCH (20:25)
[2023-01-29] MEDS: MAGNESIUM OXIDE 400 MG TAB PO SCH (20:26)
[2023-01-29] MEDS: LATANOPROST 0.005% OP SOLN 2.5 ML BTL OP SCH (21:06)
[2023-01-30] MEDS: PANTOprazole 40 MG TAB PO SCH (05:42)
[2023-01-30] MEDS: ALBUTEROL HFA 8 GM INHALER INH SCH (07:15)
--- NOTE | 2023-01-30 07:57 | Hospitalist Progress Note ---
Date of Service January 30, 2023 Assessment & Plan (1) MRSA bacteremia: Plan: MRSA bacteremia with Back Abscess - -CT chest w/ L posterior lateral subQ inflammation beginning at L eighth posterior rib extending inferiorly to L flank at least to level of mid kidney, focal skin thickening 1.1cm in thickness w/ soft tissue and subcutaneous nodules. - Upon presentation to ED was septic with leucocytosis and tachycardia; both have since resolved -Received 1 dose doxycycline outpatient, 2.75gm vancomycin in the ED. - S/p I&D for Abscess on left flank 01/24 - Wound culture growing MRSA, 1/2 blood cultures from 01/24 growing MRSA. No surgical cultures. - Since blood culture and wound culture are both growing MRSA, treat as bacteremia even though only 1/2 cultures are positive - Repeat cultures from 01/26 without growth after 48 hours - Started on Daptomycin at 6mg/kg adjusted for ideal body weight given CKD dosing based on recommendations for bacteremia per pharmacy; cultures did show sensitivity to daptomycin. - TTE without vegetations - ID consulted plan for 4 weeks Daptomycin from date of negative blood cultures (end date would be 02/23) - Plan for home antibiotics with help of daughter, weekly dressing changes at [facility] - Plan for weekly BMP, given his creatine clearance is just above 30, if it were to drop below 30 would need to dose q48H as opposed to q24H - consider MRSA decontamination as an OP Concern for Herpes Zoster -Rash on back concerning for possible herpes zoster dermatomal distribution with overlying bacterial infection per admitting provider -Patient was started on Valtrex for possible herpes zoster, although has declined doses. Pain is improved with I&D and no dermatomal rash remains, so lower suspicion it was secondary to shingles. -D/c Valtrex Chest Pain -Chest pain for few days prior to admission -EKG with sinus tachycardia, new minor depression in lateral leads V5 and V6 compared to EKG from August. -Troponin 19.7. -EKG changes could have been from tachycardic state due to infection. -Echo without significant change from prior study -No current chest pain- patient states "pain" has just been the normal burning he gets from reflux and has resolved. Anemia -Hgb 10.2 on admission and has remained stable between 9-10. baseline 10-13. -History of iron deficiency anemia, patient stated he got diarrhea on oral iron supplement. -Continue to trend CBC CKD Stage III - -Creatinine 2.19 on admission, remains around baseline - [place] [facility] - Continue to trend and dose antibiotics as per above Lung Nodule - incidental lung nodule on CT, recommend repeat CT in 12 months to ensure stability HTN continue home amlodipine 5mg daily, lisinopril 10mg qpm, metoprolol tartrate 50mg BID. COPD -Continue home albuterol and Dulera. GERD -continue home pantoprazole. Famotidine and tums ordered PRN. DM2 -ACHS checks, 15U Basal BID, SSI. Hold home oral medications. -Patient declines carb ratio, plan for basal with correction factor-> will c ontinue monitor blood sugars F/E/N/GI: T2DM. DVT Prophylaxis: Lovenox Code status: DNR/DNI. Patient would not like any extraordinary measures. (2) Cellulitis: (3) Chest pain: (4) Anemia: (5) Rash of back: (6) Chronic kidney disease, stage III (moderate): (7) Hypertension: (8) Hyperlipidemia LDL goal <70: Plan: -hold home atorvastatin while receiving daptomycin. (9) COPD (chronic obstructive pulmonary disease): (10) GERD (gastroesophageal reflux disease): (11) Diabetes: (12) Skin abscess: (13) Lung nodule: Admission and Anticipated Discharge Date Admission Date: January 24, 2023 Review of Systems Review of Systems: As per above Physical Exam Physical Exam: Constitutional: well-appearing, no acute distress HEENT: NCAT, no conjunctival injection CV: regular rhythm, no murmur appreciated, extremities well-perfused Resp: CTABL, no wheezes/rales/rhonchi appreciated, no increased work of breathing GI: soft, nondistended, nontender MSK: no gross deformities appreciated Skin: warm, dry, no rash appreciated Neuro: alert, oriented, no focal neurologic deficit appreciated Skin: Wound on back with improving erythema, some discharge on dressing minimal surrounding erythema Results & Data Results & Data Vital Signs (Past 12 Hours) Vital Signs Temp Pulse Resp BP Pulse Ox O2 Del Method 01/30/23 07:16 69 16 97 Room Air 01/29/23 20:25 Room Air 01/29/23 20:21 36.7 C 65 18 121/60 94 Room Air (2) Cellulitis Site of cellulitis: other site Qualified Code(s): L03.818 - Cellulitis of other sites (12) Skin abscess Site of cutaneous abscess: trunk Site of cutaneous abscess of trunk: back Qualified Code(s): L02.212 - Cutaneous abscess of back [any part, except buttock]
[2023-01-30] MEDS: amLODIPine BESYLATE 5 MG TAB PO SCH (08:38)
[2023-01-30] MEDS: BRIMONIDINE TARTRATE-P 0.15% 5 ML BTL OP SCH (08:38)
[2023-01-30] MEDS: ENOXAPARIN INJ 30 MG/0.3 ML SYR SQ SCH (08:39)
[2023-01-30] MEDS: METOPROLOL TARTRATE 50 MG TAB PO SCH (08:39)
[2023-01-30] MEDS: MOMETASONE INH SCH (08:40)
[2023-01-30] MEDS: FORMOTEROL INH SCH (08:40)
[2023-01-30] MEDS: INSULIN ASPART PER UNIT CHARGE SC SCH ×2 (08:45→12:58)
[2023-01-30] MEDS: LANTUS PER UNIT CHARGE SQ SCH (08:46)
[2023-01-30 09:46] LABS: Basophils # (auto) 0.05 K/uL (0.00-0.20); Basophils % (auto) 0.5 %; Eosinophils % (auto) 5.7 %; Hematocrit (blood only) 30.5 % (42.0-52.0); Hemoglobin 9.8 g/dl (14.0-18.0); Immature Granulocytes % (auto) 1.9 %; Lymphocytes # (auto) 1.03 K/uL (1.20-3.40); Lymphocytes % (auto) 9.8 %; Mean Corpuscular Hemoglobin 27.3 pg (25.0-34.0); Mean Corpuscular Hgb Conc 32.1 g/dL (32.0-36.0); Mean Platelet Volume 9.4 fL (9.4-12.4); Monocytes # (auto) 1.02 K/uL (0.11-0.59); Monocytes % (auto) 9.7 %; Neutrophils # (auto) 7.57 K/uL (1.40-6.50); Neutrophils % (auto) 72.4 %; Platelet Count 393 K/uL (130-400); RDW Coefficient of Variation 13.8 % (11.5-14.5); RDW Standard Deviation 42.5 fL (36.4-46.3); Red Blood Count 3.59 M/uL (4.70-6.10); White Blood Count 10.47 K/ul (4.8-10.8)
[2023-01-30] MEDS: cilostazoL 100 MG TAB PO SCH (09:59)
[2023-01-30 10:00] LABS: BUN Creatinine Ratio 14.9 (10-20); Calcium 9.1 mg/dl (8.6-10.3); Creatinine Clr Calc Pharmacy 27.8 ml/min; Est GFR (African American) 25.9 ml/min; Est GFR (Non-African American) 22.3 ml/min; Potassium 4.2 mmol/L (3.5-5.1)
--- NOTE | 2023-01-30 10:12 | Surgery Progress Note ---
There is some mild sloughing at the incision. Some of the slough and necrotic debris at the upper right wound edge was gently wiped away at the bedside. Wound was re-dressed with a slightly moistened gauze avoiding external skin, covered with dry gauze and secured in place with tape. recommend to continue daily dressing changes Date of Service January 30, 2023 Assessment & Plan (1) Skin abscess: Plan: Patient reports he is feeling well, has c/o some itching around surgical site, Left back abscess debrided at bedside by Dr. Cazares patient tolerated well, A dressing of gauze was lightly moistened with sterile NSS and packed in wound and covered with tape. Admission and Anticipated Discharge Date Admission Date: January 24, 2023 Subjective Patient sitting up in bed Reports he is feeling well Has an itchy feeling from his post operative I+D site Review of Systems Constitutional: no fever and no sweats Respiratory: no dyspnea Cardiovascular: no chest pain Gastrointestinal: no nausea and no vomiting Integumentary: + pruritus (at post operative site ) Physical Exam Constitutional: well developed, cooperative and comfortable Respiratory: normal respiratory effort and able to speak in complete sentences; no respiratory distress Cardiovascular: Rate/Rhythm: regular rate Skin: + wound (open I+D site on left side back ) Results & Data Vital Signs (Past 12 Hours) Vital Signs Temp Pulse Resp BP Pulse Ox O2 Del Method 01/30/23 08:36 98.1 F 69 20 142/64 H 94 Room Air 01/30/23 07:16 69 16 97 Room Air PG Care Time/CCT Total # of Minutes Spent Total Time Spent with Patient: Total time spent is greater than 50% in coordination of care (as documented) at patient's floor/unit and/or counseling patient: Coding Level of Care Code 73305 Post Operative Follow-Up Diagnoses Skin abscess L02.212 Site of cutaneous abscess: trunk Site of cutaneous abscess of trunk: back (1) Skin abscess Site of cutaneous abscess: trunk Site of cutaneous abscess of trunk: back Qualified Code(s): L02.212 - Cutaneous abscess of back [any part, except buttock]
[2023-01-30] MEDS ORDERED: DAPTOmycin 600 MG in SYRINGE 0 ML IV SCH (12:00)
--- NOTE | 2023-01-30 15:42 | Infectious Disease Progress Nt ---
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 On the day admission, he was started on doxycycline by his provider [facility] the [facility]. The wound became larger and he developed left posterior chest and back pain. He denies any skin picking, fever, chills, sweats, sob, nausea, vomiting, or cough. On admission he is afebrile and tachycardic with HR in 130s. In the Ed, he was noted to have a large left mid back area of erythema c/w cellulitis and a large area of induration that was draining. Labs noted for wbc 20k. bun 29 ,cr 2.19, lactate 1.5, pro esme 0.53. CXR showed no acute cardiopulmonary abnormality. Ct chest showed left posterior lateral subcutaneous inflammation beginning at the left eighth posterior rib and extending inferiorly to the left as well as focal skin thickening measuring up to 1.1 cm in thickness with soft tissue subcutaneous nodules. An abscess vs phlegmon could not be ruled out on the non contrast exam. Numerous pulmonary bilateral nodules were also seen. He was e valuated by surgery and underwent I and D of the left sided abnormality on 01/24. Purulent fluid drained from a hair follicle that appeared infected. Copious amounts of purulent fluid was expressed from multiple follicles. A 4 cm incision was made and the wound was copiously irrigated and suctioned NO intraop Cultures were obtained. However, r a wound cx obtained on admission 01/23 grew MRSA. Additionally a BC obtained on 01/24 grew MRSA in bottles. A repeat BC from 01/26 is sterile to date. A TTE on 01/26 shows a sclerotic AV with reduced leaflet excursion suggesting . No vegetation noted. He is currently on Daptomycin . ID consulted for bacteremia MICRO Wound cx; 01/23, MRSA S DapTo KAMALA 0.5, Vanco KAMALA 2, tetr, trim/sulfa Blood cx 01/24, 1 bottles + MRSA S DapTo KAMALA 0.5, Vanco KAMALA 2, tetr, trim/sulfa Blood cx 01/26 NGTD prior cx Wound cx 08/30 MRSA ABX: Cefepime 01/24 vanco 01/23 Dapto 01/24-ongoing #MRSA bacteremia #MRSA infected hair follicle/back sub cutaneous abscess #History of MRSA skin infections/boils #Aortic sclerosis on TTE #BL pulmonary nodules on imaging #JEREMY on CKD #ABx allergy; Gentamicin- unknown rxn Etiology of MRSA bacteremia is likely the back subcut abscess 2/2 infected hair follicle.. A wound cx grew MRSA on 01/23. He underwent I and D on 01/24 no cx obtained, but purulent material noted from hair follicles. 05/29 bottles + for MRSA on 01/24 BC. Repeat BC 01/26 NGTD. No hardware or prosthetics per his report. A CT chest without contrast shows findings c/f phlegmon vs abscess. Multiple pulmonary nodules seen. TTE shows no valve vegatations or echodensity but Aortic valve is sclerotic. Recommendations. Continue renally dosed Daptomycin 6 mg/kg IV q 48 hours ( cr 2.55, est crcl 27.8, gfr 22.3 in setting of JEREMY and KAMALA of vanco of 2. CPK pending . Follow up repeat BC from 01/26 to ensure clearance. Anticipate 4 weeks of treatment from sterile BC (EOT 02/23). Will need treatment until resolution of abscess. Plan to repeat imaging in 2 weeks ( can consider US soft tissue). Obtain weekly cbc, cmp, and CPK on IV DAPTO Consider MRSA decolonization outpatient Will need follow up CT lung for lung nodules ID will sign off Infectious Disease [facility] Call [phone] with questions Admission and Anticipated Discharge Date Admission Date: January 24, 2023 Subjective This patient recommendation is based on a telemedicine consult request which was completed asynchronously through chart review and information provided by the primary physician. The patient was not seen or examined today. The evaluation is consultative in nature and all patient care and treatment decisions can either be accepted or rejected by the patient's primary hospital-based treating physician using their own independent medical judgment for their patient. Time Spent Reviewing Chart: 11 - 20 minutes Afebrile. Repeat BC from 01/26 sterile so far. WBC 10.47 Cr 2.55 Results & Data Vital Signs (Past 12 Hours) Vital Signs Temp Pulse Resp BP Pulse Ox O2 Del Method 01/30/23 08:36 36.7 C 69 20 142/64 H 94 Room Air 01/30/23 07:16 69 16 97 Room Air Laboratory Results Short CBC 01/30/23 Range/Units 09:25 WBC 10.47 (4.8-10.8) K/ul Hgb 9.8 L (14.0-18.0) g/dl Hct 30.5 L (42.0-52.0) % Plt Count 393 (130-400) K/uL BMP 01/30/23 09:25 Sodium 138 Potassium 4.2 Chloride 108 H Carbon Dioxide 21 BUN 38 H Creatinine 2.55 H Glucose 227 H Calcium 9.1 Diagnostic Findings Microbiology 01/24/23 00:17 Blood Aerobic Blood Culture - Final Staph aureus MRSA 01/24/23 00:17 Blood Anaerobic Blood Culture - Final No growth in Anaerobic bottle after 5 days. 01/24/23 00:17 Blood Aerobic Blood Culture - Final No growth in Aerobic bottle after 5 days. 01/24/23 00:17 Blood Anaerobic Blood Culture - Final No growth in Anaerobic bottle after 5 days. 01/26/23 10:18 Blood Aerobic Blood Culture - Preliminary No growth in Aerobic bottle after 48 hours. 01/26/23 10:18 Blood Anaerobic Blood Culture - Preliminary No growth in Anaerobic bottle after 48 hours. 01/26/23 10:08 Blood Aerobic Blood Culture - Preliminary No growth in Aerobic bottle after 48 hours. 01/26/23 10:08 Blood Anaerobic Blood Culture - Preliminary No growth in Anaerobic bottle after 48 hours. 01/23/23 23:15 Back Gram Stain - Final 01/23/23 23:15 Back Wound Culture - Final Staph aureus MRSA (2) Skin abscess Site of cutaneous abscess: trunk Site of cutaneous abscess of trunk: back Qualified Code(s): L02.212 - Cutaneous abscess of back [any part, except buttock] (4) Cellulitis Site of cellulitis: other site Qualified Code(s): L03.818 - Cellulitis of other sites
--- NOTE | 2023-01-30 17:05 | Discharge Summary ---
Date of Service January 30, 2023 Principal Diagnosis MRSA Bacteremia Discharge Exam Constitutional: well-appearing, no acute distress HEENT: NCAT, no conjunctival injection CV: regular rhythm, no murmur appreciated, extremities well-perfused Resp: CTABL, no wheezes/rales/rhonchi appreciated, no increased work of breathing GI: soft, nondistended, nontender MSK: no gross deformities appreciated Skin: warm, dry, no rash appreciated Neuro: alert, oriented, no focal neurologic deficit appreciated Skin: Wound on back with improving erythema, some discharge on dressing minimal surrounding erythema Discharge Data Allergies Allergy/AdvReac Type Severity Reaction Status Date / Time gentamicin Allergy Unknown UNKNOWN Verified 01/24/23 10:35 niacin Allergy Unknown unknown Verified 01/24/23 10:35 sertraline Allergy Unknown JITTERRY Verified 01/24/23 10:35 metformin AdvReac Unknown CAN'T Verified 01/24/23 10:35 REMEMBER silver sulfadiazine AdvReac Unknown unknown Verified 01/24/23 10:35 Consultations 01/24/23 03:49 ED Decision to Admit Stat 01/24/23 04:10 ED Decision to Admit Stat 01/24/23 05:56 Consult General Surgery Routine 01/26/23 15:07 Consult Infectious Diseases Routine Laboratory Results WBC 10.47 K/ul (4.8-10.8) 01/30/23 09:25 RBC 3.59 M/uL (4.70-6.10) L 01/30/23 09:25 Hgb 9.8 g/dl (14.0-18.0) L 01/30/23 09:25 Hct 30.5 % (42.0-52.0) L 01/30/23 09:25 MCV 85.0 fL (80.0-100.0) 01/30/23 09:25 MCH 27.3 pg (25.0-34.0) 01/30/23 09:25 MCHC 32.1 g/dL (32.0-36.0) 01/30/23 09:25 RDW Std Deviation 42.5 fL (36.4-46.3) 01/30/23 09:25 RDW Coeff of Katelyn 13.8 % (11.5-14.5) 01/30/23 09:25 Plt Count 393 K/uL (130-400) 01/30/23 09:25 MPV 9.4 fL (9.4-12.4) 01/30/23 09:25 Immature Gran % (Auto) 1.9 % 01/30/23 09:25 Neut % (Auto) 72.4 % 01/30/23 09:25 Lymph % (Auto) 9.8 % 01/30/23 09:25 [place] % (Auto) 9.7 % 01/30/23 09:25 Eos % (Auto) 5.7 % 01/30/23 09:25 Baso % (Auto) 0.5 % 01/30/23 09:25 Neut # (Auto) 7.57 K/uL (1.40-6.50) H 01/30/23 09:25 Lymph # (Auto) 1.03 K/uL (1.20-3.40) L 01/30/23 09:25 [place] # (Auto) 1.02 K/uL (0.11-0.59) H 01/30/23 09:25 Eos # (Auto) 0.60 K/uL (0.00-0.50) H 01/30/23 09:25 Baso # (Auto) 0.05 K/uL (0.00-0.20) 01/30/23 09:25 Immature Gran # (Auto) 0.20 K/uL (0.01-0.20) 01/30/23 09:25 Absolute Nucleated RBC Cancelled 01/23/23 21:35 Nucleated RBC % (auto) Cancelled 01/23/23 21:35 Neutrophils % (Manual) Cancelled 01/23/23 21:35 Band Neutrophils % Cancelled 01/23/23 21:35 Lymphocytes % (Manual) Cancelled 01/23/23 21:35 Prolymphocyte % Cancelled 01/23/23 21:35 Reactive Lymphs % (Man) Cancelled 01/23/23 21:35 Monocytes % (Manual) Cancelled 01/23/23 21:35 Eosinophils % (Manual) Cancelled 01/23/23 21:35 Basophils % (Manual) Cancelled 01/23/23 21:35 Metamyelocytes % (Man) Cancelled 01/23/23 21:35 Myelocytes % (Man) Cancelled 01/23/23 21:35 Promyelocytes % (Man) Cancelled 01/23/23 21:35 Blast Cells % (Manual) Cancelled 01/23/23 21:35 Plasma Cell % (Manual) Cancelled 01/23/23 21:35 Other Cells % Cancelled 01/23/23 21:35 Nucleated RBC % Cancelled 01/23/23 21:35 Neutrophils # (Manual) Cancelled 01/23/23 21:35 Band Neutrophils # Cancelled 01/23/23 21:35 Total Absolute Neuts Cancelled 01/23/23 21:35 Lymphocytes # (Manual) Cancelled 01/23/23 21:35 Prolymphocyte # Cancelled 01/23/23 21:35 Reactive Lymphs # Cancelled 01/23/23 21:35 Total Abs Lymphocytes Cancelled 01/23/23 21:35 Monocytes # (Manual) Cancelled 01/23/23 21:35 Eosinophils # (Manual) Cancelled 01/23/23 21:35 Basophils # (Manual) Cancelled 01/23/23 21:35 Metamyelocytes # (Man) Cancelled 01/23/23 21:35 Myelocytes # (Manual) Cancelled 01/23/23 21:35 Promyelocytes # (Man) Cancelled 01/23/23 21:35 Blast Cells # (Man) Cancelled 01/23/23 21:35 Plasma Cell # (Manual) Cancelled 01/23/23 21:35 Other Cells # Cancelled 01/23/23 21:35 Nucleated RBCs # (Man) Cancelled 01/23/23 21:35 Hypersegmented Neuts Cancelled 01/23/23 21:35 Hyposegmented Neuts Cancelled 01/23/23 21:35 Hypogranular Neuts Cancelled 01/23/23 21:35 Large Granular Lymphs Cancelled 01/23/23 21:35 # Lrg Granular Lymphs Cancelled 01/23/23 21:35 Hairy Cells Cancelled 01/23/23 21:35 Smudge Cells Cancelled 01/23/23 21:35 Toxic Granulation Cancelled 01/23/23 21:35 Toxic Vacuolation Cancelled 01/23/23 21:35 Dohle Bodies Cancelled 01/23/23 21:35 Jessica Rods Cancelled 01/23/23 21:35 Platelet Estimate Cancelled 01/23/23 21:35 Hypogranular Platelets Cancelled 01/23/23 21:35 Giant Platelets Cancelled 01/23/23 21:35 Platelet Satelliting Cancelled 01/23/23 21:35 RBC Morphology Cancelled 01/23/23 21:35 Polychromasia Cancelled 01/23/23 21:35 Hypochromasia Cancelled 01/23/23 21:35 Poikilocytosis Cancelled 01/23/23 21:35 Basophilic Stippling Cancelled 01/23/23 21:35 Anisocytosis Cancelled 01/23/23 21:35 Microcytosis Cancelled 01/23/23 21:35 Macrocytosis Cancelled 01/23/23 21:35 Spherocytes Cancelled 01/23/23 21:35 Pappenheimer Bodies Cancelled 01/23/23 21:35 Sickle Cells Cancelled 01/23/23 21:35 Target Cells Cancelled 01/23/23 21:35 Tear Drop Cells Cancelled 01/23/23 21:35 Ovalocytes Cancelled 01/23/23 21:35 Stomatocytes Cancelled 01/23/23 21:35 [place] Bodies Cancelled 01/23/23 21:35 Echinocytes Cancelled 01/23/23 21:35 Acanthocytes (Spur) Cancelled 01/23/23 21:35 Rouleaux Cancelled 01/23/23 21:35 RBC Agglutinates Cancelled 01/23/23 21:35 Schistocytes Cancelled 01/23/23 21:35 Sezary Cell Cancelled 01/23/23 21:35 PT 10.8 Seconds (9.0-12.0) 01/23/23 21:35 INR 1.0 (0.9-1.1) 01/23/23 21:35 APTT 28.9 Seconds (21.0-31.0) 01/23/23 21:35 PTT Ratio 1.0 01/23/23 21:35 Sodium 138 mmol/L (136-145) 01/30/23 09:25 Potassium 4.2 mmol/L (3.5-5.1) 01/30/23 09:25 Chloride 108 mmol/L (98-107) H 01/30/23 09:25 Carbon Dioxide 21 mmol/L (21-32) 01/30/23 09:25 Anion Gap 9 (3-11) 01/30/23 09:25 BUN 38 mg/dl (6-23) H 01/30/23 09:25 Creatinine 2.55 mg/dl (0.6-1.4) H 01/30/23 09:25 Est Cr Clr Drug Dosing 27.8 ml/min 01/30/23 09:25 Est GFR ( Amer) 25.9 ml/min 01/30/23 09:25 Est GFR (Non-Af Amer) 22.3 ml/min 01/30/23 09:25 BUN/Creatinine Ratio 14.9 (10-20) 01/30/23 09:25 Glucose 227 mg/dl (70-99(Fasting)) H 01/30/23 09:25 POC Glucose 153 mg/dl (70-99) H 01/30/23 11:39 Estimat Average Glucose 183 mg/dl 01/28/23 07:09 Hemoglobin A1c 8.0 % (4.5-5.6) H 01/28/23 07:09 Lactate 1.5 mmol/L (0.4-2.0) 01/24/23 00:17 Calcium 9.1 mg/dl (8.6-10.3) 01/30/23 09:25 Total Bilirubin 0.4 mg/dl (0.2-1.0) 01/29/23 08:59 AST 11 U/L (13-39) L 01/29/23 08:59 ALT 15 U/L (7-52) 01/29/23 08:59 Alkaline Phosphatase 79 U/L (34-104) 01/29/23 08:59 Total Creatine Kinase 59 U/L (30-223) 01/30/23 09:25 Troponin I High Sens 19.7 pg/ml (0-20) 01/23/23 21:35 C-Reactive Protein 2.59 mg/dl (0-0.5) H 01/27/23 06:25 Total Protein 6.2 gm/dl (6.0-8.3) 01/29/23 08:59 Albumin 3.2 gm/dl (3.4-5.0) L 01/29/23 08:59 Globulin 3.0 gm/dl (2.5-4.0) 01/29/23 08:59 Albumin/Globulin Ratio 1.1 (0.9-2) 01/29/23 08:59 Procalcitonin 0.53 ng/ml (0-0.5) H 01/23/23 21:35 SARS-CoV-2, RNA, NAAT NEGATIVE (NEGATIVE) 01/24/23 06:01 Staphylococcus sp PCR DETECTED (NotDetected) A 01/24/23 00:17 Staph aureus (PCR) DETECTED (NotDetected) A 01/24/23 00:17 mecA/C & MREJ Resist Gene MRSA DETECTED (NotDetected) A* 01/24/23 00:17 Bld Cult ID Panel PCR See PCR Comment (NotDetected) 01/24/23 00:17 Blood Parasites ID Cancelled 01/23/23 21:35 Impressions Chest X-Ray 01/23/23 21:22 SINGLE VIEW CHEST CLINICAL HISTORY: Atypical chest pain. FINDINGS: A PA chest radiograph is compared to study dated 08/30/2022. The heart is top normal for projection noting atherosclerotic calcification of the thoracic aorta. The pulmonary vasculature is noncongested. Chronic interstitial thickening similar to previous. There is mild bibasilar scarring/atelectasis. The lungs and pleural spaces are otherwise clear. No pneumothorax is seen. The skeletal structures are osteopenic. The bony thorax is grossly intact. IMPRESSION: No acute cardiopulmonary abnormality. ACT 112: Negative or not required by law. Electronically signed by: Hugo Mtz M.D. 01/23/2023 10:[address] 01/24/23 00:11 Exam(s): CT CHEST Without Contrast EXAM: CT Chest Without Intravenous Contrast CLINICAL HISTORY: Reason for exam: eval abscess -left posterior chest. TECHNIQUE: Axial computed tomography images of the chest without intravenous contrast. Automated exposure control was utilized for the study. A dose lowering technique was utilized adhering to the principles of ALARA. COMPARISON: No relevant prior studies available. FINDINGS: Lungs: 4 mm pulmonary nodule in the mid left upper lobe best seen on series 3 image 29. 3 mm pulmonary nodule within the mid left upper lobe best seen on series 3 image 28. 4 mm pulmonary nodule in the anterior right lower lobe best seen on series 3 image 41. 3 mm pulmonary nodule in the left lower lobe best seen on series 3 image 48. Pleural space: Unremarkable. No pneumothorax. No significant effusion. Heart: Unremarkable. No cardiomegaly. No significant pericardial effusion. No significant coronary artery calcifications. Bones/joints: Unremarkable. No acute fracture. No dislocation. Soft tissues: Left posterior lateral subcutaneous inflammation beginning at the left eighth posterior rib and extending inferiorly to the left flank at least to the level of the mid kidney. Focal skin thickening measuring up to 1.1 cm in thickness with soft tissue subcutaneous nodules. Unable to distinguish whether the subcutaneous soft tissue nodular areas represent phlegmon or small abscesses on this noncontrast exam. Vasculature: Unremarkable. No thoracic aortic aneurysm. Lymph nodes: Unremarkable. No enlarged lymph nodes. Gallbladder and bile ducts: Several large gallstones without evidence of gallbladder distention. Kidneys and ureters: Simple bilateral renal cysts measuring up to 3.0 cm. No further workup is required. IMPRESSION: Left posterior lateral subcutaneous inflammation beginning at the left eighth posterior rib and extending inferiorly to the left flank at least to the level of the mid kidney. Focal skin thickening measuring up to 1. 1 cm in thickness with soft tissue subcutaneous nodules. Unable to distinguish whether the subcutaneous soft tissue nodular areas represent phlegmon or small abscesses on this noncontrast exam. Numerous bilateral pulmonary nodules measuring no larger than 0.4 cm. Fleischner Society Guidelines for low-risk or high-risk patients recommend that one should consider chest CT at 12 months due to the location of this nodule. Electronically signed by: Michael Covington M.D. 01/24/23 02:21 AM Procedures Performed Operation Date: 01/24/23 09:15 Actual Procedures p Incision and Drainage Back Abscess(Left) - Duncan Cazares DO Ordered Studies 01/24/23 00:11 CT chest diagnostic wo con Stat Hospital Course (1) MRSA bacteremia: MRSA bacteremia with Back Abscess - -CT chest w/ L posterior lateral subQ inflammation beginning at L eighth posterior rib extending inferiorly to L flank at least to level of mid kidney, focal skin thickening 1.1cm in thickness w/ soft tissue and subcutaneous nodules. - Upon presentation to ED was septic with leucocytosis and tachycardia; both have since resolved -Received 1 dose doxycycline outpatient, 2.75gm vancomycin in the ED. - S/p I&D for Abscess on left flank 01/24 - Wound culture growing MRSA, 1/2 blood cultures from 01/24 growing MRSA. No surgical cultures. - Since blood culture and wound culture are both growing MRSA, treat as bacteremia even though only 1/2 cultures are positive - Repeat cultures from 01/26 without growth after 48 hours - Started on Daptomycin at 6mg/kg adjusted for ideal body weight given CKD dosing based on recommendations for bacteremia per pharmacy; cultures did show sensitivity to daptomycin. - TTE without vegetations - ID consulted plan for 4 weeks Daptomycin from date of negative blood cultures (end date would be 02/23) - Plan for home antibiotics with help of daughter, weekly dressing changes at [facility] - Plan for weekly BMP, given his creatine clearance is just above 30, if it were to drop below 30 would need to dose q48H as opposed to q24H - consider MRSA decontamination as an OP - Per infectious disease will need weekly CPK, CBC, CMP while on Daptomycin Concern for Herpes Zoster -Rash on back concerning for possible herpes zoster dermatomal distribution with overlying bacterial infection per admitting provider -Patient was started on Valtrex for possible herpes zoster, although has declined doses. Pain is improved with I&D and no dermatomal rash remains, so lower suspicion it was secondary to shingles. -D/c Valtrex Chest Pain -Chest pain for few days prior to admission -EKG with sinus tachycardia, new minor depression in lateral leads V5 and V6 compared to EKG from August. -Troponin 19.7. -EKG changes could have been from tachycardic state due to infection. -Echo without significant change from prior study -No current chest pain- patient states "pain" has just been the normal burning he gets from reflux and has resolved. Anemia -Hgb 10.2 on admission and has remained stable between 9-10. baseline 10-13. -History of iron deficiency anemia, patient stated he got diarrhea on oral iron supplement. CKD Stage III - Creatinine 2.19 on admission, remains around baseline - [place] [facility] [place] - Continue to trend and dose antibiotics as per above Lung Nodule - incidental lung nodule on CT, recommend repeat CT in 12 months to ensure stability HTN continue home amlodipine 5mg daily, lisinopril 10mg qpm, metoprolol tartrate 50mg BID. COPD -Continue home albuterol and Dulera. GERD -continue home pantoprazole. Famotidine and tums ordered PRN. DM2 -resume home medications (2) Cellulitis: (3) Chest pain: (4) Anemia: (5) Rash of back: (6) Chronic kidney disease, stage III (moderate): (7) Hypertension: (8) Hyperlipidemia LDL goal <70: (9) COPD (chronic obstructive pulmonary disease): (10) GERD (gastroesophageal reflux disease): (11) Diabetes: (12) Skin abscess: (13) Lung nodule: Total Time Total Time Spent Total Time Spent (In Minutes): see attending attestation Discharge Plan Discharge Items Patient Disposition: Home - Self-Care Reason For Visit: SKIN INFECTION, CHEST PAIN Discharge Diagnosis: Cellulitis with Abscess Activity: Per Instructions section Non-emergency contact: Primary Care Provider and Surgeon Call non-emergency contact if: you have any medication questions, your symptoms worsen and you have a fever Follow-up/Referrals: [facility] ([facility] [Outside] - 02/03/23 9:00 am (Please arrive 15 minutes prior to your scheduled appointment. A nurse will change your IV dressing and obtain your bloodwork at this appointment. ) Stefani Alcala PA-C [Primary Care Provider] - (PCP IS [facility]; PLEASE CALL TO SCHEDULE A HOSPITAL FOLLOW UP VISIT WITHIN 7-10 DAYS.) Diet: Regular Addtl Attending Provider Instructions: You were admitted for a back infection that had spread to your blood. We are treating you with IV antibiotics for 4 weeks. The last day of your antibiotics will be 02/23. Currently your antibiotics with be once a day. We have set up an appointment on Friday at the [facility] for both a dressing change with your midline and to check your blood counts. Based on what your kidney function looks like, we may need to change the frequency of the antibiotic and if that is the case we will reach out to you. You should resume taking your Eliquis as your normally would tomorrow morning. While you are on the daptomycin you should hold off on taking your atorvastatin, you can restart it once you stop the antibiotic. You should have your dressing changed daily, we put in a referral for home nursing and also reached out to [facility] and they said that they could help with dressing changes. If you were to develop fever, chills, increased pain, redness, discharge from the wound you should return for re-evaluation. We would like you to follow up with your primary care provider. Their office should reach out to you for an appointment, if you do not hear from them you should reach out to make an appointment. Pending Studies at Discharge: No Stand-Alone Forms: My [facility] [address] Medications and DC Order Prescriptions: New daptomycin 500 mg recon soln 600 mg IV DAILY 30 Days Qty: 1 0RF Rx Instructions: administer over 30 mins Last day 02/23 Continued latanoprost [Xalatan] 0.005 % Drops 1 drp OPB HS Qty: 0 Patient Comments: BOTH EYES amlodipine 5 mg tablet 5 mg PO DAILY Qty: 90 3RF acetaminophen-codeine 300-30 mg Tablet 1 tab PO UD MDD 3g PRN (Reason: Pain) metoprolol tartrate 50 mg Tablet 50 mg PO AMPM cyanocobalamin (vitamin B-12) [Vitamin B-12] 1,000 mcg Tablet 1,000 mcg PO QAM pantoprazole 40 mg Tablet,Delayed Release (Dr/Ec) 40 mg PO DAILYBB Eliquis 5 mg Tablet 5 mg PO Q12 alogliptin 12.5 mg Tablet 12.5 mg PO QAM docusate sodium [Stool Softener] 100 mg Capsule 100 mg PO DAILY PRN (Reason: Constipation) insulin asp prt-insulin aspart [Novolog Mix 70-30FlexPen U-100] 100 unit/mL (70-30) insulin pen 94 unit subcut UD Rx Instructions: 56 units at breakfast; 14 units at lunch; 24 units at supper; brimonidine 0.2 % Drops 1 drp OPB AMHS cholecalciferol (vitamin D3) [Vitamin D3] 25 mcg (1,000 unit) Tablet 25 mcg PO AMPM albuterol sulfate 90 mcg/actuation Hfa Aerosol Inhaler 1 inh INHALATION AMHS Dulera 100-5 mcg/actuation Hfa Aerosol Inhaler 2 puff INHALATION BID acetaminophen 325 mg Tablet 325 mg PO Q4H MDD 3g PRN (Reason: pain) Qty: 30 0RF lisinopril 10 mg tablet 10 mg PO QPM multivitamin Tablet 1 tab PO AMPM cilostazol 100 mg Tablet 100 mg PO AMHS magnesium oxide 420 mg Tablet 420 mg PO QPM Eucerin Cream 1 applic TOPICAL AMHS PRN (Reason: skin) Rx Instructions: apply to lower leg an heel only nystatin 100,000 unit/gram Cream 1 applic TOPICAL DAILY PRN (Reason: yeast) Held atorvastatin 20 mg Tablet 80 mg PO HS Hold Instructions: Resume after finishing daptomycin. Rx Instructions: 4 tablet dose Discharge Orders: Discharge Order (Routine); Ordered 01/30/23 Ordered By: Sammie Mena/Other Patient Handouts: Managing Type 2 Diabetes, MRSA Admission Data Admit Date/Time: 01/24/23 04:17 Attending Provider: Alessia Brown Admit Provider: Luis Doe Primary Care Provider: Stefani Alcala Other Providers: Ibrahima Goldsmith ; Duncan Cazares ; Lilliana Randall ; Jose Ochoa ; Yvonne Fernandes ; Aleks Layne ; Gogo Akins ; Svitlana Grayson ; Filomena Waldron ; Bhavin Aaron ; Graciela Cope ; Urbano Peters ; [facility] Other Interventions: Discharge Summary Assessment (RN) Last Done: 01/30/23 14:13 Supervising Physician Co-Signing Physician Notes I personally examined the patient and verified brasher points of history and exam, discussed case, and agree with decision making and plan documented by Dr. Qureshi. Patient will continue IV daptomycin until 02/23/23 and confirmation of resolution of infection (soft tissue u/s recommended). During treatment, patient will engage in wound care and weekly monitoring of creatinine clearance. MRSA decolonization recommended in future. Repeat CT scan for pulmonary nodule due 01/2024. Patient understanding of plan. Resident Activity Tracking Resident Involvement: Resident Care Provided Care Provided: Adult Hospital Medicine
--- NOTE | 2023-02-03 18:11 | Coding Query ---
SEPSIS To promote full compliance with coding requirements relating to patient care, physician participation is requested in all cases of watch and clock maker and repairer uncertainty. Please assist us with the question(s) below: In responding to this query, please exercise your independent professional judgement. The fact that a question is asked does not imply that any particular answer is desired or expected. We appreciate your clarification on this issue. The medical record reflects the following clinical findings: Pulse >90/minute(131,129-01/23/23), WBC count 20.06-01/23/23, glucose 156 01/24/23, Anion gap 12, positive blood culture (MRSA) ____ ()Bacteremia (Nonspecific laboratory finding of bacteria in the blood) Specify Organism () Present on Admission () Not present on admission () Unable to clinically determine () Septicemia (Systemic disease associated with the presence of pathogenic microorganisms in the blood): Specify Organism () Present on Admission () Not present on admission () Unable to clinically determine (X) Sepsis Specify Organism MRSA Specify Associated Condition/Diagnosis () Present on Admission () Not present on admission () Unable to clinically determine () Severe Sepsis (Sepsis associated with acute organ dysfunction) Specify Organism Specify Associated Condition/Diagnosis () Present on Admission () Not present on admission () Unable to clinically determine () Septic Shock (Severe sepsis with acute circulatory failure, unexplained by other causes) () Present on Admission () Not present on admission () Unable to clinically determine () Other, patient has: MTDD
== END 2023-01-30 15:42 | disposition home health service (06) | DRG 872 ==
LOC: ED 21:11 → SUATTDRO 01-24 04:17 → EDINP 01-24 04:17 → 2N 01-24 12:58 → 3N 01-25 16:32

== ENCOUNTER 2023-04-26 11:51 | Inpatient (IN) ==
[2023-04-26 13:50] LABS: Basophils # (auto) 0.04 K/uL (0.00-0.20); Basophils % (auto) 0.3 %; Eosinophils # (auto) 0.32 K/uL (0.00-0.50); Eosinophils % (auto) 2.5 %; Hematocrit (blood only) 32.9 % (42.0-52.0); Hemoglobin 10.2 g/dl (14.0-18.0); Immature Granulocytes # (auto) 0.07 K/uL (0.01-0.20); Immature Granulocytes % (auto) 0.5 %; Lymphocytes # (auto) 1.52 K/uL (1.20-3.40); Lymphocytes % (auto) 11.7 %; Mean Corpuscular Hemoglobin 25.3 pg (25.0-34.0); Mean Corpuscular Volume 81.6 fL (80.0-100.0); Monocytes # (auto) 1.87 K/uL (0.11-0.59); Monocytes % (auto) 14.4 %; Neutrophils # (auto) 9.18 K/uL (1.40-6.50); Neutrophils % (auto) 70.6 %; Platelet Count 406 K/uL (130-400); RDW Coefficient of Variation 16.3 % (11.5-14.5); RDW Standard Deviation 48.4 fL (36.4-46.3); Red Blood Count 4.03 M/uL (4.70-6.10)
[2023-04-26 13:58] LABS: iSTAT Creatinine 2.3 mg/dl (0.6-1.3); iSTAT Hemoglobin 10.2 g/dl (14.0-18.0); iSTAT Ionized Calcium 1.23 mmol/l (1.12-1.32); iSTAT Potassium 3.7 mmol/L (3.3-5.0)
[2023-04-26 14:03] LABS: Partial Thromboplastin Ratio 1.1; Partial Thromboplastin Time 31.6 Seconds (21.0-31.0); Prothrombin Time 11.1 Seconds (9.0-12.0)
--- NOTE | 2023-04-26 14:08 | CT Scan Report ---
CT OF THE HEAD WITHOUT CONTRAST CLINICAL HISTORY: neuro deficit, acute stroke suspected COMPARISON STUDY: No previous studies for comparison. TECHNIQUE: Helical axial images of the head were obtained without IV contrast. Automated exposure con trol was utilized for the study. A dose lowering technique was utilized adhering to the principles o f ALARA. FINDINGS: No acute intracranial hemorrhage, midline shift or mass effect is present. White matter hyp odensity suggests small vessel disease. 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 The ventricular system is unremarkable. The basal cisterns are patent. No extra -axial collections are present. There are no findings to suggest acute dural sinus thrombosis or acut e territorial infarct. No significant calvarial abnormalities are present. Visualized portions of the sinuses and mastoid air cells are clear. IMPRESSION: 1. No acute intracranial findings. 2. 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 3. No calvarial fractures. ACT 112: Negative or not required by law. Electronically signed by: Chai Orozco M.D. 04/26/2023 2:06 PM
--- NOTE | 2023-04-26 14:10 | CT Scan Report ---
CT OF THE CERVICAL SPINE WITHOUT CONTRAST CLINICAL HISTORY: right arm pain/weakness COMPARISON STUDY: No previous studies for comparison. TECHNIQUE: Helical axial images of the cervical spine were obtained without IV contrast. Sagittal a nd coronal reconstructions were viewed. Automated exposure control was utilized for the study. A do se lowering technique was utilized adhering to the principles of ALARA. FINDINGS: There is reversal of the cervical lordosis. No cervical spine fracture is present. No osseo us lesions are identified. There is severe disc space narrowing at this C5-C6. Otherwise, moderate mu ltilevel disc space narrowing and osteophytosis within the cervical spine is present. There is modera te to severe multilevel facet arthrosis. Central canal and neural foramen are suboptimally assessed g iven CT technique. Ground glass opacity within the visualized portions of the right lung apex are not ed. IMPRESSION: 1. No acute cervical spine fracture or subluxation. 2. Moderate to severe multilevel degenerative disc disease and facet arthrosis within the cervical sp ine. ACT 112: Negative or not required by law. Electronically signed by: Chai Orozco M.D. 04/26/2023 2:09 PM
[2023-04-26 14:12] LABS: Alanine Aminotransferase 7 U/L (7-52); Albumin Level 3.4 gm/dl (3.4-5.0); Alkaline Phosphatase 89 U/L (34-104); Anion Gap 9 (3-11); Aspartate Aminotransferase 8 U/L (13-39); BUN Creatinine Ratio 14.6 (10-20); Bilirubin,Total 0.7 mg/dl (0.2-1.0); Blood Urea Nitrogen 28 mg/dl (6-23); Calcium 8.8 mg/dl (8.6-10.3); Carbon Dioxide 18 mmol/L (21-32); Chloride 111 mmol/L (98-107); Est GFR (African American) 36.5 ml/min; Est GFR (Non-African American) 31.5 ml/min; Globulin 3.5 gm/dl (2.5-4.0); Glucose 137 mg/dl (70-99(Fasting)); Magnesium 1.6 mg/dl (1.7-2.4); Potassium 3.7 mmol/L (3.5-5.1); Sodium 138 mmol/L (136-145); Total Protein 6.9 gm/dl (6.0-8.3)
[2023-04-26 14:18] LABS: Troponin I High Sensitivity 21.2 pg/ml (0-20)
--- NOTE | 2023-04-26 14:23 | XRay Report ---
XR chest 1V portable CLINICAL HISTORY: neuro deficit, acute stroke suspected COMPARISON STUDY: Chest radiograph February 22, 2023. Chest CT February 23, 2023. FINDINGS: Lung volumes are normal. No pneumothorax or pleural effusion is present. The multifocal air space opacities on prior chest radiograph and CT have partially resolved. Residual airspace opacities are present. Mild cardiomegaly is again noted. There is no evidence for pulmonary edema. IMPRESSION: Partial resolution of the multifocal airspace opacities on prior chest radiograph and ch est CT. The findings favor resolving multifocal pneumonia. Follow-up PA and lateral chest radiographs in 2 months to ensure complete resolution are recommended. ACT 112: Negative or not required by law. Electronically signed by: Chai Orozco M.D. 04/26/2023 2:10 PM
--- NOTE | 2023-04-26 14:23 | XRay Report ---
XR shoulder RT min 2V routine CLINICAL HISTORY: Right shoulder pain. COMPARISON: None. FINDINGS: Right lung airspace opacities have partially resolved since chest CT of February 23, 2023. A lignment of the right shoulder is anatomic. There is no acute fracture. There is no osseous lesion. M oderate joint space narrowing with osteophytosis of the acromioclavicular joint is noted. There is mi ld glenohumeral joint osteoarthritis. IMPRESSION: 1. No fractures within the right shoulder. 2. Moderate right AC joint osteoarthritis. Mild right glenohumeral joint osteoarthritis. ACT 112: Negative or not required by law. Electronically signed by: Chai Orozco M.D. 04/26/2023 2:12 PM
--- NOTE | 2023-04-26 14:27 | XRay Report ---
XR forearm RT 2V CLINICAL HISTORY: pain COMPARISON: None FINDINGS: No fracture within the right radius or ulna is identified. There are no osseous lesions. M oderate vascular calcification is incidentally noted. Exam is mildly compromised given difficulty pos itioning. IMPRESSION: No fractures within the right radius or ulna. ACT 112: Negative or not required by law. Electronically signed by: Chai Orozco M.D. 04/26/2023 2:26 PM
--- NOTE | 2023-04-26 14:27 | XRay Report ---
XR elbow RT min 3V routine CLINICAL HISTORY: pain, swelling COMPARISON: None FINDINGS: Electronic device projects over the right upper arm. This exam was compromised given diffi culty positioning. Alignment of the right elbow appears anatomic. There is no evidence for a joint ef fusion. There is mild posterior upper arm and elbow soft tissue swelling. There is no fracture. IMPRESSION: 1. No fractures within the right elbow. No evidence for a joint effusion. Exam compromised given diff iculty positioning. 2. Posterior right upper arm and elbow soft tissue swelling. ACT 112: Negative or not required by law. Electronically signed by: Chai Orozco M.D. 04/26/2023 2:25 PM
[2023-04-26 14:58] LABS: Appearance Urine Clear (Clear); Bacteria Urine Automated Negative (Negative); Bilirubin Urine Negative (Negative); Blood Urine Trace (Negative); Color Urine Yellow; Epithelial Cell Urine Auto 20-30 /lpf (0-5); Glucose Urine UA Trace (Negative); Ketones Urine Negative (Negative); Leukocyte Esterase Urine Negative (Negative); Nitrite Urine Negative (Negative); Protein Urine 4+ (Negative); RBC Urine Automated 0-4 /hpf (0-4); Specific Gravity Urine 1.021 (1.000-1.030); Urobilinogen Urine Negative (Negative); pH Urine 5.5 (4.5-7.5)
[2023-04-26] MEDS ORDERED: MoRPHine SULFATE 4 MG/ML 1 ML CARP\\VIAL IV STA (15:05)
[2023-04-26] MEDS ORDERED: ONDANSETRON INJ 2 MG/ML 2 ML VIAL IV STA (15:05)
--- NOTE | 2023-04-26 15:29 | Emergency Department Note ---
Impression & Plan Weakness of right upper extremity, Pain of right arm ED Provider Note CHIEF COMPLAINT: Right arm pain, weakness HISTORY OF PRESENT ILLNESS: This 83 year old male patient presents to the emergency department via private vehicle for evaluation of right arm pain and weakness. Patient states yesterday, he was reaching around to tile picker a cup of water with his right arm. He experienced sudden onset of right arm weakness and significant pain. The patient reports the pain is from his shoulder to his fingers. He is unable to move the right arm without lifting it with the left. He denies any direct trauma or blow. He does report history of similar symptoms several months ago and was seen at the [facility] and diagnosed with a muscle strain. Patient has been taking Tylenol without relief of his symptoms. He denies any headache, neck pain, numbness or tingling. He denies any visual disturbances, nausea, or vomiting. No open wounds. No chest pain or shortness of breath. REVIEW OF SYSTEMS: A 10 system review of systems was performed with positives and pertinent negatives listed in the history of present illness. All other systems were reviewed and are negative. ALLERGIES: Gentamicin, niacin, sertraline, metformin, silver sulfadiazine PHYSICAL EXAM: VITALS: Vitals are noted on the nurse's note and reviewed by myself. Vital signs stable. GENERAL: This is a 83-year-old male, in no acute distress, nondiaphoretic, well- developed well-nourished. SKIN: Mild edema and warmth of the right elbow. The skin was otherwise without rashes, erythema, edema, or bruising. There is no tenting of the skin. Capillary refill less than 2 seconds. HEAD: Normocephalic atraumatic. EYES: Pupils equal round and reactive to light and accommodation. Conjunctivae without injection, sclerae without icterus. Extraocular movements intact. NOSE: Patent, turbinates without inflammation or discharge. No sinus tenderness. MOUTH: Mucous membranes moist. Tonsils are not enlarged. Pharynx without erythema or exudate. Uvula midline. Airway patent. Tongue does not deviate. NECK: Supple without nuchal rigidity. No lymphadenopathy. Cervical spine is nontender. No JVD. HEART: Regular rate and rhythm without gallops or rubs. + Murmur LUNGS: Clear to auscultation bilaterally without wheezes, rales or rhonchi. No retractions or accessory muscle use. ABDOMEN: Positive bowel sounds x 4. Soft, nontender, without masses or organomegaly. No guarding or rebound tenderness. MUSCULOSKELETAL: Edema and warmth of the right elbow. There is significant tenderness to palpation from the humerus to the fingertips. The patient has significant weakness of the right upper extremity. He is unable to make a fist. Surgical Garment Inspector strength 1/5 with only the thumb and index finger. Patient is able to shrug his shoulders. He is unable to flex or extend the right arm at the elbow. He is unable to abduct or adduct the right upper extremity. He is unable to flex the right wrist. No muscle atrophy, erythema, or edema noted. Full range of motion without joint tenderness in all other extremities. Strength 5/5 throughout all other extremities NEURO: Patient was alert and oriented to person place and time. Normal sensation to light and sharp touch. Deep tendon reflexes 2+ throughout. No focal neurological deficits. An order was placed for continuous monitoring analyst. The monitor showed a normal sinus rhythm at a ventricular rate of 93 bpm, per my interpretation. EMERGENCY DEPARTMENT COURSE: The patient was seen and evaluated as above. Patient presents with sudden onset of right arm weakness and pain which started approximately 30 hours prior to arrival. The patient is unable to utilize the right upper extremity at all without assistance from the left upper extremity. I did discuss the case with my attending physician. He did see and evaluate the patient. Given the patient's neurologic deficit and concern for acute stroke versus musculoskeletal cause versus neurologic deficit, we did elect to perform the above-mentioned workup. IV access was obtained, labs were drawn.. Labs with leukocytosis of 13,000. Anemia with a hemoglobin of 10.2, hematocrit of 32.9. Platelet count elevated 406,000. INR 1.0. Renal, hepatic function and electrolytes without acute abnormality. Creatinine is elevated at 1.92. This does appear consistent with the patient's baseline. Magnesium is slightly low at 1.6. Initial troponin is elevated at 21.2. Urinalysis positive for 4+ protein, trace glucose, trace blood, no clear evidence of infection. CT of the head and cervical spine as well as x-rays of the right upper extremity and chest were completed and reviewed by myself and radiologist as noted. I discussed the workup with Dr. Hallman. Recommendation made for admission given the deficit in the right upper extremity. Concern for possible stroke versus brachial plexus injury versus musculoskeletal cause. Discussed this recommendation with the patient at bedside. He was agreeable. Discussed case with Dr. Grant. He did agree to evaluate the patient for admission. Please see hospitalist dictation regarding ongoing management care of this patient Differential diagnosis includes Infection, dehydration, metabolic abnormality, hypo/hyperglycemia, electrolyte disturbance, anemia, hypoxia, cardiac sources, intracerebral event, toxicologic, neurologic, as well as other pathologies. I attest that I have personally reviewed the patient's current medication list. Patient was found to have an elevated blood pressure and was referred to their primary doctor for recheck and further treatment. The chart was completed utilizing HW Speech voice recognition software. Grammatical errors, random word insertions, pronoun errors, and incomplete sentences are an occasional consequence of this system due to software limitations, ambient noise, and hardware issues. Any formal questions or concerns about the content, text, or information contained within the body of this dictation should be directly addressed to the provider for clarification. Past Med/Surg History Medical History Chest pain Left-sided chest pain Diabetes COPD (chronic obstructive pulmonary disease) Peripheral arterial disease GERD (gastroesophageal reflux disease) Hypertension Glaucoma Hyperlipidemia LDL goal <70 Obesity (BMI 30.0-34.9) Chronic anticoagulation DVT of lower extremity, bilateral Left sided sciatica Surgical History History of cataract surgery History of incision and drainage (01/24/23) History of tonsillectomy and adenoidectomy History of vein stripping Family History Other Family history non-contributory Social History Smoking Status: Never smoker Tobacco Type: Cigarettes Second Hand Exposure: Yes; Do You Dip or Chew Tobacco: No; Hx Alcohol Use: Yes Alcohol type: beer, wine and hard liquor Hx Substance Use: No Preferred Language: Kenyan Communication Ability: Effective 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 Required: No Beliefs That Will Affect Care: None marital status: Current Living Situation: Personal Care Facility Current Living Situation Comment: assisted care facility Feels Safe at Home: Yes Assistive Devices: Walker Allergies Allergies Allergy/AdvReac Type Severity Reaction Status Date / Time gentamicin Allergy Unknown UNKNOWN Verified 02/17/23 09:00 niacin Allergy Unknown unknown Verified 02/17/23 09:00 sertraline Allergy Unknown JITTERRY Verified 02/17/23 09:00 metformin AdvReac Unknown CAN'T Verified 02/17/23 09:00 REMEMBER silver sulfadiazine AdvReac Unknown unknown Verified 02/17/23 09:00 Home Meds Home Medications Medication Instructions Recorded Confirmed latanoprost 0.005 % eye drops 1 drp OPB HS ##0 11/10/11 02/17/23 (Xalatan) acetaminophen 300 mg-codeine 30 mg 1 tab PO UD PRN Pain 12/10/19 02/17/23 tablet alogliptin 12.5 mg tablet 12.5 mg PO QAM 08/16/21 02/17/23 cyanocobalamin (vitamin B-12) 1,000 mcg PO QAM 08/16/21 02/17/23 1,000 mcg tablet (Vitamin B-12) docusate sodium 100 mg capsule 100 mg PO DAILY PRN Constipation 08/16/21 02/17/23 (Stool Softener) metoprolol tartrate 50 mg tablet 50 mg PO AMPM 08/16/21 02/17/23 pantoprazole 40 mg tablet,delayed 40 mg PO DAILYBB 08/16/21 02/17/23 release albuterol sulfate 90 mcg/actuation 1 inh inhalation AMHS 08/30/22 02/17/23 aerosol inhaler brimonidine 0.2 % eye drops 1 drp OPB AMHS 08/30/22 02/17/23 cholecalciferol (vitamin D3) 25 25 mcg PO AMPM 08/30/22 02/17/23 mcg (1,000 unit) tablet (Vitamin D3) mometasone-formoterol HFA 100 2 puff inhalation BID 08/30/22 02/17/23 mcg-5 mcg/actuation aerosol inhaler (Dulera) insulin aspar prot-insulin aspart 94 unit subcut UD 10/24/22 02/17/23 100 unit/mL (70-30) subcutaneous pen (Novolog Mix 70-30FlexPen U-100) atorvastatin 20 mg tablet 80 mg PO HS 01/24/23 02/17/23 cilostazol 100 mg tablet 100 mg PO AMHS 01/24/23 02/17/23 lanolin alcohols-mineral 1 applic topical AMHS PRN skin 01/24/23 02/17/23 oil-w.petrolatum-ceresin topical cream (Eucerin topical cream) magnesium oxide 420 mg tablet 420 mg PO QPM 01/24/23 02/17/23 multivitamin 1 tab PO AMPM 01/24/23 02/17/23 nystatin 100,000 unit/gram topical 1 applic topical DAILY PRN yeast 01/24/23 02/17/23 cream Previous Rx's Medication Instructions Recorded acetaminophen 325 mg tablet 325 mg PO Q4H PRN pain #30 tabs 09/04/22 amlodipine 5 mg tablet 5 mg PO DAILY #90 tabs 10/01/22 apixaban 5 mg tablet (Eliquis) 2.5 mg (1/2 x 5 mg) PO Q12 #60 tabs 02/27/23 levofloxacin 750 mg tablet 750 mg PO Q48H #3 tabs 02/27/23 Results & Data (ED) Vital Signs Vital Signs - 24 hr 04/26/23 11:56 04/26/23 14:05 04/26/23 14:30 Temperature 36.7 C Temperature Source Temporal Artery Scan Pulse Rate 87 93 H Pulse Rate [Left Apical] 90 Respiratory Rate 18 16 12 Respiratory Effort / Characteristics Non-Labored Non-Labored Respiratory Depth Normal Normal Respiratory Pattern Agonal Blood Pressure 170/85 H 174/114 H Blood Pressure [Left Arm] 162/95 H Blood Pressure Mean 113 134 Blood Pressure Mean [Left Arm] 117 Blood Pressure Position Sitting Pulse Oximetry 97 97 Oxygen Delivery Method Room Air Room Air Sepsis Recent Fever Within 48 Hours No Sepsis New/Unexplained Change in Mental Status N/A Sepsis Action Taken by Nursing No Action Required Laboratory Data 04/26/23 13:30 04/26/23 13:30 Lab Results 04/26/23 04/26/23 04/26/23 Range/Units 13:30 13:44 13:45 WBC 13.00 H (4.8-10.8) K/ul RBC 4.03 L (4.70-6.10) M/uL Hgb 10.2 L (14.0-18.0) g/dl POC Hgb 10.2 L (14.0-18.0) g/dl Hct 32.9 L (42.0-52.0) % POC Hct 30 L (42-52) % MCV 81.6 (80.0-100.0) fL MCH 25.3 (25.0-34.0) pg MCHC 31.0 L (32.0-36.0) g/dL RDW Std Deviation 48.4 H (36.4-46.3) fL RDW Coeff of Katelyn 16.3 H (11.5-14.5) % Plt Count 406 H (130-400) K/uL MPV 9.0 L (9.4-12.4) fL Immature Gran % (Auto) 0.5 % Neut % (Auto) 70.6 % Lymph % (Auto) 11.7 % [place] % (Auto) 14.4 % Eos % (Auto) 2.5 % Baso % (Auto) 0.3 % Neut # (Auto) 9.18 H (1.40-6.50) K/uL Lymph # (Auto) 1.52 (1.20-3.40) K/uL [place] # (Auto) 1.87 H (0.11-0.59) K/uL Eos # (Auto) 0.32 (0.00-0.50) K/uL Baso # (Auto) 0.04 (0.00-0.20) K/uL Immature Gran # (Auto) 0.07 (0.01-0.20) K/uL PT 11.1 (9.0-12.0) Seconds INR 1.0 (0.9-1.1) APTT 31.6 H (21.0-31.0) Seconds PTT Ratio 1.1 POC Sodium 140 (135-144) mmol/L Sodium 138 (136-145) mmol/L POC Potassium 3.7 (3.3-5.0) mmol/L Potassium 3.7 (3.5-5.1) mmol/L POC Chloride 112 (101-112) mmol/L Chloride 111 H (98-107) mmol/L Carbon Dioxide 18 L (21-32) mmol/L POC Total CO2 17 L (24-31) mmol/L Anion Gap 9 (3-11) POC Anion Gap 16.0 (16-25) mmol/L POC BUN 26 H (7-18) mg/dl BUN 28 H (6-23) mg/dl Creatinine 1.92 H (0.6-1.4) mg/dl POC Creatinine 2.3 H (0.6-1.3) mg/dl Est Cr Clr Drug Dosing Not Reportable Est GFR ( Amer) 36.5 ml/min Est GFR (Non-Af Amer) 31.5 ml/min BUN/Creatinine Ratio 14.6 (10-20) Glucose 137 H (70-99(Fasting)) mg/dl POC Glucose (other) 141 H (70-99) mg/dl Calcium 8.8 (8.6-10.3) mg/dl POC Ioniz Calcium Royce 1.23 (1.12-1.32) mmol/l Magnesium 1.6 L (1.7-2.4) mg/dl Total Bilirubin 0.7 (0.2-1.0) mg/dl AST 8 L (13-39) U/L ALT 7 (7-52) U/L Alkaline Phosphatase 89 (34-104) U/L Troponin I High Sens 21.2 H (0-20) pg/ml Total Protein 6.9 (6.0-8.3) gm/dl Albumin 3.4 (3.4-5.0) gm/dl Globulin 3.5 (2.5-4.0) gm/dl Albumin/Globulin Ratio 1.0 (0.9-2) Urine Color Yellow Urine Appearance Clear (Clear) Urine pH 5.5 (4.5-7.5) Ur Specific [place] 1.021 (1.000-1.030) Urine Protein 4+ H (Negative) Urine Glucose (UA) Trace H (Negative) Urine Ketones Negative (Negative) Urine Blood Trace H (Negative) Urine Nitrite Negative (Negative) Urine Bilirubin Negative (Negative) Urine Urobilinogen Negative (Negative) Ur Leukocyte Esterase Negative (Negative) Urine WBC (Auto) 5-10 H (0-5) /hpf Urine RBC (Auto) 0-4 (0-4) /hpf U Hyaline Cast (Auto) 1-5 (0-5) /lpf U Epithel Cells (Auto) 20-30 H (0-5) /lpf Urine Bacteria (Auto) Negative (Negative) Blood Type Antibody Screen 04/26/23 Range/Units 14:23 WBC (4.8-10.8) K/ul RBC (4.70-6.10) M/uL Hgb (14.0-18.0) g/dl POC Hgb (14.0-18.0) g/dl Hct (42.0-52.0) % POC Hct (42-52) % MCV (80.0-100.0) fL MCH (25.0-34.0) pg MCHC (32.0-36.0) g/dL RDW Std Deviation (36.4-46.3) fL RDW Coeff of Katelyn (11.5-14.5) % Plt Count (130-400) K/uL MPV (9.4-12.4) fL Immature Gran % (Auto) % Neut % (Auto) % Lymph % (Auto) % [place] % (Auto) % Eos % (Auto) % Baso % (Auto) % Neut # (Auto) (1.40-6.50) K/uL Lymph # (Auto) (1.20-3.40) K/uL [place] # (Auto) (0.11-0.59) K/uL Eos # (Auto) (0.00-0.50) K/uL Baso # (Auto) (0.00-0.20) K/uL Immature Gran # (Auto) (0.01-0.20) K/uL PT (9.0-12.0) Seconds INR (0.9-1.1) APTT (21.0-31.0) Seconds PTT Ratio POC Sodium (135-144) mmol/L Sodium (136-145) mmol/L POC Potassium (3.3-5.0) mmol/L Potassium (3.5-5.1) mmol/L POC Chloride (101-112) mmol/L Chloride (98-107) mmol/L Carbon Dioxide (21-32) mmol/L POC Total CO2 (24-31) mmol/L Anion Gap (3-11) POC Anion Gap (16-25) mmol/L POC BUN (7-18) mg/dl BUN (6-23) mg/dl Creatinine (0.6-1.4) mg/dl POC Creatinine (0.6-1.3) mg/dl Est Cr Clr Drug Dosing Est GFR ( Amer) ml/min Est GFR (Non-Af Amer) ml/min BUN/Creatinine Ratio (10-20) Glucose (70-99(Fasting)) mg/dl POC Glucose (other) (70-99) mg/dl Calcium (8.6-10.3) mg/dl POC Ioniz Calcium Royce (1.12-1.32) mmol/l Magnesium (1.7-2.4) mg/dl Total Bilirubin (0.2-1.0) mg/dl AST (13-39) U/L ALT (7-52) U/L Alkaline Phosphatase (34-104) U/L Troponin I High Sens (0-20) pg/ml Total Protein (6.0-8.3) gm/dl Albumin (3.4-5.0) gm/dl Globulin (2.5-4.0) gm/dl Albumin/Globulin Ratio (0.9-2) Urine Color Urine Appearance (Clear) Urine pH (4.5-7.5) Ur Specific [place] (1.000-1.030) Urine Protein (Negative) Urine Glucose (UA) (Negative) Urine Ketones (Negative) Urine Blood (Negative) Urine Nitrite (Negative) Urine Bilirubin (Negative) Urine Urobilinogen (Negative) Ur Leukocyte Esterase (Negative) Urine WBC (Auto) (0-5) /hpf Urine RBC (Auto) (0-4) /hpf U Hyaline Cast (Auto) (0-5) /lpf U Epithel Cells (Auto) (0-5) /lpf Urine Bacteria (Auto) (Negative) Blood Type B Positive Antibody Screen NEGATIVE Administered Medications Discontinued Medications Morphine Sulfate (Morphine Sulfate 4 Mg/Ml 1 Ml Carp\Vial) 4 mg IV NOW STA Stop: 04/26/23 15:06 Last Admin: 04/26/23 15:20 Dose: 4 mg Documented By: MT Ondansetron HCl (Ondansetron Inj 2 Mg/Ml 2 Ml Vial) 4 mg IV NOW STA Stop: 04/26/23 15:06 Last Admin: 04/26/23 15:20 Dose: 4 mg Documented By: MT Imaging Data Radiologist's Impression: Chest X-Ray 04/26/23 13:11 XR chest 1V portable CLINICAL HISTORY: neuro deficit, acute stroke suspected COMPARISON STUDY: Chest radiograph February 22, 2023. Chest CT February 23, 2023. FINDINGS: Lung volumes are normal. No pneumothorax or pleural effusion is present. The multifocal airspace opacities on prior chest radiograph and CT have partially resolved. Residual airspace opacities are present. Mild cardiomegaly is again noted. There is no evidence for pulmonary edema. IMPRESSION: Partial resolution of the multifocal airspace opacities on prior chest radiograph and chest CT. The findings favor resolving multifocal pneumonia. Follow-up PA and lateral chest radiographs in 2 months to ensure complete resolution are recommended. ACT 112: Negative or not required by law. Electronically signed by: Chai Orozco M.D. 04/26/2023 2:[address] 04/26/23 13:11 CT OF THE HEAD WITHOUT CONTRAST CLINICAL HISTORY: neuro deficit, acute stroke suspected COMPARISON STUDY: No previous studies for comparison. TECHNIQUE: Helical axial images of the head were obtained without IV contrast. Automated exposure control was utilized for the study. A dose lowering technique was utilized adhering to the principles of ALARA. FINDINGS: No acute intracranial hemorrhage, midline shift or mass effect is present. White matter hypodensity suggests small vessel disease. 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 The ventricular system is unremarkable. The basal cisterns are patent. No extra- axial collections are present. There are no findings to suggest acute dural sinus thrombosis or acute territorial infarct. No significant calvarial abnormalities are present. Visualized portions of the sinuses and mastoid air cells are clear. IMPRESSION: 1. No acute intracranial findings. 2. 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 3. No calvarial fractures. ACT 112: Negative or not required by law. Electronically signed by: Chai Orozco M.D. 04/26/2023 2:06 PM Elbow X-Ray 04/26/23 13:16 XR elbow RT min 3V routine CLINICAL HISTORY: pain, swelling COMPARISON: None FINDINGS: Electronic device projects over the right upper arm. This exam was compromised given difficulty positioning. Alignment of the right elbow appears anatomic. There is no evidence for a joint effusion. There is mild posterior upper arm and elbow soft tissue swelling. There is no fracture. IMPRESSION: 1. No fractures within the right elbow. No evidence for a joint effusion. Exam compromised given difficulty positioning. 2. Posterior right upper arm and elbow soft tissue swelling. ACT 112: Negative or not required by law. Electronically signed by: Chai Orozco M.D. 04/26/2023 2:25 PM Forearm X-Ray 04/26/23 13:16 XR forearm RT 2V CLINICAL HISTORY: pain COMPARISON: None FINDINGS: No fracture within the right radius or ulna is identified. There are no osseous lesions. Moderate vascular calcification is incidentally noted. Exam is mildly compromised given difficulty positioning. IMPRESSION: No fractures within the right radius or ulna. ACT 112: Negative or not required by law. Electronically signed by: Chai Orozco M.D. 04/26/2023 2:26 PM Shoulder X-Ray 04/26/23 13:16 XR shoulder RT min 2V routine CLINICAL HISTORY: Right shoulder pain. COMPARISON: None. FINDINGS: Right lung airspace opacities have partially resolved since chest CT of February 23, 2023. Alignment of the right shoulder is anatomic. There is no acute fracture. There is no osseous lesion. Moderate joint space narrowing with osteophytosis of the acromioclavicular joint is noted. There is mild glenohumeral joint osteoarthritis. IMPRESSION: 1. No fractures within the right shoulder. 2. Moderate right AC joint osteoarthritis. Mild right glenohumeral joint osteoarthritis. ACT 112: Negative or not required by law. Electronically signed by: Chai Orozco M.D. 04/26/2023 2:[address] 04/26/23 13:17 CT OF THE CERVICAL SPINE WITHOUT CONTRAST CLINICAL HISTORY: right arm pain/weakness COMPARISON STUDY: No previous studies for comparison. TECHNIQUE: Helical axial images of the cervical spine were obtained without IV contrast. Sagittal and coronal reconstructions were viewed. Automated exposure control was utilized for the study. A dose lowering technique was utilized adhering to the principles of ALARA. FINDINGS: There is reversal of the cervical lordosis. No cervical spine fracture is present. No osseous lesions are identified. There is severe disc space narrowing at this C5-C6. Otherwise, moderate multilevel disc space narrowing and osteophytosis within the cervical spine is present. There is moderate to severe multilevel facet arthrosis. Central canal and neural foramen are suboptimally assessed given CT technique. Ground glass opacity within the visualized portions of the right lung apex are noted. IMPRESSION: 1. No acute cervical spine fracture or subluxation. 2. Moderate to severe multilevel degenerative disc disease and facet arthrosis within the cervical spine. ACT 112: Negative or not required by law. Electronically signed by: Chai Orozco M.D. 04/26/2023 2:09 PM Discharge Plan Visit Data Chief Complaint: Arm Pain Stated Complaint: R ARM PAIN ED Provider: Jacky Hallman ED Midlevel Provider: Kyra Paredes Discharge Problem: Weakness of right upper extremity, Pain of right arm Patient Disposition: Admitted As Inpatient Forms Stand Alone Forms: [facility] Prescriptions Prescriptions: No Action latanoprost [Xalatan] 0.005 % Drops 1 drp OPB HS Qty: 0 Patient Comments: BOTH EYES amlodipine 5 mg tablet 5 mg PO DAILY Qty: 90 3RF acetaminophen-codeine 300-30 mg Tablet 1 tab PO UD MDD 3g PRN (Reason: Pain) metoprolol tartrate 50 mg Tablet 50 mg PO AMPM cyanocobalamin (vitamin B-12) [Vitamin B-12] 1,000 mcg Tablet 1,000 mcg PO QAM pantoprazole 40 mg Tablet,Delayed Release (Dr/Ec) 40 mg PO DAILYBB alogliptin 12.5 mg Tablet 12.5 mg PO QAM docusate sodium [Stool Softener] 100 mg Capsule 100 mg PO DAILY PRN (Reason: Constipation) insulin asp prt-insulin aspart [Novolog Mix 70-30FlexPen U-100] 100 unit/mL (70-30) insulin pen 94 unit subcut UD Rx Instructions: 56 units at breakfast; 14 units at lunch; 24 units at supper; brimonidine 0.2 % Drops 1 drp OPB AMHS cholecalciferol (vitamin D3) [Vitamin D3] 25 mcg (1,000 unit) Tablet 25 mcg PO AMPM albuterol sulfate 90 mcg/actuation Hfa Aerosol Inhaler 1 inh INHALATION AMHS Dulera 100-5 mcg/actuation Hfa Aerosol Inhaler 2 puff INHALATION BID acetaminophen 325 mg Tablet 325 mg PO Q4H MDD 3g PRN (Reason: pain) Qty: 30 0RF atorvastatin 20 mg Tablet 80 mg PO HS Hold Instructions: Resume after finishing daptomycin. Rx Instructions: 4 tablet dose multivitamin Tablet 1 tab PO AMPM cilostazol 100 mg Tablet 100 mg PO AMHS magnesium oxide 420 mg Tablet 420 mg PO QPM Eucerin Cream 1 applic TOPICAL AMHS PRN (Reason: skin) Rx Instructions: apply to lower leg an heel only nystatin 100,000 unit/gram Cream 1 applic TOPICAL DAILY PRN (Reason: yeast) levofloxacin 750 mg tablet 750 mg PO Q48H Qty: 3 0RF Rx Instructions: every other day due to renal function Eliquis 5 mg Tablet 2.5 mg PO Q12 Qty: 60 0RF Referrals Referrals: Stefani Alcala PA-C [Primary Care Provider] -
--- NOTE | 2023-04-26 15:46 | History & Physical Report ---
Date of Service April 26, 2023 Assessment & Plan (1) Traumatic brachial plexus lesion: Plan: Patient will be admitted for acute rehabilitation MRI brain to rule out stroke given significant risk factors Pain control with acetaminophen REAGAN, oxycodone 5-10mg q4h PRN Consider pain management consult on Friday if not improving Arm sling Consult orthopedics PT/OT - consider inpatient rehab (2) Abnormal CXR: Plan: Resolving multifocal pneumonia from prior - no new symptoms Elevated WBC but procalcitonin negative and improving from prior Monitor improvement in WBC Repeat CXR in 2 months (3) Diabetes: Plan: HbA1C 8.0 in January, repeat with AM labs 94 units total daily dose of insulin as outpatient Start Lantus 30 units BID Novolog: --Goal BSG Range: Low 120 mg/dL, High 150 mg/dL --Correction Factor: 10 mg/dL/unit --Carbohydrate ratio = 5 g/unit --BSGs ACHS if eating, q6h if npo Given high amount of insulin will consult pharmacy for ongoing glycemic control (4) Hypomagnesemia: Plan: Replace and repeat level in AM Plan VTE Prophylaxis - Eliquis Diet - T2DM, heart healthy Disposition - observation to med/surg Admission and Anticipated Discharge Date Admission Date: April 26, 2023 History of Present Illness Chief Complaint: Right arm weakness and pain Primary Care Provider: Stefani Alcala PA-C Eduar Boyer is an 83 year old male who presents to the ER with right arm weakness and pain. He reports this occurred yesterday when he reached back for his glass of water to his right side. Sudden onset pain and weakness in his right arm from shoulder to his hand. He now has little strength in this arm. Sensation in hand intact but tingling sensation over dorsal aspect. He has a significant history of a stroke causing peripheral vision loss with ongoing risk factors of diabetes and hypertension. He denies any other neurological symptoms such as change in vision, hearing or speech. No lower extremity weakness. Allergies Allergy/AdvReac Type Severity Reaction Status Date / Time gentamicin Allergy Unknown UNKNOWN Verified 04/26/23 16:03 niacin Allergy Unknown unknown Verified 04/26/23 16:03 sertraline AdvReac Mild JITTERRY Verified 04/26/23 16:03 metformin AdvReac Unknown CAN'T Verified 04/26/23 16:03 REMEMBER silver sulfadiazine AdvReac Unknown unknown Verified 04/26/23 16:03 Home Medications Medication Instructions Recorded Confirmed Type latanoprost 0.005 % eye drops 1 drp OPB HS ##0 11/10/11 04/26/23 History (Xalatan) acetaminophen 300 mg-codeine 30 mg 1 tab PO UD PRN Pain 12/10/19 04/26/23 History tablet alogliptin 12.5 mg tablet 12.5 mg PO QAM 08/16/21 04/26/23 History cyanocobalamin (vitamin B-12) 1,000 mcg PO QAM 08/16/21 04/26/23 History 1,000 mcg tablet (Vitamin B-12) docusate sodium 100 mg capsule 100 mg PO DAILY PRN Constipation 08/16/21 04/26/23 History (Stool Softener) metoprolol tartrate 50 mg tablet 50 mg PO AMPM 08/16/21 04/26/23 History pantoprazole 40 mg tablet,delayed 40 mg PO DAILYBB 08/16/21 04/26/23 History release albuterol sulfate 90 mcg/actuation 1 inh inhalation [facility]HS 08/30/22 04/26/23 History aerosol inhaler brimonidine 0.2 % eye drops 1 drp OPB [facility] 08/30/22 04/26/23 History cholecalciferol (vitamin D3) 25 25 mcg PO AMPM 08/30/22 04/26/23 History mcg (1,000 unit) tablet (Vitamin D3) mometasone-formoterol HFA 100 2 puff inhalation BID 08/30/22 04/26/23 History mcg-5 mcg/actuation aerosol inhaler (Dulera) amlodipine 5 mg tablet 5 mg PO DAILY #90 tabs 10/01/22 04/26/23 Rx insulin aspar prot-insulin aspart 94 unit subcut UD 10/24/22 04/26/23 History 100 unit/mL (70-30) subcutaneous pen (Novolog Mix 70-30FlexPen U-100) atorvastatin 20 mg tablet 80 mg PO HS 01/24/23 04/26/23 History cilostazol 100 mg tablet 100 mg PO AMHS 01/24/23 04/26/23 History magnesium oxide 420 mg tablet 420 mg PO QPM 01/24/23 04/26/23 History multivitamin 1 tab PO AMPM 01/24/23 04/26/23 History nystatin 100,000 unit/gram topical 1 applic topical DAILY PRN yeast 01/24/23 04/26/23 History cream Minirin Cream 1 applic topical BID PRN APPLY TO 04/26/23 04/26/23 History LEGS NEEDED acetaminophen 500 mg tablet 500 mg PO DIRECTED PRN 04/26/23 04/26/23 History (Tylenol Extra Strength) PAIN/FEVER apixaban 5 mg tablet (Eliquis) 5 mg PO BID 04/26/23 04/26/23 History Past Med/Surg History Medical History Chest pain Left-sided chest pain Diabetes COPD (chronic obstructive pulmonary disease) Peripheral arterial disease GERD (gastroesophageal reflux disease) Hypertension Glaucoma Hyperlipidemia LDL goal <70 Obesity (BMI 30.0-34.9) Chronic anticoagulation DVT of lower extremity, bilateral Left sided sciatica Surgical History History of cataract surgery History of incision and drainage (01/24/23) History of tonsillectomy and adenoidectomy History of vein stripping Family History Other Family history non-contributory Social History Smoking Status: Former smoker Tobacco Type: Cigarettes Second Hand Exposure: No; Do You Dip or Chew Tobacco: No; Tobacco Cessation Education Requested by Patient: No Hx Alcohol Use: Yes Alcohol type: beer, wine and hard liquor Hx Substance Use: No Preferred Language: Ukrainian Communication Ability: Effective Supervisor Wet Pour Required: No Beliefs That Will Affect Care: None marital status: Current Living Situation: Personal Care Facility Current Living Situation Comment: assisted care facility Other Information That Helps Us Care for You: No Feels Safe at Home: Yes Safety Concerns: Feels Safe At This Time Assistive Devices: Glasses, Hospital Bed, Oxygen - Continuous and Walker Review of Systems Review of Systems: All systems reviewed & are unremarkable except as noted in HPI & below Physical Exam Constitutional: WD/WN, vitals as above Eyes: PERRL, conjunctivae normal, anicteric sclerae Respiratory: normal respiratory effort, lungs clear to auscultation Cardiovascular: Rate/Rhythm: regular rate and regular rhythm Heart Sounds: + murmur (systolic throughout) Gastrointestinal (Abdomen): normal bowel sounds, soft, nontender, no hepatosplenomegaly Musculoskeletal: significant pain with any movement of right arm. Unable to move shoulder or elbow. No finger abduction. Minimal finger flexion and thumb movements with weakness not just because of pain. Decreased sensation of dorsal aspect of arm and hand. No left upper extremity of bilateral lower extremity motor deficits. Skin: no rashes, warm and dry Neurologic: awake; not confused Psychiatric: A+Ox3, euthymic affect Results & Data Results & Data Vital Signs (Past 12 Hours) Vital Signs Temp Pulse Pulse Resp BP BP Pulse Ox 04/26/23 14:30 93 H 12 174/114 H 04/26/23 14:05 90 16 162/95 H 97 04/26/23 11:56 36.7 C 87 18 170/85 H 97 O2 Del Method 04/26/23 14:30 04/26/23 14:05 Room Air 04/26/23 11:56 Room Air Laboratory Results Abnormal lab results 04/26/23 04/26/23 04/26/23 Range/Units 13:30 13:44 13:45 WBC 13.00 H (4.8-10.8) K/ul RBC 4.03 L (4.70-6.10) M/uL Hgb 10.2 L (14.0-18.0) g/dl POC Hgb 10.2 L (14.0-18.0) g/dl Hct 32.9 L (42.0-52.0) % POC Hct 30 L (42-52) % MCHC 31.0 L (32.0-36.0) g/dL RDW Std Deviation 48.4 H (36.4-46.3) fL RDW Coeff of Katelyn 16.3 H (11.5-14.5) % Plt Count 406 H (130-400) K/uL MPV 9.0 L (9.4-12.4) fL Neut # (Auto) 9.18 H (1.40-6.50) K/uL Atlantic # (Auto) 1.87 H (0.11-0.59) K/uL APTT 31.6 H (21.0-31.0) Seconds Chloride 111 H (98-107) mmol/L Carbon Dioxide 18 L (21-32) mmol/L POC Total CO2 17 L (24-31) mmol/L POC BUN 26 H (7-18) mg/dl BUN 28 H (6-23) mg/dl Creatinine 1.92 H (0.6-1.4) mg/dl POC Creatinine 2.3 H (0.6-1.3) mg/dl Glucose 137 H (70-99(Fasting)) mg/dl POC Glucose (other) 141 H (70-99) mg/dl Magnesium 1.6 L (1.7-2.4) mg/dl AST 8 L (13-39) U/L Troponin I High Sens 21.2 H (0-20) pg/ml Urine Protein 4+ H (Negative) Urine Glucose (UA) Trace H (Negative) Urine Blood Trace H (Negative) Urine WBC (Auto) 5-10 H (0-5) /hpf U Epithel Cells (Auto) 20-30 H (0-5) /lpf 04/26/23 Range/Units 15:20 WBC (4.8-10.8) K/ul RBC (4.70-6.10) M/uL Hgb (14.0-18.0) g/dl POC Hgb (14.0-18.0) g/dl Hct (42.0-52.0) % POC Hct (42-52) % MCHC (32.0-36.0) g/dL RDW Std Deviation (36.4-46.3) fL RDW Coeff of Katelyn (11.5-14.5) % Plt Count (130-400) K/uL MPV (9.4-12.4) fL Neut # (Auto) (1.40-6.50) K/uL Atlantic # (Auto) (0.11-0.59) K/uL APTT (21.0-31.0) Seconds Chloride (98-107) mmol/L Carbon Dioxide (21-32) mmol/L POC Total CO2 (24-31) mmol/L POC BUN (7-18) mg/dl BUN (6-23) mg/dl Creatinine (0.6-1.4) mg/dl POC Creatinine (0.6-1.3) mg/dl Glucose (70-99(Fasting)) mg/dl POC Glucose (other) (70-99) mg/dl Magnesium (1.7-2.4) mg/dl AST (13-39) U/L Troponin I High Sens 20.6 H (0-20) pg/ml Urine Protein (Negative) Urine Glucose (UA) (Negative) Urine Blood (Negative) Urine WBC (Auto) (0-5) /hpf U Epithel Cells (Auto) (0-5) /lpf Diagnostic Findings CT OF THE HEAD WITHOUT CONTRAST CLINICAL HISTORY: neuro deficit, acute stroke suspected COMPARISON STUDY: No previous studies for comparison. TECHNIQUE: Helical axial images of the head were obtained without IV contrast. Automated exposure control was utilized for the study. A dose lowering technique was utilized adhering to the principles of ALARA. FINDINGS: No acute intracranial hemorrhage, midline shift or mass effect is present. White matter hypodensity suggests small vessel disease. Right occipital lobe encephalomalacia suggests an old right SWATCH CHECKER territory infarct. The ventricular system is unremarkable. The basal cisterns are patent. No extra- axial collections are present. There are no findings to suggest acute dural sinus thrombosis or acute territorial infarct. No significant calvarial abnormalities are present. Visualized portions of the sinuses and mastoid air cells are clear. IMPRESSION: 1. No acute intracranial findings. 2. Old right SWATCH CHECKER territory infarct. 3. No calvarial fractures. CT OF THE CERVICAL SPINE WITHOUT CONTRAST CLINICAL HISTORY: right arm pain/weakness COMPARISON STUDY: No previous studies for comparison. TECHNIQUE: Helical axial images of the cervical spine were obtained without IV contrast. Sagittal and coronal reconstructions were viewed. Automated exposure control was utilized for the study. A dose lowering technique was utilized adhering to the principles of ALARA. FINDINGS: There is reversal of the cervical lordosis. No cervical spine fracture is present. No osseous lesions are identified. There is severe disc space narrowing at this C5-C6. Otherwise, moderate multilevel disc space narrowing and osteophytosis within the cervical spine is present. There is moderate to severe multilevel facet arthrosis. Central canal and neural foramen are suboptimally assessed given CT technique. Ground glass opacity within the visualized portions of the right lung apex are noted. IMPRESSION: 1. No acute cervical spine fracture or subluxation. 2. Moderate to severe multilevel degenerative disc disease and facet arthrosis within the cervical spine. XR chest 1V portable CLINICAL HISTORY: neuro deficit, acute stroke suspected COMPARISON STUDY: Chest radiograph February 22, 2023. Chest CT February 23, 2023. FINDINGS: Lung volumes are normal. No pneumothorax or pleural effusion is present. The multifocal airspace opacities on prior chest radiograph and CT have partially resolved. Residual airspace opacities are present. Mild cardiomegaly is again noted. There is no evidence for pulmonary edema. IMPRESSION: Partial resolution of the multifocal airspace opacities on prior chest radiograph and chest CT. The findings favor resolving multifocal pneumonia. Follow-up PA and lateral chest radiographs in 2 months to ensure complete resolution are recommended. XR elbow RT min 3V routine CLINICAL HISTORY: pain, swelling COMPARISON: None FINDINGS: Electronic device projects over the right upper arm. This exam was compromised given difficulty positioning. Alignment of the right elbow appears anatomic. There is no evidence for a joint effusion. There is mild posterior upper arm and elbow soft tissue swelling. There is no fracture. IMPRESSION: 1. No fractures within the right elbow. No evidence for a joint effusion. Exam compromised given difficulty positioning. 2. Posterior right upper arm and elbow soft tissue swelling. XR forearm RT 2V CLINICAL HISTORY: pain COMPARISON: None FINDINGS: No fracture within the right radius or ulna is identified. There are no osseous lesions. Moderate vascular calcification is incidentally noted. Exam is mildly compromised given difficulty positioning. IMPRESSION: No fractures within the right radius or ulna. XR shoulder RT min 2V routine CLINICAL HISTORY: Right shoulder pain. COMPARISON: None. FINDINGS: Right lung airspace opacities have partially resolved since chest CT of February 23, 2023. Alignment of the right shoulder is anatomic. There is no acute fracture. There is no osseous lesion. Moderate joint space narrowing with osteophytosis of the acromioclavicular joint is noted. There is mild glenohumeral joint osteoarthritis. IMPRESSION: 1. No fractures within the right shoulder. 2. Moderate right AC joint osteoarthritis. Mild right glenohumeral joint osteoarthritis. Medications Administered ER Medications Given: Morphine 4mg IV Ondansetron 4mg IV ECG Rate (beats per minute): 85 Rhythm: normal sinus Findings: no acute ischemic change Comparison ECG Date: from (Feb,) Change: no significant change Code Status & VTE Plan Code Status DNR/DNI VTE Prophylaxis Plan VTE Prophylaxis will be ordered: No PG Care Time/CCT Total # of Minutes Spent Total Time Spent with Patient: Total time spent is greater than 50% in coordination of care (as documented) at patient's floor/unit and/or counseling patient: Coding Level of Care Code 06618 INT INP/OBS CARE MIN Diagnoses Traumatic brachial plexus lesion S14.3XXA Abnormal CXR R93.89 Diabetes E11.9 Hypomagnesemia E83.42
--- NOTE | 2023-04-26 16:06 | Emergency Department Note ---
ED Visit Note The patient was seen and examined with matter. I agree with the history, physical and findings. Please see the note for disposition and details. .
--- NOTE | 2023-04-26 17:11 | Magnetic Resonance Report ---
MRI OF THE BRAIN WITHOUT CONTRAST CLINICAL HISTORY: Right upper extremity weakness. COMPARISON STUDY: Head CT performed earlier today. TECHNIQUE: Utilizing a 1.5 Princess magnet and dedicated coil, multiplanar, multiecho imaging of the bra in was performed without IV contrast. FINDINGS: There are no foci of restricted diffusion to suggest acute infarct. No acute intracranial h emorrhage, midline shift or mass effect is present. Basal cisterns are patent. There are no extra-axi al collections. Flow-voids for the major intracranial vessels are present. Encephalomalacia within th e right occipital lobe is noted. Infarct within the superior left cerebellar hemisphere is present. W willa matter T2 hyperintense foci suggest moderate small vessel disease. No intracranial masses identi fied on this unenhanced study. There is mild cerebral atrophy. Calvarial signal is normal. Mucous ret ention cyst IMPRESSION: 1. No acute intracranial findings. 2. 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 ACT 112: Negative or not required by law. Electronically signed by: Chai Orozco M.D. 04/26/2023 5:09 PM
[2023-04-26] MEDS ORDERED: HYDROmorphone INJ 0.5 MG/0.5 ML SYR IV STA (17:31)
[2023-04-26] MEDS ORDERED: GLUCOSE 40% GEL 15 GM TUBE PO PRN (18:59)
[2023-04-26] MEDS ORDERED: GLUCAGON FOR INJ 1 MG VIAL SQ PRN (18:59)
[2023-04-26] MEDS ORDERED: DEXTROSE 50% 50 ML SYRINGE IV PRN (18:59)
[2023-04-26] MEDS ORDERED: GLUCOSE 10 TAB/TUBE PO PRN (18:59)
[2023-04-26] MEDS ORDERED: PHARMACY GLYCEMIC MGMT CONSULT PRN (18:59)
[2023-04-26] MEDS ORDERED: oxyCODONE HCL IR 5 MG TAB (IMMEDIATE RELEASE) PO PRN (18:59)
[2023-04-26] MEDS ORDERED: CARBOHYDRATES FOR HYPOGLYCEMIA PO PRN (18:59)
[2023-04-26] MEDS: ATORVASTATIN 40 MG TAB PO SCH (20:57)
[2023-04-26] MEDS: BRIMONIDINE TARTRATE 0.2% 5ML OPB SCH (20:58)
[2023-04-26] MEDS: cilostazoL 100 MG TAB PO SCH (20:59)
[2023-04-26] MEDS: CHOLECALCIFEROL 1,000 UNITS 25 MCG TAB PO SCH (20:59)
[2023-04-26] MEDS: MAGNESIUM OXIDE 400 MG TAB PO SCH (21:01)
[2023-04-26] MEDS: METOPROLOL TARTRATE 50 MG TAB PO SCH (21:01)
[2023-04-26] MEDS: INSULIN ASPART PER UNIT CHARGE SC SCH (21:28)
[2023-04-26] MEDS: LATANOPROST 0.005% OP SOLN 2.5 ML BTL OPB SCH (21:49)
[2023-04-26] MEDS: MAGNESIUM SULFATE / D5W 1 GM/100 ML BAG IV SCH ×2 (21:49→21:50)
[2023-04-26] MEDS: ACETAMINOPHEN 500 MG TAB PO SCH (21:49)
[2023-04-26] MEDS ORDERED: LANTUS PER UNIT CHARGE SQ SCH (22:00)
[2023-04-26] MEDS: oxyCODONE HCL IR 5 MG TAB (IMMEDIATE RELEASE) PO PRN (23:00)
[2023-04-27] MEDS: INSULIN ASPART PER UNIT CHARGE SC SCH ×6 (00:44→21:15)
[2023-04-27] MEDS: ACETAMINOPHEN 500 MG TAB PO SCH ×3 (06:01→20:08)
[2023-04-27] MEDS: PANTOprazole 40 MG TAB PO SCH (06:02)
[2023-04-27] MEDS: oxyCODONE HCL IR 5 MG TAB (IMMEDIATE RELEASE) PO PRN ×2 (06:03→15:57)
[2023-04-27 07:17] LABS: Basophils # (auto) 0.05 K/uL (0.00-0.20); Basophils % (auto) 0.3 %; Eosinophils # (auto) 0.11 K/uL (0.00-0.50); Eosinophils % (auto) 0.6 %; Hematocrit (blood only) 28.7 % (42.0-52.0); Hemoglobin 9.1 g/dl (14.0-18.0); Immature Granulocytes # (auto) 0.08 K/uL (0.01-0.20); Immature Granulocytes % (auto) 0.5 %; Lymphocytes # (auto) 0.94 K/uL (1.20-3.40); Lymphocytes % (auto) 5.5 %; Mean Corpuscular Hemoglobin 25.8 pg (25.0-34.0); Mean Corpuscular Hgb Conc 31.7 g/dL (32.0-36.0); Mean Corpuscular Volume 81.3 fL (80.0-100.0); Mean Platelet Volume 9.3 fL (9.4-12.4); Monocytes # (auto) 2.63 K/uL (0.11-0.59); Monocytes % (auto) 15.4 %; Neutrophils # (auto) 13.23 K/uL (1.40-6.50); Neutrophils % (auto) 77.7 %; Platelet Count 396 K/uL (130-400); RDW Coefficient of Variation 16.4 % (11.5-14.5); Red Blood Count 3.53 M/uL (4.70-6.10); White Blood Count 17.04 K/ul (4.8-10.8)
[2023-04-27 07:36] LABS: Anion Gap 8 (3-11); BUN Creatinine Ratio 14.5 (10-20); Blood Urea Nitrogen 29 mg/dl (6-23); Calcium 8.3 mg/dl (8.6-10.3); Carbon Dioxide 20 mmol/L (21-32); Chloride 111 mmol/L (98-107); Creatinine Clr Calc Pharmacy 34.7 ml/min; Est GFR (African American) 34.7 ml/min; Glucose 130 mg/dl (70-99(Fasting)); Potassium 3.9 mmol/L (3.5-5.1); Sodium 139 mmol/L (136-145)
[2023-04-27 07:45] LABS: Estimated Average Glucose 148 mg/dl; Hemoglobin A1C 6.8 % (4.5-5.6)
[2023-04-27 07:56] LABS: Magnesium 1.5 mg/dl (1.7-2.4)
--- NOTE | 2023-04-27 07:57 | Hospitalist Progress Note ---
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 ?reinjury of prior injury per discussion w/ orthopedics Also will obtain CT chest given persistence of pneumonia/recent hospitalization last month for such. Does have smoking hx age [age] however no weight loss/night sweats reported. Can consider in f/u (2) Pneumonia: Plan: Recent admission in February for RIGHT sided pneumonia, completed treatment w/ levaquin at dc, renally dosed. Hx COPD/smoking at basline but NOT on oxygen/no O2 needs at dc last admission (however no 2step report, consider prior to dc) Was on room air on admission however worsened leukocytosis, hypoxia overnight with repeat CXR w/ patchy b/l airspace opacities. R lung opacities stable/slightly increased, favor infectious process Obtained blood cultures given prior hx MRSA bacteremia, completed course Dapto Biofire obtained, NEGATIVE Placing on Zosyn/Vanco given +MRSA nasal screen Xopenex/atrovent nebs Pulmonary toilet. Mucinex, sputum if able to obtain Supplemental O2 to maintain sats CT chest for further eval (was to have outpatient tomorrow) (3) Hypoxia: Plan: as above, suspect 2nd to pneumonia, plan as outlined (4) Abnormal CXR: Plan: as above, CT chest for further eval/treatment as outlined (5) COPD (chronic obstructive pulmonary disease): Plan: noted hx, 2nd to smoking. NOT on oxygen at baseline but on albuterol BID, dulera 2 puff BID mag LOW -- initially refused replacement but was agreeable to IV magnesium infusion and will monitor Mucinex BID, pulmonary toilet, sputum if able to produce Supplemental O2 as needed, titrate to maintain sats CT chest w/o as above for further eval PNA/opacity. Can consider w/ contrast outpt given smoking history for screening (?lymphopenic on labs but only since this summer) Iron <10, consider venofer IV (6) MRSA bacteremia: Plan: hx of such from back abscess/boil (no issues on exam), blood cultures added given history/leukocytosis, empiric abx as above and coverage for pneumonia (7) Aortic stenosis: Plan: noted hx of such. no syncope/fall reported. S1/S2 on exam, grade 3-4 murmur can check BNP w/ AM labs/consider ECHO given hx bacteremia -- no prior vegetation visualized HTN Stable Maintained on metoprolol 50mg BID, amlodipine 5mg daily (8) DVT of lower extremity, bilateral: Plan: Hx DVT, resumed eliquis 5mg BID per discussion w/ surgery no need to hold (9) Diabetes: Plan: HbA1C 8.0 in January, repeat down to 6.8 On 94u TDD insulin outpatient, placed on lantus 30u BID on admission/sliding scale Pharmacy consulted for glycemic assistance, appreciated BSGs acceptable/stable (10) Hypomagnesemia: Plan: Replace and repeat level in AM 2gm IV ordered --> patient REFUSED replacement, reporting gives him heartburn Monitor in AM (11) Chronic kidney disease, stage III (moderate): Plan: CKD 3-4, GFR currently 30 but appears consistently recently in the 20s, technically CKD IV Renal dose meds/avoid nephrotoxins. Appears prior on ETELVINA/ARB therapy, since discontinued. Suspect 2nd to CKD IV/progressive renal function decline Iron studies obtained, fecal occult for completeness BMP in AM Also hx GERD - continue PPI daily. Some reflux/taking tums. Placed on pepcid IV BID for now, avoiding increased PPI given renal function. Plan VTE Prophylaxis - Eliquis Admission and Anticipated Discharge Date Admission Date: April 26, 2023 Supervising Physician Co-Signing Physician Notes The patient was not seen by me. The chart was reviewed. Case discussed with LIS Scales. Agree with assessment and plan Subjective Patient evaluated this morning, reports feeling blah/ill/fatigued. Pain to his shoulder w/ movement but stable at rest. + shortness of breath with exertion, prior admit for pneumonia and concerns for such at present time. No sputum production but + cough. Was dc on PO Levaquin, renally dosed. Reports hx COPD -- smoked from age 8 to about 10 years ago. Was agreeable to magnesium. Notable history for murmur per patient, dx [address] Vasquez Neurologist father Dr Vasquez. Reports this has been stable. Having some reflux and reporting taking some tums at home. No chest pain/L arm pain/radiation reported. 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 Also on pletal for venous stripping. No drainage reported from his back. Reports was going to have MRI of his lungs this upcoming week/month for finding in the right base. Denies night sweats, but has had weight loss over past month or two -- reports from being in the hospital/not feeling well. Abdomen obese/distended but denies pain on exam. Arm in sling, not able to move due to discomfort. Pain in fingers appearing hyperalgesic. Ortho saw this morning, possible consideration for CT cervical spine for remote injury lifting several months ago. Discussed blood cultures/empiric antibiotics in the meantime. Possible upgrade to telemetry pending further labs/testing or if any worsening. Questions/concerns addressed at this time. Physical Exam Constitutional: 83 yo male, chronically ill appearing, r esting in bed, NAD ENMT: pupils equal in size/reactive to light, trachea midline, mmm Respiratory: diminished in the bases, RML/R sided crackles, faint expiratory wheeze posteriorly, no tachypnea, +cough (non productive), on 2L NC Cardiovascular: RRR, grade 4 systolic murmur, S1/S2, no pitting edema but scarring to legs from prior ulcer/treatments reported, calves nontender but redened appears to distal legs pulses diminished but present Gastrointestinal (Abdomen): +BS, obese, slight distension but soft/N T Musculoskeletal: significant pain with any movement of right arm. Unable to move shoulder or elbow. No finger abduction. Minimal finger flexion and thumb movements with weakness/pain and decreased sensation dorsal aspect of hand No left upper extremity of bilateral lower extremity motor deficits. Skin: no evidence for cellulitis, chronic venous stasis/reddened appearance reported to legs skin dry Neurologic: awake; not confused Psychiatric: A+Ox3, euthymic affect Results & Data Results & Data Vital Signs (Past 12 Hours) Vital Signs Temp Pulse Pulse Resp BP Pulse Ox Pulse Ox 04/27/23 07:51 36.9 C 94 H 20 116/68 97 04/26/23 22:46 04/26/23 22:46 04/26/23 22:46 36.7 C 93 H 18 156/83 H 97 04/26/23 22:46 97 04/26/23 22:46 36.7 C 93 H 18 156/83 H 97 O2 Del Method O2 Del Method O2 Flow Rate O2 Flow Rate 04/27/23 07:51 Nasal Cannula 2 04/26/23 22:46 Nasal Cannula 2 04/26/23 22:46 Nasal Cannula 2 04/26/23 22:46 Nasal Cannula 2 04/26/23 22:46 Nasal Cannula 2 04/26/23 22:46 Nasal Cannula 2 Laboratory Results 04/27/23 04/27/23 04/27/23 Range/Units 07:54 06:43 06:12 WBC 17.04 H (4.8-10.8) K/ul RBC 3.53 L (4.70-6.10) M/uL Hgb 9.1 L (14.0-18.0) g/dl POC Hgb (14.0-18.0) g/dl Hct 28.7 L (42.0-52.0) % POC Hct (42-52) % MCV 81.3 (80.0-100.0) fL MCH 25.8 (25.0-34.0) pg MCHC 31.7 L (32.0-36.0) g/dL RDW Std Deviation 49.0 H (36.4-46.3) fL RDW Coeff of Katelyn 16.4 H (11.5-14.5) % Plt Count 396 (130-400) K/uL MPV 9.3 L (9.4-12.4) fL Immature Gran % (Auto) 0.5 % Neut % (Auto) 77.7 % Lymph % (Auto) 5.5 % Bell % (Auto) 15.4 % Eos % (Auto) 0.6 % Baso % (Auto) 0.3 % Neut # (Auto) 13.23 H (1.40-6.50) K/uL Lymph # (Auto) 0.94 L (1.20-3.40) K/uL Bell # (Auto) 2.63 H (0.11-0.59) K/uL Eos # (Auto) 0.11 (0.00-0.50) K/uL Baso # (Auto) 0.05 (0.00-0.20) K/uL Immature Gran # (Auto) 0.08 (0.01-0.20) K/uL PT (9.0-12.0) Seconds INR (0.9-1.1) APTT (21.0-31.0) Seconds PTT Ratio POC Sodium (135-144) mmol/L Sodium 139 (136-145) mmol/L POC Potassium (3.3-5.0) mmol/L Potassium 3.9 (3.5-5.1) mmol/L POC Chloride (101-112) mmol/L Chloride 111 H (98-107) mmol/L Carbon Dioxide 20 L (21-32) mmol/L POC Total CO2 (24-31) mmol/L Anion Gap 8 (3-11) POC Anion Gap (16-25) mmol/L POC BUN (7-18) mg/dl BUN 29 H (6-23) mg/dl Creatinine 2.00 H (0.6-1.4) mg/dl POC Creatinine (0.6-1.3) mg/dl Est Cr Clr Drug Dosing 34.7 Est GFR ( Amer) 34.7 ml/min Est GFR (Non-Af Amer) 30.0 ml/min BUN/Creatinine Ratio 14.5 (10-20) Glucose 130 H (70-99(Fasting)) mg/dl POC Glucose 127 H (70-99) mg/dl POC Glucose (other) (70-99) mg/dl Estimat Average Glucose 148 mg/dl Hemoglobin A1c 6.8 H (4.5-5.6) % Calcium 8.3 L (8.6-10.3) mg/dl POC Ioniz Calcium Royce (1.12-1.32) mmol/l Magnesium 1.5 L (1.7-2.4) mg/dl Total Bilirubin (0.2-1.0) mg/dl AST (13-39) U/L ALT (7-52) U/L Alkaline Phosphatase (34-104) U/L Troponin I High Sens (0-20) pg/ml Total Protein (6.0-8.3) gm/dl Albumin (3.4-5.0) gm/dl Globulin (2.5-4.0) gm/dl Albumin/Globulin Ratio (0.9-2) Procalcitonin (0-0.5) ng/ml Urine Color Urine Appearance (Clear) Urine pH (4.5-7.5) Ur Specific [place] (1.000-1.030) Urine Protein (Negative) Urine Glucose (UA) (Negative) Urine Ketones (Negative) Urine Blood (Negative) Urine Nitrite (Negative) Urine Bilirubin (Negative) Urine Urobilinogen (Negative) Ur Leukocyte Esterase (Negative) Urine WBC (Auto) (0-5) /hpf Urine RBC (Auto) (0-4) /hpf U Hyaline Cast (Auto) (0-5) /lpf U Epithel Cells (Auto) (0-5) /lpf Urine Bacteria (Auto) (Negative) Nasal Screen MRSA (PCR) Positive A (Negative) Blood Type Antibody Screen 04/27/23 04/27/23 04/26/23 Range/Units 04:41 00:03 22:43 WBC (4.8-10.8) K/ul RBC (4.70-6.10) M/uL Hgb (14.0-18.0) g/dl POC Hgb (14.0-18.0) g/dl Hct (42.0-52.0) % POC Hct (42-52) % MCV (80.0-100.0) fL MCH (25.0-34.0) pg MCHC (32.0-36.0) g/dL RDW Std Deviation (36.4-46.3) fL RDW Coeff of Katelyn (11.5-14.5) % Plt Count (130-400) K/uL MPV (9.4-12.4) fL Immature Gran % (Auto) % Neut % (Auto) % Lymph % (Auto) % Bell % (Auto) % Eos % (Auto) % Baso % (Auto) % Neut # (Auto) (1.40-6.50) K/uL Lymph # (Auto) (1.20-3.40) K/uL Bell # (Auto) (0.11-0.59) K/uL Eos # (Auto) (0.00-0.50) K/uL Baso # (Auto) (0.00-0.20) K/uL Immature Gran # (Auto) (0.01-0.20) K/uL PT (9.0-12.0) Seconds INR (0.9-1.1) APTT (21.0-31.0) Seconds PTT Ratio POC Sodium (135-144) mmol/L Sodium (136-145) mmol/L POC Potassium (3.3-5.0) mmol/L Potassium (3.5-5.1) mmol/L POC Chloride (101-112) mmol/L Chloride (98-107) mmol/L Carbon Dioxide (21-32) mmol/L POC Total CO2 (24-31) mmol/L Anion Gap (3-11) POC Anion Gap (16-25) mmol/L POC BUN (7-18) mg/dl BUN (6-23) mg/dl Creatinine (0.6-1.4) mg/dl POC Creatinine (0.6-1.3) mg/dl Est Cr Clr Drug Dosing Est GFR ( Amer) ml/min Est GFR (Non-Af Amer) ml/min BUN/Creatinine Ratio (10-20) Glucose (70-99(Fasting)) mg/dl POC Glucose 126 H 130 H 139 H (70-99) mg/dl POC Glucose (other) (70-99) mg/dl Estimat Average Glucose mg/dl Hemoglobin A1c (4.5-5.6) % Calcium (8.6-10.3) mg/dl POC Ioniz Calcium Royce (1.12-1.32) mmol/l Magnesium (1.7-2.4) mg/dl Total Bilirubin (0.2-1.0) mg/dl AST (13-39) U/L ALT (7-52) U/L Alkaline Phosphatase (34-104) U/L Troponin I High Sens (0-20) pg/ml Total Protein (6.0-8.3) gm/dl Albumin (3.4-5.0) gm/dl Globulin (2.5-4.0) gm/dl Albumin/Globulin Ratio (0.9-2) Procalcitonin (0-0.5) ng/ml Urine Color Urine Appearance (Clear) Urine pH (4.5-7.5) Ur Specific [place] (1.000-1.030) Urine Protein (Negative) Urine Glucose (UA) (Negative) Urine Ketones (Negative) Urine Blood (Negative) Urine Nitrite (Negative) Urine Bilirubin (Negative) Urine Urobilinogen (Negative) Ur Leukocyte Esterase (Negative) Urine WBC (Auto) (0-5) /hpf Urine RBC (Auto) (0-4) /hpf U Hyaline Cast (Auto) (0-5) /lpf U Epithel Cells (Auto) (0-5) /lpf Urine Bacteria (Auto) (Negative) Nasal Screen MRSA (PCR) (Negative) Blood Type Antibody Screen 04/26/23 04/26/23 04/26/23 Range/Units 21:22 17:10 15:20 WBC (4.8-10.8) K/ul RBC (4.70-6.10) M/uL Hgb (14.0-18.0) g/dl POC Hgb (14.0-18.0) g/dl Hct (42.0-52.0) % POC Hct (42-52) % MCV (80.0-100.0) fL MCH (25.0-34.0) pg MCHC (32.0-36.0) g/dL RDW Std Deviation (36.4-46.3) fL RDW Coeff of Katelyn (11.5-14.5) % Plt Count (130-400) K/uL MPV (9.4-12.4) fL Immature Gran % (Auto) % Neut % (Auto) % Lymph % (Auto) % Bell % (Auto) % Eos % (Auto) % Baso % (Auto) % Neut # (Auto) (1.40-6.50) K/uL Lymph # (Auto) (1.20-3.40) K/uL Bell # (Auto) (0.11-0.59) K/uL Eos # (Auto) (0.00-0.50) K/uL Baso # (Auto) (0.00-0.20) K/uL Immature Gran # (Auto) (0.01-0.20) K/uL PT (9.0-12.0) Seconds INR (0.9-1.1) APTT (21.0-31.0) Seconds PTT Ratio POC Sodium (135-144) mmol/L Sodium (136-145) mmol/L POC Potassium (3.3-5.0) mmol/L Potassium (3.5-5.1) mmol/L POC Chloride (101-112) mmol/L Chloride (98-107) mmol/L Carbon Dioxide (21-32) mmol/L POC Total CO2 (24-31) mmol/L Anion Gap (3-11) POC Anion Gap (16-25) mmol/L POC BUN (7-18) mg/dl BUN (6-23) mg/dl Creatinine (0.6-1.4) mg/dl POC Creatinine (0.6-1.3) mg/dl Est Cr Clr Drug Dosing Est GFR ( Amer) ml/min Est GFR (Non-Af Amer) ml/min BUN/Creatinine Ratio (10-20) Glucose (70-99(Fasting)) mg/dl POC Glucose 140 H (70-99) mg/dl POC Glucose (other) (70-99) mg/dl Estimat Average Glucose mg/dl Hemoglobin A1c (4.5-5.6) % Calcium (8.6-10.3) mg/dl POC Ioniz Calcium Royce (1.12-1.32) mmol/l Magnesium (1.7-2.4) mg/dl Total Bilirubin (0.2-1.0) mg/dl AST (13-39) U/L ALT (7-52) U/L Alkaline Phosphatase (34-104) U/L Troponin I High Sens 20.6 H (0-20) pg/ml Total Protein (6.0-8.3) gm/dl Albumin (3.4-5.0) gm/dl Globulin (2.5-4.0) gm/dl Albumin/Globulin Ratio (0.9-2) Procalcitonin 0.38 (0-0.5) ng/ml Urine Color Urine Appearance (Clear) Urine pH (4.5-7.5) Ur Specific [place] (1.000-1.030) Urine Protein (Negative) Urine Glucose (UA) (Negative) Urine Ketones (Negative) Urine Blood (Negative) Urine Nitrite (Negative) Urine Bilirubin (Negative) Urine Urobilinogen (Negative) Ur Leukocyte Esterase (Negative) Urine WBC (Auto) (0-5) /hpf Urine RBC (Auto) (0-4) /hpf U Hyaline Cast (Auto) (0-5) /lpf U Epithel Cells (Auto) (0-5) /lpf Urine Bacteria (Auto) (Negative) Nasal Screen MRSA (PCR) (Negative) Blood Type Antibody Screen 04/26/23 04/26/23 04/26/23 Range/Units 14:23 13:45 13:44 WBC (4.8-10.8) K/ul RBC (4.70-6.10) M/uL Hgb (14.0-18.0) g/dl POC Hgb 10.2 L (14.0-18.0) g/dl Hct (42.0-52.0) % POC Hct 30 L (42-52) % MCV (80.0-100.0) fL MCH (25.0-34.0) pg MCHC (32.0-36.0) g/dL RDW Std Deviation (36.4-46.3) fL RDW Coeff of Katelyn (11.5-14.5) % Plt Count (130-400) K/uL MPV (9.4-12.4) fL Immature Gran % (Auto) % Neut % (Auto) % Lymph % (Auto) % Bell % (Auto) % Eos % (Auto) % Baso % (Auto) % Neut # (Auto) (1.40-6.50) K/uL Lymph # (Auto) (1.20-3.40) K/uL Bell # (Auto) (0.11-0.59) K/uL Eos # (Auto) (0.00-0.50) K/uL Baso # (Auto) (0.00-0.20) K/uL Immature Gran # (Auto) (0.01-0.20) K/uL PT (9.0-12.0) Seconds INR (0.9-1.1) APTT (21.0-31.0) Seconds PTT Ratio POC Sodium 140 (135-144) mmol/L Sodium (136-145) mmol/L POC Potassium 3.7 (3.3-5.0) mmol/L Potassium (3.5-5.1) mmol/L POC Chloride 112 (101-112) mmol/L Chloride (98-107) mmol/L Carbon Dioxide (21-32) mmol/L POC Total CO2 17 L (24-31) mmol/L Anion Gap (3-11) POC Anion Gap 16.0 (16-25) mmol/L POC BUN 26 H (7-18) mg/dl BUN (6-23) mg/dl Creatinine (0.6-1.4) mg/dl POC Creatinine 2.3 H (0.6-1.3) mg/dl Est Cr Clr Drug Dosing Est GFR ( Amer) ml/min Est GFR (Non-Af Amer) ml/min BUN/Creatinine Ratio (10-20) Glucose (70-99(Fasting)) mg/dl POC Glucose (70-99) mg/dl POC Glucose (other) 141 H (70-99) mg/dl Estimat Average Glucose mg/dl Hemoglobin A1c (4.5-5.6) % Calcium (8.6-10.3) mg/dl POC Ioniz Calcium Royce 1.23 (1.12-1.32) mmol/l Magnesium (1.7-2.4) mg/dl Total Bilirubin (0.2-1.0) mg/dl AST (13-39) U/L ALT (7-52) U/L Alkaline Phosphatase (34-104) U/L Troponin I High Sens (0-20) pg/ml Total Protein (6.0-8.3) gm/dl Albumin (3.4-5.0) gm/dl Globulin (2.5-4.0) gm/dl Albumin/Globulin Ratio (0.9-2) Procalcitonin (0-0.5) ng/ml Urine Color Yellow Urine Appearance Clear (Clear) Urine pH 5.5 (4.5-7.5) Ur Specific [place] 1.021 (1.000-1.030) Urine Protein 4+ H (Negative) Urine Glucose (UA) Trace H (Negative) Urine Ketones Negative (Negative) Urine Blood Trace H (Negative) Urine Nitrite Negative (Negative) Urine Bilirubin Negative (Negative) Urine Urobilinogen Negative (Negative) Ur Leukocyte Esterase Negative (Negative) Urine WBC (Auto) 5-10 H (0-5) /hpf Urine RBC (Auto) 0-4 (0-4) /hpf U Hyaline Cast (Auto) 1-5 (0-5) /lpf U Epithel Cells (Auto) 20-30 H (0-5) /lpf Urine Bacteria (Auto) Negative (Negative) Nasal Screen MRSA (PCR) (Negative) Blood Type B Positive Antibody Screen NEGATIVE 04/26/23 Range/Units 13:30 WBC 13.00 H (4.8-10.8) K/ul RBC 4.03 L (4.70-6.10) M/uL Hgb 10.2 L (14.0-18.0) g/dl POC Hgb (14.0-18.0) g/dl Hct 32.9 L (42.0-52.0) % POC Hct (42-52) % MCV 81.6 (80.0-100.0) fL MCH 25.3 (25.0-34.0) pg MCHC 31.0 L (32.0-36.0) g/dL RDW Std Deviation 48.4 H (36.4-46.3) fL RDW Coeff of Katelyn 16.3 H (11.5-14.5) % Plt Count 406 H (130-400) K/uL MPV 9.0 L (9.4-12.4) fL Immature Gran % (Auto) 0.5 % Neut % (Auto) 70.6 % Lymph % (Auto) 11.7 % Bell % (Auto) 14.4 % Eos % (Auto) 2.5 % Baso % (Auto) 0.3 % Neut # (Auto) 9.18 H (1.40-6.50) K/uL Lymph # (Auto) 1.52 (1.20-3.40) K/uL Bell # (Auto) 1.87 H (0.11-0.59) K/uL Eos # (Auto) 0.32 (0.00-0.50) K/uL Baso # (Auto) 0.04 (0.00-0.20) K/uL Immature Gran # (Auto) 0.07 (0.01-0.20) K/uL PT 11.1 (9.0-12.0) Seconds INR 1.0 (0.9-1.1) APTT 31.6 H (21.0-31.0) Seconds PTT Ratio 1.1 POC Sodium (135-144) mmol/L Sodium 138 (136-145) mmol/L POC Potassium (3.3-5.0) mmol/L Potassium 3.7 (3.5-5.1) mmol/L POC Chloride (101-112) mmol/L Chloride 111 H (98-107) mmol/L Carbon Dioxide 18 L (21-32) mmol/L POC Total CO2 (24-31) mmol/L Anion Gap 9 (3-11) POC Anion Gap (16-25) mmol/L POC BUN (7-18) mg/dl BUN 28 H (6-23) mg/dl Creatinine 1.92 H (0.6-1.4) mg/dl POC Creatinine (0.6-1.3) mg/dl Est Cr Clr Drug Dosing Not Reportable Est GFR ( Amer) 36.5 ml/min Est GFR (Non-Af Amer) 31.5 ml/min BUN/Creatinine Ratio 14.6 (10-20) Glucose 137 H (70-99(Fasting)) mg/dl POC Glucose (70-99) mg/dl POC Glucose (other) (70-99) mg/dl Estimat Average Glucose mg/dl Hemoglobin A1c (4.5-5.6) % Calcium 8.8 (8.6-10.3) mg/dl POC Ioniz Calcium Royce (1.12-1.32) mmol/l Magnesium 1.6 L (1.7-2.4) mg/dl Total Bilirubin 0.7 (0.2-1.0) mg/dl AST 8 L (13-39) U/L ALT 7 (7-52) U/L Alkaline Phosphatase 89 (34-104) U/L Troponin I High Sens 21.2 H (0-20) pg/ml Total Protein 6.9 (6.0-8.3) gm/dl Albumin 3.4 (3.4-5.0) gm/dl Globulin 3.5 (2.5-4.0) gm/dl Albumin/Globulin Ratio 1.0 (0.9-2) Procalcitonin (0-0.5) ng/ml Urine Color Urine Appearance (Clear) Urine pH (4.5-7.5) Ur Specific [place] (1.000-1.030) Urine Protein (Negative) Urine Glucose (UA) (Negative) Urine Ketones (Negative) Urine Blood (Negative) Urine Nitrite (Negative) Urine Bilirubin (Negative) Urine Urobilinogen (Negative) Ur Leukocyte Esterase (Negative) Urine WBC (Auto) (0-5) /hpf Urine RBC (Auto) (0-4) /hpf U Hyaline Cast (Auto) (0-5) /lpf U Epithel Cells (Auto) (0-5) /lpf Urine Bacteria (Auto) (Negative) Nasal Screen MRSA (PCR) (Negative) Blood Type Antibody Screen Diagnostic Findings Chest X-Ray 04/26/23 13:11 XR chest 1V portable CLINICAL HISTORY: neuro deficit, acute stroke suspected COMPARISON STUDY: Chest radiograph February 22, 2023. Chest CT February 23, 2023. FINDINGS: Lung volumes are normal. No pneumothorax or pleural effusion is present. The multifocal airspace opacities on prior chest radiograph and CT have partially resolved. Residual airspace opacities are present. Mild cardiomegaly is again noted. There is no evidence for pulmonary edema. IMPRESSION: Partial resolution of the multifocal airspace opacities on prior chest radiograph and chest CT. The findings favor resolving multifocal pneumonia. Follow-up PA and lateral chest radiographs in 2 months to ensure complete resolution are recommended. ACT 112: Negative or not required by law. Electronically signed by: Chai Orozco M.D. 04/26/2023 2:[address] 04/26/23 13:11 CT OF THE HEAD WITHOUT CONTRAST CLINICAL HISTORY: neuro deficit, acute stroke suspected COMPARISON STUDY: No previous studies for comparison. TECHNIQUE: Helical axial images of the head were obtained without IV contrast. Automated exposure control was utilized for the study. A dose lowering technique was utilized adhering to the principles of ALARA. FINDINGS: No acute intracranial hemorrhage, midline shift or mass effect is p resent. White matter hypodensity suggests small vessel disease. Right occipital lobe encephalomalacia suggests an old right [employer] territory infarct. The ventricular system is unremarkable. The basal cisterns are patent. No extra- axial collections are present. There are no findings to suggest acute dural sinus thrombosis or acute territorial infarct. No significant calvarial abnormalities are present. Visualized portions of the sinuses and mastoid air cells are clear. IMPRESSION: 1. No acute intracranial findings. 2. 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 3. No calvarial fractures. ACT 112: Negative or not required by law. Electronically signed by: Chai Orozco M.D. 04/26/2023 2:06 PM Elbow X-Ray 04/26/23 13:16 XR elbow RT min 3V routine CLINICAL HISTORY: pain, swelling COMPARISON: None FINDINGS: Electronic device projects over the right upper arm. This exam was compromised given difficulty positioning. Alignment of the right elbow appears anatomic. There is no evidence for a joint effusion. There is mild posterior upper arm and elbow soft tissue swelling. There is no fracture. IMPRESSION: 1. No fractures within the right elbow. No evidence for a joint effusion. Exam compromised given difficulty positioning. 2. Posterior right upper arm and elbow soft tissue swelling. ACT 112: Negative or not required by law. Electronically signed by: Chai Orozco M.D. 04/26/2023 2:25 PM Forearm X-Ray 04/26/23 13:16 XR forearm RT 2V CLINICAL HISTORY: pain COMPARISON: None FINDINGS: No fracture within the right radius or ulna is identified. There are no osseous lesions. Moderate vascular calcification is incidentally noted. Exam is mildly compromised given difficulty positioning. IMPRESSION: No fractures within the right radius or ulna. ACT 112: Negative or not required by law. Electronically signed by: Chai Orozco M.D. 04/26/2023 2:26 PM Shoulder X-Ray 04/26/23 13:16 XR shoulder RT min 2V routine CLINICAL HISTORY: Right shoulder pain. COMPARISON: None. FINDINGS: Right lung airspace opacities have partially resolved since chest CT of February 23, 2023. Alignment of the right shoulder is anatomic. There is no acute fracture. There is no osseous lesion. Moderate joint space narrowing with osteophytosis of the acromioclavicular joint is noted. There is mild glenohumeral joint osteoarthritis. IMPRESSION: 1. No fractures within the right shoulder. 2. Moderate right AC joint osteoarthritis. Mild right glenohumeral joint osteoarthritis. ACT 112: Negative or not required by law. Electronically signed by: Chai Orozco M.D. 04/26/2023 2:[address] 04/26/23 13:17 CT OF THE CERVICAL SPINE WITHOUT CONTRAST CLINICAL HISTORY: right arm pain/weakness COMPARISON STUDY: No previous studies for comparison. TECHNIQUE: Helical axial images of the cervical spine were obtained without IV contrast. Sagittal and coronal reconstructions were viewed. Automated exposure control was utilized for the study. A dose lowering technique was utilized adhering to the principles of ALARA. FINDINGS: There is reversal of the cervical lordosis. No cervical spine fracture is present. No osseous lesions are identified. There is severe disc space na rrowing at this C5-C6. Otherwise, moderate multilevel disc space narrowing and osteophytosis within the cervical spine is present. There is moderate to severe multilevel facet arthrosis. Central canal and neural foramen are suboptimally assessed given CT technique. Ground glass opacity within the visualized portions of the right lung apex are noted. IMPRESSION: 1. No acute cervical spine fracture or subluxation. 2. Moderate to severe multilevel degenerative disc disease and facet arthrosis within the cervical spine. ACT 112: Negative or not required by law. Electronically signed by: Chai Orozco M.D. 04/26/2023 2:09 PM Brain MRI 04/26/23 15:52 MRI OF THE BRAIN WITHOUT CONTRAST CLINICAL HISTORY: Right upper extremity weakness. COMPARISON STUDY: Head CT performed earlier today. TECHNIQUE: Utilizing a 1.5 Princess magnet and dedicated coil, multiplanar, multiecho imaging of the brain was performed without IV contrast. FINDINGS: There are no foci of restricted diffusion to suggest acute infarct. No acute intracranial hemorrhage, midline shift or mass effect is present. Basal cisterns are patent. There are no extra-axial collections. Flow-voids for the major intracranial vessels are present. Encephalomalacia within the right occipital lobe is noted. Infarct within the superior left cerebellar hemisphere is present. White matter T2 hyperintense foci suggest moderate small vessel disease. No intracranial masses identified on this unenhanced study. There is mild cerebral atrophy. Calvarial signal is normal. Mucous retention cyst IMPRESSION: 1. No acute intracranial findings. 2. 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 ACT 112: Negative or not required by law. Electronically signed by: Chai Orozco M.D. 04/26/2023 5:09 PM Chest X-Ray 04/27/23 07:33 XR chest 1V portable CLINICAL HISTORY: hypoxia COMPARISON STUDY: Chest CT February 23, 2023. Chest radiograph April 26, 2023. FINDINGS: There is no pneumothorax or pleural effusion. There is mild elevation of the right hemidiaphragm. Multifocal right lung airspace opacities are stable to slightly increased. A few patchy left lung opacities are noted. Cardiomegaly is again noted. No evidence for pulmonary edema. IMPRESSION: Patchy bilateral airspace opacities, as described below. The right lung opacities are stable to slightly increased. The findings favor an infectious process. Continued radiographic follow-up to ensure resolution is recommended. ACT 112: Negative or not required by law. Electronically signed by: Chai Orozco M.D. 04/27/2023 9:11 AM Shoulder MRI 04/27/23 08:33 MRI OF THE RIGHT SHOULDER WITHOUT CONTRAST CLINICAL HISTORY: weakness, pain, ?labrum tear vs other COMPARISON STUDY: Right shoulder radiographs April 26, 2023. TECHNIQUE: Utilizing a 1.5 Princess magnet and dedicated coil, multiplanar, multiecho imaging of the right shoulder was performed without intravenous or intraarticular contrast. FINDINGS: This study is moderately compromised by motion artifact. Right lung airspace opacities are incidentally noted. These were shown on chest radiograph of April 27, 2023. No fractures are present. There is no suspicious marrow replacement. No significant marrow edema is present. There is increased fluid within the right acromioclavicular joint. There is moderate adjacent soft tissue edema. Joint space narrowing and osteophytosis of the right acromioclavicular joint is present. There is also moderate cartilage thinning within the glenohumeral joint. There is a full-thickness tear within the proximal long head of the biceps tendon. In addition, there is a large full-thickness tear of supraspinatus with 2 cm of tendon retraction and moderate muscular atrophy. Infraspinatus tendinopathy is noted with high-grade partial-thickness tear of distal infraspinatus. There is a moderate grade full thickness interstitial tear within subscapularis. Teres minor is intact. No well-defined labral tear is identified. IMPRESSION: 1. Exam moderately compromised by motion artifact. Increased fluid within the right acromioclavicular joint with moderate adjacent soft tissue edema. These findings may reflect an acute degenerative process. However, a traumatic etiology or infectious process with septic arthritis cannot be completely excluded. No marrow edema to suggest associated osteomyelitis. No associated fluid collections. If suspicion for an infectious process, a short-term follow- up MRI of the right shoulder could be obtained to evaluate for interval change. 2. Large full-thickness tear of supraspinatus with tendon retraction or muscular atrophy. High-grade partial-thickness tear of infraspinatus. Moderate grade subscapularis interstitial tear. 3. Moderate degenerative changes within the right acromioclavicular and glenohumeral joints. 4. Full-thickness tear of the proximal long head of the biceps tendon. 5. Right lung airspace opacities better depicted on chest radiograph. The findings favor multifocal pneumonia. ACT 112: Negative or not required by law. Electronically signed by: Chai Orozco M.D. 04/27/2023 10:28 AM PG Care Time/CCT Total # of Minutes Spent Total Time Spent with Patient: Total time spent is greater than 50% in coordination of care (as documented) at patient's floor/unit and/or counseling patient: Coding Level of Care Code 59060 SUB INP/OBS CARE 3/50MIN Diagnoses Traumatic brachial plexus lesion S14.3XXA Pneumonia J18.9 Hypoxia R09.02 Abnormal CXR R93.89 COPD (chronic obstructive pulmonary disease) J44.9 MRSA bacteremia R78.81; B95.62 Aortic stenosis I35.0 DVT of lower extremity, bilateral I82.403 Diabetes E11.9 Hypomagnesemia E83.42 Chronic kidney disease, stage III (moderate) N18.30
[2023-04-27 08:34] LABS: Iron < 10 mcg/dl (35-175); Unsaturated Iron Binding Cap 210 mcg/dl (155-355)
[2023-04-27] MEDS: CYANOCOBALAMIN (B-12) 500 MCG TABLET PO SCH (08:36)
[2023-04-27] MEDS: METOPROLOL TARTRATE 50 MG TAB PO SCH ×2 (08:36→20:08)
[2023-04-27] MEDS: cilostazoL 100 MG TAB PO SCH ×2 (08:36→20:08)
[2023-04-27] MEDS: CHOLECALCIFEROL 1,000 UNITS 25 MCG TAB PO SCH ×2 (08:36→20:08)
[2023-04-27] MEDS: amLODIPine BESYLATE 5 MG TAB PO SCH (08:36)
[2023-04-27] MEDS: BRIMONIDINE TARTRATE 0.2% 5ML OPB SCH ×2 (08:36→20:08)
[2023-04-27] MEDS: FLUTICASONE/VILANTEROL 100/25MCG 14 PUFFS/INHALER INH SCH ×2 (08:37→08:49)
[2023-04-27] MEDS: MAGNESIUM SULFATE / D5W 1 GM/100 ML BAG IV SCH ×4 (08:38→14:06)
[2023-04-27 08:48] LABS: Ferritin 64.8 ng/ml (8-388)
[2023-04-27] MEDS ORDERED: NON-FORMULARY MEDICATION (Alogliptin 12.5 mg Tablet) PO SCH (09:00)
--- NOTE | 2023-04-27 09:12 | XRay Report ---
XR chest 1V portable CLINICAL HISTORY: hypoxia COMPARISON STUDY: Chest CT February 23, 2023. Chest radiograph April 26, 2023. FINDINGS: There is no pneumothorax or pleural effusion. There is mild elevation of the right hemidiap hragm. Multifocal right lung airspace opacities are stable to slightly increased. A few patchy left l zainab opacities are noted. Cardiomegaly is again noted. No evidence for pulmonary edema. IMPRESSION: Patchy bilateral airspace opacities, as described below. The right lung opacities are st able to slightly increased. The findings favor an infectious process. Continued radiographic follow-u p to ensure resolution is recommended. ACT 112: Negative or not required by law. Electronically signed by: Chai Orozco M.D. 04/27/2023 9:11 AM
[2023-04-27 10:22] LABS: Adenovirus PCR Not Detected (NotDetected); Bordetella parapertussis PCR Not Detected (NotDetected); Bordetella pertussis PCR Not Detected (NotDetected); Chlamydia pneumoniae PCR Not Detected (NotDetected); Coronavirus 229E PCR Not Detected (NotDetected); Coronavirus CoV-2 (COVID19)PCR Not Detected (NotDetected); Coronavirus HKU1 PCR Not Detected (NotDetected); Coronavirus NL63 PCR Not Detected (NotDetected); Coronavirus OC43PCR Not Detected (NotDetected); Human Metapneumovirus PCR Not Detected (NotDetected); Influenza A PCR Not Detected (NotDetected); Influenza B PCR Not Detected (NotDetected); Mycoplasma pneumoniae PCR Not Detected (NotDetected); Parainfluenza Virus 1 PCR Not Detected (NotDetected); Parainfluenza Virus 2 PCR Not Detected (NotDetected); Parainfluenza Virus 3 PCR Not Detected (NotDetected); Parainfluenza Virus 4 PCR Not Detected (NotDetected); Respiratory Syncytial VirusPCR Not Detected (NotDetected); Rhinovirus/Enterovirus PCR Not Detected (NotDetected)
--- NOTE | 2023-04-27 10:30 | Magnetic Resonance Report ---
MRI OF THE RIGHT SHOULDER WITHOUT CONTRAST CLINICAL HISTORY: weakness, pain, ?labrum tear vs other COMPARISON STUDY: Right shoulder radiographs April 26, 2023. TECHNIQUE: Utilizing a 1.5 Princess magnet and dedicated coil, multiplanar, multiecho imaging of the rig ht shoulder was performed without intravenous or intraarticular contrast. FINDINGS: This study is moderately compromised by motion artifact. Right lung airspace opacities are incidentally noted. These were shown on chest radiograph of April 27, 2023. No fractures are presen t. There is no suspicious marrow replacement. No significant marrow edema is present. There is increa sed fluid within the right acromioclavicular joint. There is moderate adjacent soft tissue edema. Sachi nt space narrowing and osteophytosis of the right acromioclavicular joint is present. There is also m oderate cartilage thinning within the glenohumeral joint. There is a full-thickness tear within the p roximal long head of the biceps tendon. In addition, there is a large full-thickness tear of supraspi natus with 2 cm of tendon retraction and moderate muscular atrophy. Infraspinatus tendinopathy is not ed with high-grade partial-thickness tear of distal infraspinatus. There is a moderate grade full thi ckness interstitial tear within subscapularis. Teres minor is intact. No well-defined labral tear is identified. IMPRESSION: 1. Exam moderately compromised by motion artifact. Increased fluid within the right acromioclavicular joint with moderate adjacent soft tissue edema. These findings may reflect an acute degenerative pro cess. However, a traumatic etiology or infectious process with septic arthritis cannot be completely excluded. No marrow edema to suggest associated osteomyelitis. No associated fluid collections. If osman spicion for an infectious process, a short-term follow-up MRI of the right shoulder could be obtained to evaluate for interval change. 2. Large full-thickness tear of supraspinatus with tendon retraction or muscular atrophy. High-grade partial-thickness tear of infraspinatus. Moderate grade subscapularis interstitial tear. 3. Moderate degenerative changes within the right acromioclavicular and glenohumeral joints. 4. Full-thickness tear of the proximal long head of the biceps tendon. 5. Right lung airspace opacities better depicted on chest radiograph. The findings favor multifocal p neumonia. ACT 112: Negative or not required by law. Electronically signed by: Chai Orozco M.D. 04/27/2023 10:28 AM
--- NOTE | 2023-04-27 11:20 | Orthopedic Consultation ---
<Statement entered by Slava Albarado, DO - 04/27/23 15:17> Agree with below. Patient has significant pain which is light palpation distally over the forearm and hand. There is minimal motor function of the hand. No significant pain overlying the shoulder with minimal pain at the AC joint. Given the patient's acute motor deficit and I would recommend obtaining an EMG of the right upper extremity. Would also recommend obtaining a MRI of the cervical spine to evaluate for any nerve root impingement. 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 There is mild effusion at the AC joint. Given the patient's clinical examination I have low suspicion of this being a infectious process at this time especially considering all of his pain is distal. This would also not explain his motor deficits. Orthopedics will follow Date of Consultation April 27, 2023 Assessment & Plan (1) Pain of right arm: Plan Right upper extremity pain with weakness. Acute in onset x-rays, CT scan, MRI reviewed by myself. no obvious fractures noted of the shoulder, humerus, forearm. CT scan noted for moderate to severe disc base narrowing at C5/6. MRI of the right shoulder showing supraspinatus tear with 2 cm retraction with small infraspinatus tear as well as subscapularis interstitial tear. Increased fluid noticed in the AC joint as well as edema surrounding the AC joint with no notable fluid collections. Full-thickness tear of the long head of the biceps noted. No large glenohumeral joint effusion. WBC count notably at 17. patient continues to remain afebrile. I will discuss the case with Dr. Albarado who is on-call. He will see the patient later this afternoon. I have spoken to Jayla Boyer PA-C as well about the case. Patient was treated in the recent past for a pneumonia which after her reviewing the chest x-ray and CT scan of his chest, may be continued pneumonia. MRI reading noted the possibility of a septic AC joint arthritis however patient is remaining nontender in this area on palpation and no overt swelling or erythema noted. With the retraction of his supraspinatus tear, it is possible that patient could have initially torn this tendon previously as mentioned during his first injury several months ago. He could have reruptured scar tissue etc. although you can get referring pain from rotator cuff injuries down into the lower extremity, the type of pain the patient is having seems more radicular in nature. Patient with moderate disc narrowing at C5-C6 and although patient does not have any neck pain with range of motion or on palpation, consideration for an MRI of the cervical spine may be in order. Hospitalist service is going to place the patient on IV antibiotics. Blood cultures have been ordered. Hold off on restarting Eliquis at this time. Further imaging possible after being seen by Dr. Albarado History of Present Illness Reason for Consultation: Right shoulder/upper extremity pain Attending Physician: Waqas Wheeler MD History of Present Illness 83-year-old male admitted yesterday for right upper extremity pain. patient with notable comorbidities listed below. Patient states that yesterday, he turned to his right and reached for a bottle of water that was behind him. At that point, he had sharp pain across his shoulder that radiated down into his hand. He was unable to move the right upper extremity secondary to severe pain. He also noted moderate weakness with inability to use the right upper extremity. He states that he had a similar incident to this approximately 3 to 4 months ago. He was picking up a larger water bottle and had pain in the right shoulder area with associated radiation. It took a little while for him to get over this but eventually got better. He denies any fevers or chills at home. No flu or cold-like symptoms although the patient was being treated for pneumonia back in February. He denies any mechanical falls or injuries over the last several months. He denies neck pain at this time or in the past. 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 Allergies Allergy/AdvReac Type Severity Reaction Status Date / Time gentamicin Allergy Unknown UNKNOWN Verified 04/26/23 16:03 niacin Allergy Unknown unknown Verified 04/26/23 16:03 sertraline AdvReac Mild JITTERRY Verified 04/26/23 16:03 metformin AdvReac Unknown CAN'T Verified 04/26/23 16:03 REMEMBER silver sulfadiazine AdvReac Unknown unknown Verified 04/26/23 16:03 Home Medications Medication Instructions Recorded Confirmed Type latanoprost 0.005 % eye drops 1 drp OPB HS ##0 11/10/11 04/26/23 History (Xalatan) acetaminophen 300 mg-codeine 30 mg 1 tab PO UD PRN Pain 12/10/19 04/26/23 History tablet alogliptin 12.5 mg tablet 12.5 mg PO QAM 08/16/21 04/26/23 History cyanocobalamin (vitamin B-12) 1,000 mcg PO QAM 08/16/21 04/26/23 History 1,000 mcg tablet (Vitamin B-12) docusate sodium 100 mg capsule 100 mg PO DAILY PRN Constipation 08/16/21 04/26/23 History (Stool Softener) metoprolol tartrate 50 mg tablet 50 mg PO AMPM 08/16/21 04/26/23 History pantoprazole 40 mg tablet,delayed 40 mg PO DAILYBB 08/16/21 04/26/23 History release albuterol sulfate 90 mcg/actuation 1 inh inhalation AMHS 08/30/22 04/26/23 History aerosol inhaler brimonidine 0.2 % eye drops 1 drp OPB AMHS 08/30/22 04/26/23 History cholecalciferol (vitamin D3) 25 25 mcg PO AMPM 08/30/22 04/26/23 History mcg (1,000 unit) tablet (Vitamin D3) mometasone-formoterol HFA 100 2 puff inhalation BID 08/30/22 04/26/23 History mcg-5 mcg/actuation aerosol inhaler (Dulera) amlodipine 5 mg tablet 5 mg PO DAILY #90 tabs 10/01/22 04/26/23 Rx insulin aspar prot-insulin aspart 94 unit subcut UD 10/24/22 04/26/23 History 100 unit/mL (70-30) subcutaneous pen (Novolog Mix 70-30FlexPen U-100) atorvastatin 20 mg tablet 80 mg PO HS 01/24/23 04/26/23 History cilostazol 100 mg tablet 100 mg PO AMHS 01/24/23 04/26/23 History magnesium oxide 420 mg tablet 420 mg PO QPM 01/24/23 04/26/23 History multivitamin 1 tab PO AMPM 01/24/23 04/26/23 History nystatin 100,000 unit/gram topical 1 applic topical DAILY PRN yeast 01/24/23 04/26/23 History cream Minirin Cream 1 applic topical BID PRN APPLY TO 04/26/23 04/26/23 History LEGS NEEDED acetaminophen 500 mg tablet 500 mg PO DIRECTED PRN 04/26/23 04/26/23 History (Tylenol Extra Strength) PAIN/FEVER apixaban 5 mg tablet (Eliquis) 5 mg PO BID 04/26/23 04/26/23 History Patient History Medical History DVT of lower extremity, bilateral Chest pain Left-sided chest pain Diabetes COPD (chronic obstructive pulmonary disease) Peripheral arterial disease GERD (gastroesophageal reflux disease) Hypertension Glaucoma Hyperlipidemia LDL goal <70 Obesity (BMI 30.0-34.9) Chronic anticoagulation Left sided sciatica Surgical History History of incision and drainage (01/24/23) Incision and Drainage Back Abscess(Left) - Duncan Cazares DO History of cataract surgery History of vein stripping History of tonsillectomy and adenoidectomy Family History Other Family history non-contributory Social History Smoking Status: Former smoker Tobacco Type: Cigarettes Second Hand Exposure: No; Do You Dip or Chew Tobacco: No; Tobacco Cessation Education Requested by Patient: No Hx Alcohol Use: Yes Alcohol type: beer, wine and hard liquor Hx Substance Use: No Preferred Language: Cambodian Communication Ability: Effective Instrument Setter Required: No Beliefs That Will Affect Care: None marital status: Current Living Situation: Personal Care Facility Current Living Situation Comment: assisted care facility Other Information That Helps Us Care for You: No Feels Safe at Home: Yes Safety Concerns: Feels Safe At This Time Assistive Devices: Glasses, Hospital Bed, Oxygen - Continuous and Walker Physical Exam Physical Exam: 83-year-old white male who appears his stated age. Currently he appears in no acute distress. Pleasant and cooperative. He is alert and oriented to person and place On examination of his right upper extremity, a sling is in place. The sling has been loosened and aids in exam. On examination of his right shoulder there is no overt erythema. His shoulders compared to the left appear symmetrical with may be a slight increase of swelling on the right compared to the left. Patient is unable to move the right upper extremity at the elbow and shoulder due to severe pain and weakness. Trying to passively move the shoulder elbow causes him moderate pain. Patient is able to flex and extend the wrist with some noted decreased range of motion but no overt pain. Move the fingers of the hand minimally without discomfort. Just touching his fingers with light palpation causes him pain. Trying to do active range of motion of the elbow on his own causes severe pain as well as pain in the right shoulder. No overt pain on palpation of the elbow at this time. It seems that when trying to move the extremity is when he has his discomfort. I am able to palpate across the clavicle to the right acromion. There is no pain in doing so. There is no pain over the AC joint. AC joints appear symmetrical with the left and right. No pain on palpation over the lateral aspect of the shoulder. He has some mild pain on palpation over the posterior shoulder as well as over the biceps tendon anteriorly. This is not severe. I am able to palpate the biceps and triceps muscles. There is no overt swelling noted there. There is no pain on palpation. Palpation of the forearm over the dorsal and volar aspect that does not elicit a severe painful response. He has no pain on palpation of the cervical spine. He appears nontender with palpation over the trapezius muscle. Results & Data Vital Signs (Past 12 Hours) Vital Signs Temp Pulse Resp BP Pulse Ox O2 Del Method O2 Flow Rate 04/27/23 08:00 Nasal Cannula 2 04/27/23 07:51 36.9 C 94 H 20 116/68 97 Nasal Cannula 2 Laboratory Results Laboratory Results WBC 17.04 K/ul (4.8-10.8) H 04/27/23 06:43 RBC 3.53 M/uL (4.70-6.10) L 04/27/23 06:43 Hgb 9.1 g/dl (14.0-18.0) L 04/27/23 06:43 POC Hgb 10.2 g/dl (14.0-18.0) L 04/26/23 13:44 Hct 28.7 % (42.0-52.0) L 04/27/23 06:43 POC Hct 30 % (42-52) L 04/26/23 13:44 MCV 81.3 fL (80.0-100.0) 04/27/23 06:43 MCH 25.8 pg (25.0-34.0) 04/27/23 06:43 MCHC 31.7 g/dL (32.0-36.0) L 04/27/23 06:43 RDW Std Deviation 49.0 fL (36.4-46.3) H 04/27/23 06:43 RDW Coeff of Katelyn 16.4 % (11.5-14.5) H 04/27/23 06:43 Plt Count 396 K/uL (130-400) 04/27/23 06:43 MPV 9.3 fL (9.4-12.4) L 04/27/23 06:43 Immature Gran % (Auto) 0.5 % 04/27/23 06:43 Neut % (Auto) 77.7 % 04/27/23 06:43 Lymph % (Auto) 5.5 % 04/27/23 06:43 [place] % (Auto) 15.4 % 04/27/23 06:43 Eos % (Auto) 0.6 % 04/27/23 06:43 Baso % (Auto) 0.3 % 04/27/23 06:43 Neut # (Auto) 13.23 K/uL (1.40-6.50) H 04/27/23 06:43 Lymph # (Auto) 0.94 K/uL (1.20-3.40) L 04/27/23 06:43 [place] # (Auto) 2.63 K/uL (0.11-0.59) H 04/27/23 06:43 Eos # (Auto) 0.11 K/uL (0.00-0.50) 04/27/23 06:43 Baso # (Auto) 0.05 K/uL (0.00-0.20) 04/27/23 06:43 Immature Gran # (Auto) 0.08 K/uL (0.01-0.20) 04/27/23 06:43 PT 11.1 Seconds (9.0-12.0) 04/26/23 13:30 INR 1.0 (0.9-1.1) 04/26/23 13:30 APTT 31.6 Seconds (21.0-31.0) H 04/26/23 13:30 PTT Ratio 1.1 04/26/23 13:30 POC Sodium 140 mmol/L (135-144) 04/26/23 13:44 Sodium 139 mmol/L (136-145) 04/27/23 06:43 POC Potassium 3.7 mmol/L (3.3-5.0) 04/26/23 13:44 Potassium 3.9 mmol/L (3.5-5.1) 04/27/23 06:43 POC Chloride 112 mmol/L (101-112) 04/26/23 13:44 Chloride 111 mmol/L (98-107) H 04/27/23 06:43 Carbon Dioxide 20 mmol/L (21-32) L 04/27/23 06:43 POC Total CO2 17 mmol/L (24-31) L 04/26/23 13:44 Anion Gap 8 (3-11) 04/27/23 06:43 POC Anion Gap 16.0 mmol/L (16-25) 04/26/23 13:44 POC BUN 26 mg/dl (7-18) H 04/26/23 13:44 BUN 29 mg/dl (6-23) H 04/27/23 06:43 Creatinine 2.00 mg/dl (0.6-1.4) H 04/27/23 06:43 POC Creatinine 2.3 mg/dl (0.6-1.3) H 04/26/23 13:44 Est Cr Clr Drug Dosing 34.7 ml/min 04/27/23 06:43 Est GFR ( Amer) 34.7 ml/min 04/27/23 06:43 Est GFR (Non-Af Amer) 30.0 ml/min 04/27/23 06:43 BUN/Creatinine Ratio 14.5 (10-20) 04/27/23 06:43 Glucose 130 mg/dl (70-99(Fasting)) H 04/27/23 06:43 POC Glucose 127 mg/dl (70-99) H 04/27/23 07:54 POC Glucose (other) 141 mg/dl (70-99) H 04/26/23 13:44 Estimat Average Glucose 148 mg/dl 04/27/23 06:43 Hemoglobin A1c 6.8 % (4.5-5.6) H 04/27/23 06:43 Calcium 8.3 mg/dl (8.6-10.3) L 04/27/23 06:43 POC Ioniz Calcium [place] 1.23 mmol/l (1.12-1.32) 04/26/23 13:44 Magnesium 1.5 mg/dl (1.7-2.4) L 04/27/23 06:43 Iron < 10 mcg/dl (35-175) L 04/27/23 06:43 TIBC TNP 04/27/23 06:43 Unsaturated IBC 210 mcg/dl (155-355) 04/27/23 06:43 Transferrin % Sat TNP 04/27/23 06:43 Ferritin 64.8 ng/ml (8-388) 04/27/23 06:43 Total Bilirubin 0.7 mg/dl (0.2-1.0) 04/26/23 13:30 AST 8 U/L (13-39) L 04/26/23 13:30 ALT 7 U/L (7-52) 04/26/23 13:30 Alkaline Phosphatase 89 U/L (34-104) 04/26/23 13:30 Troponin I High Sens 20.6 pg/ml (0-20) H 04/26/23 15:20 Total Protein 6.9 gm/dl (6.0-8.3) 04/26/23 13:30 Albumin 3.4 gm/dl (3.4-5.0) 04/26/23 13:30 Globulin 3.5 gm/dl (2.5-4.0) 04/26/23 13:30 Albumin/Globulin Ratio 1.0 (0.9-2) 04/26/23 13:30 Procalcitonin 0.38 ng/ml (0-0.5) 04/26/23 17:10 Urine Color Yellow 04/26/23 13:45 Urine Appearance Clear (Clear) 04/26/23 13:45 Urine pH 5.5 (4.5-7.5) 04/26/23 13:45 Ur Specific [place] 1.021 (1.000-1.030) 04/26/23 13:45 Urine Protein 4+ (Negative) H 04/26/23 13:45 Urine Glucose (UA) Trace (Negative) H 04/26/23 13:45 Urine Ketones Negative (Negative) 04/26/23 13:45 Urine Blood Trace (Negative) H 04/26/23 13:45 Urine Nitrite Negative (Negative) 04/26/23 13:45 Urine Bilirubin Negative (Negative) 04/26/23 13:45 Urine Urobilinogen Negative (Negative) 04/26/23 13:45 Ur Leukocyte Esterase Negative (Negative) 04/26/23 13:45 Urine WBC (Auto) 5-10 /hpf (0-5) H 04/26/23 13:45 Urine RBC (Auto) 0-4 /hpf (0-4) 04/26/23 13:45 U Hyaline Cast (Auto) 1-5 /lpf (0-5) 04/26/23 13:45 U Epithel Cells (Auto) 20-30 /lpf (0-5) H 04/26/23 13:45 Urine Bacteria (Auto) Negative (Negative) 04/26/23 13:45 Nasal Screen MRSA (PCR) Positive (Negative) A 04/27/23 06:12 Adenovirus (PCR) Not Detected (NotDetected) 04/27/23 09:00 B. pertussis DNA (PCR) Not Detected (NotDetected) 04/27/23 09:00 B.parapertussis DNA PCR Not Detected (NotDetected) 04/27/23 09:00 C. pneumoniae DNA (PCR) Not Detected (NotDetected) 04/27/23 09:00 Coronavirus OC43 (PCR) Not Detected (NotDetected) 04/27/23 09:00 Coronavirus HKU1 (PCR) Not Detected (NotDetected) 04/27/23 09:00 Coronavirus 229E (PCR) Not Detected (NotDetected) 04/27/23 09:00 SARS-CoV-2 (PCR) Not Detected (NotDetected) 04/27/23 09:00 Coronavirus NL63 (PCR) Not Detected (NotDetected) 04/27/23 09:00 Human Metapneumovir PCR Not Detected (NotDetected) 04/27/23 09:00 Influenza Type A (PCR) Not Detected (NotDetected) 04/27/23 09:00 Influenza Type B (PCR) Not Detected (NotDetected) 04/27/23 09:00 M. pneumoniae (PCR) Not Detected (NotDetected) 04/27/23 09:00 Parainfluenza 1 (PCR) Not Detected (NotDetected) 04/27/23 09:00 Parainfluenza 2 (PCR) Not Detected (NotDetected) 04/27/23 09:00 Parainfluenza 3 (PCR) Not Detected (NotDetected) 04/27/23 09:00 Parainfluenza 4 (PCR) Not Detected (NotDetected) 04/27/23 09:00 RSV (PCR) Not Detected (NotDetected) 04/27/23 09:00 Entero/Rhino (PCR) Not Detected (NotDetected) 04/27/23 09:00 Blood Type B Positive 04/26/23 14:23 Antibody Screen NEGATIVE 04/26/23 14:[address] 04/26/23 13:11 CT OF THE HEAD WITHOUT CONTRAST CLINICAL HISTORY: neuro deficit, acute stroke suspected COMPARISON STUDY: No previous studies for comparison. TECHNIQUE: Helical axial images of the head were obtained without IV contrast. Automated exposure control was utilized for the study. A dose lowering technique was utilized adhering to the principles of ALARA. FINDINGS: No acute intracranial hemorrhage, midline shift or mass effect is present. White matter hypodensity suggests small vessel disease. Right occipital lobe encephalomalacia suggests an old right EXPLOSIVES DETONATOR territory infarct. The ventricular system is unremarkable. The basal cisterns are patent. No extra- axial collections are present. There are no findings to suggest acute dural sinus thrombosis or acute territorial infarct. No significant calvarial abno rmalities are present. Visualized portions of the sinuses and mastoid air cells are clear. IMPRESSION: 1. No acute intracranial findings. 2. 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 3. No calvarial fractures. ACT 112: Negative or not required by law. Electronically signed by: Chai Orozco M.D. 04/26/2023 2:06 PM Elbow X-Ray 04/26/23 13:16 XR elbow RT min 3V routine CLINICAL HISTORY: pain, swelling COMPARISON: None FINDINGS: Electronic device projects over the right upper arm. This exam was compromised given difficulty positioning. Alignment of the right elbow appears anatomic. There is no evidence for a joint effusion. There is mild posterior upper arm and elbow soft tissue swelling. There is no fracture. IMPRESSION: 1. No fractures within the right elbow. No evidence for a joint effusion. Exam compromised given difficulty positioning. 2. Posterior right upper arm and elbow soft tissue swelling. ACT 112: Negative or not required by law. Electronically signed by: Chai Orozco M.D. 04/26/2023 2:25 PM Forearm X-Ray 04/26/23 13:16 XR forearm RT 2V CLINICAL HISTORY: pain COMPARISON: None FINDINGS: No fracture within the right radius or ulna is identified. There are no osseous lesions. Moderate vascular calcification is incidentally noted. Exam is mildly compromised given difficulty positioning. IMPRESSION: No fractures within the right radius or ulna. ACT 112: Negative or not required by law. Electronically signed by: Chai Orozco M.D. 04/26/2023 2:26 PM Shoulder X-Ray 04/26/23 13:16 XR shoulder RT min 2V routine CLINICAL HISTORY: Right shoulder pain. COMPARISON: None. FINDINGS: Right lung airspace opacities have partially resolved since chest CT of February 23, 2023. Alignment of the right shoulder is anatomic. There is no acute fracture. There is no osseous lesion. Moderate joint space narrowing with osteophytosis of the acromioclavicular joint is noted. There is mild glenohumeral joint osteoarthritis. IMPRESSION: 1. No fractures within the right shoulder. 2. Moderate right AC joint osteoarthritis. Mild right glenohumeral joint osteoarthritis. ACT 112: Negative or not required by law. Electronically signed by: Chai Orozco M.D. 04/26/2023 2:[address] 04/26/23 13:17 CT OF THE CERVICAL SPINE WITHOUT CONTRAST CLINICAL HISTORY: right arm pain/weakness COMPARISON STUDY: No previous studies for comparison. TECHNIQUE: Helical axial images of the cervical spine were obtained without IV contrast. Sagittal and coronal reconstructions were viewed. Automated exposure control was utilized for the study. A dose lowering technique was utilized adhering to the principles of ALARA. FINDINGS: There is reversal of the cervical lordosis. No cervical spine fracture is present. No osseous lesions are identified. There is severe disc space narrowing at this C5-C6. Otherwise, moderate multilevel disc space narrowing and osteophytosis within the cervical spine is present. There is moderate to severe multilevel facet arthrosis. Central canal and neural foramen are suboptimally assessed given CT technique. Ground glass opacity within the visualized portions of the right lung apex are noted. IMPRESSION: 1. No acute cervical spine fracture or subluxation. 2. Moderate to severe multilevel degenerative disc disease and facet arthrosis within the cervical spine. ACT 112: Negative or not required by law. Electronically signed by: Chai Orozco M.D. 04/26/2023 2:09 PM Brain MRI 04/26/23 15:52 MRI OF THE BRAIN WITHOUT CONTRAST CLINICAL HISTORY: Right upper extremity weakness. COMPARISON STUDY: Head CT performed earlier today. TECHNIQUE: Utilizing a 1.5 Princess magnet and dedicated coil, multiplanar, multiecho imaging of the brain was performed without IV contrast. FINDINGS: There are no foci of restricted diffusion to suggest acute infarct. No acute intracranial hemorrhage, midline shift or mass effect is present. Basal cisterns are patent. There are no extra-axial collections. Flow-voids for the major intracranial vessels are present. Encephalomalacia within the right occipital lobe is noted. Infarct within the superior left cerebellar hemisphere is present. White matter T2 hyperintense foci suggest moderate small vessel disease. No intracranial masses identified on this unenhanced study. There is mild cerebral atrophy. Calvarial signal is normal. Mucous retention cyst IMPRESSION: 1. No acute intracranial findings. 2. 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 ACT 112: Negative or not required by law. Electronically signed by: Chai Orozco M.D. 04/26/2023 5:09 PM Chest X-Ray 04/27/23 07:33 XR chest 1V portable CLINICAL HISTORY: hypoxia COMPARISON STUDY: Chest CT February 23, 2023. Chest radiograph April 26, 2023. FINDINGS: There is no pneumothorax or pleural effusion. There is mild elevation of the right hemidiaphragm. Multifocal right lung airspace opacities are stable to slightly increased. A few patchy left lung opacities are noted. Cardiomegaly is again noted. No evidence for pulmonary edema. IMPRESSION: Patchy bilateral airspace opacities, as described below. The right lung opacities are stable to slightly increased. The findings favor an infectious process. Continued radiographic follow-up to ensure resolution is recommended. ACT 112: Negative or not required by law. Electronically signed by: Chai Orozco M.D. 04/27/2023 9:11 AM Shoulder MRI 04/27/23 08:33 MRI OF THE RIGHT SHOULDER WITHOUT CONTRAST CLINICAL HISTORY: weakness, pain, ?labrum tear vs other COMPARISON STUDY: Right shoulder radiographs April 26, 2023. TECHNIQUE: Utilizing a 1.5 Princess magnet and dedicated coil, multiplanar, mult iecho imaging of the right shoulder was performed without intravenous or intraarticular contrast. FINDINGS: This study is moderately compromised by motion artifact. Right lung airspace opacities are incidentally noted. These were shown on chest radiograph of April 27, 2023. No fractures are present. There is no suspicious marrow replacement. No significant marrow edema is present. There is increased fluid within the right acromioclavicular joint. There is moderate adjacent soft tissue edema. Joint space narrowing and osteophytosis of the right acromioclavicular joint is present. There is also moderate cartilage thinning within the glenohumeral joint. There is a full-thickness tear within the proximal long head of the biceps tendon. In addition, there is a large full-thickness tear of s upraspinatus with 2 cm of tendon retraction and moderate muscular atrophy. Infraspinatus tendinopathy is noted with high-grade partial-thickness tear of distal infraspinatus. There is a moderate grade full thickness interstitial tear within subscapularis. Teres minor is intact. No well-defined labral tear is identified. IMPRESSION: 1. Exam moderately compromised by motion artifact. Increased fluid within the right acromioclavicular joint with moderate adjacent soft tissue edema. These findings may reflect an acute degenerative process. However, a traumatic etiology or infectious process with septic arthritis cannot be completely excluded. No marrow edema to suggest associated osteomyelitis. No associated fluid collections. If suspicion for an infectious process, a short-term follow-u p MRI of the right shoulder could be obtained to evaluate for interval change. 2. Large full-thickness tear of supraspinatus with tendon retraction or muscular atrophy. High-grade partial-thickness tear of infraspinatus. Moderate grade subscapularis interstitial tear. 3. Moderate degenerative changes within the right acromioclavicular and glenohumeral joints. 4. Full-thickness tear of the proximal long head of the biceps tendon. 5. Right lung airspace opacities better depicted on chest radiograph. The findings favor multifocal pneumonia. ACT 112: Negative or not required by law. Electronically signed by: Chai Orozco M.D. 04/27/2023 10:28 AM
[2023-04-27] MEDS ORDERED: FAMOTIDINE 20 MG in SYRINGE 3 ML IV ONE (11:30)
[2023-04-27] MEDS ORDERED: VANCOMYCIN CONSULT ACTIVE PRN (11:38)
[2023-04-27] MEDS ORDERED: VANCOMYCIN HCL 2,750 MG in SODIUM CHLORIDE 0.9% 500 ML IV ONE (11:38)
[2023-04-27] MEDS ORDERED: PIPER/TAZO 4.5g in D5W MINI-B 100 ML IV ONE (11:45)
--- NOTE | 2023-04-27 13:06 | Electrocardiogram Report ---
Test Reason : Blood Pressure : / mmHG Vent. Rate : 085 BPM Atrial Rate : 085 BPM P-R Int : 186 ms QRS Dur : 082 ms QT Int : 382 ms P-R-T Axes : 062 012 036 degrees QTc Int : 454 ms Normal sinus rhythm Normal ECG When compared with ECG of 23-FEB-2023 05:11, No significant change was found Confirmed by Mitchell Marie ([id number]) on 04/27/2023 1:05:54 PM Referred By: Confirmed By:Mitchell Marie
--- NOTE | 2023-04-27 13:38 | Pharmacy Report ---
Pharmacy PK ABX Note - Date of Service April 27, 2023 - Assessment and Plan Assessment 83 year old M receiving vancomycin and zosyn empirically. Blood cultures pending. MRSA nasal (+). SCr-2mg/dL which is ~ baseline. Day #1 of antimicrobial therapy. Plan Vancomycin * Loading dose: 2750 mg IV x 1 * Will obtain a level in the AM to guide further dosing. Given what appears stable CKD, may be able to schedule a regimen at that time. Pharmacy will continue to follow and will adjust dose/frequency as necessary. Thank you.
--- NOTE | 2023-04-27 13:54 | Pharmacy Report ---
Pharmacy Glycemic Short Note 2 - Date of Service April 27, 2023 - Glycemic Short BSG Results (Last 24 hours): 04/26/23 04/26/23 04/26/23 13:30 13:44 21:22 Glucose 137 H POC Glucose 140 H POC Glucose (other) 141 H 04/26/23 04/27/23 04/27/23 22:43 00:03 04:41 Glucose POC Glucose 139 H 130 H 126 H POC Glucose (other) 04/27/23 04/27/23 04/27/23 06:43 07:54 11:53 Glucose 130 H POC Glucose 127 H 130 H POC Glucose (other) OUTPATIENT ANTIDIABETIC REGIMEN: * Novolog 70/30 - 56 units SC w/ breakfast, 14 units SC w/ lunch, and 28 units SC w/ dinner HbA1c: 8% (01/28/23), 6.8% (04/27/23) ASSESSMENT: * YOSELYN is an 83 year old male who presented to ED on 04/26/23 w/ complaints of right arm pain/weakness (no obvious trauma reported) * Patient on ~100 units of insulin as an outpatient w/ noted improvement in HbA1c over past 3 months. Patient requiring significantly less insulin at this time. * BSGs ranging 127-140 mg/dL over past 24 hours * No plan for OR at this time. Diet ordered. PLAN FOR INPATIENT GLYCEMIC CONTROL: * Hold 70/30 insulin - convert to SC basal/bolus w/ insulin glargine and insulin lispro * Basal insulin * Lantus 10-20 units SC HS (see EHR for details) * Bolus insulin * NovoLog per scale ACHS or Q6hrs while NPO * Goal Range: Low 120 mg/dL - High 150 mg/dL * Correction Factor: 20 mg/dL/unit * Nutritional / Prandial insulin per carb ratio of 1 unit per 7 grams CHO consumed
[2023-04-27] MEDS: PIPER/TAZO 4.5g in D5W MINI-B 100 ML IV SCH (18:41)
[2023-04-27] MEDS ORDERED: XOPENEX/ATROVENT 0.63mg/0.5MG NEB COMBO NEB SCH (19:00)
--- NOTE | 2023-04-27 19:04 | CT Scan Report ---
CT chest diagnostic wo con CT DOSE: HISTORY: Shortness of breath. TECHNIQUE: Multiaxial CT images of the chest were performed without contrast. A dose lowering techni que was utilized adhering to the principles of ALARA. COMPARISON: Chest CT 02/23/2023. FINDINGS: Scattered patchy and irregular bilateral airspace opacities most pronounced within the righ t lung have slightly improved in the interval. There are few calcified granuloma seen within the righ t lung. There is a stable 4 mm nodule within the lingula on image 112. No evidence for pulmonary lorraine a. No pneumothorax. There is mild bronchial wall thickening. No acute fractures. Normal thyroid gland . Normal esophagus. The heart remains mildly enlarged. No pericardial effusions. A trace right pleura l effusion has improved. Limited views the upper abdomen demonstrate a normal liver and adrenal gland s. Cholelithiasis. Lobular appearance to the spleen again noted. Partially visualized 1 cm hyperdense lesion within the left kidney, unchanged. This may represent a hyperdense cyst. Mild distal paraesop hageal lymphadenopathy has slightly improved. No definite hilar lymphadenopathy. There are coronary a rtery calcifications. Normal caliber thoracic aorta with moderate calcified plaque. IMPRESSION: 1. Scattered patchy irregular bilateral airspace opacities most pronounced within the right lung have slightly improved. This favors a resolving pneumonitis. 3-[address] follow-up recommended to ensure complete resolution. 2. A trace right pleural effusion has improved. 3. Cholelithiasis. 4. A 4 mm nodule within the lingula. This bears watching on future examinations. ACT 112: Positive. There are findings on this exam that require communication between the performing entity and the patient following Patient Test Result Information Act ([place] Act 112) guidelines. Electronically signed by: Navjot Epps M.D. 04/27/2023 7:02 PM
[2023-04-27] MEDS: LEVALBUTEROL HCL 0.63 MG/3 ML NEB NEB SCH (19:34)
[2023-04-27] MEDS: IPRATROPIUM BROMIDE NEB SOLN 0.02% 2.5 ML VIAL NEB SCH (19:34)
--- NOTE | 2023-04-27 19:39 | Magnetic Resonance Report ---
CERVICAL SPINE MRI HISTORY: Right upper extremity pain, weakness, motor deficit TECHNIQUE: Multiplanar multisequence MRI of the cervical spine was performed without the use of contr ast. COMPARISON STUDY: Cervical spine CT 04/26/2023. FINDINGS: Straightening of the cervical spine. No fracture or subluxation. 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 Prevertebral soft tissues are intact. The C5-C6 vertebral bodies ar e fused. There is moderate disc space narrowing at C6-C7. The C1-C2 interval is intact. The right C3- C4 facets are fused. There is a 14 x 5 mm cystic focus within the central cord at the C6-C7 level. Th is favors a focal syrinx. Only seen on the sagittal images there is abnormal cord signal/thickening a nd a 4 mm extramedullary T2 hyperintense focus at the T1/T2 levels which appears to demonstrate mass effect along the thoracic cord. This is only partially imaged on this study and therefore not well ev aluated. A follow-up dedicated contrast enhanced cervical spine MRI which extends into the upper thor acic region is recommended for further evaluation. C2-C3: No significant central canal or neural foraminal narrowing. C3-C4: Small broad-based posterior disc osteophyte complex resulting in partial effacement of the ant erior thecal sac without cord deformity. No significant central canal or neural foraminal narrowing. C4-C5: Small broad-based posterior disc osteophyte complex resulting in near complete effacement of t he anterior thecal sac without cord deformity. There is mild central canal narrowing at this level. N o significant neural foraminal narrowing. C5-C6: No significant central canal narrowing. There is mild bilateral neural foraminal narrowing due to the uncovertebral and facet hypertrophy. C6-C7: No significant central canal narrowing. There is mild right and moderate left neural foraminal narrowing due to the uncovertebral and facet hypertrophy. C7-T1: No significant central canal or neural foraminal narrowing. IMPRESSION: 1. There is a 14 x 5 mm cystic focus within the central cord at the C6-C7 level. This favors a focal syrinx. 2. There is also abnormal cord signal/thickening and a 4 mm extramedullary T2 hyperintense focus at t he T1/T2 levels. This is only partially imaged on this study and therefore not well evaluated. A foll ow-up dedicated contrast enhanced cervical spine MRI which extends into the upper thoracic region is recommended for further evaluation. 3. Degenerative changes as described above. 4. No fracture or subluxation within the cervical spine. ACT 112: Negative or not required by law. Electronically signed by: Navjot Epps M.D. 04/27/2023 7:38 PM
[2023-04-27] MEDS: FAMOTIDINE 20 MG in SYRINGE 3 ML IV SCH (20:07)
[2023-04-27] MEDS: APIXABAN 5 MG TABLET PO SCH (20:08)
[2023-04-27] MEDS: ATORVASTATIN 40 MG TAB PO SCH (20:08)
[2023-04-27] MEDS: MAGNESIUM OXIDE 400 MG TAB PO SCH (20:08)
[2023-04-27] MEDS: guaiFENesin 600 MG TABCR PO SCH (20:09)
[2023-04-27] MEDS ORDERED: LANTUS PER UNIT CHARGE SQ SCH (21:00)
[2023-04-27] MEDS: LATANOPROST 0.005% OP SOLN 2.5 ML BTL OPB SCH (21:16)
[2023-04-28] MEDS: PIPER/TAZO 4.5g in D5W MINI-B 100 ML IV SCH (02:21)
[2023-04-28] MEDS: IPRATROPIUM BROMIDE NEB SOLN 0.02% 2.5 ML VIAL NEB SCH ×3 (02:58→12:44)
[2023-04-28] MEDS: LEVALBUTEROL HCL 0.63 MG/3 ML NEB NEB SCH ×3 (02:59→12:44)
[2023-04-28] MEDS: oxyCODONE HCL IR 5 MG TAB (IMMEDIATE RELEASE) PO PRN ×3 (03:44→21:39)
[2023-04-28] MEDS: ACETAMINOPHEN 500 MG TAB PO SCH ×3 (06:44→21:18)
[2023-04-28] MEDS: PANTOprazole 40 MG TAB PO SCH (06:45)
[2023-04-28 07:35] LABS: Basophils # (auto) 0.04 K/uL (0.00-0.20); Basophils % (auto) 0.2 %; Eosinophils # (auto) 0.13 K/uL (0.00-0.50); Eosinophils % (auto) 0.7 %; Hematocrit (blood only) 32.5 % (42.0-52.0); Hemoglobin 9.8 g/dl (14.0-18.0); Immature Granulocytes # (auto) 0.13 K/uL (0.01-0.20); Immature Granulocytes % (auto) 0.7 %; Lymphocytes # (auto) 0.93 K/uL (1.20-3.40); Lymphocytes % (auto) 5.1 %; Mean Corpuscular Hemoglobin 25.2 pg (25.0-34.0); Mean Corpuscular Hgb Conc 30.2 g/dL (32.0-36.0); Mean Corpuscular Volume 83.5 fL (80.0-100.0); Mean Platelet Volume 9.1 fL (9.4-12.4); Monocytes # (auto) 2.01 K/uL (0.11-0.59); Neutrophils # (auto) 15.03 K/uL (1.40-6.50); Neutrophils % (auto) 82.3 %; Platelet Count 432 K/uL (130-400); RDW Coefficient of Variation 16.6 % (11.5-14.5); RDW Standard Deviation 49.9 fL (36.4-46.3); Red Blood Count 3.89 M/uL (4.70-6.10); White Blood Count 18.27 K/ul (4.8-10.8)
[2023-04-28 07:52] LABS: Albumin Globulin Ratio 0.9 (0.9-2); Albumin Level 3.1 gm/dl (3.4-5.0); BUN Creatinine Ratio 12.6 (10-20); Bilirubin,Total 0.6 mg/dl (0.2-1.0); Calcium 8.7 mg/dl (8.6-10.3); Creatinine Clr Calc Pharmacy 23.6 ml/min; Est GFR (African American) 21.8 ml/min; Est GFR (Non-African American) 18.8 ml/min; Globulin 3.6 gm/dl (2.5-4.0); Magnesium 2.4 mg/dl (1.7-2.4); Potassium 3.8 mmol/L (3.5-5.1); Total Protein 6.7 gm/dl (6.0-8.3)
[2023-04-28 08:07] LABS: Thyroid Stimulating Hormone 5.462 uIu/ml (0.300-4.500)
[2023-04-28 08:41] LABS: T4 Free Thyroxine 1.22 ng/dl (0.61-1.60)
--- NOTE | 2023-04-28 08:54 | Hospitalist Progress Note ---
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 On eliquis BID (resumed 04/27) MRI shoulder w/ * 1. Exam moderately compromised by motion artifact. Increased fluid within the right acromioclavicular joint with moderate adjacent soft tissue edema. These findings may reflect an acute degenerative process. However, a traumatic etiology or infectious process with septic arthritis cannot be completely excluded. No marrow edema to suggest associated osteomyelitis. No associated fluid collections. If suspicion for an infectious process, a short-term follow-up MRI of the right shoulder could be obtained to evaluate for interval change * 2. Large full-thickness tear of supraspinatus with tendon retraction or muscular atrophy. High-grade partial-thickness tear of infraspinatus. Moderate grade subscapularis interstitial tear. * 3. Moderate degenerative changes within the right acromioclavicular and glenohumeral joints. * 4. Full-thickness tear of the proximal long head of the biceps tendon. * 5. Right lung airspace opacities better depicted on chest radiograph. The findings favor multifocal pneumonia. Ortho consulted Sling in place MRI cervical spine obtained for concerns w/ radiculopathy * 1. There is a 14 x 5 mm cystic focus within the central cord at the C6-C7 level. This favors a focal syrinx. * 2. There is also abnormal cord signal/thickening and a 4 mm extramedullary T2 hyperintense focus at the T1/T2 levels. This is only partially imaged on this study and therefore not well evaluated. A follow-up dedicated contrast enhanced cervical spine MRI which extends into the upper thoracic region is recommended for further evaluation. * 3. Degenerative changes as described above. * 4. No fracture or subluxation within the cervical spine. Consulted ortho spine, per Dr Rangel discussion w/ supervising provider Dr Wheeler, trial solumedrol IV 60mg Q6h and monitor response PT/OT evals, needing rehab (at [facility] currently) - eval for need for higher level of care (patient hoping to return to [facility]) Abx changed to Cefepime/Vanco given hx bacteremia/worsened renal failure. Monitoring blood cultures. - Hx MRSA bacteremia from back abscess (healed scar/nonpainful on exam, no drainage). CT chest w/o consolidative process, pneumonitis suspected. 4mm lingula nodule (will need f/u PCP given smoking hx) Continue to monitor response, f/u cultures (2) Pneumonia: Plan: Recent admission in February for RIGHT sided pneumonia, completed treatment w/ levaquin at dc, renally dosed. Hx COPD/smoking at baseline but NOT on oxygen/no O2 needs at dc last admission (however no 2step report, consider prior to dc) Was on room air on admission however worsened leukocytosis, hypoxia overnight 04/27 with repeat CXR w/ patchy b/l airspace opacities. R lung opacities stable/slightly increased, favor infectious process Obtained blood cultures given prior hx MRSA bacteremia, prior completed course Dapto Biofire obtained, NEGATIVE Placed on Zosyn/Vanco given +MRSA nasal screen. Nebs as needed, mucinex, sputum if able to obtain Did obtain CT chest w/o for further eval as was to have 04/28 outpatient * 1. Scattered patchy irregular bilateral airspace opacities most pronounced within the right lung have slightly improved. This favors a resolving pneumonitis. 3-[address] follow-up recommended to ensure complete resolution. * 2. A trace right pleural effusion has improved. * 3. Cholelithiasis. * 4. A 4 mm nodule within the lingula. This bears watching on future examinations. Abx as above for empiric treatment Worsened renal function on AM labs, switched to Cefepime/Vanco as above (vanco level therapeutic) Blood cultures NGTD, WBC 18k but afebrile Mag replacement, wnl on repeat Now on room air since mag replacement (3) Hypoxia: Plan: as above, suspected 2nd to pneumonia vs pneumonitis CT chest as above --> needs repeat 3-6 months (consider low dose CT w/ contrast given smoking history, no hemoptysis reported) Mag was low -- he refused prior IV replacement but was agreeable after discussions and repeat wnl Solumedrol should also help as above ON ROOM AIR AT PRESENT, no SOB reported (4) Abnormal CXR: Plan: as above, CT chest for further eval/treatment as outlined (5) COPD (chronic obstructive pulmonary disease): Plan: noted hx, 2nd to smoking. NOT on oxygen at baseline but on albuterol BID, dulera 2 puff BID mag LOW -- initially refused replacement but was agreeable to IV magnesium infusion and will monitor --> repeat wnl, now on room air Mucinex BID, pulmonary toilet, sputum if able to produce Supplemental O2 as needed, titrate to maintain sats Iron <10, consider venofer IV --> will give dose x 1 CT chest w/o as above for further eval PNA/opacity. Can consider w/ contrast outpt given smoking history for screening (?lymphopenic on labs but only since this summer) (6) MRSA bacteremia: Plan: hx of such from back abscess/boil (no issues on exam), blood cultures added given history/leukocytosis, NO DRAINAGE/ABSCESS ON EXAM at site of back w/ prior source Abx as above, now on Cefepime/Vanco as outlined F/u blood cultures as above (7) Aortic stenosis: Plan: noted hx of such. no syncope/fall reported. S1/S2 on exam, grade 3-4 murmur can check BNP w/ AM labs/consider ECHO given hx bacteremia (pending) -- no prior vegetation visualized HTN Stable 121/68 Maintained on metoprolol 50mg BID, amlodipine 5mg daily (8) DVT of lower extremity, bilateral: Plan: Hx DVT, resumed eliquis 5mg BID per discussion w/ surgery no need to hold. (9) Diabetes: Plan: HbA1C 8.0 in January, repeat down to 6.8 On 94u TDD insulin outpatient, placed on lantus 30u BID on admission/sliding scale Pharmacy consulted for glycemic assistance, appreciated and BSgs acceptable Monitor (10) Hypomagnesemia: Plan: Replace and repeat level in AM 2gm IV ordered --> patient REFUSED replacement, reporting gives him heartburn intially but then was agreeable Repeat mag wnl, continue PO mag (11) Chronic kidney disease, stage III (moderate): Plan: CKD 3-4, GFR currently 30 but appears consistently recently in the 20s, technically CKD IV Renal dose meds/avoid nephrotoxins. Appears prior on ETELVINA/ARB therapy, since discontinued. Suspect 2nd to CKD IV/progressive renal function decline Iron studies obtained, fecal occult for completeness Venofer x 1 for today, monitor CBC in am/consider additional dosing Renal function worse --> abx changed as above to prevent nephrotoxicity. Renal dose meds as able BMP in AM Also hx GERD - continue PPI daily. Some reflux/taking tums. Placed on pepcid IV BID for now, avoiding increased PPI given renal function. Plan VTE Prophylaxis - Eliquis continued inpatient stay, IV abx/steroids, orthopedics/ortho spine on consult Dr Hairston to see from orthopedics this afternoon for follow up per LISA Cruz PT/OT (from [facility]) -- eval for need for higher level of care Admission and Anticipated Discharge Date Admission Date: April 26, 2023 Supervising Physician Co-Signing Physician Notes The patient was not seen by me. The chart was reviewed. Case discussed with LIS Scales. Agree with assessment and plan Subjective Patient evaluated this morning, doing well, sitting up in the chair. Arm in sling, less pain today/not as hyperalgesic. Saw ortho spine, recs for IV steroids and monitoring. Continuing on IV abx while blood cultures pending given hx. Back w/ scar/no pain. Passing gas/moving bowels but not great appetite. Will order 1L IVF for mild dehydration/elevation in renal function. Discussed changing abx to cefepime/vanco to avoid nephrotoxicity. Reviewed imaging w/ CT chest, recs for steroids which can help pneuomitis. No SOB/CP reported, now on room air. Discussed if any worsening would move to tele but given reported feeling/looking better will not move to monitored bed at this time but if issues w/ tachycardia w/ steroids or feeling worse, low threshold for transfer. updated at bedside. Physical Exam Constitutional: 83 yo male, chronically ill appearing, s itting up in bed, washed up, reporting feeling better today, NAD ENMT: pupils equal in size/reactive to light, trachea midline, mmm Respiratory: diminished in the bases, RML/R sided crackles improved, no further wheezing, on ROOM AIR Cardiovascular: RRR, grade 4 systolic murmur, S1/S2, no pitting edema but scarring to legs from prior ulcer/treatments reported, calves nontender but reddened appears to distal legs (not worse, nontender) pulses diminished but present Gastrointestinal (Abdomen): +BS, obese, slight distension but soft/N T Musculoskeletal: significant pain with any movement of right arm however able to move his fingers today/able to be touched however no range of motion able to be assessed due to weakness/pain mild edema to hand, decreased sensation dorsal aspect of hand No left upper extremity of bilateral lower extremity motor deficits. Skin: no evidence for cellulitis, chronic venous stasis/reddened appearance reported to legs skin dry back-- scar to L mid-upper back from prior abscess/drainage,. No erythema/drainage, nontender to palpation Neurologic: awake; not confused Psychiatric: A+Ox3, euthymic affect Results & Data Results & Data Vital Signs (Past 12 Hours) Vital Signs Temp Pulse Resp BP Pulse Ox Pulse Ox O2 Del Method 04/28/23 08:03 36.9 C 94 H 18 120/61 96 Room Air 04/28/23 07:03 87 16 97 Room Air 04/28/23 02:59 68 18 98 Room Air 04/28/23 02:00 93 O2 Del Method 04/28/23 08:03 04/28/23 07:03 04/28/23 02:59 04/28/23 02:00 Room Air Laboratory Results 04/28/23 04/28/23 04/27/23 Range/Units 07:48 06:32 20:24 WBC 18.27 H (4.8-10.8) K/ul RBC 3.89 L (4.70-6.10) M/uL Hgb 9.8 L (14.0-18.0) g/dl Hct 32.5 L (42.0-52.0) % MCV 83.5 (80.0-100.0) fL MCH 25.2 (25.0-34.0) pg MCHC 30.2 L (32.0-36.0) g/dL RDW Std Deviation 49.9 H (36.4-46.3) fL RDW Coeff of Katelyn 16.6 H (11.5-14.5) % Plt Count 432 H (130-400) K/uL MPV 9.1 L (9.4-12.4) fL Immature Gran % (Auto) 0.7 % Neut % (Auto) 82.3 % Lymph % (Auto) 5.1 % [place] % (Auto) 11.0 % Eos % (Auto) 0.7 % Baso % (Auto) 0.2 % Neut # (Auto) 15.03 H (1.40-6.50) K/uL Lymph # (Auto) 0.93 L (1.20-3.40) K/uL [place] # (Auto) 2.01 H (0.11-0.59) K/uL Eos # (Auto) 0.13 (0.00-0.50) K/uL Baso # (Auto) 0.04 (0.00-0.20) K/uL Immature Gran # (Auto) 0.13 (0.01-0.20) K/uL Sodium 138 (136-145) mmol/L Potassium 3.8 (3.5-5.1) mmol/L Chloride 108 H (98-107) mmol/L Carbon Dioxide 18 L (21-32) mmol/L Anion Gap 12 H (3-11) BUN 37 H (6-23) mg/dl Creatinine 2.94 H D (0.6-1.4) mg/dl Est Cr Clr Drug Dosing 23.6 ml/min Est GFR ( Amer) 21.8 ml/min Est GFR (Non-Af Amer) 18.8 ml/min BUN/Creatinine Ratio 12.6 (10-20) Glucose 178 H (70-99(Fasting)) mg/dl POC Glucose 202 H 156 H (70-99) mg/dl Calcium 8.7 (8.6-10.3) mg/dl Magnesium 2.4 (1.7-2.4) mg/dl Total Bilirubin 0.6 (0.2-1.0) mg/dl AST 25 (13-39) U/L ALT 10 (7-52) U/L Alkaline Phosphatase 77 (34-104) U/L B-Natriuretic Peptide Pending Total Protein 6.7 (6.0-8.3) gm/dl Albumin 3.1 L (3.4-5.0) gm/dl Globulin 3.6 (2.5-4.0) gm/dl Albumin/Globulin Ratio 0.9 (0.9-2) TSH 5.462 H (0.300-4.500) uIu/ml Free T4 1.22 (0.61-1.60) ng/dl Random Vancomycin 15.9 (10-20) mcg/ml Adenovirus (PCR) (NotDetected) B. pertussis DNA (PCR) (NotDetected) B.parapertussis DNA PCR (NotDetected) C. pneumoniae DNA (PCR) (NotDetected) Coronavirus OC43 (PCR) (NotDetected) Coronavirus HKU1 (PCR) (NotDetected) Coronavirus 229E (PCR) (NotDetected) SARS-CoV-2 (PCR) (NotDetected) Coronavirus NL63 (PCR) (NotDetected) Human Metapneumovir PCR (NotDetected) Influenza Type A (PCR) (NotDetected) Influenza Type B (PCR) (NotDetected) M. pneumoniae (PCR) (NotDetected) Parainfluenza 1 (PCR) (NotDetected) Parainfluenza 2 (PCR) (NotDetected) Parainfluenza 3 (PCR) (NotDetected) Parainfluenza 4 (PCR) (NotDetected) RSV (PCR) (NotDetected) Entero/Rhino (PCR) (NotDetected) 04/27/23 04/27/23 04/27/23 Range/Units 18:21 11:53 09:00 WBC (4.8-10.8) K/ul RBC (4.70-6.10) M/uL Hgb (14.0-18.0) g/dl Hct (42.0-52.0) % MCV (80.0-100.0) fL MCH (25.0-34.0) pg MCHC (32.0-36.0) g/dL RDW Std Deviation (36.4-46.3) fL RDW Coeff of Katelyn (11.5-14.5) % Plt Count (130-400) K/uL MPV (9.4-12.4) fL Immature Gran % (Auto) % Neut % (Auto) % Lymph % (Auto) % [place] % (Auto) % Eos % (Auto) % Baso % (Auto) % Neut # (Auto) (1.40-6.50) K/uL Lymph # (Auto) (1.20-3.40) K/uL [place] # (Auto) (0.11-0.59) K/uL Eos # (Auto) (0.00-0.50) K/uL Baso # (Auto) (0.00-0.20) K/uL Immature Gran # (Auto) (0.01-0.20) K/uL Sodium (136-145) mmol/L Potassium (3.5-5.1) mmol/L Chloride (98-107) mmol/L Carbon Dioxide (21-32) mmol/L Anion Gap (3-11) BUN (6-23) mg/dl Creatinine (0.6-1.4) mg/dl Est Cr Clr Drug Dosing ml/min Est GFR ( Amer) ml/min Est GFR (Non-Af Amer) ml/min BUN/Creatinine Ratio (10-20) Glucose (70-99(Fasting)) mg/dl POC Glucose 137 H 130 H (70-99) mg/dl Calcium (8.6-10.3) mg/dl Magnesium (1.7-2.4) mg/dl Total Bilirubin (0.2-1.0) mg/dl AST (13-39) U/L ALT (7-52) U/L Alkaline Phosphatase (34-104) U/L B-Natriuretic Peptide Total Protein (6.0-8.3) gm/dl Albumin (3.4-5.0) gm/dl Globulin (2.5-4.0) gm/dl Albumin/Globulin Ratio (0.9-2) TSH (0.300-4.500) uIu/ml Free T4 (0.61-1.60) ng/dl Random Vancomycin (10-20) mcg/ml Adenovirus (PCR) Not Detected (NotDetected) B. pertussis DNA (PCR) Not Detected (NotDetected) B.parapertussis DNA PCR Not Detected (NotDetected) C. pneumoniae DNA (PCR) Not Detected (NotDetected) Coronavirus OC43 (PCR) Not Detected (NotDetected) Coronavirus HKU1 (PCR) Not Detected (NotDetected) Coronavirus 229E (PCR) Not Detected (NotDetected) SARS-CoV-2 (PCR) Not Detected (NotDetected) Coronavirus NL63 (PCR) Not Detected (NotDetected) Human Metapneumovir PCR Not Detected (NotDetected) Influenza Type A (PCR) Not Detected (NotDetected) Influenza Type B (PCR) Not Detected (NotDetected) M. pneumoniae (PCR) Not Detected (NotDetected) Parainfluenza 1 (PCR) Not Detected (NotDetected) Parainfluenza 2 (PCR) Not Detected (NotDetected) Parainfluenza 3 (PCR) Not Detected (NotDetected) Parainfluenza 4 (PCR) Not Detected (NotDetected) RSV (PCR) Not Detected (NotDetected) Entero/Rhino (PCR) Not Detected (NotDetected) Diagnostic Findings Chest CT 04/27/23 00:00 CT chest diagnostic wo con CT DOSE: HISTORY: Shortness of breath. TECHNIQUE: Multiaxial CT images of the chest were performed without contrast. A dose lowering technique was utilized adhering to the principles of ALARA. COMPARISON: Chest CT 02/23/2023. FINDINGS: Scattered patchy and irregular bilateral airspace opacities most pronounced within the right lung have slightly improved in the interval. There are few calcified granuloma seen within the right lung. There is a stable 4 mm nodule within the lingula on image 112. No evidence for pulmonary edema. No pneumothorax. There is mild bronchial wall thickening. No acute fractures. Normal thyroid gland. Normal esophagus. The heart remains mildly enlarged. No pericardial effusions. A trace right pleural effusion has improved. Limited views the upper abdomen demonstrate a normal liver and adrenal glands. Choleli thiasis. Lobular appearance to the spleen again noted. Partially visualized 1 cm hyperdense lesion within the left kidney, unchanged. This may represent a hyperdense cyst. Mild distal paraesophageal lymphadenopathy has slightly improved. No definite hilar lymphadenopathy. There are coronary artery calcifications. Normal caliber thoracic aorta with moderate calcified plaque. IMPRESSION: 1. Scattered patchy irregular bilateral airspace opacities most pronounced within the right lung have slightly improved. This favors a resolving pneumonitis. 3-[address] follow-up recommended to ensure complete resolution. 2. A trace right pleural effusion has improved. 3. Cholelithiasis. 4. A 4 mm nodule within the lingula. This bears watching on future examinations. ACT 112: Positive. There are findings on this exam that require communication between the performing entity and the patient following Patient Test Result Information Act ([place] Act 112) guidelines. Electronically signed by: Navjot Epps M.D. 04/27/2023 7:02 PM Chest X-Ray 04/27/23 07:33 XR chest 1V portable CLINICAL HISTORY: hypoxia COMPARISON STUDY: Chest CT February 23, 2023. Chest radiograph April 26, 2023. FINDINGS: There is no pneumothorax or pleural effusion. There is mild elevation of the right hemidiaphragm. Multifocal right lung airspace opacities are stable to slightly increased. A few patchy left lung opacities are noted. Cardiomegaly is again noted. No evidence for pulmonary edema. IMPRESSION: Patchy bilateral airspace opacities, as described below. The right lung opacities are stable to slightly increased. The findings favor an infectious process. Continued radiographic follow-up to ensure resolution is recommended. ACT 112: Negative or not required by law. Electronically signed by: Chai Orozco M.D. 04/27/2023 9:11 AM Shoulder MRI 04/27/23 08:33 MRI OF THE RIGHT SHOULDER WITHOUT CONTRAST CLINICAL HISTORY: weakness, pain, ?labrum tear vs other COMPARISON STUDY: Right shoulder radiographs April 26, 2023. TECHNIQUE: Utilizing a 1.5 Princess magnet and dedicated coil, multiplanar, multiecho imaging of the right shoulder was performed without intravenous or intraarticular contrast. FINDINGS: This study is moderately compromised by motion artifact. Right lung airspace opacities are incidentally noted. These were shown on chest radiograph of April 27, 2023. No fractures are present. There is no suspicious marrow replacement. No significant marrow edema is present. There is increased fluid within the right acromioclavicular joint. There is moderate adjacent soft tissue edema. Joint space narrowing and osteophytosis of the right acromioclavicular joint is present. There is also moderate cartilage thinning within the glenohumeral joint. There is a full-thickness tear within the proximal long head of the biceps tendon. In addition, there is a large full-thickness tear of supraspinatus with 2 cm of tendon retraction and moderate muscular atrophy. Infraspinatus tendinopathy is noted with high-grade partial-thickness tear of distal infraspinatus. There is a moderate grade full thickness interstitial tear within subscapularis. Teres minor is intact. No well-defined labral tear is identified. IMPRESSION: 1. Exam moderately compromised by motion artifact. Increased fluid within the right acromioclavicular joint with moderate adjacent soft tissue edema. These findings may reflect an acute degenerative process. However, a traumatic etiology or infectious process with septic arthritis cannot be completely excluded. No marrow edema to suggest associated osteomyelitis. No associated fluid collections. If suspicion for an infectious process, a short-term follow- up MRI of the right shoulder could be obtained to evaluate for interval change. 2. Large full-thickness tear of supraspinatus with tendon retraction or muscular atrophy. High-grade partial-thickness tear of infraspinatus. Moderate grade subscapularis interstitial tear. 3. Moderate degenerative changes within the right acromioclavicular and glenohumeral joints. 4. Full-thickness tear of the proximal long head of the biceps tendon. 5. Right lung airspace opacities better depicted on chest radiograph. The findings favor multifocal pneumonia. ACT 112: Negative or not required by law. Electronically signed by: Chai Orozco M.D. 04/27/2023 10:28 AM Cervical Spine MRI 04/27/23 15:42 CERVICAL SPINE MRI HISTORY: Right upper extremity pain, weakness, motor deficit TECHNIQUE: Multiplanar multisequence MRI of the cervical spine was performed without the use of contrast. COMPARISON STUDY: Cervical spine CT 04/26/2023. FINDINGS: Straightening of the cervical spine. No fracture or subluxation. 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 Prevertebral soft tissues are intact. The C5-C6 vertebral bodies are fused. There is moderate disc space narrowing at C6-C7. The C1-C2 interval is intact. The right C3-C4 facets are fused. There is a 14 x 5 mm cystic focus within the central cord at the C6- C7 level. This favors a focal syrinx. Only seen on the sagittal images there is abnormal cord signal/thickening and a 4 mm extramedullary T2 hyperintense focus at the T1/T2 levels which appears to demonstrate mass effect along the thoracic cord. This is only partially imaged on this study and therefore not well evaluated. A follow-up dedicated contrast enhanced cervical spine MRI which extends into the upper thoracic region is recommended for further evaluation. C2-C3: No significant central canal or neural foraminal narrowing. C3-C4: Small broad-based posterior disc osteophyte complex resulting in partial effacement of the anterior thecal sac without cord deformity. No significant central canal or neural foraminal narrowing. C4-C5: Small broad-based posterior disc osteophyte complex resulting in near complete effacement of the anterior thecal sac without cord deformity. There is mild central canal narrowing at this level. No significant neural foraminal narrowing. C5-C6: No significant central canal narrowing. There is mild bilateral neural foraminal narrowing due to the uncovertebral and facet hypertrophy. C6-C7: No significant central canal narrowing. There is mild right and moderate left neural foraminal narrowing due to the uncovertebral and facet hypertrophy. C7-T1: No significant central canal or neural foraminal narrowing. IMPRESSION: 1. There is a 14 x 5 mm cystic focus within the central cord at the C6-C7 level. This favors a focal syrinx. 2. There is also abnormal cord signal/thickening and a 4 mm extramedullary T2 hyperintense focus at the T1/T2 levels. This is only partially imaged on this study and therefore not well evaluated. A follow-up dedicated contrast enhanced cervical spine MRI which extends into the upper thoracic region is recommended for further evaluation. 3. Degenerative changes as described above. 4. No fracture or subluxation within the cervical spine. ACT 112: Negative or not required by law. Electronically signed by: Navjot Epps M.D. 04/27/2023 7:38 PM PG Care Time/CCT Total # of Minutes Spent Total Time Spent with Patient: Total time spent is greater than 50% in coordination of care (as documented) at patient's floor/unit and/or counseling patient: Coding Level of Care Code 88052 SUB INP/OBS CARE 3/50MIN Diagnoses Traumatic brachial plexus lesion S14.3XXA Pneumonia J18.9 Hypoxia R09.02 Abnormal CXR R93.89 COPD (chronic obstructive pulmonary disease) J44.9 MRSA bacteremia R78.81; B95.62 Aortic stenosis I35.0 DVT of lower extremity, bilateral I82.403 Diabetes E11.9 Hypomagnesemia E83.42 Chronic kidney disease, stage III (moderate) N18.30
[2023-04-28] MEDS ORDERED: CEFEPIME 2,000 MG in SYRINGE 0 ML IV STA (09:28)
--- NOTE | 2023-04-28 09:36 | Pharmacy Report ---
Pharmacy PK ABX Note - Date of Service April 28, 2023 - Assessment and Plan Assessment 83 year old M receiving Vancomycin and Zosyn empirically. * Day #2 of antimicrobial therapy. * Afebrile. MRSA swab positive. Procalcitonin was 0.38. * Blood cultures with no growth to date. * SCr jumped from 2 to 2.94 mg/dL this AM. Baseline is around 2.3-2.4 mg/dL. * Discussed with provider. Worried about combined nephrotoxicity with Zosyn and Vancomycin in a patient with baseline CKD. Loading dose of vancomycin was 26 mg/kg which may have contributed as well. Plan to change Zosyn to Cefepime today to avoid further worsening of kidney function. Plan Vancomycin * Loading dose: 2750 mg IV x 1 * Random level this AM: 15.9 mcg/mL * Given worsening renal function, will continue to dose per levels for now. * Give Vancomycin 500 mg IV x 1 today at 1200. Recheck random level tomorrow (04/29/23) morning. Cefepime * 2000 mg IV x 1 followed by 1000 mg IV every 12 hours for CrCl 11-29 mg/dL. Pharmacy will continue to follow and will adjust dose/frequency as necessary. Thank you.
[2023-04-28] MEDS: APIXABAN 5 MG TABLET PO SCH ×2 (09:39→21:20)
[2023-04-28] MEDS: METOPROLOL TARTRATE 50 MG TAB PO SCH ×2 (09:39→21:18)
[2023-04-28] MEDS: guaiFENesin 600 MG TABCR PO SCH ×2 (09:39→21:20)
[2023-04-28] MEDS: cilostazoL 100 MG TAB PO SCH ×2 (09:39→21:20)
[2023-04-28] MEDS: CYANOCOBALAMIN (B-12) 500 MCG TABLET PO SCH (09:40)
[2023-04-28] MEDS: BRIMONIDINE TARTRATE 0.2% 5ML OPB SCH ×2 (09:40→21:20)
[2023-04-28] MEDS: amLODIPine BESYLATE 5 MG TAB PO SCH (09:40)
[2023-04-28] MEDS: CHOLECALCIFEROL 1,000 UNITS 25 MCG TAB PO SCH ×2 (09:40→21:20)
[2023-04-28] MEDS: FAMOTIDINE 20 MG in SYRINGE 3 ML IV SCH ×2 (09:41→21:20)
[2023-04-28] MEDS: FLUTICASONE/VILANTEROL 100/25MCG 14 PUFFS/INHALER INH SCH (09:41)
--- NOTE | 2023-04-28 09:43 | Pharmacy Report ---
Pharmacy Glycemic Short Note 2 - Date of Service April 28, 2023 - Glycemic Short BSG Results (Last 24 hours): 04/27/23 04/27/23 04/27/23 11:53 18:21 20:24 Glucose POC Glucose 130 H 137 H 156 H 04/28/23 04/28/23 06:32 07:48 Glucose 178 H POC Glucose 202 H OUTPATIENT ANTIDIABETIC REGIMEN: * Novolog 70/30 - 56 units SC w/ breakfast, 14 units SC w/ lunch, and 28 units SC w/ dinner * HbA1c: 6.8% (04/27/23) ASSESSMENT: 04/28: * Eduar received 15 units of insulin yesterday, all basal. BSGs were: [phone] mg/dL. * Fasting BSG elevated at 202 mg/dL this AM. Discussed with RN, patient is refusing all food trays so little change patient ate anything prior to BSG check. Elevated fasting this AM may be due to basal deficiency because inpatient dose has only been ~20% of home basal dose. * Given patient is not eating and worsening renal function, was hesitant to increase basal today. However, reviewed a previous admission from January 2023 where patient was NPO for several days and BSGs were well controlled on 15 units of basal BID. Will try this today and monitor. No change to Novolog. 04/27: * YOSELYN is an 83 year old male who presented to ED on 04/26/23 w/ complaints of right arm pain/weakness (no obvious trauma reported) * Patient on ~100 units of insulin as an outpatient w/ noted improvement in HbA1c over past 3 months. Patient requiring significantly less insulin at this time. * BSGs ranging 127-140 mg/dL over past 24 hours * No plan for OR at this time. Diet ordered. PLAN FOR INPATIENT GLYCEMIC CONTROL: * Hold 70/30 insulin - convert to SC basal/bolus w/ insulin glargine and insulin lispro * Basal insulin * Lantus 15 units SC BID * Bolus insulin * NovoLog per scale ACHS or Q6hrs while NPO * Goal Range: Low 120 mg/dL - High 150 mg/dL * Correction Factor: 20 mg/dL/unit * Nutritional / Prandial insulin per carb ratio of 1 unit per 7 grams CHO consumed
[2023-04-28] MEDS: LANTUS PER UNIT CHARGE SQ SCH ×2 (10:01→21:21)
[2023-04-28] MEDS: INSULIN ASPART PER UNIT CHARGE SC SCH ×4 (10:01→21:21)
[2023-04-28 10:26] LABS: Ovalocytes 1+
[2023-04-28] MEDS ORDERED: LACTATED RINGER'S 1,000 ML IV SCH (11:00)
[2023-04-28] MEDS ORDERED: VANCOMYCIN HCL 500 MG in NSS 100mL IV ONE (12:00)
[2023-04-28] MEDS: methylPREDNISolone 60 MG in SYRINGE 0 ML IV SCH ×3 (12:24→22:02)
--- NOTE | 2023-04-28 12:51 | Orthopedic Consultation ---
Date of Consultation April 28, 2023 Assessment & Plan (1) Weakness of right upper extremity: Imaging the cervical spine does demonstrate evidence of a syrinx posterior to C7-T1. I suspect this is chronic in nature. He has no other symptoms related to this. As his right arms pain was sudden in nature. I strongly suspect it is related to the rotator cuff tear. I see no need for any cervical spine invention at this time. History of Present Illness Reason for Consultation: Right arm pain with weakness Attending Physician: Waqas Wheeler MD History of Present Illness This is a 83-year-old male who presents with a sudden onset of severe right arm pain. He states it extends from his shoulder to his wrist. He was reaching for jar when he had a sudden onset of pain. He denies any numbness and tingling to the fingers. He is left upper extremity asymptomatic. Denies any cervicalgia. Denies any specific other trauma or fall or event. He states his pain is severe and he is unwilling to move his right arm as it exacerbates his symptoms. Allergies Allergy/AdvReac Type Severity Reaction Status Date / Time gentamicin Allergy Unknown UNKNOWN Verified 04/26/23 16:03 niacin Allergy Unknown unknown Verified 04/26/23 16:03 sertraline AdvReac Mild JITTERRY Verified 04/26/23 16:03 metformin AdvReac Unknown CAN'T Verified 04/26/23 16:03 REMEMBER silver sulfadiazine AdvReac Unknown unknown Verified 04/26/23 16:03 Home Medications Medication Instructions Recorded Confirmed Type latanoprost 0.005 % eye drops 1 drp OPB HS ##0 11/10/11 04/26/23 History (Xalatan) acetaminophen 300 mg-codeine 30 mg 1 tab PO UD PRN Pain 12/10/19 04/26/23 History tablet alogliptin 12.5 mg tablet 12.5 mg PO QAM 08/16/21 04/26/23 History cyanocobalamin (vitamin B-12) 1,000 mcg PO QAM 08/16/21 04/26/23 History 1,000 mcg tablet (Vitamin B-12) docusate sodium 100 mg capsule 100 mg PO DAILY PRN Constipation 08/16/21 04/26/23 History (Stool Softener) metoprolol tartrate 50 mg tablet 50 mg PO AMPM 08/16/21 04/26/23 History pantoprazole 40 mg tablet,delayed 40 mg PO DAILYBB 08/16/21 04/26/23 History release albuterol sulfate 90 mcg/actuation 1 inh inhalation AMHS 08/30/22 04/26/23 History aerosol inhaler brimonidine 0.2 % eye drops 1 drp OPB AMHS 08/30/22 04/26/23 History cholecalciferol (vitamin D3) 25 25 mcg PO AMPM 08/30/22 04/26/23 History mcg (1,000 unit) tablet (Vitamin D3) mometasone-formoterol HFA 100 2 puff inhalation BID 08/30/22 04/26/23 History mcg-5 mcg/actuation aerosol inhaler (Dulera) amlodipine 5 mg tablet 5 mg PO DAILY #90 tabs 10/01/22 04/26/23 Rx insulin aspar prot-insulin aspart 94 unit subcut UD 10/24/22 04/26/23 History 100 unit/mL (70-30) subcutaneous pen (Novolog Mix 70-30FlexPen U-100) atorvastatin 20 mg tablet 80 mg PO HS 01/24/23 04/26/23 History cilostazol 100 mg tablet 100 mg PO AMHS 01/24/23 04/26/23 History magnesium oxide 420 mg tablet 420 mg PO QPM 01/24/23 04/26/23 History multivitamin 1 tab PO AMPM 01/24/23 04/26/23 History nystatin 100,000 unit/gram topical 1 applic topical DAILY PRN yeast 01/24/23 04/26/23 History cream Minirin Cream 1 applic topical BID PRN APPLY TO 04/26/23 04/26/23 History LEGS NEEDED acetaminophen 500 mg tablet 500 mg PO DIRECTED PRN 04/26/23 04/26/23 History (Tylenol Extra Strength) PAIN/FEVER apixaban 5 mg tablet (Eliquis) 5 mg PO BID 04/26/23 04/26/23 History Patient History Medical History DVT of lower extremity, bilateral Chest pain Left-sided chest pain Diabetes COPD (chronic obstructive pulmonary disease) Peripheral arterial disease GERD (gastroesophageal reflux disease) Hypertension Glaucoma Hyperlipidemia LDL goal <70 Obesity (BMI 30.0-34.9) Chronic anticoagulation Left sided sciatica Surgical History History of incision and drainage (01/24/23) Incision and Drainage Back Abscess(Left) - Duncan Cazares DO History of cataract surgery History of vein stripping History of tonsillectomy and adenoidectomy Family History Other Family history non-contributory Social History Smoking Status: Former smoker Tobacco Type: Cigarettes Second Hand Exposure: No; Do You Dip or Chew Tobacco: No; Tobacco Cessation Education Requested by Patient: No Hx Alcohol Use: Yes Alcohol type: beer, wine and hard liquor Hx Substance Use: No Preferred Language: Divehi Communication Ability: Effective Clinical Nursing Intern Required: No Beliefs That Will Affect Care: None marital status: Current Living Situation: Personal Care Facility Current Living Situation Comment: assisted care facility Other Information That Helps Us Care for You: No Feels Safe at Home: Yes Safety Concerns: Feels Safe At This Time Assistive Devices: Walker Physical Exam Physical Exam: On exam Miko the bedside. He is alert and cooperative. He is full active range of motion of the cervical spine without limits phenomenon or Spurling sign. He had no discomfort. He is excellent strength testing and for range of motion to the left upper extremity. The right upper extremities in the sling. He has marked swelling in the right hand. He is not willing to allow me to touch his right arm as it is hyperesthetic. Results & Data Vital Signs (Past 12 Hours) Vital Signs Temp Pulse Resp BP Pulse Ox Pulse Ox O2 Del Method 04/28/23 11:33 Room Air 04/28/23 08:03 36.9 C 94 H 18 120/61 96 Room Air 04/28/23 07:03 87 16 97 Room Air 04/28/23 02:59 68 18 98 Room Air 04/28/23 02:00 93 O2 Del Method 04/28/23 11:33 04/28/23 08:03 04/28/23 07:03 04/28/23 02:59 04/28/23 02:00 Room Air
[2023-04-28] MEDS ORDERED: IRON SUCROSE 300 MG in SODIUM CHLORIDE 0.9% 250 ML IV ONE (16:05)
[2023-04-28] MEDS ORDERED: IPRATROPIUM BROMIDE NEB SOLN 0.02% 2.5 ML VIAL NEB PRN (16:49)
[2023-04-28] MEDS ORDERED: LEVALBUTEROL HCL 0.63 MG/3 ML NEB NEB PRN (16:50)
[2023-04-28] MEDS: ALBUTEROL HFA 8 GM INHALER INH SCH (19:59)
[2023-04-28] MEDS: ATORVASTATIN 40 MG TAB PO SCH (21:18)
[2023-04-28] MEDS: CEFEPIME 1,000 MG in SYRINGE 0 ML IV SCH (21:20)
[2023-04-28] MEDS: LATANOPROST 0.005% OP SOLN 2.5 ML BTL OPB SCH (21:21)
[2023-04-28] MEDS: MAGNESIUM OXIDE 400 MG TAB PO SCH (21:22)
[2023-04-29] MEDS: methylPREDNISolone 60 MG in SYRINGE 0 ML IV SCH (06:01)
[2023-04-29] MEDS: PANTOprazole 40 MG TAB PO SCH (06:06)
[2023-04-29] MEDS: ACETAMINOPHEN 500 MG TAB PO SCH ×3 (06:06→21:02)
[2023-04-29 06:16] LABS: Hematocrit (blood only) 26.4 % (42.0-52.0); Hemoglobin 8.2 g/dl (14.0-18.0); Mean Corpuscular Hemoglobin 25.2 pg (25.0-34.0); Mean Corpuscular Hgb Conc 31.1 g/dL (32.0-36.0); Mean Platelet Volume 9.1 fL (9.4-12.4); Platelet Count 393 K/uL (130-400); RDW Coefficient of Variation 16.4 % (11.5-14.5); RDW Standard Deviation 48.3 fL (36.4-46.3); Red Blood Count 3.26 M/uL (4.70-6.10); White Blood Count 11.83 K/ul (4.8-10.8)
[2023-04-29 06:32] LABS: BUN Creatinine Ratio 14.1 (10-20); C Reactive Protein 26.9 mg/dl (0-0.5); Calcium 8.3 mg/dl (8.6-10.3); Est GFR (Non-African American) 14.7 ml/min; Magnesium 2.4 mg/dl (1.7-2.4); Potassium 4.2 mmol/L (3.5-5.1)
[2023-04-29 06:46] LABS: Basophils # (auto) 0.01 K/uL (0.00-0.20); Basophils % (auto) 0.1 %; Echinocytes 1+; Immature Granulocytes # (auto) 0.06 K/uL (0.01-0.20); Immature Granulocytes % (auto) 0.5 %; Lymphocytes # (auto) 0.39 K/uL (1.20-3.40); Lymphocytes % (auto) 3.3 %; Monocytes # (auto) 0.62 K/uL (0.11-0.59); Monocytes % (auto) 5.2 %; Neutrophils # (auto) 10.75 K/uL (1.40-6.50); Neutrophils % (auto) 90.9 %
[2023-04-29] MEDS: ALBUTEROL HFA 8 GM INHALER INH SCH ×2 (07:19→19:27)
--- NOTE | 2023-04-29 08:51 | Pharmacy Report ---
Pharmacy PK ABX Note - Date of Service April 29, 2023 - Assessment and Plan Assessment 83 year old M receiving Vancomycin and Zosyn empirically. * Day #3 of antimicrobial therapy. * Afebrile. MRSA swab positive. Procalcitonin was 0.38. * Blood cultures with no growth to date. * SCr jumped from 2.94 to 3.61 mg/dL this AM. Baseline is around 2.3-2.4 mg/dL. * Switched from Zosyn to Cefepime yesterday to negate any potential combined nephrotoxicity between Vanc and Zosyn. Plan Vancomycin * Loading dose: 2750 mg IV x 1 * Maintenance dose on 04/28/23: 500 mg IV x 1 at 1200 * Random level this AM: 15.1 mcg/mL * Given worsening renal function, will continue to dose per levels for now. * Give Vancomycin 500 mg IV x 1 today at 1200. Recheck random level tomorrow (04/30/23) morning. Cefepime * 1000 mg IV every 12 hours for CrCl 11-29 mg/dL. Pharmacy will continue to follow and will adjust dose/frequency as necessary. Thank you.
[2023-04-29] MEDS: FLUTICASONE/VILANTEROL 100/25MCG 14 PUFFS/INHALER INH SCH (08:52)
[2023-04-29] MEDS: INSULIN ASPART PER UNIT CHARGE SC SCH ×4 (09:01→20:20)
[2023-04-29] MEDS: LANTUS PER UNIT CHARGE SQ SCH ×2 (09:01→20:19)
[2023-04-29] MEDS: FAMOTIDINE 20 MG in SYRINGE 3 ML IV SCH ×2 (09:23→20:14)
[2023-04-29] MEDS: BRIMONIDINE TARTRATE 0.2% 5ML OPB SCH ×2 (09:23→20:13)
[2023-04-29] MEDS: CEFEPIME 1,000 MG in SYRINGE 0 ML IV SCH (09:23)
[2023-04-29] MEDS: guaiFENesin 600 MG TABCR PO SCH ×2 (09:24→20:12)
[2023-04-29] MEDS: APIXABAN 5 MG TABLET PO SCH ×2 (09:24→20:13)
[2023-04-29] MEDS: METOPROLOL TARTRATE 50 MG TAB PO SCH ×2 (09:24→20:11)
[2023-04-29] MEDS: CYANOCOBALAMIN (B-12) 500 MCG TABLET PO SCH (09:24)
[2023-04-29] MEDS: amLODIPine BESYLATE 5 MG TAB PO SCH (09:24)
[2023-04-29] MEDS: cilostazoL 100 MG TAB PO SCH ×2 (09:24→20:11)
[2023-04-29] MEDS: CHOLECALCIFEROL 1,000 UNITS 25 MCG TAB PO SCH ×2 (09:24→20:13)
--- NOTE | 2023-04-29 09:38 | Hospitalist Progress Note ---
Date of Service April 29, 2023 Assessment & Plan (1) Traumatic brachial plexus lesion: Plan: Admitted when sitting back/twisting and developed traumatic brachial plexus injury to his RIGHT shoulder MRI brain NEGATIVE for CVA - obtained given risk factors, does not old lacunar R occipital and L cerebellar infarcts. On eliquis BID (resumed 04/27). Consider ASA if no bleeding MRI shoulder * 1. Exam moderately compromised by motion artifact. Increased fluid within the right acromioclavicular joint with moderate adjacent soft tissue edema. These findings may reflect an acute degenerative process. However, a traumatic etiology or infectious process with septic arthritis cannot be completely excluded. No marrow edema to suggest associated osteomyelitis. No associated fluid collections. If suspicion for an infectious process, a short-term follow-up MRI of the right shoulder could be obtained to evaluate for interval change * 2. Large full-thickness tear of supraspinatus with tendon retraction or muscular atrophy. High-grade partial-thickness tear of infraspinatus. Moderate grade subscapularis interstitial tear. * 3. Moderate degenerative changes within the right acromioclavicular and glenohumeral joints. * 4. Full-thickness tear of the proximal long head of the biceps tendon. * 5. Right lung airspace opacities better depicted on chest radiograph. The findings favor multifocal pneumonia. Ortho consulted Sling in place MRI cervical spine obtained for concerns w/ radiculopathy * 1. There is a 14 x 5 mm cystic focus within the central cord at the C6-C7 level. This favors a focal syrinx. * 2. There is also abnormal cord signal/thickening and a 4 mm extramedullary T2 hyperintense focus at the T1/T2 levels. This is only partially imaged on this study and therefore not well evaluated. A follow-up dedicated contrast enhance d cervical spine MRI which extends into the upper thoracic region is recommended for further evaluation. * 3. Degenerative changes as described above. * 4. No fracture or subluxation within the cervical spine. Consulted ortho spine, per Dr Rangel discussion w/ supervising provider Dr Wheeler, trial solumedrol IV 60mg Q6h and monitor response -- refused 2 doses last night but significant improvement today and placed on prednisone 20mg PO daily Orthopedics to consider injection for tomorrow Abx changed to Cefepime/Vanco given hx bacteremia/worsened renal failure. Monitoring blood cultures. - Hx MRSA bacteremia from back abscess (healed scar/nonpainful on exam, no drainage). CT chest w/o consolidative process, pneumonitis suspected. 4mm lingula nodule (will need f/u PCP given smoking hx) ?pneumonitis rather than infectious process Given improvement w/ steroids, discussed w/ supervising provider and DISCONTINUED ANTIBIOTICS. Monitor for now PT/OT evals, needing rehab (at [facility] currently) - eval for need for higher level of care (patient hoping to return to [facility]). CM following. ref to [facility] made (2) Pneumonia: Plan: Recent admission in February for RIGHT sided pneumonia, completed treatment w/ levaquin at [facility], renally dosed. Hx COPD/smoking at baseline but NOT on oxygen/no O2 needs at dc last admission (however no 2step report, consider prior to dc) Was on room air on admission however worsened leukocytosis, hypoxia overnight 04/27 with repeat CXR w/ patchy b/l airspace opacities. R lung opacities stable/slightly increased, favor infectious process Obtained blood cultures given prior hx MRSA bacteremia, prior completed course Dapto Biofire obtained, NEGATIVE Placed on Zosyn/Vanco given +MRSA nasal screen. Pulmonary toilet Did obtain CT chest w/o for further eval as was to have 04/28 outpatient * 1. Scattered patchy irregular bilateral airspace opacities most pronounced within the right lung have slightly improved. This favors a resolving pneumonitis. 3-[address] follow-up recommended to ensure complete resolution. * 2. A trace right pleural effusion has improved. * 3. Cholelithiasis. * 4. A 4 mm nodule within the lingula. This bears watching on future examinations. Abx as above for empiric treatment, NOW DISCONTINUED as more pneumonitis than infection. Improved w/ mag supplemenation as well BC NGTD, WBC decreased but ? from steroids. Prednisone 20mg daily MONITOR OFF ANTIBIOTICS (3) Hypoxia: Plan: as above, suspected 2nd to pneumonia vs pneumonitis CT chest as above --> needs repeat 3-6 months (consider low dose CT w/ contrast given smoking history, no hemoptysis reported) Mag was low -- he refused prior IV replacement but was agreeable after discussions and repeat wnl Solumedrol should also help as above, now prednisone 20mg daily and has been on room air/no SOB reported (4) Abnormal CXR: Plan: as above, CT chest for further eval/treatment as outlined. f/u 3-6 month repeat imaging (5) COPD (chronic obstructive pulmonary disease): Plan: noted hx, 2nd to smoking. NOT on oxygen at baseline but on albuterol BID, dulera 2 puff BID mag LOW -- initially refused replacement but was agreeable to IV magnesium infusion and will monitor --> repeat wnl, now on room air Mucinex BID, pulmonary toilet, sputum if able to produce Supplemental O2 as needed, titrate to maintain sats --> on ROOM AIR, no further wheezing. NO SPUTUM PRODUCTION REPORTED CT chest w/o as above for further eval PNA/opacity. Can consider w/ contrast outpt given smoking history for screening (?lymphopenic on labs but only since this summer) Iron <10, Venofer 300mg 04/28, repeated for today and will order dose for tomorrow. Per nephro, consideration EPO (6) MRSA bacteremia: Plan: hx of such from back abscess/boil (no issues on exam), blood cultures added given history/leukocytosis, NO DRAINAGE/ABSCESS ON EXAM at site of back w/ prior source Abx as above, now dc. BCx ngtd (7) Aortic stenosis: Plan: noted hx of such. no syncope/fall reported. S1/S2 on exam, grade 3-4 murmur. BNP slight elevation but on RA and will monitor HTN Stable 126/66 Maintained on metoprolol 50mg BID, amlodipine 5mg daily (8) DVT of lower extremity, bilateral: Plan: Hx DVT, resumed eliquis 5mg BID per discussion w/ surgery no need to hold. (9) Diabetes: Plan: HbA1C 8.0 in January, repeat down to 6.8 On 94u TDD insulin outpatient, placed on lantus 30u BID on admission/sliding scale Pharmacy consulted for glycemic assistance, appreciated and BSgs acceptable Monitor (10) Hypomagnesemia: Plan: Replace and repeat level in AM 2gm IV ordered --> patient REFUSED replacement, reporting gives him heartburn intially but then was agreeable and repeat wnl. continue PO supp (11) Chronic kidney disease, stage III (moderate): Plan: CKD 3-4, GFR currently 30 but appears consistently recently in the 20s, technically CKD IV Renal dose meds/avoid nephrotoxins. Appears prior on ETELVINA/ARB therapy, since discontinued. Suspect 2nd to CKD IV/progressive renal function decline Iron studies obtained, iron <10 Venofer x 2 doses, additional for 12/6 Fecal occult for completeness ACUTE KIDNEY INJURY w/ Cr to 3.61, started PO bicarb for acidosis. Voiding, asked RN to check for any retention Nephrology consulted Agreed w/ bicarb, venofer replacement. consideration for EPO Repeat BMP this afternoon for eval/worsened will order renal US for eval Hx GERD - continue PPI daily. Some reflux/taking tums. Placed on pepcid IV BID for now, avoiding increased PPI given renal function. Denies any issues at present time Plan VTE Prophylaxis - Eliquis BID continued inpatient stay, possible steroid injection w/ orthopedics. monitor off abx, continue low dose prednisone for now. Monitor renal function/appreciate recs/assistance from nephrology PT/OT consulted -- from [facility] but possibly needing higher level of care. CM following Admission and Anticipated Discharge Date Admission Date: April 28, 2023 Supervising Physician Co-Signing Physician Notes LIS Supervision Note: I did not personally see or examine the patient today, but I verified all brasher points of LIS Boyer's assessment and plan with the following exceptions/additions: None Subjective Evaluated this morning, doing well actually. Had confusion overnight/called 911. This morning he reports feeling much better, states in [facility], [facility], year 2022, month april, but had the wrong date. He reports being able to move his shoulder, NOTHING needed for pain. Able to touch/lift. No fever/chills, chest pain. Discussed steroids/stopped. He said was seen by ortho this morning, also looking for his walker w/ seat as he believes he had it with him this morning. Will discuss w/ supervising provider/ortho regarding plan. Will plan to dc ABX, continue steroids but will place on prednisone 20mg daily and monitor labs. Physical Exam Constitutional: 83 yo male, chronically ill appearing, s itting up in bed, reporting feeling better, lifting his R arm up to level of shoulder, decreased pain, NAD ENMT: pupils equal in size/reactive to light, trachea midline, mmm Respiratory: diminished in the bases, no wheezing/crackles/rales, on room air Cardiovascular: RRR, grade 4 systolic murmur, S1/S2, no pitting edema but scarring to legs from prior ulcer/treatments reported, calves nontender but reddened appears to distal legs (not worse, nontender) pulses diminished but present Gastrointestinal (Abdomen): +BS, obese, decreased distension, soft/N T Musculoskeletal: decreased pain to RUE, improvement in mobility and able to raise to his shoulder today, sensation intact/fingers mobile. decreased mild edema to hand No left upper extremity of bilateral lower extremity motor deficits. Skin: no evidence for cellulitis, chronic venous stasis/reddened appearance reported to legs skin dry back-- scar to L mid-upper back from prior abscess/drainage,. No erythema/drainage, nontender to palpation Neurologic: awake; not confused Psychiatric: A+Ox3, euthymic affect Results & Data Results & Data Vital Signs (Past 12 Hours) Vital Signs Temp Pulse Pulse Resp BP Pulse Ox Pulse Ox 04/29/23 07:25 36.5 C 92 H 16 146/72 H 95 04/29/23 07:21 90 16 96 04/29/23 04:05 96 04/29/23 00:05 90 94 04/28/23 23:28 04/28/23 22:11 108 H 95 04/28/23 21:48 36.6 C 115 H 16 155/78 H 95 O2 Del Method O2 Del Method 04/29/23 07:25 Room Air 04/29/23 07:21 Room Air 04/29/23 04:05 Room Air 04/29/23 00:05 Room Air 04/28/23 23:28 Room Air 04/28/23 22:11 Room Air 04/28/23 21:48 Room Air Laboratory Results 04/29/23 04/29/23 04/28/23 Range/Units 07:29 05:39 23:06 WBC 11.83 H (4.8-10.8) K/ul RBC 3.26 L (4.70-6.10) M/uL Hgb 8.2 L (14.0-18.0) g/dl Hct 26.4 L (42.0-52.0) % MCV 81.0 (80.0-100.0) fL MCH 25.2 (25.0-34.0) pg MCHC 31.1 L (32.0-36.0) g/dL RDW Std Deviation 48.3 H (36.4-46.3) fL RDW Coeff of Katelyn 16.4 H (11.5-14.5) % Plt Count 393 (130-400) K/uL MPV 9.1 L (9.4-12.4) fL Immature Gran % (Auto) 0.5 % Neut % (Auto) 90.9 % Lymph % (Auto) 3.3 % Cobb % (Auto) 5.2 % Eos % (Auto) 0.0 % Baso % (Auto) 0.1 % Neut # (Auto) 10.75 H (1.40-6.50) K/uL Lymph # (Auto) 0.39 L (1.20-3.40) K/uL Cobb # (Auto) 0.62 H (0.11-0.59) K/uL Eos # (Auto) 0.00 (0.00-0.50) K/uL Baso # (Auto) 0.01 (0.00-0.20) K/uL Immature Gran # (Auto) 0.06 (0.01-0.20) K/uL Ovalocytes Echinocytes 1+ Peripher Smr Path Cons Sodium 136 (136-145) mmol/L Potassium 4.2 (3.5-5.1) mmol/L Chloride 109 H (98-107) mmol/L Carbon Dioxide 14 L (21-32) mmol/L Anion Gap 13 H (3-11) BUN 51 H (6-23) mg/dl Creatinine 3.61 H D (0.6-1.4) mg/dl Est Cr Clr Drug Dosing 19.0 ml/min Est GFR ( Amer) 17.0 ml/min Est GFR (Non-Af Amer) 14.7 ml/min BUN/Creatinine Ratio 14.1 (10-20) Glucose 232 H (70-99(Fasting)) mg/dl POC Glucose 229 H 292 H (70-99) mg/dl Calcium 8.3 L (8.6-10.3) mg/dl Magnesium 2.4 (1.7-2.4) mg/dl C-Reactive Protein 26.90 H (0-0.5) mg/dl B-Natriuretic Peptide (0-100) pg/ml Random Vancomycin 15.1 (10-20) mcg/ml 12/04/23 12/04/23 12/04/23 Range/Units 20:40 16:37 12:01 WBC (4.8-10.8) K/ul RBC (4.70-6.10) M/uL Hgb (14.0-18.0) g/dl Hct (42.0-52.0) % MCV (80.0-100.0) fL MCH (25.0-34.0) pg MCHC (32.0-36.0) g/dL RDW Std Deviation (36.4-46.3) fL RDW Coeff of Katelyn (11.5-14.5) % Plt Count (130-400) K/uL MPV (9.4-12.4) fL Immature Gran % (Auto) % Neut % (Auto) % Lymph % (Auto) % Cobb % (Auto) % Eos % (Auto) % Baso % (Auto) % Neut # (Auto) (1.40-6.50) K/uL Lymph # (Auto) (1.20-3.40) K/uL Cobb # (Auto) (0.11-0.59) K/uL Eos # (Auto) (0.00-0.50) K/uL Baso # (Auto) (0.00-0.20) K/uL Immature Gran # (Auto) (0.01-0.20) K/uL Ovalocytes Echinocytes Peripher Smr Path Cons Sodium (136-145) mmol/L Potassium (3.5-5.1) mmol/L Chloride (98-107) mmol/L Carbon Dioxide (21-32) mmol/L Anion Gap (3-11) BUN (6-23) mg/dl Creatinine (0.6-1.4) mg/dl Est Cr Clr Drug Dosing ml/min Est GFR ( Amer) ml/min Est GFR (Non-Af Amer) ml/min BUN/Creatinine Ratio (10-20) Glucose (70-99(Fasting)) mg/dl POC Glucose 248 H 196 H 153 H (70-99) mg/dl Calcium (8.6-10.3) mg/dl Magnesium (1.7-2.4) mg/dl C-Reactive Protein (0-0.5) mg/dl B-Natriuretic Peptide (0-100) pg/ml Random Vancomycin (10-20) mcg/ml 04/28/23 Range/Units 06:32 WBC (4.8-10.8) K/ul RBC (4.70-6.10) M/uL Hgb (14.0-18.0) g/dl Hct (42.0-52.0) % MCV (80.0-100.0) fL MCH (25.0-34.0) pg MCHC (32.0-36.0) g/dL RDW Std Deviation (36.4-46.3) fL RDW Coeff of Katelyn (11.5-14.5) % Plt Count (130-400) K/uL MPV (9.4-12.4) fL Immature Gran % (Auto) % Neut % (Auto) % Lymph % (Auto) % Cobb % (Auto) % Eos % (Auto) % Baso % (Auto) % Neut # (Auto) (1.40-6.50) K/uL Lymph # (Auto) (1.20-3.40) K/uL Cobb # (Auto) (0.11-0.59) K/uL Eos # (Auto) (0.00-0.50) K/uL Baso # (Auto) (0.00-0.20) K/uL Immature Gran # (Auto) (0.01-0.20) K/uL Ovalocytes 1+ Echinocytes Peripher Smr Path Cons Sodium (136-145) mmol/L Potassium (3.5-5.1) mmol/L Chloride (98-107) mmol/L Carbon Dioxide (21-32) mmol/L Anion Gap (3-11) BUN (6-23) mg/dl Creatinine (0.6-1.4) mg/dl Est Cr Clr Drug Dosing ml/min Est GFR ( Amer) ml/min Est GFR (Non-Af Amer) ml/min BUN/Creatinine Ratio (10-20) Glucose (70-99(Fasting)) mg/dl POC Glucose (70-99) mg/dl Calcium (8.6-10.3) mg/dl Magnesium (1.7-2.4) mg/dl C-Reactive Protein (0-0.5) mg/dl B-Natriuretic Peptide 286 H (0-100) pg/ml Random Vancomycin (10-20) mcg/ml PG Care Time/CCT Total # of Minutes Spent Total Time Spent with Patient: Total time spent is greater than 50% in coordination of care (as documented) at patient's floor/unit and/or counseling patient: Coding Level of Care Code 24577 SUB INP/OBS CARE 3/50MIN Diagnoses Traumatic brachial plexus lesion S14.3XXA Pneumonia J18.9 Hypoxia R09.02 Abnormal CXR R93.89 COPD (chronic obstructive pulmonary disease) J44.9 MRSA bacteremia R78.81; B95.62 Aortic stenosis I35.0 DVT of lower extremity, bilateral I82.403 Diabetes E11.9 Hypomagnesemia E83.42 Chronic kidney disease, stage III (moderate) N18.30
[2023-04-29] MEDS ORDERED: predniSONE 20 MG TAB PO STA (10:07)
[2023-04-29] MEDS ORDERED: IRON SUCROSE 300 MG in SODIUM CHLORIDE 0.9% 250 ML IV ONE (10:30)
[2023-04-29] MEDS: SODIUM BICARBONATE 650 MG TAB PO SCH ×2 (10:48→20:11)
[2023-04-29] MEDS ORDERED: VANCOMYCIN HCL 500 MG in NSS 100mL IV ONE (12:00)
[2023-04-29] MEDS ORDERED: methylPREDNISolone acetate 80 MG/ML VIAL IA ONE (12:40)
[2023-04-29] MEDS ORDERED: ETHYL CHLORIDE AER SPR 100 ML CAN EXT ONE (12:40)
[2023-04-29] MEDS ORDERED: BUPIVACAINE 0.5 % 5 MG/1 ML MPF 30ML VIAL INFIL ONE (12:40)
--- NOTE | 2023-04-29 12:40 | Orthopedic Progress Note ---
Date of Service April 29, 2023 Assessment & Plan (1) Rotator cuff arthropathy of right shoulder: Plan: I discussed the patient's plain film x-rays as well as the MRI results. Since he has had improvement of the pain with oral prednisone, we will continue the sling and continue oral prednisone. Medicine is going to discontinue the IV antibiotics. I discussed with the patient that a corticosteroid injection into the right shoulder joint may be of benefit. It also may serve as diagnostic if the pain in the right upper extremity resolves from the injection. I will order the injection supplies and plan for injection tomorrow. I also discussed the current plan with the hospitalist team. (2) Pain of right arm: Admission and Anticipated Discharge Date Admission Date: April 28, 2023 Subjective Patient states that he has had some improvement in the right upper extremity pain. When the pain started after reaching for something with his right upper extremity, he was unable to move his right shoulder. He was also having pain that radiated from the shoulder down the upper arm and into the forearm. He states no one was able to test the arm but himself. He was started on oral prednisone by the hospitalist and has had some improvement in pain. Overall, he is feeling better today than he has in previous days. Most of his pain now comes with trying to actively move the right shoulder. Physical Exam Constitutional: WD/WN, vitals as above no acute distress (Sitting up in bed, comfortable) Musculoskeletal: Shoulder: + limited ROM (Right shoulder: Decreased flexion and abduction with pain) and + joint line tenderness (Nontender right shoulder); shoulder normal to inspection, no deformity, no skin erythema and no ecchymosis Skin: no rashes, warm and dry Trauma: no evidence of skin trauma Neurologic: normal touch/pain/proprioception Psychiatric: A+Ox3, euthymic affect Speech: normal rate/rhythm/volume of speech Results & Data Vital Signs (Past 12 Hours) Vital Signs Temp Pulse Pulse Resp BP Pulse Ox Pulse Ox 04/29/23 09:41 04/29/23 07:25 36.5 C 92 H 16 146/72 H 95 04/29/23 07:21 90 16 96 04/29/23 04:05 96 O2 Del Method O2 Del Method 04/29/23 09:41 Room Air 04/29/23 07:25 Room Air 04/29/23 07:21 Room Air 04/29/23 04:05 Room Air
--- NOTE | 2023-04-29 12:56 | Nephrology Consultation ---
Date of Consultation April 29, 2023 Assessment & Plan (1) Acute kidney injury: (2) Rotator cuff arthropathy of right shoulder: (3) Leukocytosis: (4) Anemia due to chronic kidney disease: Plan 83-year-old gentleman with stage IIIb CKD baseline creatinine 2.0-2.2 with high-grade proteinuria, secondary to diabetic nephropathy. Admitted with acute onset right shoulder pain with rotator cuff tear, started on prednisone with slight improvement in symptoms. She received empiric antibiotic for changes in chest x-ray but discontinued. JEREMY and metabolic acidosis, creatinine up to 3.6 with bicarb 14. Hemoglobin less than 10. Urinalysis with high-grade proteinuria but no hematuria or pyuria. Unclear etiology for JEREMY, no offending nephrotoxic medications, hypotension. Unlikely postrenal obstruction. ? Hemodynamically mediated JEREMY with variability on blood pressure with impaired autoregulation in the setting of diabetes. --Advised to continue to keep well-hydrated, continue to avoid all nephrotoxic medications. Monitor renal function closely. If further worsening of renal function, will get a renal ultrasound to exclude possibility for postrenal obstruction. -- Continue on sodium bicarbonate -- Continue Venofer 200 mg iv daily to complete total 1 g. Can be considered Epogen after that. -- Dose medications for eGFR less than 30 ml/min Thank you for allowing me to participate in your patient's care. It was a pleasure to see Winston. History of Present Illness Reason for Consultation: JEREMY, metabolic acidosis Attending Physician: Laurence Montesinos MD History of Present Illness Eduar Boyer is an 83 year old male with PMH of stage 3B CKD, DM, HTN admitted to hospital with right arm pain and rotator cuff tear. Nephrology consult requested for management of JEREMY and metabolic acidosis. EMR records were reviewed in detail during visit. Winston presented to the ER on 04/26/23 with right arm weakness and pain. He started noticing sudden onset pain and weakness in his right arm from shoulder to his hand which started after he reached back for his glass of water on his night stand to his right side. MRI showed rt rotator cuff tear. He is on sling and started on Prednisone with some improvement in pain and swelling of rt upper extremity. On admission his cr was 2.0 but rapidly worsened over last 3 days to 3.6 this am. Bicarb 14 from 20 on admission, K normal. Chest x-ray on admission was concerning for pulmonary infiltrate and had leukocytosis and received empiric vancomycin and cefepime however since he did not have any cough, fever or other sign of active infection, antibiotic was stopped. Reports voiding normally and drinking enough to keep well hydrated. Blood pressure has been reasonable. No nephrotoxic medication exposure. Did not have any IV contrast study. Stage IIIb/IV CKD, baseline creatinine lately has been around 2.0-2.2 with high- grade proteinuria, thought to be secondary to diabetic nephropathy. Urinalysis with nephrotic range proteinuria but no hematuria. CT abdomen pelvis in September showed bilateral kidney obstruction. Previous paraproteinemia work-up was unremarkable. Diabetes seems to be relatively well controlled, last A1c was 6.8. Prior history of bilateral DVT, on Eliquis. Reports significant improvement in right shoulder pain, swelling as well as morbility. No shortness of breath or chest pain. Denies any dysuria. Allergies Allergy/AdvReac Type Severity Reaction Status Date / Time gentamicin Allergy Unknown UNKNOWN Verified 04/26/23 16:03 niacin Allergy Unknown unknown Verified 04/26/23 16:03 sertraline AdvReac Mild JITTERRY Verified 04/26/23 16:03 metformin AdvReac Unknown CAN'T Verified 04/26/23 16:03 REMEMBER silver sulfadiazine AdvReac Unknown unknown Verified 04/26/23 16:03 Home Medications Medication Instructions Recorded Confirmed Type latanoprost 0.005 % eye drops 1 drp OPB HS ##0 11/10/11 04/26/23 History (Xalatan) acetaminophen 300 mg-codeine 30 mg 1 tab PO UD PRN Pain 12/10/19 04/26/23 History tablet alogliptin 12.5 mg tablet 12.5 mg PO QAM 08/16/21 04/26/23 History cyanocobalamin (vitamin B-12) 1,000 mcg PO QAM 08/16/21 04/26/23 History 1,000 mcg tablet (Vitamin B-12) docusate sodium 100 mg capsule 100 mg PO DAILY PRN Constipation 08/16/21 04/26/23 History (Stool Softener) metoprolol tartrate 50 mg tablet 50 mg PO AMPM 08/16/21 04/26/23 History pantoprazole 40 mg tablet,delayed 40 mg PO DAILYBB 08/16/21 04/26/23 History release albuterol sulfate 90 mcg/actuation 1 inh inhalation AMHS 08/30/22 04/26/23 Histo ry aerosol inhaler brimonidine 0.2 % eye drops 1 drp OPB AMHS 08/30/22 04/26/23 History cholecalciferol (vitamin D3) 25 25 mcg PO AMPM 08/30/22 04/26/23 History mcg (1,000 unit) tablet (Vitamin D3) mometasone-formoterol HFA 100 2 puff inhalation BID 08/30/22 04/26/23 History mcg-5 mcg/actuation aerosol inhaler (Dulera) amlodipine 5 mg tablet 5 mg PO DAILY #90 tabs 10/01/22 04/26/23 Rx insulin aspar prot-insulin aspart 94 unit subcut UD 10/24/22 04/26/23 History 100 unit/mL (70-30) subcutaneous pen (Novolog Mix 70-30FlexPen U-100) atorvastatin 20 mg tablet 80 mg PO HS 01/24/23 04/26/23 History cilostazol 100 mg tablet 100 mg PO AMHS 01/24/23 04/26/23 History magnesium oxide 420 mg tablet 420 mg PO QPM 01/24/23 04/26/23 History multivitamin 1 tab PO AMPM 01/24/23 04/26/23 History nystatin 100,000 unit/gram topical 1 applic topical DAILY PRN yeast 01/24/23 04/26/23 History cream Minirin Cream 1 applic topical BID PRN APPLY TO 04/26/23 04/26/23 History LEGS NEEDED acetaminophen 500 mg tablet 500 mg PO DIRECTED PRN 04/26/23 04/26/23 History (Tylenol Extra Strength) PAIN/FEVER apixaban 5 mg tablet (Eliquis) 5 mg PO BID 04/26/23 04/26/23 History Patient History Medical History (Updated 04/29/23 @ 13:03 by Veena Shaffer MD) Anemia due to chronic kidney disease DVT of lower extremity, bilateral Chest pain Left-sided chest pain Diabetes COPD (chronic obstructive pulmonary disease) Peripheral arterial disease GERD (gastroesophageal reflux disease) Hypertension Glaucoma Hyperlipidemia LDL goal <70 Obesity (BMI 30.0-34.9) Chronic anticoagulation Left sided sciatica Surgical History History of incision and drainage (01/24/23) Incision and Drainage Back Abscess(Left) - Duncan Cazares DO History of cataract surgery History of vein stripping History of tonsillectomy and adenoidectomy Family History Other Family history non-contributory Social History Smoking Status: Former smoker Tobacco Type: Cigarettes Second Hand Exposure: No; Do You Dip or Chew Tobacco: No; Tobacco Cessation Education Requested by Patient: No Hx Alcohol Use: Yes Alcohol type: beer, wine and hard liquor Hx Substance Use: No Preferred Language: Uzbek Communication Ability: Effective [employer]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 Physical Exam Constitutional: WD/WN, vitals as above no acute distress Eyes: + anicteric sclerae Neck: normal visual inspection Respiratory: no respiratory distress Auscultation: lungs clear to auscultation bilaterally Cardiovascular: Rate/Rhythm: regular rate and regular rhythm Heart Sounds: normal S1 and normal S2 Extremities: no edema Gastrointestinal (Abdomen): Inspection/Auscultation: abdomen normal to inspection Percussion/Palpation: abdomen soft; abdomen nontender Musculoskeletal: right arm in sling, swollen. Skin: no rashes, warm and dry Neurologic: no focal motor deficits Psychiatric: Orientation: alert and oriented x 3 Affect: euthymic affect Results & Data Vital Signs (Past 12 Hours) Vital Signs Temp Pulse Pulse Resp BP Pulse Ox Pulse Ox 04/29/23 09:41 04/29/23 07:25 36.5 C 92 H 16 146/72 H 95 04/29/23 07:21 90 16 96 04/29/23 04:05 96 O2 Del Method O2 Del Method 04/29/23 09:41 Room Air 04/29/23 07:25 Room Air 04/29/23 07:21 Room Air 04/29/23 04:05 Room Air PG Care Time/CCT Total # of Minutes Spent Total Time Spent with Patient: Total time spent is greater than 50% in coordination of care (as documented) at patient's floor/unit and/or counseling patient: Coding Level of Care Code 90344 IN/OBS CONSULT LVL 5,80M Diagnoses Acute kidney injury N17.9 Rotator cuff arthropathy of right shoulder M12.811 Leukocytosis D72.829 Leukocytosis type: unspecified Anemia due to chronic kidney disease N18.9; D63.1 (3) Leukocytosis Leukocytosis type: unspecified Qualified Code(s): D72.829 - Elevated white blood cell count, unspecified
--- NOTE | 2023-04-29 14:18 | Pharmacy Report ---
Pharmacy Glycemic Short Note 2 - Date of Service April 29, 2023 - Glycemic Short BSG Results (Last 24 hours): 04/28/23 04/28/23 04/28/23 16:37 20:40 23:06 Glucose POC Glucose 196 H 248 H 292 H 04/29/23 04/29/23 04/29/23 05:39 07:29 10:46 Glucose 232 H POC Glucose 229 H 211 H 04/29/23 11:16 Glucose POC Glucose 219 H OUTPATIENT ANTIDIABETIC REGIMEN: * Novolog 70/30 - 56 units SC w/ breakfast, 14 units SC w/ lunch, and 28 units SC w/ dinner * HbA1c: 6.8% (04/27/23) ASSESSMENT: 04/29: * Patient received 30 units of insulin yesterday, all basal. BSGs were: [phone] mg/dL. * Patient refused all Novolog yesterday. Received 2 dose of IV SoluMedrol 60 mg x 2 doses yesterday afternoon then started refusing medication. * Fasting BSG was 229 mg/dL this AM. SoluMedrol has been transitioned to Prednisone 20 mg PO daily. Abx have been discontinued. * Will increase basal to 20 units BID today. Novolog tightened as well since patient not refusing. May need to consider adding NPH with daily prednisone. Still not eating. 04/28: * Eduar received 15 units of insulin yesterday, all basal. BSGs were: [phone] mg/dL. * Fasting BSG elevated at 202 mg/dL this AM. Discussed with RN, patient is refusing all food trays so little change patient ate anything prior to BSG check. Elevated fasting this AM may be due to basal deficiency because inpatient dose has only been ~20% of home basal dose. * Given patient is not eating and worsening renal function, was hesitant to increase basal today. However, reviewed a previous admission from January 2023 where patient was NPO for several days and BSGs were well controlled on 15 units of basal BID. Will try this today and monitor. No change to Novolog. 04/27: * YOSELYN is an 83 year old male who presented to ED on 04/26/23 w/ complaints of right arm pain/weakness (no obvious trauma reported) * Patient on ~100 units of insulin as an outpatient w/ noted improvement in HbA1c over past 3 months. Patient requiring significantly less insulin at this time. * BSGs ranging 127-140 mg/dL over past 24 hours * No plan for OR at this time. Diet ordered. PLAN FOR INPATIENT GLYCEMIC CONTROL: * Hold 70/30 insulin - convert to SC basal/bolus w/ insulin glargine and insulin lispro * Basal insulin * Lantus 20 units SC BID * Bolus insulin * NovoLog per scale ACHS or Q6hrs while NPO * Goal Range: Low 120 mg/dL - High 150 mg/dL * Correction Factor: 15 mg/dL/unit * Nutritional / Prandial insulin per carb ratio of 1 unit per 5 grams CHO consumed
[2023-04-29 18:15] LABS: BUN Creatinine Ratio 14.9 (10-20); Calcium 8.1 mg/dl (8.6-10.3); Creatinine Clr Calc Pharmacy 16.5 ml/min; Est GFR (African American) 14.4 ml/min; Est GFR (Non-African American) 12.4 ml/min; Potassium 4.3 mmol/L (3.5-5.1)
[2023-04-29] MEDS: MAGNESIUM OXIDE 400 MG TAB PO SCH (20:12)
[2023-04-29] MEDS: ATORVASTATIN 40 MG TAB PO SCH (20:13)
[2023-04-29] MEDS: LATANOPROST 0.005% OP SOLN 2.5 ML BTL OPB SCH (20:14)
[2023-04-30] MEDS: PANTOprazole 40 MG TAB PO SCH (05:38)
[2023-04-30] MEDS: ACETAMINOPHEN 500 MG TAB PO SCH ×3 (05:40→20:49)
[2023-04-30] MEDS: ALBUTEROL HFA 8 GM INHALER INH SCH ×3 (07:11→20:08)
[2023-04-30 07:46] LABS: Basophils # (auto) 0.02 K/uL (0.00-0.20); Basophils % (auto) 0.1 %; Eosinophils # (auto) 0.01 K/uL (0.00-0.50); Eosinophils % (auto) 0.1 %; Hematocrit (blood only) 26.6 % (42.0-52.0); Hemoglobin 8.3 g/dl (14.0-18.0); Immature Granulocytes # (auto) 0.14 K/uL (0.01-0.20); Immature Granulocytes % (auto) 0.8 %; Lymphocytes # (auto) 0.87 K/uL (1.20-3.40); Mean Corpuscular Hemoglobin 25.2 pg (25.0-34.0); Mean Corpuscular Hgb Conc 31.2 g/dL (32.0-36.0); Mean Corpuscular Volume 80.9 fL (80.0-100.0); Mean Platelet Volume 9.3 fL (9.4-12.4); Monocytes # (auto) 1.79 K/uL (0.11-0.59); Monocytes % (auto) 10.3 %; Neutrophils # (auto) 14.48 K/uL (1.40-6.50); Neutrophils % (auto) 83.7 %; Platelet Count 464 K/uL (130-400); RDW Coefficient of Variation 16.4 % (11.5-14.5); RDW Standard Deviation 48.7 fL (36.4-46.3); Red Blood Count 3.29 M/uL (4.70-6.10); White Blood Count 17.31 K/ul (4.8-10.8)
[2023-04-30 08:13] LABS: Albumin Level 2.8 gm/dl (3.4-5.0); BUN Creatinine Ratio 16.8 (10-20); Calcium 8.5 mg/dl (8.6-10.3); Creatinine Clr Calc Pharmacy 16.5 ml/min; Est GFR (African American) 14.3 ml/min; Est GFR (Non-African American) 12.3 ml/min; Magnesium 2.5 mg/dl (1.7-2.4); Potassium 4.1 mmol/L (3.5-5.1)
[2023-04-30] MEDS: cilostazoL 100 MG TAB PO SCH ×2 (08:14→20:50)
[2023-04-30] MEDS: BRIMONIDINE TARTRATE 0.2% 5ML OPB SCH ×2 (08:14→20:51)
[2023-04-30] MEDS: amLODIPine BESYLATE 5 MG TAB PO SCH (08:14)
[2023-04-30] MEDS: APIXABAN 5 MG TABLET PO SCH ×2 (08:14→20:51)
[2023-04-30] MEDS: predniSONE 20 MG TAB PO SCH (08:14)
[2023-04-30] MEDS: SODIUM BICARBONATE 650 MG TAB PO SCH ×3 (08:14→20:49)
[2023-04-30] MEDS: guaiFENesin 600 MG TABCR PO SCH ×2 (08:14→20:51)
[2023-04-30] MEDS: CHOLECALCIFEROL 1,000 UNITS 25 MCG TAB PO SCH ×2 (08:14→20:51)
[2023-04-30] MEDS: METOPROLOL TARTRATE 50 MG TAB PO SCH ×2 (08:14→20:50)
[2023-04-30] MEDS: FLUTICASONE/VILANTEROL 100/25MCG 14 PUFFS/INHALER INH SCH (08:15)
[2023-04-30] MEDS: CYANOCOBALAMIN (B-12) 500 MCG TABLET PO SCH (08:16)
[2023-04-30] MEDS: FAMOTIDINE 20 MG in SYRINGE 3 ML IV SCH ×2 (08:37→20:52)
[2023-04-30] MEDS: INSULIN ASPART PER UNIT CHARGE SC SCH ×4 (08:41→20:52)
[2023-04-30] MEDS: LANTUS PER UNIT CHARGE SQ SCH ×2 (08:42→20:52)
[2023-04-30] MEDS ORDERED: IRON SUCROSE 300 MG in SODIUM CHLORIDE 0.9% 250 ML IV ONE (12:00)
--- NOTE | 2023-04-30 13:19 | Nephrology Progress Note ---
Date of Service April 30, 2023 Assessment & Plan (1) Acute kidney injury: (2) Rotator cuff arthropathy of right shoulder: (3) Leukocytosis: (4) Anemia due to chronic kidney disease: Plan 83-year-old gentleman with stage IIIb CKD b/l cre 2.0-2.2 with high-grade proteinuria, secondary to diabetic nephropathy. Admitted with acute onset right shoulder pain with rotator cuff tear, started on prednisone with slight improvement in symptoms. She received empiric antibiotic for changes in chest x-ray but discontinued. JEREMY and metabolic acidosis, creatinine up to 3.6 with bicarb 14. Hemoglobin less than 10. Urinalysis with high-grade proteinuria but no hematuria or pyuria. Unclear etiology for JEREMY, no offending nephrotoxic medications, hypotension. Unlikely postrenal obstruction. ? Hemodynamically mediated JEREMY with variability on blood pressure with impaired autoregulation in the setting of diabetes. Progressive worsening of renal function, creatinine up to 4.2 mg/dl persistent metabolic acidosis while on sodium bicarbonate. --Waiting on renal ultrasound to exclude possibility for postrenal obstruction. --Increase sodium bicarbonate to 2 tabs twice a day --Advised to continue to keep well-hydrated, continue to avoid all nephrotoxic medications. Monitor renal function closely. -- Continue Venofer 200 mg iv daily to complete total 1 g. Can be considered Epogen after that. -- Dose medications for eGFR less than 30 ml/min Admission and Anticipated Discharge Date Admission Date: April 28, 2023 Dalton Montero was seen and evaluated this morning. Overall he feels well, right upper extremity pain and swelling improved significantly. Has been voiding normally. Denies shortness of breath or chest pain. Appetite decent. Renal function however continues to worsen, creatinine up to 4.2 mg/dl. Blood pressure well controlled. Review of Systems Review of Systems: Detailed review of system was done and pertinent positives and negatives were mentioned above. Physical Exam 2 Constitutional: WD/WN, vitals as above no acute distress Eyes: + anicteric sclerae Neck: normal visual inspection Respiratory: no respiratory distress Auscultation: lungs clear to auscultation bilaterally Cardiovascular: Rate/Rhythm: regular rate and regular rhythm Heart Sounds: normal S1 and normal S2 Extremities: no edema Skin: no rashes, warm and dry Neurologic: no focal motor deficits Psychiatric: Orientation: alert and oriented x 3 Affect: euthymic affect Results & Data Vital Signs (Past 12 Hours) Vital Signs Temp Pulse Resp BP Pulse Ox O2 Del Method O2 Flow Rate 04/30/23 09:42 36.6 C 83 18 135/66 96 Room Air 04/30/23 09:00 Room Air 04/30/23 07:38 36.7 C 97 H 16 133/68 96 Room Air 04/30/23 07:23 98 H 18 96 Room Air 04/30/23 07:13 99 H 14 90 Room Air 21 PG Care Time/CCT Total # of Minutes Spent Total Time Spent with Patient: Total time spent is greater than 50% in coordination of care (as documented) at patient's floor/unit and/or counseling patient: Coding Level of Care Code 80115 SUB INP/OBS CARE 2/35MIN Diagnoses Acute kidney injury N17.9 Rotator cuff arthropathy of right shoulder M12.811 Leukocytosis D72.829 Leukocytosis type: unspecified Anemia due to chronic kidney disease N18.9; D63.1 (3) Leukocytosis Leukocytosis type: unspecified Qualified Code(s): D72.829 - Elevated white blood cell count, unspecified
--- NOTE | 2023-04-30 14:16 | Ultrasound Report ---
ULTRASOUND KIDNEYS AND BLADDER CLINICAL HISTORY: Acute on chronic renal failure. COMPARISON STUDY: Abdominal CT dated 08/30/2022 TECHNIQUE: Real-time, grayscale, and color flow sonography of the kidneys and bladder is performed. I mages are reviewed in the transverse and longitudinal planes. FINDINGS: Kidneys: The kidneys demonstrate cortical atrophy and increased echotexture indicative of medical kishor al disease. The right kidney measures 12.2 x 5.8 x 6.4 cm and the left kidney measures 12.4 x 7.2 x 4 .9 cm. There is no hydronephrosis. No shadowing renal calculi are identified. Bilateral renal cysts measure up to 2.7 cm. There is no sonographic evidence of solid renal mass lesion. Bladder: The prostate gland is enlarged and heterogeneous noting medial lobe hypertrophy. The bladder wall appears thickened/trabeculated indicating chronic outlet obstruction. Ureteral jets were not we ll seen. IMPRESSION: 1. The kidneys are atrophic and echogenic consistent with medical renal disease. 2. No hydronephrosis. 3. Prostatomegaly with evidence of chronic bladder outlet obstruction. ACT 112: Negative or not required by law. Electronically signed by: Hugo Mtz M.D. 04/30/2023 2:15 PM
--- NOTE | 2023-04-30 17:43 | Hospitalist Progress Note ---
Date of Service April 30, 2023 Assessment & Plan (1) Traumatic brachial plexus lesion: Plan: Presented w/ acute pain in right shoulder radiating down entire RUE with significant weakness throughout after reaching/twisting and developed suspected traumatic brachial plexus injury to his RIGHT shoulder MRI brain NEGATIVE for CVA MRI shoulder * 1. Exam moderately compromised by motion artifact. Increased fluid within the right acromioclavicular joint with moderate adjacent soft tissue edema. These findings may reflect an acute degenerative process. However, a traumatic etiology or infectious process with septic arthritis cannot be completely excluded. No marrow edema to suggest associated osteomyelitis. No associated fluid collections. If suspicion for an infectious process, a short-term follow-up MRI of the right shoulder could be obtained to evaluate for interval change * 2. Large full-thickness tear of supraspinatus with tendon retraction or muscular atrophy. High-grade partial-thickness tear of infraspinatus. Moderate grade subscapularis interstitial tear. * 3. Moderate degenerative changes within the right acromioclavicular and glenohumeral joints. * 4. Full-thickness tear of the proximal long head of the biceps tendon. * 5. Right lung airspace opacities better depicted on chest radiograph. The findings favor multifocal pneumonia. MRI cervical spine obtained for concerns w/ radiculopathy * 1. There is a 14 x 5 mm cystic focus within the central cord at the C6-C7 level. This favors a focal syrinx. * 2. There is also abnormal cord signal/thickening and a 4 mm extramedullary T2 hyperintense focus at the T1/T2 levels. This is only partially imaged on this study and therefore not well evaluated. A follow-up dedicated contrast enhanced cervical spine MRI which extends into the upper thoracic region is recommended for further evaluation. * 3. Degenerative changes as described above. * 4. No fracture or subluxation within the cervical spine. -given h/o MRSA bacteremia 2 months ago, with leukocytosis, there was concern for possible septic shoulder joint vs neck issue-initially on IV Vanco and ZOsyn but discontinued as Orthoo did not feel shoulder was infected -Consulted ortho spine, -syrinx is chronic, not causing issues, recommended trial solumedrol IV 60mg Q6h and monitor response -- much improved pain, reduced swelling and increasing strength in RUE but remains weak in distal RUE -converted IV steroids to prednisone 20mg PO daily -Consulted Orthopedics for right shoulder RC tear--> considering shoulder injection -d/w Ortho Spine today--> given increased cord signal in T1/2 region, will check MRI T-spine (2) Pneumonia: Plan: Recent admission in February for PNA, completed treatment w/ levaquin at [facility], renally dosed. Prior to that was on Dapto for MRSA bacteremia but this would not cover for PNA Was on room air on admission however worsened leukocytosis, hypoxia overnight 04/27 with repeat CXR w/ patchy b/l airspace opacities. R lung opacities stable/slightly increased, favor infectious process CT chest * 1. Scattered patchy irregular bilateral airspace opacities most pronounced within the right lung have slightly improved. This favors a resolving pneumonitis. 3-[address] follow-up recommended to ensure complete resolution. * 2. A trace right pleural effusion has improved. * 3. Cholelithiasis. * 4. A 4 mm nodule within the lingula. This bears watching on future examinations. Obtained blood cultures given prior hx MRSA bacteremia-NGTD Biofire obtained, NEGATIVE Placed on Zosyn/Vanco but stopped as no clear infectious cause Consult PULM given persistent infiltrates on Chest CT 2 months out from treatment for PNA No cough, fever, sputum production (3) Hypoxia: Plan: as above, suspected 2nd to pneumonia vs pneumonitis now weaned off O2 after receiving steroids CT chest as above (4) COPD (chronic obstructive pulmonary disease): Plan: noted hx, 2nd to smoking. NOT on oxygen at baseline but on albuterol BID, dulera 2 puff BID Mucinex BID, pulmonary toilet, sputum if able to produce Supplemental O2 as needed, titrate to maintain sats --> on ROOM AIR, no further wheezing. NO SPUTUM PRODUCTION REPORTED (5) MRSA bacteremia: Plan: hx of such from back abscess, blood cultures added given history/leukocytosis, NO DRAINAGE/ABSCESS ON EXAM at site of back w/ prior source COmpleted course of IV Dapto back in Jan-Feb 2023 BCx ngtd (6) Aortic stenosis: Plan: Moderate on ECHO when had bacteremia (7) DVT of lower extremity, bilateral: Plan: Hx DVT, continue eliquis 5mg BID (8) Diabetes: Plan: HbA1C 8.0 in January, repeat down to 6.8 On 94u TDD insulin outpatient, placed on lantus 30u BID on admission/sliding scale Pharmacy consulted for glycemic assistance, appreciated and BSgs acceptable (9) Chronic kidney disease, stage III (moderate): Plan: With JEREMY on CKD 4. 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 Appears prior on ETELVINA/ARB therapy, since discontinued. Suspect 2nd to CKD IV/progressive renal function decline Increase bicarb to 1250mg po bid Follow BMP (10) Anemia due to chronic kidney disease: Plan: hgb low at 8.3, replacing iron follow CBC (11) Rotator cuff arthropathy of right shoulder: Plan: as above (12) Lung nodule: Plan: as above, consult PULM (13) Hypertension: Plan: Maintained on metoprolol 50mg BID, amlodipine 5mg daily BPs stable (14) GERD (gastroesophageal reflux disease): Plan: continue PPI no need for IV Pepcid-dc (15) Hyperlipidemia LDL goal <70: Plan: continue statin Plan VTE Prophylaxis - Eliquis BID Dispo- PT/OT consulted -- from [facility] but possibly needing higher level of care. CM following Admission and Anticipated Discharge Date Admission Date: April 28, 2023 Subjective Pt feeling much improved with less pain in right shoulder and swelling is decreased in right hand and arm, able to move fingers better than before but still weakness in right wrist and hand. Denies cough, CP, SOB, sputum production, fevers/chills here or prior to admission Discussed his care with daughter on phone He is making urine and no residual on PVR bedside US Physical Exam Constitutional: WD/WN, vitals as above Neck: trachea midline, no thyromegaly Respiratory: normal respiratory effort, lungs clear to auscultation Cardiovascular: RRR, no murmur, no edema Gastrointestinal (Abdomen): normal bowel sounds, soft, nontender, no hepatosplenomegaly Musculoskeletal: Extremities: + extremities abnormal to inspection (RUE with distal edema forearm and wrist/hand) and + abnormal strength (4/5 strength in distal RUE-wrist flex/ext,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,interosseus dorsi) Skin: no rashes, warm and dry Neurologic: moves all extremities and awake; no focal motor deficits Psychiatric: A+Ox3, euthymic affect Results & Data Results & Data Vital Signs (Past 12 Hours) Vital Signs Temp Pulse Resp BP Pulse Ox O2 Del Method O2 Flow Rate 04/30/23 09:42 36.6 C 83 18 135/66 96 Room Air 04/30/23 09:00 Room Air 04/30/23 07:38 36.7 C 97 H 16 133/68 96 Room Air 04/30/23 07:23 98 H 18 96 Room Air 04/30/23 07:13 99 H 14 90 Room Air 21 Laboratory Results CBC, BMP, phos, mag reviewed Blood cxs no growth Diagnostic Findings Renal US reviewed PG Care Time/CCT Total # of Minutes Spent Total Time Spent with Patient: Total time spent is greater than 50% in coordination of care (as documented) at patient's floor/unit and/or counseling patient: Coding Level of Care Code 08457 SUB INP/OBS CARE 3/50MIN Diagnoses Traumatic brachial plexus lesion S14.3XXA Pneumonia J18.9 Hypoxia R09.02 COPD (chronic obstructive pulmonary disease) J44.9 MRSA bacteremia R78.81; B95.62 Aortic stenosis I35.0 DVT of lower extremity, bilateral I82.403 Diabetes E11.9 Chronic kidney disease, stage III (moderate) N18.30 Anemia due to chronic kidney disease N18.9; D63.1 Rotator cuff arthropathy of right shoulder M12.811 Lung nodule R91.1 Hypertension I10 GERD (gastroesophageal reflux disease) K21.9 Hyperlipidemia LDL goal <70 E78.5
[2023-04-30] MEDS: MAGNESIUM OXIDE 400 MG TAB PO SCH (20:49)
[2023-04-30] MEDS: ATORVASTATIN 40 MG TAB PO SCH (20:50)
[2023-04-30] MEDS: LATANOPROST 0.005% OP SOLN 2.5 ML BTL OPB SCH (20:52)
[2023-05-01] MEDS: PANTOprazole 40 MG TAB PO SCH (05:29)
[2023-05-01] MEDS: ACETAMINOPHEN 500 MG TAB PO SCH ×3 (05:29→21:55)
[2023-05-01 06:09] LABS: Hematocrit (blood only) 25.7 % (42.0-52.0); Hemoglobin 7.9 g/dl (14.0-18.0); Mean Corpuscular Hemoglobin 24.7 pg (25.0-34.0); Mean Corpuscular Hgb Conc 30.7 g/dL (32.0-36.0); Mean Corpuscular Volume 80.3 fL (80.0-100.0); Mean Platelet Volume 8.9 fL (9.4-12.4); Platelet Count 430 K/uL (130-400); RDW Coefficient of Variation 16.6 % (11.5-14.5); RDW Standard Deviation 47.6 fL (36.4-46.3); White Blood Count 12.75 K/ul (4.8-10.8)
[2023-05-01 06:22] LABS: Albumin Level 2.7 gm/dl (3.4-5.0); BUN Creatinine Ratio 17.5 (10-20); Calcium 8.1 mg/dl (8.6-10.3); Creatinine Clr Calc Pharmacy 16.5 ml/min; Est GFR (African American) 14.3 ml/min; Est GFR (Non-African American) 12.4 ml/min; Phosphorus 4.2 mg/dl (2.5-4.9); Potassium 3.8 mmol/L (3.5-5.1)
[2023-05-01] MEDS: ALBUTEROL HFA 8 GM INHALER INH SCH ×2 (07:29→19:24)
[2023-05-01] MEDS: INSULIN ASPART PER UNIT CHARGE SC SCH ×4 (08:41→22:07)
[2023-05-01] MEDS: LANTUS PER UNIT CHARGE SQ SCH ×2 (08:41→22:07)
[2023-05-01 09:12] LABS: C Reactive Protein 7.33 mg/dl (0-0.5)
[2023-05-01] MEDS: amLODIPine BESYLATE 5 MG TAB PO SCH (10:08)
[2023-05-01] MEDS: APIXABAN 5 MG TABLET PO SCH ×2 (10:09→21:52)
[2023-05-01] MEDS: BRIMONIDINE TARTRATE 0.2% 5ML OPB SCH ×2 (10:09→21:54)
[2023-05-01] MEDS: CHOLECALCIFEROL 1,000 UNITS 25 MCG TAB PO SCH ×2 (10:10→21:53)
[2023-05-01] MEDS: cilostazoL 100 MG TAB PO SCH ×2 (10:11→21:54)
[2023-05-01] MEDS: CYANOCOBALAMIN (B-12) 500 MCG TABLET PO SCH (10:11)
[2023-05-01] MEDS: FLUTICASONE/VILANTEROL 100/25MCG 14 PUFFS/INHALER INH SCH (10:12)
[2023-05-01] MEDS: guaiFENesin 600 MG TABCR PO SCH ×2 (10:14→21:53)
[2023-05-01] MEDS: METOPROLOL TARTRATE 50 MG TAB PO SCH ×2 (10:14→21:53)
[2023-05-01] MEDS: predniSONE 20 MG TAB PO SCH (10:15)
[2023-05-01] MEDS: SODIUM BICARBONATE 650 MG TAB PO SCH ×2 (10:16→21:52)
[2023-05-01] MEDS: FAMOTIDINE 20 MG in SYRINGE 3 ML IV SCH (11:14)
--- NOTE | 2023-05-01 11:35 | Magnetic Resonance Report ---
MRI OF THE THORACIC SPINE WITHOUT CONTRAST CLINICAL HISTORY: abnormal cord signal T1-T2 on C-spine,RUE weakness COMPARISON: Chest CT April 27, 2023. TECHNIQUE: Utilizing a 1.5 Princess magnet and dedicated coil, multiplanar, multiecho imaging of the th oracic spine was performed without IV contrast. FINDINGS: Alignment of the thoracic spine is anatomic. Vertebral body heights are maintained. No frac tures are present. A 7 mm T1 and T2 hyperintense lesion within the T8 vertebral body represents a hem angioma. The syrinx within the cervical cord at the C6-C7 level is better depicted on MRI April 27, 2023. There is increased T2 signal within the thoracic cord at the T2-T3 level. This extends for 1.7 cm in craniocaudal dimension. This could reflect an additional syrinx or cord edema. Note is made of an adjacent enlarged dorsal CSF space at the T3 level. The appearance raises the possibility of a sc alpel sign. Otherwise, thoracic cord signal is normal. The central canal and neural foramen are paten t. There are no disc herniations. Airspace opacities within the lungs are better depicted on chest CT April 27, 2023. IMPRESSION: 1. Enlarged dorsal CSF space at the T3 level with increased T2 signal within the adjacent portion of the thoracic cord at the T2-T3 levels. The appearance raises the possibility of a scalpel sign which favors a dorsal thoracic arachnoid web. However, ventral cord herniation and dorsal arachnoid cyst co uld have a similar imaging appearance. The clinical significance of this finding is uncertain given r ight upper extremity weakness. Neurosurgical consultation is recommended. 2. 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 3. No thoracic spine fractures. No disc herniations. ACT 112: Negative or not required by law. Electronically signed by: Chai Orozco M.D. 05/01/2023 11:33 AM
--- NOTE | 2023-05-01 12:09 | Pulmonary Consultation ---
Date of Consultation May 01, 2023 Assessment & Plan (1) Abnormal CT scan, chest: The patient denies any overt respiratory symptoms including cough, shortness of breath or chest tightness. He was treated for possible pneumonia back in February and had patchy groundglass infiltrates at that time. His prior CT chest did not reveal any infiltrates or fibrotic changes from January. Notably, he was treated with daptomycin for cellulitis in February which may cause pulmonary fibrosis. Additionally, he has ongoing acute kidney injury. I have ordered an autoimmune workup to evaluate for such conditions as Sjogren's, lupus, pulmonary renal syndromes and rheumatoid arthritis. Will follow-up with blood work as it becomes available. I do not think bronchoscopy is indicated at this time. Diffuse alveolar hemorrhage seems less likely as the patient is not having hemoptysis and his hemoglobin is stable. He will need a follow-up HRCT as an outpatient in 3 months. He may need a kidney biopsy given his acute JEREMY of unclear etiology which may give us insight into a potential autoimmune condition that is causing a potential pulmonary renal syndrome. Will defer this to the nephrology team. Thank you for the consultation. Please call with questions. History of Present Illness Reason for Consultation: Abnormal CT scan of the chest Attending Physician: Laurence Montesinos MD History of Present Illness 83-year-old male who originally presented to the hospital 04/26/2023 due to traumatic brachial plexus injury. He has a history of COPD, reflux, sciatica and CKD stage III. During the hospitalization, patient had worsening kidney function and nephrology was consulted. He also had a follow-up CT chest 04/27/2023 which revealed patchy bilateral airspace opacities which have slightly improved compared to his CT from February 23. Additionally, in January he was found to have cellulitis and started on daptomycin. He subsequently developed pneumonia at the time. In review of his CT chest from January, there were multiple subcentimeter pulmonary nodules but no infiltrate seen. Patient endorses a 2-3-pack pack per day smoking history since the age of 8. Allergies Allergy/AdvReac Type Severity Reaction Status Date / Time gentamicin Allergy Unknown UNKNOWN Verified 04/26/23 16:03 niacin Allergy Unknown unknown Verified 04/26/23 16:03 sertraline AdvReac Mild JITTERRY Verified 04/26/23 16:03 metformin AdvReac Unknown CAN'T Verified 04/26/23 16:03 REMEMBER silver sulfadiazine AdvReac Unknown unknown Verified 04/26/23 16:03 Home Medications Medication Instructions Recorded Confirmed Type latanoprost 0.005 % eye drops 1 drp OPB HS ##0 11/10/11 04/26/23 History (Xalatan) acetaminophen 300 mg-codeine 30 mg 1 tab PO UD PRN Pain 12/10/19 04/26/23 History tablet alogliptin 12.5 mg tablet 12.5 mg PO QAM 08/16/21 04/26/23 History cyanocobalamin (vitamin B-12) 1,000 mcg PO QAM 08/16/21 04/26/23 History 1,000 mcg tablet (Vitamin B-12) docusate sodium 100 mg capsule 100 mg PO DAILY PRN Constipation 08/16/21 04/26/23 History (Stool Softener) metoprolol tartrate 50 mg tablet 50 mg PO AMPM 08/16/21 04/26/23 History pantoprazole 40 mg tablet,delayed 40 mg PO DAILYBB 08/16/21 04/26/23 History release albuterol sulfate 90 mcg/actuation 1 inh inhalation AMHS 08/30/22 04/26/23 History aerosol inhaler brimonidine 0.2 % eye drops 1 drp OPB AMHS 08/30/22 04/26/23 History cholecalciferol (vitamin D3) 25 25 mcg PO AMPM 08/30/22 04/26/23 History mcg (1,000 unit) tablet (Vitamin D3) mometasone-formoterol HFA 100 2 puff inhalation BID 08/30/22 04/26/23 History mcg-5 mcg/actuation aerosol inhaler (Dulera) amlodipine 5 mg tablet 5 mg PO DAILY #90 tabs 10/01/22 04/26/23 Rx insulin aspar prot-insulin aspart 94 unit subcut UD 10/24/22 04/26/23 History 100 unit/mL (70-30) subcutaneous pen (Novolog Mix 70-30FlexPen U-100) atorvastatin 20 mg tablet 80 mg PO HS 01/24/23 04/26/23 History cilostazol 100 mg tablet 100 mg PO AMHS 01/24/23 04/26/23 History magnesium oxide 420 mg tablet 420 mg PO QPM 01/24/23 04/26/23 History multivitamin 1 tab PO AMPM 01/24/23 04/26/23 History nystatin 100,000 unit/gram topical 1 applic topical DAILY PRN yeast 01/24/23 04/26/23 History cream Minirin Cream 1 applic topical BID PRN APPLY TO 04/26/23 04/26/23 History LEGS NEEDED acetaminophen 500 mg tablet 500 mg PO DIRECTED PRN 04/26/23 04/26/23 History (Tylenol Extra Strength) PAIN/FEVER apixaban 5 mg tablet (Eliquis) 5 mg PO BID 04/26/23 04/26/23 History Patient History Medical History (Updated 05/01/23 @ 12:06 by Jacob Mccullough MD) Abnormal CT scan, chest Anemia due to chronic kidney disease DVT of lower extremity, bilateral Chest pain Left-sided chest pain Diabetes COPD (chronic obstructive pulmonary disease) Peripheral arterial disease GERD (gastroesophageal reflux disease) Hypertension Glaucoma Hyperlipidemia LDL goal <70 Obesity (BMI 30.0-34.9) Chronic anticoagulation Left sided sciatica Surgical History History of incision and drainage (01/24/23) Incision and Drainage Back Abscess(Left) - Duncan Cazares DO History of cataract surgery History of vein stripping History of tonsillectomy and adenoidectomy Family History Other Family history non-contributory Social History Smoking Status: Former smoker Tobacco Type: Cigarettes Second Hand Exposure: No; Do You Dip or Chew Tobacco: No; Tobacco Cessation Education Requested by Patient: No Hx Alcohol Use: Yes Alcohol type: beer, wine and hard liquor Hx Substance Use: No Preferred Language: Salvadorean Communication Ability: Effective Film Processor Required: No Beliefs That Will Affect Care: None marital status: Current Living Situation: Personal Care Facility Current Living Situation Comment: assisted care facility Other Information That Helps Us Care for You: No Feels Safe at Home: Yes Safety Concerns: Feels Safe At This Time Assistive Devices: Walker Review of Systems Review of Systems: All systems reviewed & are unremarkable except as noted in HPI & below Physical Exam Physical Exam: Constitutional: Patient appears to be of their stated age. Patient is in no apparent distress. Patient is well-developed. Eyes: Pupils are equal round and reactive to light. Conjunctivae are normal. Anicteric sclera. Ears nose, mouth and throat: Mallampati class 2. Normal posterior oropharynx. Uvula is midline. Neck: Trachea is midline. Visual inspection is normal. Respiratory: Clear to auscultation bilaterally. No use of accessory muscles. No significant clubbing noted. Cardiovascular: Regular rate and rhythm. No murmurs. No edema. Gastrointestinal: Normal bowel sounds, soft, nontender and nondistended. No hepatosplenomegaly noted. Musculoskeletal: No cyanosis. Patient is able to move all extremities. Strength is 5 out of 5 in the upper and lower extremities. Skin: No rashes, warm dry and intact. Neurologic: No obvious focal neurological deficits seen. Psychiatric: Alert and oriented x3 with a euthymic affect. Results & Data Results & Data Vital Signs (Past 12 Hours) Vital Signs Temp Pulse Resp BP Pulse Ox O2 Del Method 05/01/23 07:38 36.5 C 83 20 149/68 H 96 Room Air 05/01/23 07:32 78 16 94 Room Air PG Care Time/CCT Total # of Minutes Spent Total Time Spent with Patient: Total time spent is greater than 50% in coordination of care (as documented) at patient's floor/unit and/or counseling patient: Coding Level of Care Code 22940 INT INP/OBS CARE 3/75MIN Diagnoses Abnormal CT scan, chest R93.89
--- NOTE | 2023-05-01 14:42 | Pharmacy Report ---
Pharmacy Glycemic Short Note 2 - Date of Service May 01, 2023 - Glycemic Short BSG Results (Last 24 hours): 04/30/23 04/30/23 05/01/23 16:43 20:31 05:45 Glucose 102 H POC Glucose 206 H 171 H 05/01/23 05/01/23 07:44 11:45 Glucose POC Glucose 92 109 H OUTPATIENT ANTIDIABETIC REGIMEN: * Novolog 70/30 - 56 units SC w/ breakfast, 14 units SC w/ lunch, and 28 units SC w/ dinner * HbA1c: 6.8% (04/27/23) ASSESSMENT: 05/01: * Patient received total of 58 units of insulin yesterday, of which 40 units were basal insulin - continues with prednisone 20 mg daily * Fasting BSG is 92 mg/dL - plan to scale back on basal insulin as BSGs much improving and also due to Scr trending upward. Regimen currently heavily basal weighted. * Lunch time BSG lower end of range, will loosen CF/CR with lunch time check 04/29: * Patient received 30 units of insulin yesterday, all basal. BSGs were: [phone] mg/dL. * Patient refused all Novolog yesterday. Received 2 dose of IV SoluMedrol 60 mg x 2 doses yesterday afternoon then started refusing medication. * Fasting BSG was 229 mg/dL this AM. SoluMedrol has been transitioned to Prednisone 20 mg PO daily. Abx have been discontinued. * Will increase basal to 20 units BID today. Novolog tightened as well since patient not refusing. May need to consider adding NPH with daily prednisone. Still not eating. 04/28: * Eduar received 15 units of insulin yesterday, all basal. BSGs were: [phone] mg/dL. * Fasting BSG elevated at 202 mg/dL this AM. Discussed with RN, patient is refusing all food trays so little change patient ate anything prior to BSG check. Elevated fasting this AM may be due to basal deficiency because inpatient dose has only been ~20% of home basal dose. * Given patient is not eating and worsening renal function, was hesitant to increase basal today. However, reviewed a previous admission from January 2023 where patient was NPO for several days and BSGs were well controlled on 15 units of basal BID. Will try this today and monitor. No change to Novolog. 04/27: * YOSELYN is an 83 year old male who presented to ED on 04/26/23 w/ complaints of right arm pain/weakness (no obvious trauma reported) * Patient on ~100 units of insulin as an outpatient w/ noted improvement in HbA1c over past 3 months. Patient requiring significantly less insulin at this time. * BSGs ranging 127-140 mg/dL over past 24 hours * No plan for OR at this time. Diet ordered. PLAN FOR INPATIENT GLYCEMIC CONTROL: * Hold 70/30 insulin - convert to SC basal/bolus w/ insulin glargine and insulin lispro * Basal insulin * Lantus 15 units this AM * Then Lantus 10-15 units BID starting this evening * Bolus insulin * NovoLog per scale ACHS or Q6hrs while NPO * Goal Range: Low 110 mg/dL - High 140 mg/dL * Correction Factor: 20 mg/dL/unit * Nutritional / Prandial insulin per carb ratio of 1 unit per 7 grams CHO consumed
--- NOTE | 2023-05-01 14:46 | Hospitalist Progress Note ---
Date of Service May 01, 2023 Assessment & Plan (1) Traumatic brachial plexus lesion: Plan: Presented w/ acute pain in right shoulder radiating down entire RUE with significant weakness throughout after reaching/twisting and developed suspected traumatic brachial plexus injury to his RIGHT shoulder MRI brain NEGATIVE for CVA MRI shoulder * 1. Exam moderately compromised by motion artifact. Increased fluid within the right acromioclavicular joint with moderate adjacent soft tissue edema. These findings may reflect an acute degenerative process. However, a traumatic etiology or infectious process with septic arthritis cannot be completely excluded. No marrow edema to suggest associated osteomyelitis. No associated fluid collections. If suspicion for an infectious process, a short-term follow-up MRI of the right shoulder could be obtained to evaluate for interval change * 2. Large full-thickness tear of supraspinatus with tendon retraction or muscular atrophy. High-grade partial-thickness tear of infraspinatus. Moderate grade subscapularis interstitial tear. * 3. Moderate degenerative changes within the right acromioclavicular and glenohumeral joints. * 4. Full-thickness tear of the proximal long head of the biceps tendon. * 5. Right lung airspace opacities better depicted on chest radiograph. The findings favor multifocal pneumonia. MRI cervical spine obtained for concerns w/ radiculopathy * 1. There is a 14 x 5 mm cystic focus within the central cord at the C6-C7 level. This favors a focal syrinx. * 2. There is also abnormal cord signal/thickening and a 4 mm extramedullary T2 hyperintense focus at the T1/T2 levels. This is only partially imaged on this study and therefore not well evaluated. A follow-up dedicated contrast enhanced cervical spine MRI which extends into the upper thoracic region is recommended for further evaluation. * 3. Degenerative changes as described above. * 4. No fracture or subluxation within the cervical spine. MRI Thoracic Spine: 1. Enlarged dorsal CSF space at the T3 level with increased T2 signal within the adjacent portion of the thoracic cord at the T2-T3 levels. The appearance raises the possibility of a scalpel sign which favors a dorsal thoracic arachnoid web. However, ventral cord herniation and dorsal arachnoid cyst could have a similar imaging appearance. The clinical significance of this finding is uncertain given right upper extremity weakness. Neurosurgical consultation is recommended. 2. 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 3. No thoracic spine fractures. No disc herniations. -given h/o MRSA bacteremia 2 months ago, with leukocytosis, there was concern for possible septic shoulder joint vs neck issue-initially on IV Vanco and ZOsyn but discontinued as Orthoo did not feel shoulder was infected -Consulted ortho spine, -syrinx is chronic, not causing issues, recommended trial solumedrol IV 60mg Q6h and monitor response -- much improved pain, reduced swelling and increasing strength in RUE but remains weak in distal RUE-not likely to be from the syrinx seen in cervial and thoracic spine. Discussed with Ortho-recommends repeat MRI in 3 months (if patient desires). Patient does not want any surgery -converted IV steroids to prednisone 20mg PO daily -Consulted Orthopedics for right shoulder RC tear--> considering shoulder injection but may not need now as improving on systemic steroids -needs ongoing PT/OT -needs EMG RUE as outpt (2) Pneumonia: Plan: Recent admission in February for PNA, completed treatment w/ levaquin at [facility], renally dosed. Prior to that was on Dapto for MRSA bacteremia but this would not cover for PNA Was on room air on admission however worsened leukocytosis, hypoxia overnight 04/27 with repeat CXR w/ patchy b/l airspace opacities. R lung opacities stable/slightly increased, favor infectious process CT chest * 1. Scattered patchy irregular bilateral airspace opacities most pronounced within the right lung have slightly improved. This favors a resolving pneumonitis. 3-[address] follow-up recommended to ensure complete resolution. * 2. A trace right pleural effusion has improved. * 3. Cholelithiasis. * 4. A 4 mm nodule within the lingula. This bears watching on future examinations. Obtained blood cultures given prior hx MRSA bacteremia-NGTD Biofire obtained, NEGATIVE Placed on Zosyn/Vanco but stopped as no clear infectious cause -Consulted PULM given persistent infiltrates on Chest CT 2 months out from treatment for PNA--> possible autoimmune disease, fibrosis from Dapto, etc.--> serological workup pending, no bronchoscopy indicated and pt would decline anyway. F/u on these results when available in 1 week -recommend f/u with PULM in office -remains asymptomatic--> No cough, fever, sputum production -continue prednisone 20mg daily x 7 day course (3) Hypoxia: Plan: as above, suspected 2nd to pneumonia vs pneumonitis now weaned off O2 after receiving steroids CT chest as above (4) COPD (chronic obstructive pulmonary disease): Plan: noted hx, 2nd to smoking. NOT on oxygen at baseline but on albuterol BID, dulera 2 puff BID Mucinex BID, pulmonary toilet, sputum if able to produce Supplemental O2 as needed, titrate to maintain sats --> on ROOM AIR, no further wheezing. NO SPUTUM PRODUCTION REPORTED (5) MRSA bacteremia: Plan: hx of such from back abscess, blood cultures added given history/leukocytosis, NO DRAINAGE/ABSCESS ON EXAM at site of back w/ prior source COmpleted course of IV Dapto back in Jan-Feb 2023 BCx ngtd (6) Aortic stenosis: Plan: Moderate on ECHO when had bacteremia (7) DVT of lower extremity, bilateral: Plan: Hx DVT, continue eliquis 5mg BID (8) Diabetes: Plan: HbA1C 8.0 in January, repeat down to 6.8 On 94u TDD insulin outpatient, placed on lantus 30u BID on admission/sliding scale Pharmacy consulted for glycemic assistance, appreciated and BSgs acceptable (9) Chronic kidney disease, stage III (moderate): Plan: With JEREMY on CKD 4. 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 Appears prior on ETELVINA/ARB therapy, since discontinued. Suspect 2nd to CKD IV/progressive renal function decline Increase bicarb to 1250mg po bid Follow BMP Pt declines future HD even if indicated (10) Anemia due to chronic kidney disease: Plan: hgb low at 8.3, replacing iron follow CBC (11) Rotator cuff arthropathy of right shoulder: Plan: as above (12) Lung nodule: Plan: as above, consult PULM (13) Hypertension: Plan: Maintained on metoprolol 50mg BID, amlodipine 5mg daily BPs stable (14) GERD (gastroesophageal reflux disease): Plan: continue PPI no need for IV Pepcid-dc (15) Hyperlipidemia LDL goal <70: Plan: continue statin Plan VTE Prophylaxis - Eliquis BID Dispo- PT/OT consulted -- from [facility] but needs acute rehab Admission and Anticipated Discharge Date Admission Date: April 28, 2023 Subjective Pt feels well, minimal pain in Rt shoulder and arm, swelling down further, still with weakness in right wrist and hand. Is making urine, not retaining. Reports he is not afraid of dying and does not want any procedures done such as bronchoscopy, kidney biopsy, sine surgery, etc. He would not want dialysis either. I discussed his care with Dr. Rangel of Ortho SP[facility] and Dr. Shaffer of Nephrology Physical Exam Constitutional: WD/WN, vitals as above Neck: trachea midline, no thyromegaly Respiratory: normal respiratory effort, lungs clear to auscultation Cardiovascular: Rate/Rhythm: regular rate and regular rhythm Heart Sounds: + murmur (2/6 FREDDY at RUSB) Gastrointestinal (Abdomen): normal bowel sounds, soft, nontender, no hepatosplenomegaly Musculoskeletal: Extremities: + extremities abnormal to inspection (RUE with distal edema forearm and wrist/hand) and + abnormal strength (4/5 strength in distal RUE-wrist flex/ext,wellness educator strength,interosseus dorsi) Skin: no rashes, warm and dry Neurologic: moves all extremities and awake; no focal motor deficits Psychiatric: A+Ox3, euthymic affect Results & Data Results & Data Vital Signs (Past 12 Hours) Vital Signs Temp Pulse Resp BP Pulse Ox O2 Del Method 05/01/23 07:38 36.5 C 83 20 149/68 H 96 Room Air 05/01/23 07:32 78 16 94 Room Air Laboratory Results CBC, BMP reviewed Diagnostic Findings MRI thoracic spine reviewed PG Care Time/CCT Total # of Minutes Spent Total Time Spent with Patient: Total time spent is greater than 50% in coordination of care (as documented) at patient's floor/unit and/or counseling patient: Coding Level of Care Code 72002 SUB INP/OBS CARE 3/50MIN Diagnoses Traumatic brachial plexus lesion S14.3XXA Pneumonia J18.9 Hypoxia R09.02 COPD (chronic obstructive pulmonary disease) J44.9 MRSA bacteremia R78.81; B95.62 Aortic stenosis I35.0 DVT of lower extremity, bilateral I82.403 Diabetes E11.9 Chronic kidney disease, stage III (moderate) N18.30 Anemia due to chronic kidney disease N18.9; D63.1 Rotator cuff arthropathy of right shoulder M12.811 Lung nodule R91.1 Hypertension I10 GERD (gastroesophageal reflux disease) K21.9 Hyperlipidemia LDL goal <70 E78.5
--- NOTE | 2023-05-01 15:36 | Nephrology Progress Note ---
Date of Service May 01, 2023 Assessment & Plan (1) Acute kidney injury: (2) Rotator cuff arthropathy of right shoulder: (3) Leukocytosis: (4) Anemia due to chronic kidney disease: Plan 83-year-old gentleman with stage IIIb CKD b/l cre 2.0-2.2 with high-grade proteinuria, secondary to diabetic nephropathy. Admitted with acute onset right shoulder pain with rotator cuff tear, started on prednisone with slight improvement in symptoms. She received empiric antibiotic for changes in chest x-ray but discontinued. JEREMY and metabolic acidosis, creatinine up to 3.6 with bicarb 14. Hemoglobin less than 10. Urinalysis with high-grade proteinuria but no hematuria or pyuria. Renal ultrasound unremarkable. Unclear etiology for JEREMY, no offending nephrotoxic medications, hypotension. ? Hemodynamically mediated JEREMY with variability on blood pressure with impaired autoregulation in the setting of diabetes. Hb low, received venofer. Progressive worsening of renal function, creatinine up to 4.2 mg/dl persistent metabolic acidosis while on sodium bicarbonate. --continue sodium bicarbonate 2 tabs twice a day --Advised to continue to keep well-hydrated, continue to avoid all nephrotoxic medications. Monitor renal function closely. --Epogen 43827 units x 1 dose now --Dose medications for eGFR less than 30 ml/min --if renal function stay stable, possible discharge tomorrow with out pt lab monitoring. Admission and Anticipated Discharge Date Admission Date: April 28, 2023 Dalton Montero was seen and evaluated tis afternoon. Overall he feels well, right upper extremity pain and swelling improved. Has been voiding normally. Denies shortness of breath or chest pain. Appetite decent. Renal function relatively stable, creatinine 4.2 mg/dl. Blood pressure well controlled. Review of Systems Review of Systems: Detailed review of system was done and pertinent positives and negatives were mentioned above. Physical Exam Constitutional: WD/WN, vitals as above no acute distress Eyes: + anicteric sclerae Neck: normal visual inspection Respiratory: no respiratory distress Auscultation: lungs clear to auscultation bilaterally Cardiovascular: RRR, no murmur, no edema Skin: no rashes, warm and dry Neurologic: no focal motor deficits Psychiatric: Orientation: alert and oriented x 3 Affect: euthymic affect Results & Data Vital Signs (Past 12 Hours) Vital Signs Temp Pulse Pulse Resp BP Pulse Ox O2 Del Method 05/01/23 15:17 36.4 C L 84 16 146/66 H 96 Room Air 05/01/23 07:38 36.5 C 83 20 149/68 H 96 Room Air 05/01/23 07:32 78 16 94 Room Air PG Care Time/CCT Total # of Minutes Spent Total Time Spent with Patient: Total time spent is greater than 50% in coordination of care (as documented) at patient's floor/unit and/or counseling patient: Coding Level of Care Code 12405 SUB INP/OBS CARE 235MIN Diagnoses Acute kidney injury N17.9 Rotator cuff arthropathy of right shoulder M12.811 Leukocytosis D72.829 Leukocytosis type: unspecified Anemia due to chronic kidney disease N18.9; D63.1 (3) Leukocytosis Leukocytosis type: unspecified Qualified Code(s): D72.829 - Elevated white blood cell count, unspecified
[2023-05-01] MEDS ORDERED: EPOETIN ALFA 40,000 UNITS/ML VIAL SQ STA (15:44)
[2023-05-01] MEDS ORDERED: POLYETHYLENE (MIRALAX) 17 GM PACK PO PRN (15:51)
[2023-05-01] MEDS: DOCUSATE SODIUM 100 MG CAP PO SCH ×2 (18:29→22:46)
[2023-05-01] MEDS: ATORVASTATIN 40 MG TAB PO SCH (21:53)
[2023-05-01] MEDS: MAGNESIUM OXIDE 400 MG TAB PO SCH (21:53)
[2023-05-01] MEDS: LATANOPROST 0.005% OP SOLN 2.5 ML BTL OPB SCH (21:54)
[2023-05-02] MEDS: ACETAMINOPHEN 500 MG TAB PO SCH ×2 (05:57→13:09)
[2023-05-02] MEDS: PANTOprazole 40 MG TAB PO SCH (05:57)
[2023-05-02 07:06] LABS: Hematocrit (blood only) 27.2 % (42.0-52.0); Hemoglobin 8.5 g/dl (14.0-18.0); Mean Corpuscular Hemoglobin 25.2 pg (25.0-34.0); Mean Corpuscular Hgb Conc 31.3 g/dL (32.0-36.0); Mean Corpuscular Volume 80.7 fL (80.0-100.0); Mean Platelet Volume 9.1 fL (9.4-12.4); Nucleated RBC # (auto) 0.02 K/uL (0.00-0.12); Nucleated RBC % (auto) 0.2 %; Platelet Count 455 K/uL (130-400); RDW Coefficient of Variation 16.7 % (11.5-14.5); RDW Standard Deviation 48.5 fL (36.4-46.3); Red Blood Count 3.37 M/uL (4.70-6.10)
[2023-05-02] MEDS: ALBUTEROL HFA 8 GM INHALER INH SCH (07:16)
[2023-05-02 07:26] LABS: Albumin Level 2.9 gm/dl (3.4-5.0); Calcium 8.5 mg/dl (8.6-10.3); Creatinine Clr Calc Pharmacy 17.9 ml/min; Est GFR (African American) 15.8 ml/min; Est GFR (Non-African American) 13.6 ml/min; Phosphorus 3.8 mg/dl (2.5-4.9); Potassium 3.9 mmol/L (3.5-5.1)
[2023-05-02] MEDS: INSULIN ASPART PER UNIT CHARGE SC SCH ×2 (08:39→13:04)
[2023-05-02] MEDS: LANTUS PER UNIT CHARGE SQ SCH (08:40)
[2023-05-02] MEDS: APIXABAN 5 MG TABLET PO SCH (08:41)
[2023-05-02] MEDS: amLODIPine BESYLATE 5 MG TAB PO SCH (08:41)
[2023-05-02] MEDS: CHOLECALCIFEROL 1,000 UNITS 25 MCG TAB PO SCH (08:42)
[2023-05-02] MEDS: BRIMONIDINE TARTRATE 0.2% 5ML OPB SCH (08:42)
[2023-05-02] MEDS: CYANOCOBALAMIN (B-12) 500 MCG TABLET PO SCH (08:43)
[2023-05-02] MEDS: cilostazoL 100 MG TAB PO SCH (08:43)
[2023-05-02] MEDS: DOCUSATE SODIUM 100 MG CAP PO SCH (08:44)
[2023-05-02] MEDS: guaiFENesin 600 MG TABCR PO SCH (08:45)
[2023-05-02] MEDS: FLUTICASONE/VILANTEROL 100/25MCG 14 PUFFS/INHALER INH SCH (08:45)
[2023-05-02] MEDS: METOPROLOL TARTRATE 50 MG TAB PO SCH (08:46)
[2023-05-02] MEDS: predniSONE 20 MG TAB PO SCH (08:47)
[2023-05-02] MEDS: SODIUM BICARBONATE 650 MG TAB PO SCH (08:48)
--- NOTE | 2023-05-02 09:53 | Pharmacy Report ---
Pharmacy Glycemic Short Note 2 - Date of Service May 02, 2023 - Glycemic Short BSG Results (Last 24 hours): 05/01/23 05/01/23 05/01/23 11:45 16:53 21:00 Glucose POC Glucose 109 H 135 H 249 H 05/02/23 05/02/23 06:41 07:32 Glucose 95 POC Glucose 105 H OUTPATIENT ANTIDIABETIC REGIMEN: * Novolog 70/30 - 56 units SC w/ breakfast, 14 units SC w/ lunch, and 28 units SC w/ dinner * HbA1c: 6.8% (04/27/23) ASSESSMENT: 05/02: * BSGs remain largely well-controlled w/ instance of hyperglycemia last evening (249 mg/dL) * Fasting BSG of 105 mg/dL - will continue current basal scale * Will tighten carb ratio to help with upward trend yesterday 05/01: * Patient received total of 58 units of insulin yesterday, of which 40 units were basal insulin - continues with prednisone 20 mg daily * Fasting BSG is 92 mg/dL - plan to scale back on basal insulin as BSGs much improving and also due to Scr trending upward. Regimen currently heavily basal weighted. * Lunch time BSG lower end of range, will loosen CF/CR with lunch time check 04/29: * Patient received 30 units of insulin yesterday, all basal. BSGs were: [phone] mg/dL. * Patient refused all Novolog yesterday. Received 2 dose of IV SoluMedrol 60 mg x 2 doses yesterday afternoon then started refusing medication. * Fasting BSG was 229 mg/dL this AM. SoluMedrol has been transitioned to Prednisone 20 mg PO daily. Abx have been discontinued. * Will increase basal to 20 units BID today. Novolog tightened as well since patient not refusing. May need to consider adding NPH with daily prednisone. Still not eating. 04/28: * Eduar received 15 units of insulin yesterday, all basal. BSGs were: [phone] mg/dL. * Fasting BSG elevated at 202 mg/dL this AM. Discussed with RN, patient is refusing all food trays so little change patient ate anything prior to BSG check. Elevated fasting this AM may be due to basal deficiency because inpatient dose has only been ~20% of home basal dose. * Given patient is not eating and worsening renal function, was hesitant to increase basal today. However, reviewed a previous admission from January 2023 where patient was NPO for several days and BSGs were well controlled on 15 units of basal BID. Will try this today and monitor. No change to Novolog. 04/27: * YOSELYN is an 83 year old male who presented to ED on 04/26/23 w/ complaints of right arm pain/weakness (no obvious trauma reported) * Patient on ~100 units of insulin as an outpatient w/ noted improvement in HbA1c over past 3 months. Patient requiring significantly less insulin at this time. * BSGs ranging 127-140 mg/dL over past 24 hours * No plan for OR at this time. Diet ordered. PLAN FOR INPATIENT GLYCEMIC CONTROL: * Hold 70/30 insulin - convert to SC basal/bolus w/ insulin glargine and insulin lispro * Basal insulin * Lantus 10-15 units SC BID (see EHR for details) * Bolus insulin - tighten carb ratio * NovoLog per scale ACHS or Q6hrs while NPO * Goal Range: Low 110 mg/dL - High 140 mg/dL * Correction Factor: 20 mg/dL/unit * Nutritional / Prandial insulin per carb ratio of 1 unit per 6 grams CHO consumed
--- NOTE | 2023-05-02 11:59 | Discharge Summary ---
Discharge Summary Date of Service May 02, 2023 Notes For Next Care Provider Needs repeat MRI Thoracic Spine in 3 months (if desires) Check BMP in 1 week Medication Changes From Visit Tylenol 1000mg po tid Added sodium bicarbonate 1300mg po bid Prednisone 20mg po daily x 3 more days Decreased dose of Insulin 70/30 to 20 units bid Admission HPI Per Admitting Provider Eduar Boyer is an 83 year old male who presents to the ER with right arm weakness and pain. He reports this occurred yesterday when he reached back for his glass of water to his right side. Sudden onset pain and weakness in his right arm from shoulder to his hand. He now has little strength in this arm. Sensation in hand intact but tingling sensation over dorsal aspect. He has a significant history of a stroke causing peripheral vision loss with ongoing risk factors of diabetes and hypertension. He denies any other neurological symptoms such as change in vision, hearing or speech. No lower extremity weakness. Principal Dx & Hospital Course #1 = Principal Diagnosis (1) Traumatic brachial plexus lesion: Presented w/ acute pain in right shoulder radiating down entire RUE with significant weakness throughout after reaching/twisting and developed suspected traumatic brachial plexus injury to his RIGHT shoulder MRI brain NEGATIVE for CVA MRI shoulder * 1. Exam moderately compromised by motion artifact. Increased fluid within the right acromioclavicular joint with moderate adjacent soft tissue edema. These findings may reflect an acute degenerative process. However, a traumatic etiology or infectious process with septic arthritis cannot be completely excluded. No marrow edema to suggest associated osteomyelitis. No associated fluid collections. If suspicion for an infectious process, a short-term follow-up MRI of the right shoulder could be obtained to evaluate for interval change * 2. Large full-thickness tear of supraspinatus with tendon retraction or muscular atrophy. High-grade partial-thickness tear of infraspinatus. Moderate grade subscapularis interstitial tear. * 3. Moderate degenerative changes within the right acromioclavicular and glenohumeral joints. * 4. Full-thickness tear of the proximal long head of the biceps tendon. * 5. Right lung airspace opacities better depicted on chest radiograph. The findings favor multifocal pneumonia. MRI cervical spine obtained for concerns w/ radiculopathy * 1. There is a 14 x 5 mm cystic focus within the central cord at the C6-C7 level. This favors a focal syrinx. * 2. There is also abnormal cord signal/thickening and a 4 mm extramedullary T2 hyperintense focus at the T1/T2 levels. This is only partially imaged on this study and therefore not well evaluated. A follow-up dedicated contrast enhanced cervical spine MRI which extends into the upper thoracic region is recommended for further evaluation. * 3. Degenerative changes as described above. * 4. No fracture or subluxation within the cervical spine. MRI Thoracic Spine: 1. Enlarged dorsal CSF space at the T3 level with increased T2 signal within the adjacent portion of the thoracic cord at the T2-T3 levels. The appearance raises the possibility of a scalpel sign which favors a dorsal thoracic arachnoid web. However, ventral cord herniation and dorsal arachnoid cyst could have a similar imaging appearance. The clinical significance of this finding is uncertain given right upper extremity weakness. Neurosurgical consultation is recommended. 2. 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 3. No thoracic spine fractures. No disc herniations. -given h/o MRSA bacteremia 2 months ago, with leukocytosis, there was concern for possible septic shoulder joint vs neck issue-initially on IV Vanco and ZOsyn but discontinued as Orthoo did not feel shoulder was infected -Consulted ortho spine, -syrinx is chronic, not causing issues, recommended trial solumedrol IV 60mg Q6h and monitor response -- much improved pain, reduced swelling and increasing strength in RUE but remains weak in distal RUE-not likely to be from the syrinx seen in cervial and thoracic spine. Discussed with Ortho-recommends repeat MRI in 3 months (if patient desires). Patient does not want any surgery -converted IV steroids to prednisone 20mg PO daily x 3 more days for a burst -Consulted Orthopedics for right shoulder RC tear--> considering shoulder injection but may not need now as improving on systemic steroids -needs ongoing PT/OT -needs EMG RUE as outpt (2) Pneumonia: Recent admission in February for PNA, [facility], [facility] dosed. Prior to that was on Dapto for MRSA bacteremia but this would not cover for PNA Was on room air on admission however worsened leukocytosis, hypoxia overnight 12/3 with repeat CXR w/ patchy b/l airspace opacities. R lung opacities stable/slightly increased, favor infectious process CT chest * 1. Scattered patchy irregular bilateral airspace opacities most pronounced within the right lung have slightly improved. This favors a resolving pneumonitis. 3-[address] follow-up recommended to ensure complete resolution. * 2. A trace right pleural effusion has improved. * 3. Cholelithiasis. * 4. A 4 mm nodule within the lingula. This bears watching on future examinations. Obtained blood cultures given prior hx MRSA bacteremia-NGTD Biofire obtained, NEGATIVE Placed on Zosyn/Vanco but stopped as no clear infectious cause -Consulted PULM given persistent infiltrates on Chest CT 2 months out from treatment for PNA--> possible autoimmune disease, fibrosis from Dapto, etc.--> serological workup pending, no bronchoscopy indicated and pt would decline anyway. F/u on these results when available in 1 week -recommend f/u with PULM in office as scheduled in early May -remains asymptomatic--> No cough, fever, sputum production -continue prednisone 20mg daily x 7 day course-needs 3 more days after discharge (3) Hypoxia: as above, suspected 2nd to pneumonia vs pneumonitis now weaned off O2 after receiving steroids CT chest as above (4) COPD (chronic obstructive pulmonary disease): noted hx, 2nd to smoking. NOT on oxygen at baseline but on albuterol BID, dulera 2 puff BID Mucinex BID, pulmonary toilet, sputum if able to produce Supplemental O2 as needed, titrate to maintain sats --> on ROOM AIR, no further wheezing. NO SPUTUM PRODUCTION REPORTED (5) MRSA bacteremia: hx of such from back abscess, blood cultures added given history/leukocytosis, NO DRAINAGE/ABSCESS ON EXAM at site of back w/ prior source COmpleted course of IV Dapto back in Jan-Feb 2023 BCx ngtd (6) Aortic stenosis: Moderate on ECHO when had bacteremia (7) DVT of lower extremity, bilateral: Hx DVT, continue eliquis 5mg BID (8) Diabetes: HbA1C 8.0 in January, repeat down to 6.8 On 94u 70/30 total daily dose of insulin outpatient, requiring much less here--> reduce dose to 70/30 20 units bid fo rnow, adjust as needed (9) Chronic kidney disease, stage III (moderate): With JEREMY on CKD 4. Shot Dropper peaked at 4.1 and now down to 3.8 Not volume overloaded, no hyperkalemia but with metabolic acidosis which is stable, making urine, no PVR Nephrology consulted Renal US with MRD, prostatomegaly Renal dose meds/avoid nephrotoxins. Appears prior on ETELVINA/ARB therapy, since discontinued. Suspect 2nd to CKD IV/progressive renal function decline Increased bicarb to 1300mg po bid Follow BMP in 1 week as outpt and f/u with Nephro in clinic as scheduled in 1-2 weeks Pt declines future HD even if indicated (10) Anemia due to chronic kidney disease: hgb low at 8.5, replacing iron gave epogen x 1 dose here follow CBC as outpt (11) Rotator cuff arthropathy of right shoulder: as above f/u with Ortho (12) Lung nodule: as above, consult PULM (13) Hypertension: Maintained on metoprolol 50mg BID, amlodipine 5mg daily BPs stable (14) GERD (gastroesophageal reflux disease): continue PPI (15) Hyperlipidemia LDL goal <70: continue statin Plan VTE Prophylaxis - Eliquis BID Dispo- from [facility] but needs acute rehab-dc to [facility] today Discharge Exam Constitutional WD/WN, vitals as above Neck trachea midline, no thyromegaly Respiratory normal respiratory effort, lungs clear to auscultation Cardiovascular RRR, no murmur, no edema Rate/Rhythm: regular rate and regular rhythm Heart Sounds: + murmur (2/6 FREDDY at RUSB) Gastrointestinal (Abdomen) normal bowel sounds, soft, nontender, no hepatosplenomegaly Musculoskeletal Extremities: + extremities abnormal to inspection (RUE with distal edema forearm and wrist/hand) and + abnormal strength (4/5 strength in distal RUE-wrist fl ex/ext,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,interosseus dorsi) Skin no rashes, warm and dry Neurologic moves all extremities and awake; no focal motor deficits Psychiatric A+Ox3, euthymic affect Updated Medication List Medication Instructions Recorded Confirmed Type latanoprost 0.005 % eye drops 1 drp OPB HS ##0 11/10/11 04/26/23 History (Xalatan) acetaminophen 300 mg-codeine 30 mg 1 tab PO UD PRN Pain 12/10/19 04/26/23 History tablet alogliptin 12.5 mg tablet 12.5 mg PO QAM 08/16/21 04/26/23 History cyanocobalamin (vitamin B-12) 1,000 mcg PO QAM 08/16/21 04/26/23 History 1,000 mcg tablet (Vitamin B-12) docusate sodium 100 mg capsule 100 mg PO DAILY PRN Constipation 08/16/21 04/26/23 History (Stool Softener) metoprolol tartrate 50 mg tablet 50 mg PO AMPM 08/16/21 04/26/23 History pantoprazole 40 mg tablet,delayed 40 mg PO DAILYBB 08/16/21 04/26/23 History release albuterol sulfate 90 mcg/actuation 1 inh inhalation AMHS 08/30/22 04/26/23 History aerosol inhaler brimonidine 0.2 % eye drops 1 drp OPB AMHS 08/30/22 04/26/23 History cholecalciferol (vitamin D3) 25 25 mcg PO AMPM 08/30/22 04/26/23 History mcg (1,000 unit) tablet (Vitamin D3) mometasone-formoterol HFA 100 2 puff inhalation BID 08/30/22 04/26/23 History mcg-5 mcg/actuation aerosol inhaler (Dulera) amlodipine 5 mg tablet 5 mg PO DAILY #90 tabs 10/01/22 04/26/23 Rx insulin aspar prot-insulin aspart 94 unit subcut UD 10/24/22 04/26/23 History 100 unit/mL (70-30) subcutaneous pen (Novolog Mix 70-30FlexPen U-100) atorvastatin 20 mg tablet 80 mg PO HS 01/24/23 04/26/23 History cilostazol 100 mg tablet 100 mg PO AMHS 01/24/23 04/26/23 History magnesium oxide 420 mg tablet 420 mg PO QPM 01/24/23 04/26/23 History multivitamin 1 tab PO AMPM 01/24/23 04/26/23 History nystatin 100,000 unit/gram topical 1 applic topical DAILY PRN yeast 01/24/23 04/26/23 History cream Minirin Cream 1 applic topical BID PRN APPLY TO 04/26/23 04/26/23 History LEGS NEEDED acetaminophen 500 mg tablet 500 mg PO DIRECTED PRN 04/26/23 04/26/23 History (Tylenol Extra Strength) PAIN/FEVER apixaban 5 mg tablet (Eliquis) 5 mg PO BID 04/26/23 04/26/23 History prednisone 20 mg tablet 20 mg PO QAM #3 tabs 05/02/23 Rx sodium bicarbonate 650 mg tablet 1,300 mg (2 x 650 mg) PO BID #120 05/02/23 Rx tabs Hospital Stay Data Consultations 04/26/23 15:40 ED Decision to Admit Stat 04/26/23 20:27 Consult Orthopedic Surgery Routine 04/28/23 08:55 Consult Orthopedic Spine Surgery Routine 04/29/23 09:17 Consult Nephrology Routine 04/30/23 17:26 Consult Pulmonology Routine Diagnostic Imagining Performed 04/26/23 13:11 CT head/brain wo con Stat 04/26/23 13:17 CT cervical spine wo con Stat 04/26/23 15:52 MRI Brain [MR brain wo con] Stat 04/27/23 CT chest diagnostic wo con Urgent 04/27/23 08:33 MRI Shoulder [MR shoulder RT wo con] Urgent 04/27/23 15:42 MRI Cervical [MR cervical spine wo con] Urgent 04/30/23 US renal/blad retro comp Routine 04/30/23 18:53 MR thoracic spine wo con Routine Pending Results Patient Have Any Pending Studies at Discharge: Yes (autoimmune workup for lung disease;final blood cultures-no growth to date) Discharge Instructions Given to Patient (Per Discharging Provider) You were admitted with an injury to your right shoulder that caused a rotator cuff tear and weakness in the Right arm. You had a workup that was extensive including MRIs of your brain, cervical, and thoracic spine as well as CT scans of the chest and spine. You were found to have a benign growth called a syrinx in your spine but this is not likely causing your weakness and pain in the arm. You may have stretched a nerve coming out of the neck or the upper arm causing the persistent weakness in the arm. The prednisone is helping your pain and strength to return. Please continue PT and OT exercises at the rehab for this. It is recommended that you have an EMG/NCS with Neurology or Physiatry of the right upper extremity. You also had an acute kidney injury with worsening kidney function but this is improving. You should have blood work checked in 1 week to check your kidney function and follow up with Dr. Mitchell as planned in the near future. For your persistent abnormal chest CT and lung nodules, you had some blood tests drawn that will need follow up to check for various autoimmune disorders. Please keep your previously scheduled appointment with the [facility] in May. Total Time Total Time Spent Total Time Spent (In Minutes): 45 min Coding Level of Care Code 93069 INP/OBS DISCH >30 MIN Diagnoses Traumatic brachial plexus lesion S14.3XXA Pneumonia J18.9 Hypoxia R09.02 COPD (chronic obstructive pulmonary disease) J44.9 MRSA bacteremia R78.81; B95.62 Aortic stenosis I35.0 DVT of lower extremity, bilateral I82.403 Diabetes E11.9 Chronic kidney disease, stage III (moderate) N18.30 Anemia due to chronic kidney disease N18.9; D63.1 Rotator cuff arthropathy of right shoulder M12.811 Lung nodule R91.1 Hypertension I10 GERD (gastroesophageal reflux disease) K21.9 Hyperlipidemia LDL goal <70 E78.5
--- NOTE | 2023-05-02 13:13 | Nephrology Progress Note ---
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 Admitted with acute onset right shoulder pain with rotator cuff tear, started on prednisone with slight improvement in symptoms. She received empiric antibiotic for changes in chest x-ray but discontinued. JEREMY and metabolic acidosis, creatinine up to 3.6 with bicarb 14. Hemoglobin less than 10. Urinalysis with high-grade proteinuria but no hematuria or pyuria. Renal ultrasound unremarkable. Unclear etiology for JEREMY, no offending nephrotoxic medications, hypotension. ? Hemodynamically mediated JEREMY with variability on blood pressure with impaired autoregulation in the setting of diabetes. Hb low, received venofer. Unclear etiology for JEREMY creatinine peaked to 4.3 mg/dl and now started to improve, metabolic acidosis improved while on sodium bicarbonate. --continue sodium bicarbonate 2 tabs twice a day --Advised to continue to keep well-hydrated, continue to avoid all nephrotoxic medications. Monitor renal function closely. --Epogen 04180 units x 1 dose given --Dose medications for eGFR less than 30 ml/min --OK to be discharged with out pt lab monitoring. Admission and Anticipated Discharge Date Admission Date: April 28, 2023 Dalton Montero was seen and evaluated this morning. Overall he feels well, right upper extremity pain and swelling improved. Has been voiding normally. Denies shortness of breath or chest pain. Appetite decent. Renal function slightly improved today, creatinine down to 3.8 mg/dl. Blood pressure well controlled. Hb slightly improved. Review of Systems Review of Systems: Detailed review of system was done and pertinent positives and negatives were mentioned above. Physical Exam Constitutional: WD/WN, vitals as above no acute distress Eyes: + anicteric sclerae Neck: normal visual inspection Respiratory: no respiratory distress Auscultation: lungs clear to auscultation bilaterally Cardiovascular: RRR, no murmur, no edema Skin: no rashes, warm and dry Neurologic: no focal motor deficits Psychiatric: Orientation: alert and oriented x 3 Affect: euthymic affect Results & Data Vital Signs (Past 12 Hours) Vital Signs Temp Pulse Pulse Resp BP Pulse Ox O2 Del Method 05/02/23 11:52 36.5 C 68 14 145/72 H 96 Room Air 05/02/23 09:01 Room Air 05/02/23 08:11 36.6 C 80 16 138/82 94 Room Air 05/02/23 07:18 78 18 94 Room Air PG Care Time/CCT Total # of Minutes Spent Total Time Spent with Patient: Total time spent is greater than 50% in coordination of care (as documented) at patient's floor/unit and/or counseling patient: Coding Level of Care Code 75666 SUB INP/OBS CARE 2/35MIN Diagnoses Acute kidney injury N17.9 Rotator cuff arthropathy of right shoulder M12.811 Leukocytosis D72.829 Leukocytosis type: unspecified Anemia due to chronic kidney disease N18.9; D63.1 (3) Leukocytosis Leukocytosis type: unspecified Qualified Code(s): D72.829 - Elevated white blood cell count, unspecified
[2023-05-06 19:57] LABS: Anti-Centromere Ab <1.0 NEG AI (<1.0 NEG); Anti-Glom Basement Antibody <1.0 AI (<1.0); Anti-Neutrophil Antibody NONE DETECTED (NONE DETECTED); Anti-SS-A <1.0 NEG AI (<1.0 NEG); Anti-SS-B <1.0 NEG AI (<1.0 NEG); Anti-dsDNA Recombinant <1 IU/mL; Cyclic Citrullinated Pep IgG <16 UNITS; JO 1 Antibody <1.0 NEG AI (<1.0 NEG); Proteinase-3 Ab <1.0 AI; RNP Antibody <1.0 NEG AI (<1.0 NEG); Rheumatoid Factor <14 IU/mL (<14); Scleroderma Anti Scl-70 Ab <1.0 NEG AI (<1.0 NEG); Sm Antibody <1.0 NEG AI (<1.0 NEG)
== END 2023-05-02 16:14 | DRG 73 ==
LOC: EDINP 11:51 → ED 11:51 → SUATTDRO 17:04 → 3W 19:00 → SUATTDRO 04-28 11:20